=== PATIENT | male | born 1960 | race African-American/Black ===

== ENCOUNTER 2016-09-07 10:11 | Inpatient (IN) | payer OTHER ==
[2016-09-07 10:31] VITALS: BMI 31.5
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
[2016-09-07] MEDS ORDERED: MAGNESIUM CITRATE 300 ML BOTTLE PO PRN (11:29)
[2016-09-07] MEDS ORDERED: LOPERAMIDE HCL 2 MG CAPSULE PO PRN (11:29)
[2016-09-07] MEDS ORDERED: MAG HYDROX/AL HYDROX/SIMETH 30 ML UNIT-DOSE CUP PO PRN (11:29)
[2016-09-07] MEDS ORDERED: guaiFENesin/D-METHORPHAN HB 10 ML UNIT-DOSE CUPS PO PRN (11:29)
[2016-09-07] MEDS ORDERED: ACETAMINOPHEN 325 MG TABLET (FP) PO PRN (11:29)
[2016-09-07] MEDS ORDERED: chlordiazePOXIDE HCL 25 MG CAPSULE PO ONE (11:29)
[2016-09-07] MEDS ORDERED: MENTHOL/PHENOL 1 EACH UD MM PRN (11:29)
[2016-09-07] MEDS ORDERED: MAGNESIUM HYDROX 2400MG/30ML ORAL SUSPENSION 30 ML CUP PO PRN (11:29)
[2016-09-07] MEDS ORDERED: hydrOXYzine PAMOATE 50 MG CAPSULE (FP) PO PRN (11:29)
[2016-09-07] MEDS ORDERED: P-EPHED 60MG/TRIPROLIDI 2.5MG TABLET PO PRN (11:29)
[2016-09-07] MEDS: chlordiazePOXIDE HCL 25 MG CAPSULE PO PRN (15:10)
[2016-09-07] MEDS: NICOTINE 21 MG/24 HOURS TOPICAL PATCH TD SCH (15:13)
--- NOTE | 2016-09-07 16:06 | EKG ---
Test Reason : Blood Pressure : / mmHG Vent. Rate : 095 BPM Atrial Rate : 095 BPM P-R Int : 154 ms QRS Dur : 082 ms QT Int : 364 ms P-R-T Axes : 063 097 039 degrees QTc Int : 457 ms NORMAL SINUS RHYTHM RIGHTWARD AXIS BORDERLINE ECG NO PREVIOUS ECGS AVAILABLE Confirmed by ADELINA LEHMAN, KYUNG ([id number]) on 09/07/2016 4:05:28 PM Referred By: Confirmed By:KYUNG SAHU MD
[2016-09-07 17:53] LABS: URINE APPEARANCE CLEAR; URINE BILIRUBIN NEGATIVE (NEGATIVE); URINE BLOOD 1+ (NEGATIVE); URINE COLOR STRAW; URINE GLUCOSE (UA) NEGATIVE (NEGATIVE); URINE KETONE NEGATIVE (NEGATIVE); URINE LEUK ESTERASE NEGATIVE (NEGATIVE); URINE NITRITE NEGATIVE (NEGATIVE); URINE PROTEIN NEGATIVE (NEGATIVE); URINE UROBILINOGEN NEGATIVE E.U./dl (0.2-1.0)
[2016-09-07] MEDS: chlordiazePOXIDE HCL 25 MG CAPSULE PO SCH ×2 (18:39→22:46)
[2016-09-07 18:48] LABS: URINE RBC 1 /hpf (0-3); URINE WBC <1 /hpf (3-5)
[2016-09-07] MEDS: ATORVASTATIN CA 20 MG TABLET (FP) PO SCH (22:46)
[2016-09-07] MEDS: LISINOPRIL 10 MG TABLET (FP) PO SCH (22:46)
[2016-09-07] MEDS: THIAMINE HCL 100 MG TABLET (FP) PO SCH (22:46)
[2016-09-07] MEDS: VITAMINS A AND D TOPICAL OINTMENT 60 GM TUBE TP SCH (22:48)
[2016-09-07] MEDS: diphenhydrAMINE HCL 50 MG CAPSULE PO PRN (22:49)
[2016-09-08] MEDS: chlordiazePOXIDE HCL 25 MG CAPSULE PO SCH ×4 (06:06→22:02)
[2016-09-08 09:18] LABS: MCH 28.9 pg (25.7-33.7); MCHC 32.4 g/dl (32.0-35.9); MEAN PLT VOLUME 9.5 fl (7.5-11.1); PLATELET COUNT 175 K/MM3 (134-434); RDW 14.7 % (11.9-15.9); WHITE BLOOD COUNT 4.3 K/mm3 (4.0-10.0)
[2016-09-08 09:29] LABS: ALBUMIN 3.1 g/dl (3.4-5.0); ANION GAP 5 (8-16); CALCIUM 8.8 mg/dL (8.5-10.1); CO2 34 mmol/L (21-32); GLUCOSE,RANDOM 104 mg/dL (74-106); SGOT/AST 24 U/L (15-37); SGPT/ALT 30 U/L (12-78)
[2016-09-08 09:30] LABS: ALK PHOS 75 U/L (45-117); BILIRUBIN,TOTAL 0.4 mg/dL (0.2-1.0); CREATININE 0.9 mg/dL (0.7-1.3); TOT PROT 6.1 g/dl (6.4-8.2)
[2016-09-08] MEDS: VITAMINS A AND D TOPICAL OINTMENT 60 GM TUBE TP SCH ×2 (11:15→22:02)
[2016-09-08] MEDS: NICOTINE 21 MG/24 HOURS TOPICAL PATCH TD SCH (11:22)
[2016-09-08] MEDS: PRENATAL VITAMINS W/ FOLIC ACID TABLET (FP) PO SCH (11:22)
[2016-09-08] MEDS: ASPIRIN 81 MG CHEWABLE TABLETS PO SCH (11:24)
[2016-09-08] MEDS: LISINOPRIL 10 MG TABLET (FP) PO SCH ×2 (11:24→22:02)
[2016-09-08] MEDS: METOPROLOL TARTRATE 50 MG TABLET (FP) PO SCH (11:25)
[2016-09-08] MEDS ORDERED: POTASSIUM CHLORIDE TABS 20 MEQ TABLET.ER (FP) PO ONE (12:24)
--- NOTE | 2016-09-08 12:24 | PN ---
S CIWA - CIWA Score Nausea/Vomitin Muscle Tremors: 3 Anxiety: 3 Agitation: 3 Paroxysmal Sweats: 1-Minimal Palms Moist Orientation: 0-Oriented Tacttile Disturbances: 1-Very Mild Itch/Numbness Auditory Disturbances: 1-Very Mild Visual Disturbances: 1-Very Mild Sensitivity Headache: 2-Mild CIWA-Ar Total Score: 18 BHS Progress Note (SOAP) Subjective: ALERT,IRRITABLE,ANXIOUS,INTERRUPTED SLEEP,TREMOR Objective: 09/08/16 12:21 Vital Signs Temperature 96.6 F L 09/08/16 10:00 Pulse Rate 102 H 09/08/16 10:00 Respiratory Rate 18 09/08/16 10:00 Blood Pressure 119/75 09/08/16 10:00 O2 Sat by Pulse Oximetry (%) EKG NSR Laboratory Last Values WBC 4.3 K/mm3 (4.0-10.0) 09/08/16 07:20 RBC 4.90 M/mm3 (4.00-5.60) 09/08/16 07:20 Hgb 14.2 GM/dL (11.7-16.9) 09/08/16 07:20 Hct 43.6 % (35.4-49) 09/08/16 07:20 MCV 89.0 fl (80-96) 09/08/16 07:20 MCHC 32.4 g/dl (32.0-35.9) 09/08/16 07:20 RDW 14.7 % (11.9-15.9) 09/08/16 07:20 Plt Count 175 K/MM3 (134-434) D 09/08/16 07:20 MPV 9.5 fl (7.5-11.1) 09/08/16 07:20 Sodium 141 mmol/L (136-145) 09/08/16 07:20 Potassium 3.1 mmol/L (3.5-5.1) L 09/08/16 07:20 Chloride 102 mmol/L (98-107) 09/08/16 07:20 Carbon Dioxide 34 mmol/L (21-32) H 09/08/16 07:20 Anion Gap 5 (8-16) L 09/08/16 07:20 BUN 11 mg/dL (7-18) D 09/08/16 07:20 Creatinine 0.9 mg/dL (0.7-1.3) 09/08/16 07:20 Creat Clearance w eGFR > 60 (>60) 09/08/16 07:20 Random Glucose 104 mg/dL (74-106) D 09/08/16 07:20 Calcium 8.8 mg/dL (8.5-10.1) 09/08/16 07:20 Total Bilirubin 0.4 mg/dL (0.2-1.0) D 09/08/16 07:20 AST 24 U/L (15-37) 09/08/16 07:20 ALT 30 U/L (12-78) D 09/08/16 07:20 Alkaline Phosphatase 75 U/L (45-117) 09/08/16 07:20 Total Protein 6.1 g/dl (6.4-8.2) L 09/08/16 07:20 Albumin 3.1 g/dl (3.4-5.0) L 09/08/16 07:20 Urine Color Straw 09/07/16 14:00 Urine Appearance Clear 09/07/16 14:00 Urine pH 6.0 (5.0-8.0) 09/07/16 14:00 Ur Specific [place] 1.004 (1.001-1.035) 09/07/16 14:00 Urine Protein Negative (NEGATIVE) 09/07/16 14:00 Urine Glucose (UA) Negative (NEGATIVE) 09/07/16 14:00 Urine Ketones Negative (NEGATIVE) 09/07/16 14:00 Urine Blood 1+ (NEGATIVE) H 09/07/16 14:00 Urine Nitrite Negative (NEGATIVE) 09/07/16 14:00 Urine Bilirubin Negative (NEGATIVE) 09/07/16 14:00 Urine Urobilinogen Negative E.U./dl (0.2-1.0) 09/07/16 14:00 Ur Leukocyte Esterase Negative (NEGATIVE) 09/07/16 14:00 Urine RBC 1 /hpf (0-3) 09/07/16 14:00 Urine WBC <1 /hpf (3-5) 09/07/16 14:00 RPR Titer Nonreactive (NONREACTIVE) 09/08/16 07:20 Assessment: 09/08/16 12:22 WITHDRAWAL SYMPTOM Plan: CONTINUE DETOX,K 3.1 WILL GIVE K DUR 20 MEQ PO BID,REPEAT BMP
[2016-09-08] MEDS: THIAMINE HCL 100 MG TABLET (FP) PO SCH (22:01)
[2016-09-08] MEDS: POTASSIUM CHLORIDE TABS 20 MEQ TABLET.ER (FP) PO SCH (22:02)
[2016-09-08] MEDS: ATORVASTATIN CA 20 MG TABLET (FP) PO SCH (22:02)
[2016-09-08] MEDS: diphenhydrAMINE HCL 50 MG CAPSULE PO PRN (22:51)
[2016-09-09] MEDS: chlordiazePOXIDE HCL 25 MG CAPSULE PO SCH ×2 (05:40→11:11)
[2016-09-09] MEDS: chlordiazePOXIDE HCL 25 MG CAPSULE PO PRN (07:42)
[2016-09-09] MEDS ORDERED: diphenhydrAMINE HCL 25 MG CAPSULE (FP) PO ONE (09:44)
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
[2016-09-09] MEDS: PRENATAL VITAMINS W/ FOLIC ACID TABLET (FP) PO SCH (11:07)
[2016-09-09] MEDS: METOPROLOL TARTRATE 50 MG TABLET (FP) PO SCH (11:07)
[2016-09-09] MEDS: ASPIRIN 81 MG CHEWABLE TABLETS PO SCH (11:11)
[2016-09-09] MEDS: LISINOPRIL 10 MG TABLET (FP) PO SCH ×2 (11:11→23:00)
[2016-09-09] MEDS: VITAMINS A AND D TOPICAL OINTMENT 60 GM TUBE TP SCH ×2 (11:12→23:00)
[2016-09-09] MEDS: POTASSIUM CHLORIDE TABS 20 MEQ TABLET.ER (FP) PO SCH ×2 (11:12→22:59)
[2016-09-09] MEDS: NICOTINE 21 MG/24 HOURS TOPICAL PATCH TD SCH (11:12)
--- NOTE | 2016-09-09 12:24 | PN ---
S CIWA - CIWA Score Nausea/Vomitin Muscle Tremors: 3 Anxiety: 2 Agitation: 2 Paroxysmal Sweats: 1-Minimal Palms Moist Orientation: 0-Oriented Tacttile Disturbances: 1-Very Mild Itch/Numbness Auditory Disturbances: 1-Very Mild Visual Disturbances: 1-Very Mild Sensitivity Headache: 2-Mild CIWA-Ar Total Score: 16 BHS Progress Note (SOAP) Subjective: ALERT,IRRITABLE,ANXIOUS,INTERRUPTED SLEEP,TREMOR Objective: 09/09/16 12:23 Vital Signs Temperature 96.1 F L 09/09/16 09:57 Pulse Rate 90 09/09/16 09:57 Respiratory Rate 18 09/09/16 09:57 Blood Pressure 124/70 09/09/16 09:57 O2 Sat by Pulse Oximetry (%) Assessment: 09/09/16 12:23 WITHDRAWAL SYMPTOM Plan: CONTINUE DETOX
[2016-09-09] MEDS: ATORVASTATIN CA 20 MG TABLET (FP) PO SCH (22:59)
[2016-09-09] MEDS: traZODone HCL 100 MG TABLET (FP) PO SCH (22:59)
[2016-09-09] MEDS: THIAMINE HCL 100 MG TABLET (FP) PO SCH (23:00)
[2016-09-09] MEDS: chlordiazePOXIDE 5 MG CAPSULE PO SCH ×2 (23:00→23:01)
[2016-09-10] MEDS: chlordiazePOXIDE 5 MG CAPSULE PO SCH ×2 (05:34→10:37)
[2016-09-10] MEDS: POTASSIUM CHLORIDE TABS 20 MEQ TABLET.ER (FP) PO SCH ×2 (10:35→22:27)
[2016-09-10] MEDS: LISINOPRIL 10 MG TABLET (FP) PO SCH ×2 (10:36→22:27)
[2016-09-10] MEDS: ASPIRIN 81 MG CHEWABLE TABLETS PO SCH (10:36)
[2016-09-10] MEDS: NICOTINE 21 MG/24 HOURS TOPICAL PATCH TD SCH (10:36)
[2016-09-10] MEDS: METOPROLOL TARTRATE 50 MG TABLET (FP) PO SCH (10:36)
[2016-09-10] MEDS: PRENATAL VITAMINS W/ FOLIC ACID TABLET (FP) PO SCH (10:37)
[2016-09-10] MEDS: VITAMINS A AND D TOPICAL OINTMENT 60 GM TUBE TP SCH ×2 (10:37→23:40)
--- NOTE | 2016-09-10 11:38 | PN ---
BHS Progress Note (SOAP) Subjective: interrupted sleep, lbp Objective: 09/10/16 11:36 Vital Signs Temperature 97.9 F 09/10/16 10:12 Pulse Rate 98 H 09/10/16 10:12 Respiratory Rate 18 09/10/16 10:12 Blood Pressure 121/74 09/10/16 10:12 O2 Sat by Pulse Oximetry (%) Laboratory Tests 09/07/16 09/08/16 09/08/16 14:00 07:20 07:20 WBC 4.3 RBC 4.90 Hgb 14.2 Hct 43.6 MCV 89.0 MCHC 32.4 RDW 14.7 Plt Count 175 D MPV 9.5 Sodium 141 Potassium 3.1 L Chloride 102 Carbon Dioxide 34 H Anion Gap 5 L BUN 11 D Creatinine 0.9 Creat Clearance w eGFR > 60 Random Glucose 104 D Calcium 8.8 Total Bilirubin 0.4 D AST 24 ALT 30 D Alkaline Phosphatase 75 Total Protein 6.1 L Albumin 3.1 L Urine Color Straw Urine Appearance Clear Urine pH 6.0 Ur Specific [place] 1.004 Urine Protein Negative Urine Glucose (UA) Negative Urine Ketones Negative Urine Blood 1+ H Urine Nitrite Negative Urine Bilirubin Negative Urine Urobilinogen Negative Ur Leukocyte Esterase Negative Urine RBC 1 Urine WBC <1 RPR Titer 09/08/16 07:20 WBC RBC Hgb Hct MCV MCHC RDW Plt Count MPV Sodium Potassium Chloride Carbon Dioxide Anion Gap BUN Creatinine Creat Clearance w eGFR Random Glucose Calcium Total Bilirubin AST ALT Alkaline Phosphatase Total Protein Albumin Urine Color Urine Appearance Urine pH Ur Specific [place] Urine Protein Urine Glucose (UA) Urine Ketones Urine Blood Urine Nitrite Urine Bilirubin Urine Urobilinogen Ur Leukocyte Esterase Urine RBC Urine WBC RPR Titer Nonreactive pt aox3 in nad ambulating Assessment: 09/10/16 11:37 withdrawal sx's lbp Plan: cont. detox increase fluids motrin prn d/c in am
[2016-09-10] MEDS: chlordiazePOXIDE HCL 10 MG CAPSULE PO SCH ×2 (17:31→22:27)
[2016-09-10] MEDS: THIAMINE HCL 100 MG TABLET (FP) PO SCH (22:26)
[2016-09-10] MEDS: traZODone HCL 100 MG TABLET (FP) PO SCH (22:26)
[2016-09-10] MEDS: ATORVASTATIN CA 20 MG TABLET (FP) PO SCH (22:27)
[2016-09-11] MEDS: chlordiazePOXIDE HCL 10 MG CAPSULE PO SCH ×2 (05:29→12:31)
--- NOTE | 2016-09-11 08:33 | DS ---
[facility] Detox Discharge Summary Admission Date: 09/07/16 Discharge Date: 09/11/16 - History Present History: Alcohol Dependence - Physical Exam Results Vital Signs: Vital Signs Temperature 97.2 F L 09/11/16 06:27 Pulse Rate 84 09/11/16 06:27 Respiratory Rate 18 09/11/16 06:27 Blood Pressure 109/71 09/11/16 06:27 O2 Sat by Pulse Oximetry (%) - Treatment Hospital Course: Detox Protocol Followed, Detoxed Safely, Responded well, Discharged Condition Good, Rehab Referral Accepted - Medication Discharge Medications: Ambulatory Orders Pravastatin Sodium [Pravachol -] 80 mg PO HS #30 tablet 05/16/15 Aspirin [ASA -] 81 mg PO DAILY #30 tab.chew 08/01/15 Lisinopril [Prinivil] 10 mg PO BID 08/01/15 Metoprolol Tartrate [Lopressor -] 50 mg PO DAILY 10/01/15 Multivitamin with Minerals [Icaps Plus] 1 each PO DAILY 06/29/16 Trazodone HCl [Desyrel -] 100 mg PO HS 09/07/16 Trazodone HCl [Desyrel -] 100 mg PO HS #30 tablet 09/09/16 - Diagnosis (1) Alcohol dependence with uncomplicated withdrawal Current Visit: Yes Status: Chronic (2) Arthritis Current Visit: Yes Status: Chronic (3) CAD (coronary artery disease) Current Visit: Yes Status: Chronic Qualifiers: Coronary Disease-Associated Artery/Lesion type: unspecified vessel or lesion type [place] vs. transplanted heart: [place] heart Associated angina: angina presence unspecified Qualified Code(s): I25.10 - Atherosclerotic heart disease of [place] coronary artery without angina pectoris (4) Chronic low back pain Current Visit: Yes Status: Chronic Qualifiers: Back pain laterality: midline Sciatica presence: without sciatica Qualified Code(s): M54.5 - Low back pain; G89.29 - Other chronic pain (5) Cocaine dependence, uncomplicated Current Visit: Yes Status: Chronic (6) Hypercholesterolemia Current Visit: Yes Status: Chronic (7) Hypertension Current Visit: Yes Status: Chronic Qualifiers: Hypertension type: essential hypertension Qualified Code(s): I10 - Essential (primary) hypertension (8) Nicotine dependence Current Visit: Yes Status: Chronic Qualifiers: Nicotine product type: cigarettes Substance use status: uncomplicated Qualified Code(s): F17.210 - Nicotine dependence, cigarettes, uncomplicated (9) Obesity Current Visit: Yes Status: Chronic Qualifiers: Obesity type: due to excess calories Obesity severity: non-morbid Qualified Code(s): E66.09 - Other obesity due to excess calories (10) Alcohol-induced sleep disorder Current Visit: No Status: Acute (11) Drug-induced mood disorder Current Visit: No Status: Acute (12) Hypokalemia Current Visit: No Status: Acute (13) Substance-induced sleep disorder Current Visit: No Status: Acute (14) Depression Current Visit: No Status: Chronic (15) Insomnia Current Visit: No Status: Chronic Qualifiers: Insomnia type: unspecified Qualified Code(s): G47.00 - Insomnia, unspecified (16) Tooth ache Current Visit: No Status: Chronic - AMA Did Patient Leave Against Medical Advice: No
[2016-09-11 10:03] VITALS: BP 116/73; PULSE 93; TEMP 97.3
[2016-09-11] MEDS: METOPROLOL TARTRATE 50 MG TABLET (FP) PO SCH (12:25)
[2016-09-11] MEDS: LISINOPRIL 10 MG TABLET (FP) PO SCH (12:25)
[2016-09-11] MEDS: ASPIRIN 81 MG CHEWABLE TABLETS PO SCH (12:25)
[2016-09-11] MEDS: POTASSIUM CHLORIDE TABS 20 MEQ TABLET.ER (FP) PO SCH (12:25)
[2016-09-11] MEDS: NICOTINE 21 MG/24 HOURS TOPICAL PATCH TD SCH (12:26)
[2016-09-11] MEDS: PRENATAL VITAMINS W/ FOLIC ACID TABLET (FP) PO SCH (12:26)
[2016-09-11] MEDS: VITAMINS A AND D TOPICAL OINTMENT 60 GM TUBE TP SCH (12:31)
== END 2016-09-11 13:56 | disposition other institution (70) | DRG 897 ==
LOC: YASAS 10:11 → Y6N 13:33
PROVIDERS: ADMIT Internal Medicine; ATTEND Internal Medicine
PROC: HZ2ZZZZ Detoxification Services for Substance Abuse Treatment (ICD-10-PCS; principal; 2016-09-07)
DX: F10.230 Alcohol dependence with withdrawal, uncomplicated (principal); F19.282 Other psychoactive substance dependence with psychoactive substance-induced sleep disorder; F10.282 Alcohol dependence with alcohol-induced sleep disorder; F14.220 Cocaine dependence with intoxication, uncomplicated; F17.210 Nicotine dependence, cigarettes, uncomplicated; F19.24 Other psychoactive substance dependence with psychoactive substance-induced mood disorder; F32.9 Major depressive disorder, single episode, unspecified; I25.10 Atherosclerotic heart disease of native coronary artery without angina pectoris; I10 Essential (primary) hypertension; M12.9 Arthropathy, unspecified; M54.5 Low back pain; G89.29 Other chronic pain; E03.9 Hypothyroidism, unspecified; E78.00 Pure hypercholesterolemia, unspecified; E66.09 Other obesity due to excess calories; Z68.31 Body mass index [BMI] 31.0-31.9, adult; G47.00 Insomnia, unspecified; K08.89 Other specified disorders of teeth and supporting structures; Z95.5 Presence of coronary angioplasty implant and graft; Z59.0 Homelessness
CPT/HCPCS: 36415; 80053; 81003; 81015; 84132; 85027; 86593; 93005; 93010

== ENCOUNTER 2017-03-10 08:23 | Inpatient (IN) | payer OTHER ==
[2017-03-10 08:48] VITALS: BMI 29.5
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
[2017-03-10] MEDS ORDERED: IBUPROFEN 400 MG TABLET (FP) PO PRN (11:19)
[2017-03-10] MEDS ORDERED: MAGNESIUM HYDROX 2400MG/30ML ORAL SUSPENSION 30 ML CUP PO PRN (11:19)
[2017-03-10] MEDS ORDERED: hydrOXYzine PAMOATE 50 MG CAPSULE (FP) PO PRN (11:19)
[2017-03-10] MEDS ORDERED: chlordiazePOXIDE HCL 25 MG CAPSULE PO PRN (11:19)
[2017-03-10] MEDS ORDERED: MENTHOL/PHENOL 1 EACH UD MM PRN (11:19)
[2017-03-10] MEDS ORDERED: MAG HYDROX/AL HYDROX/SIMETH 30 ML UNIT-DOSE CUP PO PRN (11:19)
[2017-03-10] MEDS ORDERED: LOPERAMIDE HCL 2 MG CAPSULE PO PRN (11:19)
[2017-03-10] MEDS ORDERED: P-EPHED 60MG/TRIPROLIDI 2.5MG TABLET PO PRN (11:19)
[2017-03-10] MEDS ORDERED: MAGNESIUM CITRATE 300 ML BOTTLE PO PRN (11:19)
[2017-03-10] MEDS ORDERED: guaiFENesin/D-METHORPHAN HB 10 ML UNIT-DOSE CUPS PO PRN (11:19)
[2017-03-10] MEDS ORDERED: chlordiazePOXIDE HCL 25 MG CAPSULE PO ONE (12:09)
[2017-03-10] MEDS: METOPROLOL TARTRATE 50 MG TABLET (FP) PO SCH (13:43)
[2017-03-10 16:02] LABS: URINE APPEARANCE CLEAR; URINE BILIRUBIN NEGATIVE (NEGATIVE); URINE COLOR YELLOW; URINE GLUCOSE (UA) NEGATIVE (NEGATIVE); URINE KETONE TRACE (NEGATIVE); URINE LEUK ESTERASE NEGATIVE (NEGATIVE); URINE NITRITE NEGATIVE (NEGATIVE); URINE UROBILINOGEN 4.0 E.U/dl mg/dL (0.2-1.0)
[2017-03-10 16:04] LABS: URINE BLOOD 1+ (NEGATIVE); URINE PROTEIN 1+ (NEGATIVE)
[2017-03-10 16:29] LABS: URINE BACTERIA RARE /hpf (NONE SEEN); URINE MUCUS RARE; URINE RBC 13 /hpf (0-3); URINE WBC 2 /hpf (3-5)
--- NOTE | 2017-03-10 16:59 | EKG ---
Test Reason : Blood Pressure : / mmHG Vent. Rate : 097 BPM Atrial Rate : 097 BPM P-R Int : 160 ms QRS Dur : 076 ms QT Int : 378 ms P-R-T Axes : 062 084 049 degrees QTc Int : 480 ms NORMAL SINUS RHYTHM PROLONGED QT ABNORMAL ECG WHEN COMPARED WITH ECG OF 26-OCT-2016 15:55, PREMATURE ATRIAL COMPLEXES ARE NO LONGER PRESENT Confirmed by JESSICA EPSTEIN MD ([id number]) on 03/10/2017 4:59:30 PM Referred By: Confirmed By:JESSICA EPSTEIN MD
[2017-03-10] MEDS: chlordiazePOXIDE HCL 25 MG CAPSULE PO SCH ×2 (17:01→22:15)
[2017-03-10] MEDS: NICOTINE 21 MG/24 HOURS TOPICAL PATCH TD PRN (17:28)
[2017-03-10] MEDS: LISINOPRIL 10 MG TABLET (FP) PO SCH (22:14)
[2017-03-10] MEDS: ATORVASTATIN CA 20 MG TABLET (FP) PO SCH (22:14)
[2017-03-10] MEDS: THIAMINE HCL 100 MG TABLET (FP) PO SCH (22:14)
[2017-03-10] MEDS: diphenhydrAMINE HCL 50 MG CAPSULE PO PRN (22:15)
[2017-03-11] MEDS: chlordiazePOXIDE HCL 25 MG CAPSULE PO SCH ×4 (05:40→22:10)
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
[2017-03-11 09:57] LABS: HIV 1 & 2 AB NEGATIVE; HIV 1 AGp24 NEGATIVE
[2017-03-11] MEDS ORDERED: NICOTINE 21 MG/24 HOURS TOPICAL PATCH TD SCH (10:00)
[2017-03-11] MEDS: NICOTINE 21 MG/24 HOURS TOPICAL PATCH TD PRN (10:03)
[2017-03-11] MEDS: METOPROLOL TARTRATE 50 MG TABLET (FP) PO SCH (10:03)
[2017-03-11] MEDS: PRENATAL VITAMINS W/ FOLIC ACID TABLET (FP) PO SCH (10:03)
[2017-03-11] MEDS: LISINOPRIL 10 MG TABLET (FP) PO SCH ×2 (10:03→22:09)
[2017-03-11] MEDS: ASPIRIN 81 MG CHEWABLE TABLETS PO SCH (10:03)
[2017-03-11] MEDS: ACETAMINOPHEN 325 MG TABLET (FP) PO PRN ×2 (10:05→20:21)
[2017-03-11 10:08] LABS: MCH 28.8 pg (25.7-33.7); MCHC 32.7 g/dl (32.0-35.9); MEAN PLT VOLUME 10.1 fl (7.5-11.1); PLATELET COUNT 165 K/MM3 (134-434); RDW 14.1 % (11.9-15.9); WHITE BLOOD COUNT 6.4 K/mm3 (4.0-10.0)
[2017-03-11 10:18] LABS: ALBUMIN 3.6 g/dl (3.4-5.0); ANION GAP 8 (8-16); CALCIUM 9.1 mg/dL (8.5-10.1); CO2 30 mmol/L (21-32); GLUCOSE,RANDOM 121 mg/dL (74-106); SGOT/AST 30 U/L (15-37); SGPT/ALT 26 U/L (12-78)
[2017-03-11 10:20] LABS: ALK PHOS 95 U/L (45-117); BILIRUBIN,TOTAL 0.2 mg/dL (0.2-1.0); CREATININE 0.9 mg/dL (0.7-1.3)
--- NOTE | 2017-03-11 10:24 | PN ---
[facility] CIWA - CIWA Score Nausea/Vomitin-No Nausea/No Vomiting Muscle Tremors: 4-Moderate,w/Arms Extend Anxiety: 4-Mod. Anxious/Guarded Agitation: 4-Moderately Restless Paroxysmal Sweats: 1-Minimal Palms Moist Orientation: 0-Oriented Tacttile Disturbances: 3-Moderate Itch/Numb/Burn Auditory Disturbances: 0-None Visual Disturbances: 0-None Headache: 0-None Present CIWA-Ar Total Score: 16 BHS Progress Note (SOAP) Subjective: ANXIETY,SWEATS,BACK PAIN,FATIGUE. Objective: 03/11/17 10:19 Vital Signs Temperature 96.8 F L 03/11/17 09:48 Pulse Rate 92 H 03/11/17 09:48 Respiratory Rate 18 03/11/17 09:48 Blood Pressure 136/89 03/11/17 09:48 O2 Sat by Pulse Oximetry (%) Laboratory Last Values Urine Color Yellow 03/10/17 14:10 Urine Appearance Clear 03/10/17 14:10 Urine pH 6.0 (5.0-8.0) 03/10/17 14:10 Ur Specific [place] 1.020 (1.005-1.025) 03/10/17 14:10 Urine Protein 1+ (NEGATIVE) H 03/10/17 14:10 Urine Glucose (UA) Negative (NEGATIVE) 03/10/17 14:10 Urine Ketones Trace (NEGATIVE) H 03/10/17 14:10 Urine Blood 1+ (NEGATIVE) H 03/10/17 14:10 Urine Nitrite Negative (NEGATIVE) 03/10/17 14:10 Urine Bilirubin Negative (NEGATIVE) 03/10/17 14:10 Urine Urobilinogen 4.0 e.u/dl mg/dL (0.2-1.0) 03/10/17 14:10 Ur Leukocyte Esterase Negative (NEGATIVE) 03/10/17 14:10 Urine RBC 13 /hpf (0-3) 03/10/17 14:10 Urine WBC 2 /hpf (3-5) 03/10/17 14:10 Ur Epithelial Cells Rare /hpf (FEW) 03/10/17 14:10 Urine Bacteria Rare /hpf (NONE SEEN) 03/10/17 14:10 Urine Mucus Rare 03/10/17 14:10 HIV 1&2 Antibody Screen Negative 03/10/17 11:45 HIV P24 Antigen Negative 03/10/17 11:45 LABS NOTED Assessment: 03/11/17 10:20 WITHDRAWAL SX Plan: CONTINUE DETOX INCREASE PO FLUIDS MOTRIN DIRECTED PRN. FLEXERIL DIRECTED PRN.
[2017-03-11] MEDS: ATORVASTATIN CA 20 MG TABLET (FP) PO SCH (22:09)
[2017-03-11] MEDS: THIAMINE HCL 100 MG TABLET (FP) PO SCH (22:09)
[2017-03-11] MEDS: CYCLOBENZAPRINE HCL 10 MG TABLET (FP) PO PRN (22:10)
[2017-03-11] MEDS: diphenhydrAMINE HCL 50 MG CAPSULE PO PRN (22:11)
[2017-03-12] MEDS: chlordiazePOXIDE HCL 25 MG CAPSULE PO SCH ×2 (05:15→10:03)
--- NOTE | 2017-03-12 09:33 | PN ---
[facility] CIWA - CIWA Score Nausea/Vomitin-No Nausea/No Vomiting Muscle Tremors: 4-Moderate,w/Arms Extend Anxiety: 4-Mod. Anxious/Guarded Agitation: 4-Moderately Restless Paroxysmal Sweats: 1-Minimal Palms Moist Orientation: 0-Oriented Tacttile Disturbances: 3-Moderate Itch/Numb/Burn Auditory Disturbances: 0-None Visual Disturbances: 0-None Headache: 0-None Present CIWA-Ar Total Score: 16 S Progress Note (SOAP) Subjective: ANXIETY,SWEATS,BODYACHES,INTERMITTENT SLEEP. Objective: 03/12/17 09:32 Vital Signs Temperature 98.1 F 03/12/17 05:50 Pulse Rate 91 H 03/12/17 05:50 Respiratory Rate 18 03/12/17 05:50 Blood Pressure 144/93 03/12/17 05:50 O2 Sat by Pulse Oximetry (%) Laboratory Last Values WBC 6.4 K/mm3 (4.0-10.0) D 03/11/17 06:00 RBC 5.07 M/mm3 (4.00-5.60) 03/11/17 06:00 Hgb 14.6 GM/dL (11.7-16.9) 03/11/17 06:00 Hct 44.6 % (35.4-49) 03/11/17 06:00 MCV 88.0 fl (80-96) 03/11/17 06:00 MCH 28.8 pg (25.7-33.7) 03/11/17 06:00 MCHC 32.7 g/dl (32.0-35.9) 03/11/17 06:00 RDW 14.1 % (11.9-15.9) 03/11/17 06:00 Plt Count 165 K/MM3 (134-434) 03/11/17 06:00 MPV 10.1 fl (7.5-11.1) 03/11/17 06:00 Sodium 140 mmol/L (136-145) 03/11/17 06:00 Potassium 3.3 mmol/L (3.5-5.1) L 03/11/17 06:00 Chloride 102 mmol/L (98-107) 03/11/17 06:00 Carbon Dioxide 30 mmol/L (21-32) 03/11/17 06:00 Anion Gap 8 (8-16) 03/11/17 06:00 BUN 12 mg/dL (7-18) 03/11/17 06:00 Creatinine 0.9 mg/dL (0.7-1.3) D 03/11/17 06:00 Creat Clearance w eGFR > 60 (>60) 03/11/17 06:00 Random Glucose 121 mg/dL (74-106) H D 03/11/17 06:00 Calcium 9.1 mg/dL (8.5-10.1) 03/11/17 06:00 Total Bilirubin 0.2 mg/dL (0.2-1.0) D 03/11/17 06:00 AST 30 U/L (15-37) 03/11/17 06:00 ALT 26 U/L (12-78) 03/11/17 06:00 Alkaline Phosphatase 95 U/L (45-117) 03/11/17 06:00 Total Protein 7.0 g/dl (6.4-8.2) 03/11/17 06:00 Albumin 3.6 g/dl (3.4-5.0) 03/11/17 06:00 Urine Color Yellow 03/10/17 14:10 Urine Appearance Clear 03/10/17 14:10 Urine pH 6.0 (5.0-8.0) 03/10/17 14:10 Ur Specific [place] 1.020 (1.005-1.025) 03/10/17 14:10 Urine Protein 1+ (NEGATIVE) H 03/10/17 14:10 Urine Glucose (UA) Negative (NEGATIVE) 03/10/17 14:10 Urine Ketones Trace (NEGATIVE) H 03/10/17 14:10 Urine Blood 1+ (NEGATIVE) H 03/10/17 14:10 Urine Nitrite Negative (NEGATIVE) 03/10/17 14:10 Urine Bilirubin Negative (NEGATIVE) 03/10/17 14:10 Urine Urobilinogen 4.0 e.u/dl mg/dL (0.2-1.0) 03/10/17 14:10 Ur Leukocyte Esterase Negative (NEGATIVE) 03/10/17 14:10 Urine RBC 13 /hpf (0-3) 03/10/17 14:10 Urine WBC 2 /hpf (3-5) 03/10/17 14:10 Ur Epithelial Cells Rare /hpf (FEW) 03/10/17 14:10 Urine Bacteria Rare /hpf (NONE SEEN) 03/10/17 14:10 Urine Mucus Rare 03/10/17 14:10 RPR Titer Nonreactive (NONREACTIVE) 03/11/17 06:00 HIV 1&2 Antibody Screen Negative 03/10/17 11:45 HIV P24 Antigen Negative 03/10/17 11:45 Assessment: 03/12/17 09:33 WITHDRAWAL SX Plan: CONTINUE DETOX REPEAT UA INCREASE PO FLUIDS
[2017-03-12] MEDS: PRENATAL VITAMINS W/ FOLIC ACID TABLET (FP) PO SCH (10:03)
[2017-03-12] MEDS: ASPIRIN 81 MG CHEWABLE TABLETS PO SCH (10:03)
[2017-03-12] MEDS: NICOTINE 21 MG/24 HOURS TOPICAL PATCH TD PRN (10:03)
[2017-03-12] MEDS: METOPROLOL TARTRATE 50 MG TABLET (FP) PO SCH (10:03)
[2017-03-12] MEDS: LISINOPRIL 10 MG TABLET (FP) PO SCH ×2 (10:03→22:14)
[2017-03-12] MEDS: chlordiazePOXIDE 5 MG CAPSULE PO SCH ×2 (17:17→22:13)
[2017-03-12] MEDS: ATORVASTATIN CA 20 MG TABLET (FP) PO SCH (22:13)
[2017-03-12] MEDS: THIAMINE HCL 100 MG TABLET (FP) PO SCH (22:13)
[2017-03-12] MEDS: CYCLOBENZAPRINE HCL 10 MG TABLET (FP) PO PRN (22:14)
[2017-03-12] MEDS: diphenhydrAMINE HCL 50 MG CAPSULE PO PRN (22:15)
[2017-03-12 23:19] LABS: URINE APPEARANCE CLOUDY; URINE BILIRUBIN NEGATIVE (NEGATIVE); URINE BLOOD NEGATIVE (NEGATIVE); URINE COLOR YELLOW; URINE GLUCOSE (UA) NEGATIVE (NEGATIVE); URINE KETONE NEGATIVE (NEGATIVE); URINE LEUK ESTERASE NEGATIVE (NEGATIVE); URINE NITRITE NEGATIVE (NEGATIVE); URINE PROTEIN NEGATIVE (NEGATIVE); URINE UROBILINOGEN NEGATIVE mg/dL (0.2-1.0)
[2017-03-13] MEDS: chlordiazePOXIDE 5 MG CAPSULE PO SCH ×2 (05:55→10:10)
[2017-03-13] MEDS: PRENATAL VITAMINS W/ FOLIC ACID TABLET (FP) PO SCH (10:10)
[2017-03-13] MEDS: LISINOPRIL 10 MG TABLET (FP) PO SCH ×2 (10:10→22:14)
[2017-03-13] MEDS: METOPROLOL TARTRATE 50 MG TABLET (FP) PO SCH (10:11)
[2017-03-13] MEDS: ASPIRIN 81 MG CHEWABLE TABLETS PO SCH (10:11)
--- NOTE | 2017-03-13 10:44 | PN ---
BHS Progress Note (SOAP) Subjective: DECREASED ANXIETY,SWEATS. BACK PAIN BUT MOTRIN AND FLEXERIL WITH SOME EFFECT. Objective: 03/13/17 10:43 Vital Signs Temperature 98.0 F 03/13/17 09:47 Pulse Rate 95 H 03/13/17 09:47 Respiratory Rate 03/13/17 09:47 Blood Pressure 140/99 03/13/17 09:47 O2 Sat by Pulse Oximetry (%) Assessment: 03/13/17 10:44 WITHDRAWAL SX CHRONIC BACK ACHE Plan: CONTINUE DETOX
[2017-03-13] MEDS: chlordiazePOXIDE HCL 10 MG CAPSULE PO SCH ×2 (17:12→22:14)
[2017-03-13] MEDS: ACETAMINOPHEN 325 MG TABLET (FP) PO PRN (17:36)
[2017-03-13] MEDS: ATORVASTATIN CA 20 MG TABLET (FP) PO SCH (22:13)
[2017-03-13] MEDS: THIAMINE HCL 100 MG TABLET (FP) PO SCH (22:13)
[2017-03-13] MEDS: diphenhydrAMINE HCL 50 MG CAPSULE PO PRN (22:14)
[2017-03-13] MEDS: CYCLOBENZAPRINE HCL 10 MG TABLET (FP) PO PRN (22:16)
[2017-03-14] MEDS: chlordiazePOXIDE HCL 10 MG CAPSULE PO SCH (05:56)
[2017-03-14 06:57] VITALS: BP 129/93; PULSE 83; TEMP 96.8
--- NOTE | 2017-03-14 11:10 | DS ---
[facility] Detox Discharge Summary Admission Date: 03/10/17 Discharge Date: 03/14/17 - History Present History: Alcohol Dependence, Cocaine Dependence Additional Comments: DETOX COMPLETED. ALERT O X 3. NAD. PT REMINDED TO FOLLOW UP WITH HIS PMD, DR MCDANIEL ON [address], [place] FOR MEDICAL MANAGEMENT OF COMORBID CONDITIONS. Pertinent Past History: HTN CAD HYPERCHOLESTEROLEMIA HX INTRAVASCULAR STENT PLACEMENT OBESITY - Physical Exam Results Vital Signs: Vital Signs Temperature 96.8 F L 03/14/17 06:41 Pulse Rate 83 03/14/17 06:41 Respiratory Rate 18 03/14/17 06:41 Blood Pressure 129/93 03/14/17 06:41 O2 Sat by Pulse Oximetry (%) Pertinent Admission Physical Exam Findings: WITHDRAWAL SX - Treatment Hospital Course: Detox Protocol Followed, Detoxed Safely, Responded well, Discharged Condition Good, Rehab Referral Accepted Patient has Accepted a Rehab Referral to: [facility]/ [facility] - Medication Discharge Medications: Ambulatory Orders Multivitamin with Minerals [Icaps Plus] 1 each PO DAILY #30 tablet 09/24/16 Trazodone HCl [Desyrel -] 150 mg PO HS 10/26/16 Aspirin [ASA -] 81 mg PO DAILY #30 tab.chew 03/14/17 Atorvastatin Ca [Lipitor] 20 mg PO HS #30 tablet 03/14/17 Lisinopril [Prinivil] 10 mg PO BID #60 tablet 03/14/17 Metoprolol Tartrate [Lopressor -] 50 mg PO DAILY #30 tablet 03/14/17 - Diagnosis (1) Alcohol dependence with uncomplicated withdrawal Status: Acute (2) Cocaine dependence, uncomplicated Status: Acute (3) Nicotine dependence Status: Acute Qualifiers: Nicotine product type: cigarettes Substance use status: in withdrawal Qualified Code(s): F17.213 - Nicotine dependence, cigarettes, with withdrawal (4) CAD (coronary artery disease) Status: Chronic Qualifiers: Coronary Disease-Associated Artery/Lesion type: unspecified vessel or lesion type [place] vs. transplanted heart: [place] heart Associated angina: without angina Qualified Code(s): I25.10 - Atherosclerotic heart disease of [place] coronary artery without angina pectoris (5) Chronic low back pain Status: Chronic Qualifiers: Back pain laterality: midline Sciatica presence: without sciatica Qualified Code(s): M54.5 - Low back pain; G89.29 - Other chronic pain (6) History of intravascular stent placement Status: Chronic (7) Hypercholesterolemia Status: Chronic (8) Hypertension Status: Chronic Qualifiers: Hypertension type: essential hypertension Qualified Code(s): I10 - Essential (primary) hypertension (9) Obesity Status: Chronic Qualifiers: Obesity type: due to excess calories - AMA Did Patient Leave Against Medical Advice: No
== END 2017-03-14 09:12 | disposition home or self-care (01) | DRG 897 ==
LOC: YASAS 08:23 → Y3N 12:06 → Y6N 12:47 → Y3N 12:50
PROVIDERS: ADMIT Internal Medicine Addiction Medicine; ATTEND Internal Medicine Addiction Medicine
PROC: HZ2ZZZZ Detoxification Services for Substance Abuse Treatment (ICD-10-PCS; principal; 2017-03-14)
DX: F10.230 Alcohol dependence with withdrawal, uncomplicated (principal); F17.213 Nicotine dependence, cigarettes, with withdrawal; F32.9 Major depressive disorder, single episode, unspecified; I25.10 Atherosclerotic heart disease of native coronary artery without angina pectoris; I10 Essential (primary) hypertension; Z95.5 Presence of coronary angioplasty implant and graft; E78.00 Pure hypercholesterolemia, unspecified; M54.5 Low back pain; G89.29 Other chronic pain; E66.09 Other obesity due to excess calories; Z68.29 Body mass index [BMI] 29.0-29.9, adult; Z59.0 Homelessness
CPT/HCPCS: 36415; 80053; 81003; 81015; 85027; 86593; 87389; 93005; 93010

== ENCOUNTER 2017-05-16 08:54 | Inpatient (IN) | payer OTHER ==
[2017-05-16 10:01] VITALS: BMI 29.4
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
[2017-05-16] MEDS ORDERED: hydrOXYzine PAMOATE 50 MG CAPSULE (FP) PO PRN (14:13)
[2017-05-16] MEDS ORDERED: MAGNESIUM HYDROX 2400MG/30ML ORAL SUSPENSION 30 ML CUP PO PRN (14:13)
[2017-05-16] MEDS ORDERED: guaiFENesin/D-METHORPHAN HB 10 ML UNIT-DOSE CUPS PO PRN (14:13)
[2017-05-16] MEDS ORDERED: LOPERAMIDE HCL 2 MG CAPSULE PO PRN (14:13)
[2017-05-16] MEDS ORDERED: IBUPROFEN 400 MG TABLET (FP) PO PRN (14:13)
[2017-05-16] MEDS ORDERED: MAG HYDROX/AL HYDROX/SIMETH 30 ML UNIT-DOSE CUP PO PRN (14:13)
[2017-05-16] MEDS ORDERED: chlordiazePOXIDE HCL 25 MG CAPSULE PO PRN (14:13)
[2017-05-16] MEDS ORDERED: MENTHOL/PHENOL 1 EACH UD MM PRN (14:13)
[2017-05-16] MEDS ORDERED: P-EPHED 60MG/TRIPROLIDI 2.5MG TABLET PO PRN (14:13)
[2017-05-16] MEDS ORDERED: MAGNESIUM CITRATE 300 ML BOTTLE PO PRN (14:13)
[2017-05-16] MEDS ORDERED: ACETAMINOPHEN 325 MG TABLET (FP) PO PRN (14:13)
[2017-05-16] MEDS ORDERED: chlordiazePOXIDE HCL 25 MG CAPSULE PO ONE (14:51)
[2017-05-16] MEDS: NICOTINE 21 MG/24 HOURS TOPICAL PATCH TD SCH (15:26)
[2017-05-16] MEDS: chlordiazePOXIDE HCL 25 MG CAPSULE PO SCH ×2 (17:20→22:50)
[2017-05-16 21:55] LABS: PH,URINE 5.5 (5.0-8.0); URINE APPEARANCE CLEAR; URINE BILIRUBIN NEGATIVE (NEGATIVE); URINE BLOOD 1+ (NEGATIVE); URINE COLOR LT. YELLOW; URINE GLUCOSE (UA) NEGATIVE (NEGATIVE); URINE KETONE TRACE (NEGATIVE); URINE LEUK ESTERASE NEGATIVE (NEGATIVE); URINE NITRITE NEGATIVE (NEGATIVE); URINE UROBILINOGEN 0.2 mg/dL (0.2-1.0)
[2017-05-16 22:00] LABS: URINE PROTEIN 1+ (NEGATIVE)
[2017-05-16 22:15] LABS: URINE MUCUS FEW; URINE RBC 2 /hpf (0-3); URINE WBC 1 /hpf (3-5)
[2017-05-16] MEDS: THIAMINE HCL 100 MG TABLET (FP) PO SCH (22:50)
[2017-05-16] MEDS: ATORVASTATIN CA 20 MG TABLET (FP) PO SCH (22:50)
[2017-05-16] MEDS: LISINOPRIL 10 MG TABLET (FP) PO SCH (22:51)
[2017-05-16] MEDS: diphenhydrAMINE HCL 50 MG CAPSULE PO PRN (22:51)
[2017-05-17] MEDS: chlordiazePOXIDE HCL 25 MG CAPSULE PO SCH ×4 (05:42→22:25)
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
--- NOTE | 2017-05-17 09:50 | EKG ---
Test Reason : Blood Pressure : / mmHG Vent. Rate : 095 BPM Atrial Rate : 095 BPM P-R Int : 156 ms QRS Dur : 096 ms QT Int : 364 ms P-R-T Axes : 059 083 046 degrees QTc Int : 457 ms NORMAL SINUS RHYTHM NORMAL ECG WHEN COMPARED WITH ECG OF 10-MAR-2017 12:05, NO SIGNIFICANT CHANGE WAS FOUND Confirmed by MD MUKESH, JAVI ([id number]) on 05/17/2017 9:50:15 AM Referred By: Kristofer Martin Confirmed By:JAVI MAYOGRA MD
[2017-05-17] MEDS: LISINOPRIL 10 MG TABLET (FP) PO SCH ×2 (10:32→22:25)
[2017-05-17] MEDS: ASPIRIN 81 MG CHEWABLE TABLETS PO SCH (10:32)
[2017-05-17] MEDS: PRENATAL VITAMINS W/ FOLIC ACID TABLET (FP) PO SCH (10:32)
[2017-05-17] MEDS: NICOTINE 21 MG/24 HOURS TOPICAL PATCH TD SCH (10:33)
[2017-05-17] MEDS: METOPROLOL TARTRATE 50 MG TABLET (FP) PO SCH (10:33)
[2017-05-17 10:34] LABS: MCH 28.6 pg (25.7-33.7); MCHC 32.4 g/dl (32.0-35.9); MEAN CELL VOLUME 88.2 fl (80-96); MEAN PLT VOLUME 9.9 fl (7.5-11.1); PLATELET COUNT 192 K/MM3 (134-434); RDW 14.9 % (11.9-15.9); WHITE BLOOD COUNT 7.6 K/mm3 (4.0-10.0)
[2017-05-17 11:33] LABS: ALBUMIN 4.4 g/dl (3.4-5.0); ALK PHOS 85 U/L (45-117); ANION GAP 11 (8-16); BILIRUBIN,TOTAL 0.6 mg/dL (0.2-1.0); CALCIUM 9.1 mg/dL (8.5-10.1); CO2 23 mmol/L (21-32); GLUCOSE,RANDOM 103 mg/dL (74-106); SGOT/AST 47 U/L (15-37); SGPT/ALT 31 U/L (12-78); TOT PROT 7.8 g/dl (6.4-8.2)
--- NOTE | 2017-05-17 17:07 | PN ---
[facility] CIWA - CIWA Score Nausea/Vomitin-No Nausea/No Vomiting Muscle Tremors: 4-Moderate,w/Arms Extend Anxiety: 2 Agitation: 2 Paroxysmal Sweats: No Perspiration Orientation: 0-Oriented Tacttile Disturbances: 3-Moderate Itch/Numb/Burn Auditory Disturbances: 2-Mild Harshness/Frighten Visual Disturbances: 3-Moderate Sensitivity Headache: 0-None Present CIWA-Ar Total Score: 16 S Progress Note (SOAP) Subjective: Tremors, Constipation, Anxious, Body Aches, Interrupted sleep. Objective: PT. A & O X 3, OBSERVED AMBULATING ON UNIT. NO ACUTE DISTRESS. PT. DENIES CHEST PAIN. 05/17/17 17:05 Vital Signs Temperature 96.8 F L 05/17/17 15:30 Pulse Rate 87 05/17/17 15:30 Respiratory Rate 18 05/17/17 15:30 Blood Pressure 124/70 05/17/17 15:30 O2 Sat by Pulse Oximetry (%) Laboratory Tests 05/16/17 05/17/17 05/17/17 21:46 06:00 06:00 WBC 7.6 RBC 4.92 Hgb 14.0 Hct 43.3 MCV 88.2 MCH 28.6 MCHC 32.4 RDW 14.9 Plt Count 192 MPV 9.9 Sodium 142 Potassium 3.8 Chloride 108 H Carbon Dioxide 23 D Anion Gap 11 BUN 15 D Creatinine 1.0 Creat Clearance w eGFR > 60 Random Glucose 103 Calcium 9.1 Total Bilirubin 0.6 D AST 47 H D ALT 31 Alkaline Phosphatase 85 Total Protein 7.8 Albumin 4.4 D Urine Color Lt. yellow Urine Appearance Clear Urine pH 5.5 D Ur Specific [place] >= 1.030 H Urine Protein 1+ H Urine Glucose (UA) Negative Urine Ketones Trace H Urine Blood 1+ H Urine Nitrite Negative Urine Bilirubin Negative Urine Urobilinogen 0.2 Urine RBC 2 Urine WBC 1 Urine Mucus Few RPR Titer 05/17/17 06:00 WBC RBC Hgb Hct MCV MCH MCHC RDW Plt Count MPV Sodium Potassium Chloride Carbon Dioxide Anion Gap BUN Creatinine Creat Clearance w eGFR Random Glucose Calcium Total Bilirubin AST ALT Alkaline Phosphatase Total Protein Albumin Urine Color Urine Appearance Urine pH Ur Specific [place] Urine Protein Urine Glucose (UA) Urine Ketones Urine Blood Urine Nitrite Urine Bilirubin Urine Urobilinogen Urine RBC Urine WBC Urine Mucus RPR Titer Nonreactive LABS NOTED. Assessment: 05/17/17 17:05 WITHDRAWAL SYMPTOMS. Plan: CONTINUE DETOX. PRN IMMODIUM FOR CONSTIPATION. INCREASE DAILY PO FLUID INTAKE.
[2017-05-17] MEDS: traZODone HCL 100 MG TABLET (FP) PO SCH (22:24)
[2017-05-17] MEDS: THIAMINE HCL 100 MG TABLET (FP) PO SCH (22:24)
[2017-05-17] MEDS: ATORVASTATIN CA 20 MG TABLET (FP) PO SCH (22:25)
[2017-05-18] MEDS: chlordiazePOXIDE HCL 25 MG CAPSULE PO SCH ×2 (06:40→10:27)
[2017-05-18] MEDS: METOPROLOL TARTRATE 50 MG TABLET (FP) PO SCH (10:26)
[2017-05-18] MEDS: NICOTINE 21 MG/24 HOURS TOPICAL PATCH TD SCH (10:26)
[2017-05-18] MEDS: PRENATAL VITAMINS W/ FOLIC ACID TABLET (FP) PO SCH (10:26)
[2017-05-18] MEDS: LISINOPRIL 10 MG TABLET (FP) PO SCH ×2 (10:26→22:14)
[2017-05-18] MEDS: ASPIRIN 81 MG CHEWABLE TABLETS PO SCH (10:26)
--- NOTE | 2017-05-18 16:42 | PN ---
[facility] CIWA - CIWA Score Nausea/Vomitin Muscle Tremors: 3 Anxiety: 2 Agitation: 2 Paroxysmal Sweats: 3 Orientation: 0-Oriented Tacttile Disturbances: 1-Very Mild Itch/Numbness Auditory Disturbances: 0-None Visual Disturbances: 0-None Headache: 1-Very Mild CIWA-Ar Total Score: 14 [facility] Progress Note (SOAP) Subjective: Sweating, nausea, interrupted sleep, feels weak Objective: 05/18/17 16:41 Last Vital Signs Temp Pulse Resp BP Pulse Ox 97.5 F L 96 H 16 132/80 05/18/17 14:11 05/18/17 14:11 05/18/17 14:11 05/18/17 14:11 Laboratory Tests 05/16/17 05/17/17 05/17/17 21:46 06:00 06:00 WBC 7.6 RBC 4.92 Hgb 14.0 Hct 43.3 MCV 88.2 MCH 28.6 MCHC 32.4 RDW 14.9 Plt Count 192 MPV 9.9 Sodium 142 Potassium 3.8 Chloride 108 H Carbon Dioxide 23 D Anion Gap 11 BUN 15 D Creatinine 1.0 Creat Clearance w eGFR > 60 Random Glucose 103 Calcium 9.1 Total Bilirubin 0.6 D AST 47 H D ALT 31 Alkaline Phosphatase 85 Total Protein 7.8 Albumin 4.4 D Urine Color Lt. yellow Urine Appearance Clear Urine pH 5.5 D Ur Specific [place] >= 1.030 H Urine Protein 1+ H Urine Glucose (UA) Negative Urine Ketones Trace H Urine Blood 1+ H Urine Nitrite Negative Urine Bilirubin Negative Urine Urobilinogen 0.2 Urine RBC 2 Urine WBC 1 Urine Mucus Few RPR Titer 05/17/17 06:00 WBC RBC Hgb Hct MCV MCH MCHC RDW Plt Count MPV Sodium Potassium Chloride Carbon Dioxide Anion Gap BUN Creatinine Creat Clearance w eGFR Random Glucose Calcium Total Bilirubin AST ALT Alkaline Phosphatase Total Protein Albumin Urine Color Urine Appearance Urine pH Ur Specific [place] Urine Protein Urine Glucose (UA) Urine Ketones Urine Blood Urine Nitrite Urine Bilirubin Urine Urobilinogen Urine RBC Urine WBC Urine Mucus RPR Titer Nonreactive Labs noted: UA abnormal Assessment: 05/18/17 16:41 Withdrawal symptoms Noted with abnormal UA Plan: Continue detox Abnormal UA: encouraged to drink lots of water, water pitcher ordered, repeat UA
[2017-05-18] MEDS: chlordiazePOXIDE 5 MG CAPSULE PO SCH ×2 (17:47→22:15)
[2017-05-18] MEDS: THIAMINE HCL 100 MG TABLET (FP) PO SCH (22:14)
[2017-05-18] MEDS: traZODone HCL 100 MG TABLET (FP) PO SCH (22:15)
[2017-05-18] MEDS: ATORVASTATIN CA 20 MG TABLET (FP) PO SCH (22:15)
[2017-05-19] MEDS: chlordiazePOXIDE 5 MG CAPSULE PO SCH ×2 (05:15→10:48)
[2017-05-19] MEDS ORDERED: COLLOIDAL OATMEAL 1 BAR EACH TP PRN (09:40)
--- NOTE | 2017-05-19 09:52 | PN ---
S Progress Note (SOAP) Subjective: nausea, sweats, interrupted sleep, anxiety, tremors, dry skin on hands and face , nasal congestion from cold Objective: 05/19/17 09:41 Vital Signs - 8 hr 05/19/17 05/19/17 05/19/17 03:28 06:24 09:18 Temperature 97.2 F L 96.2 F L Pulse Rate 84 90 Respiratory 18 18 20 Rate Blood Pressure 119/68 134/91 Laboratory Tests 05/16/17 05/17/17 05/17/17 21:46 06:00 06:00 WBC 7.6 RBC 4.92 Hgb 14.0 Hct 43.3 MCV 88.2 MCH 28.6 MCHC 32.4 RDW 14.9 Plt Count 192 MPV 9.9 Sodium 142 Potassium 3.8 Chloride 108 H Carbon Dioxide 23 D Anion Gap 11 BUN 15 D Creatinine 1.0 Creat Clearance w eGFR > 60 Random Glucose 103 Calcium 9.1 Total Bilirubin 0.6 D AST 47 H D ALT 31 Alkaline Phosphatase 85 Total Protein 7.8 Albumin 4.4 D Urine Color Lt. yellow Urine Appearance Clear Urine pH 5.5 D Ur Specific [place] >= 1.030 H Urine Protein 1+ H Urine Glucose (UA) Negative Urine Ketones Trace H Urine Blood 1+ H Urine Nitrite Negative Urine Bilirubin Negative Urine Urobilinogen 0.2 Urine RBC 2 Urine WBC 1 Urine Mucus Few RPR Titer 05/17/17 06:00 WBC RBC Hgb Hct MCV MCH MCHC RDW Plt Count MPV Sodium Potassium Chloride Carbon Dioxide Anion Gap BUN Creatinine Creat Clearance w eGFR Random Glucose Calcium Total Bilirubin AST ALT Alkaline Phosphatase Total Protein Albumin Urine Color Urine Appearance Urine pH Ur Specific [place] Urine Protein Urine Glucose (UA) Urine Ketones Urine Blood Urine Nitrite Urine Bilirubin Urine Urobilinogen Urine RBC Urine WBC Urine Mucus RPR Titer Nonreactive Assessment: 05/19/17 09:42 withdrawal sx, dry skin, nasal congestion notedd Plan: cont detox, lachydrin, aveeno soap, decongestant recmmedn , fluids, encourage ambulation
[2017-05-19] MEDS: ASPIRIN 81 MG CHEWABLE TABLETS PO SCH (10:48)
[2017-05-19] MEDS: PRENATAL VITAMINS W/ FOLIC ACID TABLET (FP) PO SCH (10:48)
[2017-05-19] MEDS: METOPROLOL TARTRATE 50 MG TABLET (FP) PO SCH (10:48)
[2017-05-19] MEDS: NICOTINE 21 MG/24 HOURS TOPICAL PATCH TD SCH (10:49)
[2017-05-19] MEDS: LISINOPRIL 10 MG TABLET (FP) PO SCH ×2 (11:08→22:26)
[2017-05-19] MEDS: AMMONIUM LACTATE 12% LOTION 225 GM BOTTLE TP PRN (11:09)
[2017-05-19 16:26] LABS: URINE APPEARANCE SLCLOUDY; URINE BILIRUBIN NEGATIVE (NEGATIVE); URINE BLOOD NEGATIVE (NEGATIVE); URINE COLOR YELLOW; URINE GLUCOSE (UA) NEGATIVE (NEGATIVE); URINE KETONE NEGATIVE (NEGATIVE); URINE LEUK ESTERASE NEGATIVE (NEGATIVE); URINE NITRITE NEGATIVE (NEGATIVE); URINE PROTEIN NEGATIVE (NEGATIVE); URINE UROBILINOGEN NEGATIVE mg/dL (0.2-1.0)
[2017-05-19] MEDS: chlordiazePOXIDE HCL 10 MG CAPSULE PO SCH ×2 (16:53→22:26)
[2017-05-19] MEDS: ATORVASTATIN CA 20 MG TABLET (FP) PO SCH (22:26)
[2017-05-19] MEDS: traZODone HCL 100 MG TABLET (FP) PO SCH (22:26)
[2017-05-19] MEDS: THIAMINE HCL 100 MG TABLET (FP) PO SCH (22:26)
[2017-05-20] MEDS: chlordiazePOXIDE HCL 10 MG CAPSULE PO SCH ×2 (05:49→10:23)
[2017-05-20] MEDS: LISINOPRIL 10 MG TABLET (FP) PO SCH ×2 (10:22→22:29)
[2017-05-20] MEDS: NICOTINE 21 MG/24 HOURS TOPICAL PATCH TD SCH (10:22)
[2017-05-20] MEDS: ASPIRIN 81 MG CHEWABLE TABLETS PO SCH (10:22)
[2017-05-20] MEDS: PRENATAL VITAMINS W/ FOLIC ACID TABLET (FP) PO SCH (10:22)
[2017-05-20] MEDS: METOPROLOL TARTRATE 50 MG TABLET (FP) PO SCH (10:22)
--- NOTE | 2017-05-20 15:54 | DS ---
[facility] Detox Discharge Summary Admission Date: 05/16/17 Discharge Date: 05/20/17 - History Present History: Alcohol Dependence, Cocaine Dependence Pertinent Past History: CAD HTN Hyperlipidemia - Physical Exam Results Vital Signs: Vital Signs Temperature 97.1 F L 05/20/17 09:28 Pulse Rate 85 05/20/17 09:28 Respiratory Rate 18 05/20/17 09:28 Blood Pressure 133/87 05/20/17 09:28 O2 Sat by Pulse Oximetry (%) Pertinent Admission Physical Exam Findings: Withdrawal sx. Laboratory Tests 05/16/17 05/17/17 05/17/17 21:46 06:00 06:00 WBC 7.6 RBC 4.92 Hgb 14.0 Hct 43.3 MCV 88.2 MCH 28.6 MCHC 32.4 RDW 14.9 Plt Count 192 MPV 9.9 Sodium 142 Potassium 3.8 Chloride 108 H Carbon Dioxide 23 D Anion Gap 11 BUN 15 D Creatinine 1.0 Creat Clearance w eGFR > 60 Random Glucose 103 Calcium 9.1 Total Bilirubin 0.6 D AST 47 H D ALT 31 Alkaline Phosphatase 85 Total Protein 7.8 Albumin 4.4 D Urine Color Lt. yellow Urine Appearance Clear Urine pH 5.5 D Ur Specific [place] >= 1.030 H Urine Protein 1+ H Urine Glucose (UA) Negative Urine Ketones Trace H Urine Blood 1+ H Urine Nitrite Negative Urine Bilirubin Negative Urine Urobilinogen 0.2 Urine RBC 2 Urine WBC 1 Urine Mucus Few RPR Titer 05/17/17 05/19/17 06:00 13:00 WBC RBC Hgb Hct MCV MCH MCHC RDW Plt Count MPV Sodium Potassium Chloride Carbon Dioxide Anion Gap BUN Creatinine Creat Clearance w eGFR Random Glucose Calcium Total Bilirubin AST ALT Alkaline Phosphatase Total Protein Albumin Urine Color Yellow Urine Appearance Slcloudy Urine pH 7.0 D Ur Specific [place] 1.020 Urine Protein Negative Urine Glucose (UA) Negative Urine Ketones Negative Urine Blood Negative Urine Nitrite Negative Urine Bilirubin Negative Urine Urobilinogen Negative Urine RBC Urine WBC Urine Mucus RPR Titer Nonreactive labs noted - Treatment Hospital Course: Detox Protocol Followed, Detoxed Safely, Responded well, Discharged Condition Good, Rehab Referral Accepted Patient has Accepted a Rehab Referral to: [facility] - Medication Discharge Medications: Ambulatory Orders Multivitamin with Minerals [Icaps Plus] 1 each PO DAILY #30 tablet 01/31/17 Trazodone HCl [Desyrel -] 150 mg PO HS 10/26/16 Aspirin [ASA -] 81 mg PO DAILY #30 tab.chew 03/14/17 Atorvastatin Ca [Lipitor] 20 mg PO HS #30 tablet 03/14/17 Lisinopril [Prinivil] 10 mg PO BID #60 tablet 03/14/17 Metoprolol Tartrate [Lopressor -] 50 mg PO DAILY #30 tablet 03/14/17 Trazodone HCl [Desyrel -] 150 mg PO HS #30 tablet 05/17/17 - Diagnosis (1) S/P angioplasty with stent Current Visit: Yes Status: Acute (2) Substance-induced sleep disorder Current Visit: Yes Status: Acute (3) Alcohol dependence with uncomplicated withdrawal Current Visit: Yes Status: Acute (4) Cocaine dependence, uncomplicated Current Visit: Yes Status: Acute (5) Nicotine dependence Current Visit: Yes Status: Acute Qualifiers: Nicotine product type: cigarettes Substance use status: in withdrawal Qualified Code(s): F17.213 - Nicotine dependence, cigarettes, with withdrawal (6) CAD (coronary artery disease) Current Visit: No Status: Chronic Qualifiers: Coronary Disease-Associated Artery/Lesion type: unspecified vessel or lesion type [place] vs. transplanted heart: [place] heart Associated angina: without angina Qualified Code(s): I25.10 - Atherosclerotic heart disease of [place] coronary artery without angina pectoris (7) Hypercholesterolemia Current Visit: Yes Status: Chronic (8) Hypertension Current Visit: Yes Status: Chronic Qualifiers: Hypertension type: essential hypertension Qualified Code(s): I10 - Essential (primary) hypertension - AMA Did Patient Leave Against Medical Advice: No
[2017-05-20] MEDS ORDERED: traZODone HCL 50 MG TABLET (FP) PO SCH (20:29)
[2017-05-20] MEDS: THIAMINE HCL 100 MG TABLET (FP) PO SCH (22:28)
[2017-05-20] MEDS: ATORVASTATIN CA 20 MG TABLET (FP) PO SCH (22:29)
[2017-05-20] MEDS: diphenhydrAMINE HCL 50 MG CAPSULE PO PRN (22:30)
[2017-05-21] MEDS: NICOTINE 21 MG/24 HOURS TOPICAL PATCH TD SCH (10:30)
[2017-05-21] MEDS: PRENATAL VITAMINS W/ FOLIC ACID TABLET (FP) PO SCH (10:31)
[2017-05-21] MEDS: ASPIRIN 81 MG CHEWABLE TABLETS PO SCH (10:31)
[2017-05-21] MEDS: LISINOPRIL 10 MG TABLET (FP) PO SCH (10:31)
[2017-05-21] MEDS: METOPROLOL TARTRATE 50 MG TABLET (FP) PO SCH (10:31)
[2017-05-21] MEDS: AMMONIUM LACTATE 12% LOTION 225 GM BOTTLE TP PRN (10:32)
[2017-05-21 13:46] VITALS: BP 121/81; PULSE 81; TEMP 97.9
--- NOTE | 2017-05-22 12:22 | PN ---
S Progress Note Note: Pt. waited until late afternoon into the evening on 05/20/17 for prior authorization for rehab,none was given. Pt. will go to [facility]
== END 2017-05-21 15:55 | disposition home or self-care (01) | DRG 897 ==
LOC: YASAS 08:54 → Y3N 14:08
PROVIDERS: ADMIT Internal Medicine; ATTEND Internal Medicine
PROC: HZ2ZZZZ Detoxification Services for Substance Abuse Treatment (ICD-10-PCS; principal; 2017-05-16)
DX: F10.230 Alcohol dependence with withdrawal, uncomplicated (principal); F14.20 Cocaine dependence, uncomplicated; F19.282 Other psychoactive substance dependence with psychoactive substance-induced sleep disorder; F17.213 Nicotine dependence, cigarettes, with withdrawal; F32.9 Major depressive disorder, single episode, unspecified; I10 Essential (primary) hypertension; I25.10 Atherosclerotic heart disease of native coronary artery without angina pectoris; E78.5 Hyperlipidemia, unspecified; L98.8 Other specified disorders of the skin and subcutaneous tissue; R09.81 Nasal congestion; R82.90 Unspecified abnormal findings in urine; M54.5 Low back pain; G89.29 Other chronic pain; E66.9 Obesity, unspecified; Z68.29 Body mass index [BMI] 29.0-29.9, adult; Z95.5 Presence of coronary angioplasty implant and graft; Z59.0 Homelessness
CPT/HCPCS: 36415; 80053; 81003; 81015; 85027; 86593; 93005; 93010

== ENCOUNTER 2017-10-26 08:58 | Inpatient (IN) | payer OTHER ==
[2017-10-26 09:35] VITALS: BMI 30.1
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
[2017-10-26] MEDS ORDERED: LOPERAMIDE HCL 2 MG CAPSULE PO PRN (09:48)
[2017-10-26] MEDS ORDERED: MAG HYDROX/AL HYDROX/SIMETH 30 ML UNIT-DOSE CUP PO PRN (09:48)
[2017-10-26] MEDS ORDERED: IBUPROFEN 400 MG TABLET (FP) PO PRN (09:48)
[2017-10-26] MEDS ORDERED: guaiFENesin/D-METHORPHAN HB 10 ML UNIT-DOSE CUPS PO PRN (09:48)
[2017-10-26] MEDS ORDERED: chlordiazePOXIDE HCL 25 MG CAPSULE PO PRN (09:48)
[2017-10-26] MEDS ORDERED: P-EPHED 60MG/TRIPROLIDI 2.5MG TABLET PO PRN (09:48)
[2017-10-26] MEDS ORDERED: ACETAMINOPHEN 325 MG TABLET (FP) PO PRN (09:48)
[2017-10-26] MEDS ORDERED: MAGNESIUM HYDROX 2400MG/30ML ORAL SUSPENSION 30 ML CUP PO PRN (09:48)
[2017-10-26] MEDS ORDERED: MAGNESIUM CITRATE 300 ML BOTTLE PO PRN (09:48)
[2017-10-26] MEDS ORDERED: MENTHOL/PHENOL 1 EACH UD MM PRN (09:48)
[2017-10-26] MEDS ORDERED: hydrOXYzine PAMOATE 50 MG CAPSULE (FP) PO PRN (09:48)
[2017-10-26] MEDS ORDERED: chlordiazePOXIDE HCL 25 MG CAPSULE PO ONE (11:00)
[2017-10-26] MEDS: LISINOPRIL 10 MG TABLET (FP) PO SCH ×2 (12:44→22:07)
[2017-10-26] MEDS: BACITRACIN 0.9 GM PACKET TP SCH ×2 (12:44→22:07)
[2017-10-26] MEDS: PRENATAL VITAMINS W/ FOLIC ACID TABLET (FP) PO SCH (12:44)
[2017-10-26] MEDS: METOPROLOL TARTRATE 50 MG TABLET (FP) PO SCH (12:44)
[2017-10-26] MEDS: NICOTINE 21 MG/24 HOURS TOPICAL PATCH TD SCH (12:44)
[2017-10-26] MEDS: ASPIRIN 81 MG CHEWABLE TABLETS PO SCH (12:44)
[2017-10-26 15:17] LABS: URINE APPEARANCE CLEAR; URINE BILIRUBIN NEGATIVE (NEGATIVE); URINE BLOOD 1+ (NEGATIVE); URINE COLOR YELLOW; URINE GLUCOSE (UA) NEGATIVE (NEGATIVE); URINE KETONE 1+ (NEGATIVE); URINE LEUK ESTERASE NEGATIVE (NEGATIVE); URINE NITRITE NEGATIVE (NEGATIVE); URINE UROBILINOGEN 4.0 E.U/dl mg/dL (0.2-1.0)
[2017-10-26 15:20] LABS: URINE PROTEIN 1+ (NEGATIVE)
[2017-10-26 15:27] LABS: URINE HYALINE CAST 1 /lpf; URINE MUCUS MANY
[2017-10-26] MEDS: chlordiazePOXIDE HCL 25 MG CAPSULE PO SCH ×2 (18:40→22:07)
[2017-10-26] MEDS: THIAMINE HCL 100 MG TABLET (FP) PO SCH (22:07)
[2017-10-26] MEDS: ATORVASTATIN CA 20 MG TABLET (FP) PO SCH (22:07)
[2017-10-27] MEDS: chlordiazePOXIDE HCL 25 MG CAPSULE PO SCH ×4 (05:52→22:01)
[2017-10-27] MEDS: PRENATAL VITAMINS W/ FOLIC ACID TABLET (FP) PO SCH (10:09)
[2017-10-27] MEDS: BACITRACIN 0.9 GM PACKET TP SCH ×2 (10:09→21:59)
[2017-10-27] MEDS: ASPIRIN 81 MG CHEWABLE TABLETS PO SCH (10:09)
[2017-10-27] MEDS: METOPROLOL TARTRATE 50 MG TABLET (FP) PO SCH (10:10)
[2017-10-27] MEDS: NICOTINE 21 MG/24 HOURS TOPICAL PATCH TD SCH (10:10)
[2017-10-27] MEDS: LISINOPRIL 10 MG TABLET (FP) PO SCH ×2 (10:11→21:59)
[2017-10-27 10:12] LABS: HEMATOCRIT 40.2 % (35.4-49); HEMOGLOBIN 13.1 GM/dL (11.7-16.9); MCH 28.8 pg (25.7-33.7); MCHC 32.6 g/dl (32.0-35.9); MEAN CELL VOLUME 88.4 fl (80-96); MEAN PLT VOLUME 9.2 fl (7.5-11.1); PLATELET COUNT 165 K/MM3 (134-434); RBC 4.54 M/mm3 (4.00-5.60); RDW 14.3 % (11.9-15.9); WHITE BLOOD COUNT 4.1 K/mm3 (4.0-10.0)
[2017-10-27 10:25] LABS: ALBUMIN 3.2 g/dl (3.4-5.0); ANION GAP 7 (8-16); BILIRUBIN,TOTAL 0.7 mg/dL (0.2-1.0); BLOOD UREA NITROGEN 12 mg/dL (7-18); CALCIUM 8.1 mg/dL (8.5-10.1); CHLORIDE 103 mmol/L (98-107); CO2 30 mmol/L (21-32); CREATININE 0.9 mg/dL (0.7-1.3); GLUCOSE,RANDOM 108 mg/dL (74-106); SGOT/AST 17 U/L (15-37); SGPT/ALT 17 U/L (12-78); SODIUM 140 mmol/L (136-145)
[2017-10-27 10:26] LABS: ALK PHOS 90 U/L (45-117)
--- NOTE | 2017-10-27 10:51 | EKG ---
Test Reason : Blood Pressure : / mmHG Vent. Rate : 092 BPM Atrial Rate : 092 BPM P-R Int : 156 ms QRS Dur : 080 ms QT Int : 400 ms P-R-T Axes : 069 088 065 degrees QTc Int : 494 ms NORMAL SINUS RHYTHM LIKELY NORMAL ECG WHEN COMPARED WITH ECG OF 16-MAY-2017 15:31, NO SIGNIFICANT CHANGE WAS FOUND Confirmed by JESSICA EPSTEIN MD ([id number]) on 10/27/2017 10:50:44 AM Referred By: Reid Renner Confirmed By:JESSICA EPSTEIN MD
--- NOTE | 2017-10-27 11:55 | PN ---
[facility] CIWA - CIWA Score Nausea/Vomitin-No Nausea/No Vomiting Muscle Tremors: 4-Moderate,w/Arms Extend Anxiety: 4-Mod. Anxious/Guarded Agitation: 4-Moderately Restless Paroxysmal Sweats: 1-Minimal Palms Moist Orientation: 0-Oriented Tacttile Disturbances: 3-Moderate Itch/Numb/Burn Auditory Disturbances: 0-None Visual Disturbances: 0-None Headache: 0-None Present CIWA-Ar Total Score: 16 S Progress Note (SOAP) Subjective: ANXIETY,IRITABILITY,SWEATS,INTERMITTENT SLEEP. TAKES TRAZODONE FOR SLEEP. REQUESTING F/U FOR INSOMNIA WORK UP. Objective: 10/27/17 11:53 Vital Signs Temperature 96.7 F L 10/27/17 09:48 Pulse Rate 91 H 10/27/17 09:48 Respiratory Rate 18 10/27/17 09:48 Blood Pressure 106/72 10/27/17 09:48 O2 Sat by Pulse Oximetry (%) Laboratory Last Values WBC 4.1 K/mm3 (4.0-10.0) D 10/27/17 07:00 RBC 4.54 M/mm3 (4.00-5.60) 10/27/17 07:00 Hgb 13.1 GM/dL (11.7-16.9) 10/27/17 07:00 Hct 40.2 % (35.4-49) 10/27/17 07:00 MCV 88.4 fl (80-96) 10/27/17 07:00 MCH 28.8 pg (25.7-33.7) 10/27/17 07:00 MCHC 32.6 g/dl (32.0-35.9) 10/27/17 07:00 RDW 14.3 % (11.9-15.9) 10/27/17 07:00 Plt Count 165 K/MM3 (134-434) 10/27/17 07:00 MPV 9.2 fl (7.5-11.1) 10/27/17 07:00 Sodium 140 mmol/L (136-145) 10/27/17 07:00 Potassium 3.0 mmol/L (3.5-5.1) L D 10/27/17 07:00 Chloride 103 mmol/L (98-107) 10/27/17 07:00 Carbon Dioxide 30 mmol/L (21-32) D 10/27/17 07:00 Anion Gap 7 (8-16) L 10/27/17 07:00 BUN 12 mg/dL (7-18) 10/27/17 07:00 Creatinine 0.9 mg/dL (0.7-1.3) 10/27/17 07:00 Creat Clearance w eGFR > 60 (>60) 10/27/17 07:00 Random Glucose 108 mg/dL (74-106) H 10/27/17 07:00 Calcium 8.1 mg/dL (8.5-10.1) L 10/27/17 07:00 Total Bilirubin 0.7 mg/dL (0.2-1.0) 10/27/17 07:00 AST 17 U/L (15-37) D 10/27/17 07:00 ALT 17 U/L (12-78) D 10/27/17 07:00 Alkaline Phosphatase 90 U/L (45-117) 10/27/17 07:00 Total Protein 6.0 g/dl (6.4-8.2) L D 10/27/17 07:00 Albumin 3.2 g/dl (3.4-5.0) L D 10/27/17 07:00 Urine Color Yellow 10/26/17 15:01 Urine Appearance Clear 10/26/17 15:01 Urine pH 6.0 (5.0-8.0) 10/26/17 15:01 Ur Specific [place] 1.019 (1.001-1.035) 10/26/17 15:01 Urine Protein 1+ (NEGATIVE) H 10/26/17 15:01 Urine Glucose (UA) Negative (NEGATIVE) 10/26/17 15:01 Urine Ketones 1+ (NEGATIVE) H 10/26/17 15:01 Urine Blood 1+ (NEGATIVE) H 10/26/17 15:01 Urine Nitrite Negative (NEGATIVE) 10/26/17 15:01 Urine Bilirubin Negative (NEGATIVE) 10/26/17 15:01 Urine Urobilinogen 4.0 e.u/dl mg/dL (0.2-1.0) 10/26/17 15:01 Ur Leukocyte Esterase Negative (NEGATIVE) 10/26/17 15:01 Urine WBC (Auto) <1 /hpf (3-5) 10/26/17 15:01 Urine RBC (Auto) 10 /hpf (0-3) 10/26/17 15:01 Hyaline Casts 1 /lpf 10/26/17 15:01 Urine Mucus Many 10/26/17 15:01 RPR Titer Nonreactive (NONREACTIVE) 10/27/17 07:00 K+ = 3.0 Assessment: 10/27/17 11:53 WITHDRAWAL SX HYPOKALEMIA Plan: CONTINUE DETOX KCL LIQ 20 MEQ PO BID, FIRST DOSE NOW
[2017-10-27] MEDS ORDERED: POTASSIUM CHLORIDE ORAL LIQUID 20 MEQ/15 ML PO ONE (12:45)
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
[2017-10-27] MEDS: THIAMINE HCL 100 MG TABLET (FP) PO SCH (21:59)
[2017-10-27] MEDS: traZODone HCL 100 MG TABLET (FP) PO SCH (21:59)
[2017-10-27] MEDS: ATORVASTATIN CA 20 MG TABLET (FP) PO SCH (21:59)
[2017-10-27] MEDS: POTASSIUM CHLORIDE ORAL LIQUID 20 MEQ/15 ML PO SCH (21:59)
[2017-10-28] MEDS: chlordiazePOXIDE HCL 25 MG CAPSULE PO SCH ×2 (05:12→10:29)
[2017-10-28] MEDS: ASPIRIN 81 MG CHEWABLE TABLETS PO SCH (10:27)
[2017-10-28] MEDS: POTASSIUM CHLORIDE ORAL LIQUID 20 MEQ/15 ML PO SCH ×2 (10:27→22:39)
[2017-10-28] MEDS: BACITRACIN 0.9 GM PACKET TP SCH ×2 (10:27→22:41)
[2017-10-28] MEDS: METOPROLOL TARTRATE 50 MG TABLET (FP) PO SCH (10:28)
[2017-10-28] MEDS: PRENATAL VITAMINS W/ FOLIC ACID TABLET (FP) PO SCH (10:30)
[2017-10-28] MEDS: NICOTINE 21 MG/24 HOURS TOPICAL PATCH TD SCH (10:30)
[2017-10-28] MEDS: LISINOPRIL 10 MG TABLET (FP) PO SCH ×2 (10:31→22:38)
--- NOTE | 2017-10-28 12:45 | PN ---
[facility] CIWA - CIWA Score Nausea/Vomitin-No Nausea/No Vomiting Muscle Tremors: 3 Anxiety: 4-Mod. Anxious/Guarded Agitation: 4-Moderately Restless Paroxysmal Sweats: 1-Minimal Palms Moist Orientation: 0-Oriented Tacttile Disturbances: 3-Moderate Itch/Numb/Burn Auditory Disturbances: 0-None Visual Disturbances: 0-None Headache: 0-None Present CIWA-Ar Total Score: 15 S Progress Note (SOAP) Subjective: ANXIETY,SWEATS,TREMORS,FATIGUE. Objective: 10/28/17 12:44 Vital Signs Temperature 96 F L 10/28/17 09:17 Pulse Rate 84 10/28/17 09:17 Respiratory Rate 20 10/28/17 09:17 Blood Pressure 99/65 10/28/17 09:17 O2 Sat by Pulse Oximetry (%) Laboratory Last Values WBC 4.1 K/mm3 (4.0-10.0) D 10/27/17 07:00 RBC 4.54 M/mm3 (4.00-5.60) 10/27/17 07:00 Hgb 13.1 GM/dL (11.7-16.9) 10/27/17 07:00 Hct 40.2 % (35.4-49) 10/27/17 07:00 MCV 88.4 fl (80-96) 10/27/17 07:00 MCH 28.8 pg (25.7-33.7) 10/27/17 07:00 MCHC 32.6 g/dl (32.0-35.9) 10/27/17 07:00 RDW 14.3 % (11.9-15.9) 10/27/17 07:00 Plt Count 165 K/MM3 (134-434) 10/27/17 07:00 MPV 9.2 fl (7.5-11.1) 10/27/17 07:00 Sodium 140 mmol/L (136-145) 10/27/17 07:00 Potassium 3.0 mmol/L (3.5-5.1) L D 10/27/17 07:00 Chloride 103 mmol/L (98-107) 10/27/17 07:00 Carbon Dioxide 30 mmol/L (21-32) D 10/27/17 07:00 Anion Gap 7 (8-16) L 10/27/17 07:00 BUN 12 mg/dL (7-18) 10/27/17 07:00 Creatinine 0.9 mg/dL (0.7-1.3) 10/27/17 07:00 Creat Clearance w eGFR > 60 (>60) 10/27/17 07:00 Random Glucose 108 mg/dL (74-106) H 10/27/17 07:00 Calcium 8.1 mg/dL (8.5-10.1) L 10/27/17 07:00 Total Bilirubin 0.7 mg/dL (0.2-1.0) 10/27/17 07:00 AST 17 U/L (15-37) D 10/27/17 07:00 ALT 17 U/L (12-78) D 10/27/17 07:00 Alkaline Phosphatase 90 U/L (45-117) 10/27/17 07:00 Total Protein 6.0 g/dl (6.4-8.2) L D 10/27/17 07:00 Albumin 3.2 g/dl (3.4-5.0) L D 10/27/17 07:00 Urine Color Yellow 10/26/17 15:01 Urine Appearance Clear 10/26/17 15:01 Urine pH 6.0 (5.0-8.0) 10/26/17 15:01 Ur Specific [place] 1.019 (1.001-1.035) 10/26/17 15:01 Urine Protein 1+ (NEGATIVE) H 10/26/17 15:01 Urine Glucose (UA) Negative (NEGATIVE) 10/26/17 15:01 Urine Ketones 1+ (NEGATIVE) H 10/26/17 15:01 Urine Blood 1+ (NEGATIVE) H 10/26/17 15:01 Urine Nitrite Negative (NEGATIVE) 10/26/17 15:01 Urine Bilirubin Negative (NEGATIVE) 10/26/17 15:01 Urine Urobilinogen 4.0 e.u/dl mg/dL (0.2-1.0) 10/26/17 15:01 Ur Leukocyte Esterase Negative (NEGATIVE) 10/26/17 15:01 Urine WBC (Auto) <1 /hpf (3-5) 10/26/17 15:01 Urine RBC (Auto) 10 /hpf (0-3) 10/26/17 15:01 Hyaline Casts 1 /lpf 10/26/17 15:01 Urine Mucus Many 10/26/17 15:01 RPR Titer Nonreactive (NONREACTIVE) 10/27/17 07:00 Assessment: 10/28/17 12:44 WITHDRAWAL SX Plan: CONTINUE DETOX
[2017-10-28] MEDS: chlordiazePOXIDE 5 MG CAPSULE PO SCH ×2 (17:28→22:38)
[2017-10-28] MEDS: ATORVASTATIN CA 20 MG TABLET (FP) PO SCH (22:39)
[2017-10-28] MEDS: traZODone HCL 100 MG TABLET (FP) PO SCH (22:39)
[2017-10-28] MEDS: THIAMINE HCL 100 MG TABLET (FP) PO SCH (22:39)
[2017-10-29] MEDS: chlordiazePOXIDE 5 MG CAPSULE PO SCH ×2 (05:23→10:30)
[2017-10-29] MEDS: ASPIRIN 81 MG CHEWABLE TABLETS PO SCH (10:29)
[2017-10-29] MEDS: PRENATAL VITAMINS W/ FOLIC ACID TABLET (FP) PO SCH (10:29)
[2017-10-29] MEDS: BACITRACIN 0.9 GM PACKET TP SCH ×2 (10:29→22:25)
[2017-10-29] MEDS: LISINOPRIL 10 MG TABLET (FP) PO SCH ×2 (10:30→22:25)
[2017-10-29] MEDS: METOPROLOL TARTRATE 50 MG TABLET (FP) PO SCH (10:30)
[2017-10-29] MEDS: POTASSIUM CHLORIDE ORAL LIQUID 20 MEQ/15 ML PO SCH ×2 (10:30→22:25)
[2017-10-29] MEDS: NICOTINE 21 MG/24 HOURS TOPICAL PATCH TD SCH (10:30)
--- NOTE | 2017-10-29 12:54 | PN ---
[facility] Progress Note (SOAP) Subjective: SLIGHT ANXIETY,SWEATS/CHILLS,FATIGUE. Objective: 10/29/17 12:54 Vital Signs Temperature 97 F L 10/29/17 09:05 Pulse Rate 18 L 10/29/17 09:05 Respiratory Rate 80 H 10/29/17 09:05 Blood Pressure 128/84 10/29/17 09:05 O2 Sat by Pulse Oximetry (%) Laboratory Last Values WBC 4.1 K/mm3 (4.0-10.0) D 10/27/17 07:00 RBC 4.54 M/mm3 (4.00-5.60) 10/27/17 07:00 Hgb 13.1 GM/dL (11.7-16.9) 10/27/17 07:00 Hct 40.2 % (35.4-49) 10/27/17 07:00 MCV 88.4 fl (80-96) 10/27/17 07:00 MCH 28.8 pg (25.7-33.7) 10/27/17 07:00 MCHC 32.6 g/dl (32.0-35.9) 10/27/17 07:00 RDW 14.3 % (11.9-15.9) 10/27/17 07:00 Plt Count 165 K/MM3 (134-434) 10/27/17 07:00 MPV 9.2 fl (7.5-11.1) 10/27/17 07:00 Sodium 140 mmol/L (136-145) 10/27/17 07:00 Potassium 3.8 mmol/L (3.5-5.1) D 10/29/17 06:00 Chloride 103 mmol/L (98-107) 10/27/17 07:00 Carbon Dioxide 30 mmol/L (21-32) D 10/27/17 07:00 Anion Gap 7 (8-16) L 10/27/17 07:00 BUN 12 mg/dL (7-18) 10/27/17 07:00 Creatinine 0.9 mg/dL (0.7-1.3) 10/27/17 07:00 Creat Clearance w eGFR > 60 (>60) 10/27/17 07:00 Random Glucose 108 mg/dL (74-106) H 10/27/17 07:00 Calcium 8.1 mg/dL (8.5-10.1) L 10/27/17 07:00 Total Bilirubin 0.7 mg/dL (0.2-1.0) 10/27/17 07:00 AST 17 U/L (15-37) D 10/27/17 07:00 ALT 17 U/L (12-78) D 10/27/17 07:00 Alkaline Phosphatase 90 U/L (45-117) 10/27/17 07:00 Total Protein 6.0 g/dl (6.4-8.2) L D 10/27/17 07:00 Albumin 3.2 g/dl (3.4-5.0) L D 10/27/17 07:00 Urine Color Yellow 10/26/17 15:01 Urine Appearance Clear 10/26/17 15:01 Urine pH 6.0 (5.0-8.0) 10/26/17 15:01 Ur Specific [place] 1.019 (1.001-1.035) 10/26/17 15:01 Urine Protein 1+ (NEGATIVE) H 10/26/17 15:01 Urine Glucose (UA) Negative (NEGATIVE) 10/26/17 15:01 Urine Ketones 1+ (NEGATIVE) H 10/26/17 15:01 Urine Blood 1+ (NEGATIVE) H 10/26/17 15:01 Urine Nitrite Negative (NEGATIVE) 10/26/17 15:01 Urine Bilirubin Negative (NEGATIVE) 10/26/17 15:01 Urine Urobilinogen 4.0 e.u/dl mg/dL (0.2-1.0) 10/26/17 15:01 Ur Leukocyte Esterase Negative (NEGATIVE) 10/26/17 15:01 Urine WBC (Auto) <1 /hpf (3-5) 10/26/17 15:01 Urine RBC (Auto) 10 /hpf (0-3) 10/26/17 15:01 Hyaline Casts 1 /lpf 10/26/17 15:01 Urine Mucus Many 10/26/17 15:01 RPR Titer Nonreactive (NONREACTIVE) 10/27/17 07:00 Assessment: 10/29/17 12:54 WITHDRAWAL SX Plan: CONTINUE DETOX
[2017-10-29] MEDS: chlordiazePOXIDE HCL 10 MG CAPSULE PO SCH ×2 (18:24→22:25)
[2017-10-29] MEDS: traZODone HCL 100 MG TABLET (FP) PO SCH (22:25)
[2017-10-29] MEDS: THIAMINE HCL 100 MG TABLET (FP) PO SCH (22:25)
[2017-10-29] MEDS: ATORVASTATIN CA 20 MG TABLET (FP) PO SCH (22:25)
[2017-10-30] MEDS: chlordiazePOXIDE HCL 10 MG CAPSULE PO SCH ×2 (05:18→10:06)
[2017-10-30 09:30] VITALS: BP 129/80; PULSE 93; TEMP 98.4
[2017-10-30] MEDS: ASPIRIN 81 MG CHEWABLE TABLETS PO SCH (10:05)
[2017-10-30] MEDS: BACITRACIN 0.9 GM PACKET TP SCH (10:05)
[2017-10-30] MEDS: PRENATAL VITAMINS W/ FOLIC ACID TABLET (FP) PO SCH (10:05)
[2017-10-30] MEDS: NICOTINE 21 MG/24 HOURS TOPICAL PATCH TD SCH (10:05)
[2017-10-30] MEDS: POTASSIUM CHLORIDE ORAL LIQUID 20 MEQ/15 ML PO SCH (10:05)
[2017-10-30] MEDS: METOPROLOL TARTRATE 50 MG TABLET (FP) PO SCH (10:05)
[2017-10-30] MEDS: LISINOPRIL 10 MG TABLET (FP) PO SCH (10:05)
--- NOTE | 2017-10-30 12:44 | PN ---
[facility] Progress Note (SOAP) Subjective: PT COMPLETED DETOX TODAY. ALERT O X 3. NAD. Objective: 10/30/17 12:43 Vital Signs Temperature 98.4 F 10/30/17 09:29 Pulse Rate 93 H 10/30/17 09:29 Respiratory Rate 20 10/30/17 09:29 Blood Pressure 129/80 10/30/17 09:29 O2 Sat by Pulse Oximetry (%) Assessment: 10/30/17 12:44 NAD Plan: D/C PT TODAY.
--- NOTE | 2017-10-30 12:49 | DS ---
[facility] Detox Discharge Summary Admission Date: 10/26/17 Discharge Date: 10/30/17 - History Present History: Alcohol Dependence, Cocaine Dependence Additional Comments: DETOX COMPLETED. ALERT O X 3. NAD. PT INSTRUCTED TO FOLLOW UP WITH HIS PCP FOR MEDICAL MANAGEMENT OF HIS COMORBID CONDITIONS. RX SENT TO [facility] FOR ONE MONTH SUPPLY TILL PT GETS BACK TO HIS PMD. Pertinent Past History: SEE DX BELOW - Physical Exam Results Vital Signs: Vital Signs Temperature 98.4 F 10/30/17 09:29 Pulse Rate 93 H 10/30/17 09:29 Respiratory Rate 20 10/30/17 09:29 Blood Pressure 129/80 10/30/17 09:29 O2 Sat by Pulse Oximetry (%) Pertinent Admission Physical Exam Findings: WITHDRAWAL SX Laboratory Last Values WBC 4.1 K/mm3 (4.0-10.0) D 10/27/17 07:00 RBC 4.54 M/mm3 (4.00-5.60) 10/27/17 07:00 Hgb 13.1 GM/dL (11.7-16.9) 10/27/17 07:00 Hct 40.2 % (35.4-49) 10/27/17 07:00 MCV 88.4 fl (80-96) 10/27/17 07:00 MCH 28.8 pg (25.7-33.7) 10/27/17 07:00 MCHC 32.6 g/dl (32.0-35.9) 10/27/17 07:00 RDW 14.3 % (11.9-15.9) 10/27/17 07:00 Plt Count 165 K/MM3 (134-434) 10/27/17 07:00 MPV 9.2 fl (7.5-11.1) 10/27/17 07:00 Sodium 140 mmol/L (136-145) 10/27/17 07:00 Potassium 3.8 mmol/L (3.5-5.1) D 10/29/17 06:00 Chloride 103 mmol/L (98-107) 10/27/17 07:00 Carbon Dioxide 30 mmol/L (21-32) D 10/27/17 07:00 Anion Gap 7 (8-16) L 10/27/17 07:00 BUN 12 mg/dL (7-18) 10/27/17 07:00 Creatinine 0.9 mg/dL (0.7-1.3) 10/27/17 07:00 Creat Clearance w eGFR > 60 (>60) 10/27/17 07:00 Random Glucose 108 mg/dL (74-106) H 10/27/17 07:00 Calcium 8.1 mg/dL (8.5-10.1) L 10/27/17 07:00 Total Bilirubin 0.7 mg/dL (0.2-1.0) 10/27/17 07:00 AST 17 U/L (15-37) D 10/27/17 07:00 ALT 17 U/L (12-78) D 10/27/17 07:00 Alkaline Phosphatase 90 U/L (45-117) 10/27/17 07:00 Total Protein 6.0 g/dl (6.4-8.2) L D 10/27/17 07:00 Albumin 3.2 g/dl (3.4-5.0) L D 10/27/17 07:00 Urine Color Yellow 10/26/17 15:01 Urine Appearance Clear 10/26/17 15:01 Urine pH 6.0 (5.0-8.0) 10/26/17 15:01 Ur Specific [place] 1.019 (1.001-1.035) 10/26/17 15:01 Urine Protein 1+ (NEGATIVE) H 10/26/17 15:01 Urine Glucose (UA) Negative (NEGATIVE) 10/26/17 15:01 Urine Ketones 1+ (NEGATIVE) H 10/26/17 15:01 Urine Blood 1+ (NEGATIVE) H 10/26/17 15:01 Urine Nitrite Negative (NEGATIVE) 10/26/17 15:01 Urine Bilirubin Negative (NEGATIVE) 10/26/17 15:01 Urine Urobilinogen 4.0 e.u/dl mg/dL (0.2-1.0) 10/26/17 15:01 Ur Leukocyte Esterase Negative (NEGATIVE) 10/26/17 15:01 Urine WBC (Auto) <1 /hpf (3-5) 10/26/17 15:01 Urine RBC (Auto) 10 /hpf (0-3) 10/26/17 15:01 Hyaline Casts 1 /lpf 10/26/17 15:01 Urine Mucus Many 10/26/17 15:01 RPR Titer Nonreactive (NONREACTIVE) 10/27/17 07:00 - Treatment Hospital Course: Detox Protocol Followed, Detoxed Safely, Responded well, Discharged Condition Good, Rehab Referral Accepted Patient has Accepted a Rehab Referral to: [facility] - Medication Discharge Medications: Ambulatory Orders traZODone HCL [Desyrel -] 100 mg PO HS 10/26/16 Aspirin [ASA -] 81 mg PO DAILY #30 tab.chew 05/21/17 Trazodone HCl 100 mg PO HS #30 tablet 10/28/17 Atorvastatin Ca [Lipitor] 20 mg PO HS #30 tablet 10/30/17 Lisinopril [Prinivil] 10 mg PO BID #60 tablet 10/30/17 Metoprolol Tartrate [Lopressor -] 50 mg PO DAILY #30 tablet 10/30/17 - Diagnosis (1) Alcohol dependence with uncomplicated withdrawal Current Visit: Yes Status: Acute (2) Cocaine dependence, uncomplicated Current Visit: Yes Status: Acute (3) Nicotine dependence Current Visit: Yes Status: Acute Qualifiers: Nicotine product type: cigarettes Substance use status: in withdrawal Qualified Code(s): F17.213 - Nicotine dependence, cigarettes, with withdrawal (4) S/P angioplasty with stent Current Visit: Yes Status: Chronic (5) CAD (coronary artery disease) Current Visit: Yes Status: Chronic Qualifiers: Coronary Disease-Associated Artery/Lesion type: unspecified vessel or lesion type [place] vs. transplanted heart: [place] heart Associated angina: without angina Qualified Code(s): I25.10 - Atherosclerotic heart disease of [place] coronary artery without angina pectoris (6) Chronic low back pain Current Visit: Yes Status: Chronic Qualifiers: Back pain laterality: midline Sciatica presence: without sciatica Qualified Code(s): M54.5 - Low back pain; G89.29 - Other chronic pain; G89.29 - Other chronic pain (7) History of intravascular stent placement Current Visit: Yes Status: Chronic (8) Hypercholesterolemia Current Visit: Yes Status: Chronic (9) Hypertension Current Visit: Yes Status: Chronic Qualifiers: Hypertension type: essential hypertension Qualified Code(s): I10 - Essential (primary) hypertension (10) Insomnia Current Visit: Yes Status: Acute Qualifiers: Insomnia type: unspecified Qualified Code(s): G47.00 - Insomnia, unspecified (11) Obesity Current Visit: Yes Status: Chronic Qualifiers: Obesity type: due to excess calories - AMA Did Patient Leave Against Medical Advice: No
== END 2017-10-30 10:36 | disposition home or self-care (01) | DRG 774 ==
LOC: YASAS 08:58 → Y3N 11:43
PROVIDERS: ADMIT Internal Medicine; ATTEND Internal Medicine
PROC: HZ2ZZZZ Detoxification Services for Substance Abuse Treatment (ICD-10-PCS; principal; 2017-10-26)
DX: F10.230 Alcohol dependence with withdrawal, uncomplicated (principal); F14.20 Cocaine dependence, uncomplicated; F17.213 Nicotine dependence, cigarettes, with withdrawal; E87.6 Hypokalemia; E78.00 Pure hypercholesterolemia, unspecified; I10 Essential (primary) hypertension; I25.10 Atherosclerotic heart disease of native coronary artery without angina pectoris; G47.00 Insomnia, unspecified; M54.5 Low back pain; G89.29 Other chronic pain; E66.09 Other obesity due to excess calories; Z68.30 Body mass index [BMI] 30.0-30.9, adult; Z95.828 Presence of other vascular implants and grafts; Z95.5 Presence of coronary angioplasty implant and graft; Z91.14 Patient's other noncompliance with medication regimen; Z59.0 Homelessness
CPT/HCPCS: 36415; 80053; 81003; 81015; 84132; 85027; 86593; 93005; 93010

== ENCOUNTER 2018-06-15 11:24 | Inpatient (IN) | payer OTHER ==
[2018-06-15 13:47] VITALS: BMI 28.7
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
[2018-06-15] MEDS ORDERED: NICOTINE POLACRILEX 2 MG GUM BC PRN (19:29)
[2018-06-15] MEDS ORDERED: P-EPHED 60MG/TRIPROLIDI 2.5MG TABLET PO PRN (19:29)
[2018-06-15] MEDS ORDERED: MENTHOL/PHENOL 1 EACH UD MM PRN (19:29)
[2018-06-15] MEDS ORDERED: ACETAMINOPHEN 325 MG TABLET (FP) PO PRN (19:29)
[2018-06-15] MEDS ORDERED: LOPERAMIDE HCL 2 MG CAPSULE PO PRN (19:29)
[2018-06-15] MEDS ORDERED: MAG HYDROX/AL HYDROX/SIMETH 30 ML UNIT-DOSE CUP PO PRN (19:29)
[2018-06-15] MEDS ORDERED: IBUPROFEN 400 MG TABLET (FP) PO PRN (19:29)
[2018-06-15] MEDS ORDERED: MAGNESIUM CITRATE 300 ML BOTTLE PO PRN (19:29)
[2018-06-15] MEDS ORDERED: MAGNESIUM HYDROX 2400MG/30ML ORAL SUSPENSION 30 ML CUP PO PRN (19:29)
[2018-06-15] MEDS ORDERED: guaiFENesin/D-METHORPHAN HB 10 ML UNIT-DOSE CUPS PO PRN (19:29)
[2018-06-15] MEDS ORDERED: hydrOXYzine PAMOATE 50 MG CAPSULE (FP) PO PRN (19:29)
[2018-06-15] MEDS ORDERED: COLLOIDAL OATMEAL 1 BAR EACH TP PRN (19:36)
--- NOTE | 2018-06-15 20:51 | PN ---
S Progress Note Note: Psychiatric nurse practitioner note: Call received by RN requesting patient's evening medications. Chart reviewed. Will order Mirtazapine 15mg qhs.
[2018-06-15] MEDS ORDERED: TUBERCULIN PPD 5 TU/0.1ML VIAL ID ONE (20:53)
[2018-06-15] MEDS: ATORVASTATIN CA 10 MG TABLET (FP) PO SCH (21:14)
[2018-06-15] MEDS: MIRTAZAPINE 15 MG TABLET (FP) PO SCH (21:14)
[2018-06-15] MEDS: THIAMINE HCL 100 MG TABLET (FP) PO SCH (21:14)
[2018-06-15] MEDS ORDERED: PATIENT'S OWN MEDICATION (NON-FORMULARY) (Pravastatin Sodium 40 MG) PO SCH (22:00)
[2018-06-15 23:50] LABS: URINE APPEARANCE SLCLOUDY; URINE BILIRUBIN NEGATIVE (<2.0 mg/dL); URINE COLOR AMBER; URINE GLUCOSE (UA) NEGATIVE (NEGATIVE); URINE KETONE NEGATIVE (NEGATIVE); URINE LEUK ESTERASE NEGATIVE (NEGATIVE); URINE NITRITE NEGATIVE (NEGATIVE); URINE PROTEIN NEGATIVE (NEGATIVE); URINE UROBILINOGEN NEGATIVE mg/dL (0.2-1.0)
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
[2018-06-16] MEDS: LISINOPRIL 5 MG TABLET (FP) PO SCH (09:32)
[2018-06-16] MEDS: ASPIRIN 81 MG CHEWABLE TABLETS PO SCH (09:32)
[2018-06-16] MEDS: PRENATAL VITAMINS W/ FOLIC ACID TABLET (FP) PO SCH (09:32)
[2018-06-16] MEDS ORDERED: NICOTINE 14 MG/24 HOURS TOPICAL PATCH TD SCH (10:00)
[2018-06-16] MEDS: FOLIC ACID 1 MG TABLET (FP) PO SCH (10:40)
[2018-06-16] MEDS: ERGOCALCIFEROL (VITAMIN D2) 50,000 UNIT CAPSULE (FP) PO SCH (10:40)
--- NOTE | 2018-06-16 12:58 | EKG ---
Test Reason : Blood Pressure : / mmHG Vent. Rate : 069 BPM Atrial Rate : 069 BPM P-R Int : 174 ms QRS Dur : 082 ms QT Int : 406 ms P-R-T Axes : 065 060 015 degrees QTc Int : 435 ms NORMAL SINUS RHYTHM NONSPECIFIC T WAVE ABNORMALITY ABNORMAL ECG Confirmed by MD MUKESH, JAVI ([id number]) on 06/16/2018 12:58:34 PM Referred By: Confirmed By:JAVI MAYORGA MD
[2018-06-16] MEDS: THIAMINE HCL 100 MG TABLET (FP) PO SCH (21:14)
[2018-06-16] MEDS: ATORVASTATIN CA 10 MG TABLET (FP) PO SCH (21:14)
[2018-06-16] MEDS: MELATONIN 5 MG TABLETS PO PRN (21:14)
[2018-06-16] MEDS: MIRTAZAPINE 15 MG TABLET (FP) PO SCH (21:14)
[2018-06-17] MEDS: FOLIC ACID 1 MG TABLET (FP) PO SCH (10:10)
[2018-06-17] MEDS: LISINOPRIL 5 MG TABLET (FP) PO SCH (10:10)
[2018-06-17] MEDS: ASPIRIN 81 MG CHEWABLE TABLETS PO SCH (10:10)
[2018-06-17] MEDS: NICOTINE 21 MG/24 HOURS TOPICAL PATCH TD SCH (10:10)
[2018-06-17] MEDS: PRENATAL VITAMINS W/ FOLIC ACID TABLET (FP) PO SCH (10:10)
[2018-06-17 14:18] LABS: HEMATOCRIT 42.2 % (35.4-49); HEMOGLOBIN 13.3 GM/dL (11.7-16.9); MCH 27.8 pg (25.7-33.7); MCHC 31.5 g/dl (32.0-35.9); MEAN CELL VOLUME 88.2 fl (80-96); PLATELET COUNT 198 K/MM3 (134-434); RBC 4.78 M/mm3 (4.00-5.60); RDW 14.1 % (11.9-15.9); WHITE BLOOD COUNT 4.7 K/mm3 (4.0-10.0)
[2018-06-17 14:40] LABS: ALBUMIN 3.1 g/dl (3.4-5.0); ALK PHOS 78 U/L (45-117); ANION GAP 7 MMOL/L (8-16); BILIRUBIN,TOTAL 0.2 mg/dL (0.2-1); BLOOD UREA NITROGEN 13 mg/dL (7-18); CALCIUM 8.6 mg/dL (8.5-10.1); CHLORIDE 108 mmol/L (98-107); CO2 28 mmol/L (21-32); CREATININE 0.8 mg/dL (0.55-1.3); GLUCOSE,RANDOM 84 mg/dL (74-106); POTASSIUM 4.1 mmol/L (3.5-5.1); SGOT/AST 25 U/L (15-37); SGPT/ALT 33 U/L (13-61); SODIUM 143 mmol/L (136-145); TOT PROT 6.5 g/dl (6.4-8.2)
[2018-06-17] MEDS: ATORVASTATIN CA 10 MG TABLET (FP) PO SCH (21:26)
[2018-06-17] MEDS: THIAMINE HCL 100 MG TABLET (FP) PO SCH (21:26)
[2018-06-17] MEDS: MIRTAZAPINE 15 MG TABLET (FP) PO SCH (21:26)
[2018-06-18] MEDS: FOLIC ACID 1 MG TABLET (FP) PO SCH (09:59)
[2018-06-18] MEDS: NICOTINE 21 MG/24 HOURS TOPICAL PATCH TD SCH (09:59)
[2018-06-18] MEDS: ASPIRIN 81 MG CHEWABLE TABLETS PO SCH (09:59)
[2018-06-18] MEDS: PRENATAL VITAMINS W/ FOLIC ACID TABLET (FP) PO SCH (09:59)
[2018-06-18] MEDS: LISINOPRIL 5 MG TABLET (FP) PO SCH (09:59)
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
[2018-06-18] MEDS: AMMONIUM LACTATE 12% LOTION 225 GM BOTTLE TP PRN (11:54)
[2018-06-18] MEDS: ATORVASTATIN CA 10 MG TABLET (FP) PO SCH (21:20)
[2018-06-18] MEDS: THIAMINE HCL 100 MG TABLET (FP) PO SCH (21:20)
[2018-06-18] MEDS: traZODone HCL 100 MG TABLET (FP) PO SCH (21:21)
[2018-06-19] MEDS: LISINOPRIL 5 MG TABLET (FP) PO SCH (10:00)
[2018-06-19] MEDS: FOLIC ACID 1 MG TABLET (FP) PO SCH (10:00)
[2018-06-19] MEDS: PRENATAL VITAMINS W/ FOLIC ACID TABLET (FP) PO SCH (10:00)
[2018-06-19] MEDS: ASPIRIN 81 MG CHEWABLE TABLETS PO SCH (10:00)
[2018-06-19] MEDS: NICOTINE 21 MG/24 HOURS TOPICAL PATCH TD SCH (10:01)
[2018-06-19] MEDS: traZODone HCL 100 MG TABLET (FP) PO SCH (21:22)
[2018-06-19] MEDS: ATORVASTATIN CA 10 MG TABLET (FP) PO SCH (21:22)
[2018-06-19] MEDS: THIAMINE HCL 100 MG TABLET (FP) PO SCH (21:22)
[2018-06-20] MEDS: ASPIRIN 81 MG CHEWABLE TABLETS PO SCH (10:00)
[2018-06-20] MEDS: LISINOPRIL 5 MG TABLET (FP) PO SCH (10:00)
[2018-06-20] MEDS: PRENATAL VITAMINS W/ FOLIC ACID TABLET (FP) PO SCH (10:00)
[2018-06-20] MEDS: NICOTINE 21 MG/24 HOURS TOPICAL PATCH TD SCH (10:00)
[2018-06-20] MEDS: FOLIC ACID 1 MG TABLET (FP) PO SCH (10:00)
[2018-06-20] MEDS: MELATONIN 5 MG TABLETS PO PRN (21:18)
[2018-06-20] MEDS: ATORVASTATIN CA 10 MG TABLET (FP) PO SCH (21:18)
[2018-06-20] MEDS: THIAMINE HCL 100 MG TABLET (FP) PO SCH (21:18)
[2018-06-20] MEDS: traZODone HCL 100 MG TABLET (FP) PO SCH (21:18)
[2018-06-21] MEDS: LISINOPRIL 5 MG TABLET (FP) PO SCH (09:35)
[2018-06-21] MEDS: PRENATAL VITAMINS W/ FOLIC ACID TABLET (FP) PO SCH (09:35)
[2018-06-21] MEDS: ASPIRIN 81 MG CHEWABLE TABLETS PO SCH (09:35)
[2018-06-21] MEDS: FOLIC ACID 1 MG TABLET (FP) PO SCH (09:36)
[2018-06-21] MEDS: NICOTINE 21 MG/24 HOURS TOPICAL PATCH TD SCH (09:36)
[2018-06-21] MEDS: ATORVASTATIN CA 10 MG TABLET (FP) PO SCH (21:35)
[2018-06-21] MEDS: THIAMINE HCL 100 MG TABLET (FP) PO SCH (21:35)
[2018-06-21] MEDS: traZODone HCL 100 MG TABLET (FP) PO SCH (21:35)
[2018-06-22] MEDS: PRENATAL VITAMINS W/ FOLIC ACID TABLET (FP) PO SCH (10:20)
[2018-06-22] MEDS: LISINOPRIL 5 MG TABLET (FP) PO SCH (10:20)
[2018-06-22] MEDS: FOLIC ACID 1 MG TABLET (FP) PO SCH (10:20)
[2018-06-22] MEDS: NICOTINE 21 MG/24 HOURS TOPICAL PATCH TD SCH (10:20)
[2018-06-22] MEDS: ASPIRIN 81 MG CHEWABLE TABLETS PO SCH (10:20)
[2018-06-22] MEDS: AMMONIUM LACTATE 12% LOTION 225 GM BOTTLE TP PRN (11:00)
[2018-06-22] MEDS: THIAMINE HCL 100 MG TABLET (FP) PO SCH (21:28)
[2018-06-22] MEDS: ATORVASTATIN CA 10 MG TABLET (FP) PO SCH (21:28)
[2018-06-22] MEDS: traZODone HCL 100 MG TABLET (FP) PO SCH (21:28)
[2018-06-23] MEDS: FOLIC ACID 1 MG TABLET (FP) PO SCH (10:17)
[2018-06-23] MEDS: LISINOPRIL 5 MG TABLET (FP) PO SCH (10:17)
[2018-06-23] MEDS: ASPIRIN 81 MG CHEWABLE TABLETS PO SCH (10:17)
[2018-06-23] MEDS: PRENATAL VITAMINS W/ FOLIC ACID TABLET (FP) PO SCH (10:17)
[2018-06-23] MEDS: NICOTINE 21 MG/24 HOURS TOPICAL PATCH TD SCH (10:18)
[2018-06-23] MEDS: ERGOCALCIFEROL (VITAMIN D2) 50,000 UNIT CAPSULE (FP) PO SCH (11:00)
--- NOTE | 2018-06-23 13:32 | PN ---
Psychiatric Progress Note Vital Signs: Vital Signs Period Temp Pulse Resp BP Sys/Nicole Pulse Ox Last 24 Hr 98.4 F 70 18-20 105/68 Date of Session: 06/23/18 Chief Complaint:: Discharge Note HPI: Patient addressing Alcohol and Cocaine Dependence comorbid with Nicotine Dependence and Substance-Induced Sleep Disorder ROS: Chronic LBP, HTN, HLD, CAD with angioplasty/stent were medically managed Current Medications: Active Medications Generic Name Dose Route Start Last Admin Trade Name Freq PRN Reason Stop Dose Admin Acetaminophen 650 mg 06/15/18 19:29 Tylenol - PO Q4H PRN FEVER Al Hydroxide/Mg Hydroxide 30 ml 06/15/18 19:29 Mylanta Oral Suspension - PO Q6H PRN DYSPEPSIA Aspirin 81 mg 06/16/18 10:00 06/23/18 10:17 Asa - PO 81 mg DAILY CHADD Administration Atorvastatin Calcium 10 mg 06/15/18 22:00 06/22/18 21:28 Lipitor - PO 10 mg HS CHADD Administration Colloidal Oatmeal 1 applic 06/15/18 19:36 Aveeno Soap - TP DAILY PRN HYGEINE Ergocalciferol 50,000 unit 06/16/18 10:00 06/23/18 11:00 Drisdol - PO 50,000 unit Tu@1000 CHADD Administration Eucalyptus/Menthol/Phenol/Sorbitol 1 each 06/15/18 19:29 Cepastat Lozenge - MM Q4H PRN SORE THROAT Folic Acid 1 mg 06/16/18 10:00 06/23/18 10:17 Folic Acid - PO 1 mg DAILY CHADD Administration Guaifenesin 10 ml 06/15/18 19:29 Robitussin Dm - PO Q6H PRN COUGH Hydroxyzine Pamoate 50 mg 06/15/18 19:29 Vistaril - PO Q4H PRN AGITATION Ibuprofen 400 mg 06/15/18 19:29 Motrin - PO Q6H PRN Pain level 4-6 Lactic Acid 1 applic 06/15/18 19:38 06/22/18 11:00 Lac-Hydrin 12 TP 1 applic DAILY PRN Administration DRY SKIN Lisinopril 5 mg 06/16/18 10:00 06/23/18 10:17 Prinivil PO 5 mg DAILY CHADD Administration Loperamide HCl 4 mg 10/22/18 19:29 Imodium - PO Q6H PRN DIARRHEA Magnesium Citrate 300 ml 06/15/18 19:29 Citroma - PO Q48H PRN CONSTIPATION Magnesium Hydroxide 30 ml 06/15/18 19:29 Milk Of Magnesia - PO DAILY PRN CONSTIPATION Melatonin 5 mg 06/15/18 22:00 06/20/18 21:18 Melatonin PO 5 mg HS PRN Administration INSOMNIA Metoprolol Succinate 50 mg 06/16/18 10:00 06/23/18 10:17 Toprol Xl - PO 50 mg DAILY CHADD Administration Nicotine 21 mg 06/17/18 10:00 06/23/18 10:18 Nicoderm Patch - TD 21 mg DAILY CHDAD Administration Nicotine Polacrilex 2 mg 06/15/18 19:29 Nicorette Gum - BC Q2H PRN NICOTINE REPLACEMENT RX Multivit/Folic Acid/Iron 1 tab 06/16/18 10:00 06/23/18 10:17 Vitamins (Sjr) - PO 1 tab DAILY CHADD Administration Pseudoephedrine/Triprolidine 1 combo 06/15/18 19:29 Actifed - PO TID PRN NASAL CONGESTION Thiamine HCl 100 mg 06/15/18 22:00 06/22/18 21:28 Vitamin B1 - PO 100 mg HS CHADD Administration Trazodone HCl 100 mg 06/18/18 22:00 06/22/18 21:28 Desyrel - PO 100 mg HS CHADD Administration Current Side Effect: No Lab tests ordered: Yes Lab tests reviewed: Yes Provider note:: Patient will complete this program on 06/24/18. He has met his treatment goals and will continue to address his issues in outpatient treatment at [facility]. Told rewriter that from his participation in this program, he has learned that he cannot do it alone and that he needs to surround himself with sober support network. He responded well to Trazadone 100 mg po HS. Script for 30 days supply of that medication will be electronically transmitted to [facility] at [address] [place] [id number]. He is stable for discharge on 06/24/18 Total face to face time:: 35 Mental Status Exam - Mental Status Exam Alert and Oriented to: Time, Place, Person Cognitive Function: Fair Patient Appearance: Well Groomed Mood: Hopeful, Euthymic Affect: Appropriate Patient Behavior: Cooperative Speech Pattern: Clear Voice Loudness: Normal Thought Process: Intact, Goal Oriented Thought Disorder: Not Present Hallucinations: Denies Suicidal Ideation: Denies Homicidal Ideation: Denies Insight/Judgement: Fair Sleep: Fair Appetite: Good Muscle strength/Tone: Normal Gait/Station: Normal Psychiatric Treatment Plan - Problem List (1) Alcohol dependence Current Visit: Yes (2) Cocaine dependence Current Visit: Yes (3) Nicotine dependence Current Visit: Yes Qualifiers: Nicotine product type: cigarettes Substance use status: in withdrawal Qualified Code(s): F17.213 - Nicotine dependence, cigarettes, with withdrawal Comment: . (4) Substance-induced sleep disorder Current Visit: Yes (5) Chronic low back pain Current Visit: Yes Qualifiers: Back pain laterality: midline Sciatica presence: without sciatica Qualified Code(s): M54.5 - Low back pain; G89.29 - Other chronic pain (6) Hypercholesterolemia Current Visit: Yes Comment: . (7) Hypertension Current Visit: Yes Qualifiers: Hypertension type: essential hypertension Qualified Code(s): I10 - Essential (primary) hypertension Comment: . (8) CAD (coronary artery disease) Current Visit: No Qualifiers: Coronary Disease-Associated Artery/Lesion type: unspecified vessel or lesion type [place] vs. transplanted heart: [place] heart Associated angina: without angina Qualified Code(s): I25.10 - Atherosclerotic heart disease of [place] coronary artery without angina pectoris (9) S/P angioplasty with stent Current Visit: No (10) History of intravascular stent placement Current Visit: Yes (11) Obesity Current Visit: Yes Qualifiers: Obesity type: due to excess calories (12) Vitamin D deficiency Current Visit: Yes Initial treatment plan: Patient will be discharged tomorrow and referred to [facility] for outpatient treatment
[2018-06-23] MEDS: traZODone HCL 100 MG TABLET (FP) PO SCH (21:26)
[2018-06-23] MEDS: THIAMINE HCL 100 MG TABLET (FP) PO SCH (21:26)
[2018-06-23] MEDS: ATORVASTATIN CA 10 MG TABLET (FP) PO SCH (21:26)
[2018-06-24 06:57] VITALS: TEMP 98
[2018-06-24] MEDS: ASPIRIN 81 MG CHEWABLE TABLETS PO SCH (09:29)
[2018-06-24] MEDS: NICOTINE 21 MG/24 HOURS TOPICAL PATCH TD SCH (09:29)
[2018-06-24] MEDS: FOLIC ACID 1 MG TABLET (FP) PO SCH (09:29)
[2018-06-24] MEDS: PRENATAL VITAMINS W/ FOLIC ACID TABLET (FP) PO SCH (09:29)
[2018-06-24] MEDS: LISINOPRIL 5 MG TABLET (FP) PO SCH (09:29)
[2018-06-24 10:54] VITALS: BP 124/74; PULSE 83
== END 2018-06-24 09:55 | disposition home or self-care (01) | DRG 895 ==
LOC: YASAS 11:24 → Y5N 16:57
PROVIDERS: ADMIT Psychiatry & Neurology Psychiatry; ATTEND Psychiatry & Neurology Psychiatry
PROC: HZ42ZZZ Group Counseling for Substance Abuse Treatment, Cognitive-Behavioral (ICD-10-PCS; principal; 2018-06-15)
DX: F10.20 Alcohol dependence, uncomplicated (principal); F14.20 Cocaine dependence, uncomplicated; F19.282 Other psychoactive substance dependence with psychoactive substance-induced sleep disorder; F17.213 Nicotine dependence, cigarettes, with withdrawal; I25.10 Atherosclerotic heart disease of native coronary artery without angina pectoris; I10 Essential (primary) hypertension; Z95.5 Presence of coronary angioplasty implant and graft; E78.00 Pure hypercholesterolemia, unspecified; E55.9 Vitamin D deficiency, unspecified; M54.5 Low back pain; G89.29 Other chronic pain; E66.9 Obesity, unspecified; Z68.28 Body mass index [BMI] 28.0-28.9, adult; Z95.828 Presence of other vascular implants and grafts
CPT/HCPCS: 36415; 80053; 81003; 85027; 86593; 93005; 93010

== ENCOUNTER 2018-07-29 02:30 | Emergency (ER) | payer OTHER ==
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
[2018-07-29 03:00] VITALS: BP 128/86; PULSE 102; TEMP 97.5; BMI 30.4
[2018-07-29] MEDS ORDERED: chlordiazePOXIDE HCL 25 MG CAPSULE PO ONE (03:31)
[2018-07-29] MEDS ORDERED: chlordiazePOXIDE HCL 25 MG CAPSULE ONE (03:43)
== END 2018-07-29 03:55 | disposition home or self-care (01) ==
LOC: JER 02:30
DX: F10.20 Alcohol dependence, uncomplicated (principal); F14.20 Cocaine dependence, uncomplicated; I25.10 Atherosclerotic heart disease of native coronary artery without angina pectoris; I10 Essential (primary) hypertension; Z95.5 Presence of coronary angioplasty implant and graft; E78.5 Hyperlipidemia, unspecified; E78.00 Pure hypercholesterolemia, unspecified
CPT/HCPCS: 99283-25

== ENCOUNTER 2018-07-29 04:40 | Inpatient (IN) | payer OTHER ==
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
[2018-07-29] MEDS ORDERED: chlordiazePOXIDE HCL 25 MG CAPSULE PO PRN (05:29)
[2018-07-29] MEDS ORDERED: MAGNESIUM HYDROX 2400MG/30ML ORAL SUSPENSION 30 ML CUP PO PRN (05:29)
[2018-07-29] MEDS ORDERED: IBUPROFEN 400 MG TABLET (FP) PO PRN (05:29)
[2018-07-29] MEDS ORDERED: LOPERAMIDE HCL 2 MG CAPSULE PO PRN (05:29)
[2018-07-29] MEDS ORDERED: MENTHOL/PHENOL 1 EACH UD MM PRN (05:29)
[2018-07-29] MEDS ORDERED: MAGNESIUM CITRATE 300 ML BOTTLE PO PRN (05:29)
[2018-07-29] MEDS ORDERED: MAG HYDROX/AL HYDROX/SIMETH 30 ML UNIT-DOSE CUP PO PRN (05:29)
[2018-07-29] MEDS ORDERED: chlordiazePOXIDE HCL 25 MG CAPSULE PO ONE (05:29)
[2018-07-29 05:48] VITALS: BMI 31.6
[2018-07-29] MEDS ORDERED: VITAMINS A AND D TOPICAL OINTMENT 60 GM TUBE TP PRN (05:49)
[2018-07-29] MEDS: FOLIC ACID 1 MG TABLET (FP) PO SCH (10:24)
[2018-07-29] MEDS: NICOTINE 21 MG/24 HOURS TOPICAL PATCH TD SCH (10:24)
[2018-07-29] MEDS: ASPIRIN 81 MG CHEWABLE TABLETS PO SCH (10:24)
[2018-07-29] MEDS: PRENATAL VITAMINS W/ FOLIC ACID TABLET (FP) PO SCH (10:24)
[2018-07-29] MEDS: amLODIPine BESYLATE 10 MG TABLET (FP) PO SCH (10:25)
[2018-07-29] MEDS: chlordiazePOXIDE HCL 25 MG CAPSULE PO SCH ×3 (10:26→22:53)
[2018-07-29] MEDS: TOLNAFTATE 1% CREAM 15 GM TUBE TP SCH ×2 (10:28→22:55)
--- NOTE | 2018-07-29 11:11 | PN ---
S CIWA - CIWA Score Nausea/Vomitin-Mild Nausea/No Vomiting Muscle Tremors: 3 Anxiety: 1-Mildly Anxious Agitation: 2 Paroxysmal Sweats: 1-Minimal Palms Moist Orientation: 1-Uncertain about Date Tacttile Disturbances: 1-Very Mild Itch/Numbness Auditory Disturbances: 0-None Visual Disturbances: 0-None Headache: 1-Very Mild CIWA-Ar Total Score: 11 [facility] Progress Note (SOAP) Subjective: tremor sweat anxiety restlessness low energy trouble sleep at night Objective: 07/29/18 11:10 Vital Signs Temperature 97.7 F 07/29/18 09:29 Pulse Rate 97 H 07/29/18 09:29 Respiratory Rate 18 07/29/18 09:29 Blood Pressure 146/82 07/29/18 09:29 O2 Sat by Pulse Oximetry (%) lab pending Assessment: 07/29/18 11:11 withdrawal sx Plan: continue detox
[2018-07-29] MEDS: LISINOPRIL 10 MG TABLET (FP) PO SCH (11:29)
[2018-07-29] MEDS: THIAMINE HCL 100 MG TABLET (FP) PO SCH (22:53)
[2018-07-30] MEDS: chlordiazePOXIDE HCL 25 MG CAPSULE PO SCH ×4 (05:16→22:18)
[2018-07-30 10:07] LABS: HEMATOCRIT 42.3 % (35.4-49); HEMOGLOBIN 13.3 GM/dL (11.7-16.9); MCH 27.6 pg (25.7-33.7); MCHC 31.4 g/dl (32.0-35.9); MEAN CELL VOLUME 87.7 fl (80-96); MEAN PLT VOLUME 9.1 fl (7.5-11.1); PLATELET COUNT 154 K/MM3 (134-434); RBC 4.83 M/mm3 (4.00-5.60); RDW 14.3 % (11.9-15.9); WHITE BLOOD COUNT 3.4 K/mm3 (4.0-10.0)
[2018-07-30] MEDS: amLODIPine BESYLATE 10 MG TABLET (FP) PO SCH (10:21)
[2018-07-30] MEDS: PRENATAL VITAMINS W/ FOLIC ACID TABLET (FP) PO SCH (10:21)
[2018-07-30] MEDS: LISINOPRIL 10 MG TABLET (FP) PO SCH (10:21)
[2018-07-30] MEDS: TOLNAFTATE 1% CREAM 15 GM TUBE TP SCH ×2 (10:21→22:18)
[2018-07-30] MEDS: ASPIRIN 81 MG CHEWABLE TABLETS PO SCH (10:21)
[2018-07-30] MEDS: FOLIC ACID 1 MG TABLET (FP) PO SCH (10:23)
[2018-07-30] MEDS: NICOTINE 21 MG/24 HOURS TOPICAL PATCH TD SCH (10:24)
[2018-07-30 11:24] LABS: ALBUMIN 3.3 g/dl (3.4-5.0); ALK PHOS 72 U/L (45-117); ANION GAP 8 MMOL/L (8-16); BILIRUBIN,TOTAL 0.4 mg/dL (0.2-1); BLOOD UREA NITROGEN 15 mg/dL (7-18); CALCIUM 8.2 mg/dL (8.5-10.1); CHLORIDE 106 mmol/L (98-107); CO2 29 mmol/L (21-32); CREATININE 0.8 mg/dL (0.55-1.3); GLUCOSE,RANDOM 86 mg/dL (74-106); POTASSIUM 3.5 mmol/L (3.5-5.1); SGOT/AST 27 U/L (15-37); SGPT/ALT 24 U/L (13-61); SODIUM 143 mmol/L (136-145); TOT PROT 6.2 g/dl (6.4-8.2)
--- NOTE | 2018-07-30 13:52 | PN ---
S CIWA - CIWA Score Nausea/Vomitin-Mild Nausea/No Vomiting Muscle Tremors: 2 Anxiety: 2 Agitation: 2 Paroxysmal Sweats: 1-Minimal Palms Moist Orientation: 0-Oriented Tacttile Disturbances: 0-None Auditory Disturbances: 0-None Visual Disturbances: 0-None Headache: 1-Very Mild CIWA-Ar Total Score: 9 S Progress Note (SOAP) Subjective: tremor sweat restlessness anxiety trouble sleep at night Objective: 07/30/18 13:51 Vital Signs Temperature 97.9 F 07/30/18 13:48 Pulse Rate 72 07/30/18 13:48 Respiratory Rate 18 07/30/18 13:48 Blood Pressure 123/69 07/30/18 13:48 O2 Sat by Pulse Oximetry (%) Laboratory Last Values WBC 3.4 K/mm3 (4.0-10.0) L 07/30/18 07:00 RBC 4.83 M/mm3 (4.00-5.60) 07/30/18 07:00 Hgb 13.3 GM/dL (11.7-16.9) 07/30/18 07:00 Hct 42.3 % (35.4-49) 07/30/18 07:00 MCV 87.7 fl (80-96) 07/30/18 07:00 MCH 27.6 pg (25.7-33.7) 07/30/18 07:00 MCHC 31.4 g/dl (32.0-35.9) L 07/30/18 07:00 RDW 14.3 % (11.9-15.9) 07/30/18 07:00 Plt Count 154 K/MM3 (134-434) D 07/30/18 07:00 MPV 9.1 fl (7.5-11.1) 07/30/18 07:00 Sodium 143 mmol/L (136-145) 07/30/18 07:00 Potassium 3.5 mmol/L (3.5-5.1) 07/30/18 07:00 Chloride 106 mmol/L (98-107) 07/30/18 07:00 Carbon Dioxide 29 mmol/L (21-32) 07/30/18 07:00 Anion Gap 8 MMOL/L (8-16) 07/30/18 07:00 BUN 15 mg/dL (7-18) 07/30/18 07:00 Creatinine 0.8 mg/dL (0.55-1.3) 07/30/18 07:00 Creat Clearance w eGFR > 60 (>60) 07/30/18 07:00 Random Glucose 86 mg/dL (74-106) 07/30/18 07:00 Calcium 8.2 mg/dL (8.5-10.1) L 07/30/18 07:00 Total Bilirubin 0.4 mg/dL (0.2-1) 07/30/18 07:00 AST 27 U/L (15-37) 07/30/18 07:00 ALT 24 U/L (13-61) 07/30/18 07:00 Alkaline Phosphatase 72 U/L (45-117) 07/30/18 07:00 Total Protein 6.2 g/dl (6.4-8.2) L 07/30/18 07:00 Albumin 3.3 g/dl (3.4-5.0) L 07/30/18 07:00 lab noted Assessment: 07/30/18 13:52 withdrawal sx Plan: continue detox
[2018-07-30] MEDS: THIAMINE HCL 100 MG TABLET (FP) PO SCH (22:18)
[2018-07-30] MEDS: MELATONIN 5 MG TABLETS PO PRN (22:18)
[2018-07-31] MEDS: chlordiazePOXIDE HCL 25 MG CAPSULE PO SCH (05:39)
[2018-07-31] MEDS: LISINOPRIL 10 MG TABLET (FP) PO SCH (10:52)
[2018-07-31] MEDS: ASPIRIN 81 MG CHEWABLE TABLETS PO SCH (10:52)
[2018-07-31] MEDS: PRENATAL VITAMINS W/ FOLIC ACID TABLET (FP) PO SCH (10:52)
[2018-07-31] MEDS: amLODIPine BESYLATE 10 MG TABLET (FP) PO SCH (10:52)
[2018-07-31] MEDS: FOLIC ACID 1 MG TABLET (FP) PO SCH (10:52)
[2018-07-31] MEDS: chlordiazePOXIDE 5 MG CAPSULE PO SCH ×3 (10:52→22:17)
[2018-07-31] MEDS: NICOTINE 21 MG/24 HOURS TOPICAL PATCH TD SCH (10:54)
[2018-07-31] MEDS: TOLNAFTATE 1% CREAM 15 GM TUBE TP SCH ×2 (10:59→22:18)
--- NOTE | 2018-07-31 10:59 | PN ---
[facility] Progress Note (SOAP) Subjective: Better. Objective: 07/31/18 10:58 Vital Signs Temperature 99.1 F 07/31/18 06:00 Pulse Rate 69 07/31/18 06:00 Respiratory Rate 18 07/31/18 06:00 Blood Pressure 110/67 07/31/18 06:00 O2 Sat by Pulse Oximetry (%) Laboratory Tests 07/30/18 07/30/18 07:00 07:00 WBC 3.4 L RBC 4.83 Hgb 13.3 Hct 42.3 MCV 87.7 MCH 27.6 MCHC 31.4 L RDW 14.3 Plt Count 154 D MPV 9.1 Sodium 143 Potassium 3.5 Chloride 106 Carbon Dioxide 29 Anion Gap 8 BUN 15 Creatinine 0.8 Creat Clearance w eGFR > 60 Random Glucose 86 Calcium 8.2 L Total Bilirubin 0.4 AST 27 ALT 24 Alkaline Phosphatase 72 Total Protein 6.2 L Albumin 3.3 L pt aox3 in nad ambulating well Assessment: 07/31/18 10:58 withdrawal sx's Plan: cont. detox increase fluids d/c in am
[2018-07-31] MEDS: ACETAMINOPHEN 325 MG TABLET (FP) PO PRN (16:21)
[2018-07-31] MEDS: MELATONIN 5 MG TABLETS PO PRN (22:17)
[2018-07-31] MEDS: THIAMINE HCL 100 MG TABLET (FP) PO SCH (22:17)
[2018-08-01] MEDS: chlordiazePOXIDE 5 MG CAPSULE PO SCH (06:03)
[2018-08-01] MEDS: ACETAMINOPHEN 325 MG TABLET (FP) PO PRN (08:55)
--- NOTE | 2018-08-01 10:13 | PN ---
[facility] Progress Note (SOAP) Subjective: Interrupted sleep Objective: 08/01/18 10:11 Vital Signs - 8 hr 08/01/18 08/01/18 08/01/18 03:30 06:32 09:03 Temperature 98.1 F 98.8 F Pulse Rate 75 84 Respiratory 18 18 18 Rate Blood Pressure 117/74 119/81 Laboratory Last Values WBC 3.4 K/mm3 (4.0-10.0) L 07/30/18 07:00 RBC 4.83 M/mm3 (4.00-5.60) 07/30/18 07:00 Hgb 13.3 GM/dL (11.7-16.9) 07/30/18 07:00 Hct 42.3 % (35.4-49) 07/30/18 07:00 MCV 87.7 fl (80-96) 07/30/18 07:00 MCH 27.6 pg (25.7-33.7) 07/30/18 07:00 MCHC 31.4 g/dl (32.0-35.9) L 07/30/18 07:00 RDW 14.3 % (11.9-15.9) 07/30/18 07:00 Plt Count 154 K/MM3 (134-434) D 07/30/18 07:00 MPV 9.1 fl (7.5-11.1) 07/30/18 07:00 Sodium 143 mmol/L (136-145) 07/30/18 07:00 Potassium 3.5 mmol/L (3.5-5.1) 07/30/18 07:00 Chloride 106 mmol/L (98-107) 07/30/18 07:00 Carbon Dioxide 29 mmol/L (21-32) 07/30/18 07:00 Anion Gap 8 MMOL/L (8-16) 07/30/18 07:00 BUN 15 mg/dL (7-18) 07/30/18 07:00 Creatinine 0.8 mg/dL (0.55-1.3) 07/30/18 07:00 Creat Clearance w eGFR > 60 (>60) 07/30/18 07:00 Random Glucose 86 mg/dL (74-106) 07/30/18 07:00 Calcium 8.2 mg/dL (8.5-10.1) L 07/30/18 07:00 Total Bilirubin 0.4 mg/dL (0.2-1) 07/30/18 07:00 AST 27 U/L (15-37) 07/30/18 07:00 ALT 24 U/L (13-61) 07/30/18 07:00 Alkaline Phosphatase 72 U/L (45-117) 07/30/18 07:00 Total Protein 6.2 g/dl (6.4-8.2) L 07/30/18 07:00 Albumin 3.3 g/dl (3.4-5.0) L 07/30/18 07:00 RPR Titer Nonreactive (NONREACTIVE) 07/30/18 07:00 Labs noted Improvement in withdrawal sx Assessment: 08/01/18 10:12 Withdrawal sx Plan: Continue detox Discharge on 08/02 for completion of detox
[2018-08-01] MEDS: LISINOPRIL 10 MG TABLET (FP) PO SCH (10:19)
[2018-08-01] MEDS: PRENATAL VITAMINS W/ FOLIC ACID TABLET (FP) PO SCH (10:19)
[2018-08-01] MEDS: TOLNAFTATE 1% CREAM 15 GM TUBE TP SCH ×2 (10:19→22:54)
[2018-08-01] MEDS: ASPIRIN 81 MG CHEWABLE TABLETS PO SCH (10:19)
[2018-08-01] MEDS: FOLIC ACID 1 MG TABLET (FP) PO SCH (10:19)
[2018-08-01] MEDS: amLODIPine BESYLATE 10 MG TABLET (FP) PO SCH (10:19)
[2018-08-01] MEDS: chlordiazePOXIDE HCL 10 MG CAPSULE PO SCH ×3 (10:19→22:53)
[2018-08-01] MEDS: NICOTINE 21 MG/24 HOURS TOPICAL PATCH TD SCH (10:21)
[2018-08-01] MEDS: THIAMINE HCL 100 MG TABLET (FP) PO SCH (22:53)
[2018-08-01] MEDS: MELATONIN 5 MG TABLETS PO PRN (22:55)
[2018-08-02] MEDS: chlordiazePOXIDE HCL 10 MG CAPSULE PO SCH (05:43)
[2018-08-02 06:38] VITALS: BP 129/84; PULSE 73; TEMP 97.9
--- NOTE | 2018-08-02 09:49 | DS ---
[facility] Detox Discharge Summary Admission Date: 07/29/18 Discharge Date: 08/02/18 - History Present History: Alcohol Dependence Additional Comments: 58 years old male admitted on 07/29/18 for alcohol withdrawal sx alert oriented x 3 no acute distress aftercare revelation - Physical Exam Results Vital Signs: Vital Signs Temperature 97.9 F 08/02/18 06:38 Pulse Rate 73 08/02/18 06:38 Respiratory Rate 18 08/02/18 06:38 Blood Pressure 129/84 08/02/18 06:38 O2 Sat by Pulse Oximetry (%) Pertinent Admission Physical Exam Findings: alcohol withdrawal sx Vital Signs Temperature 97.9 F 08/02/18 06:38 Pulse Rate 73 08/02/18 06:38 Respiratory Rate 18 08/02/18 06:38 Blood Pressure 129/84 08/02/18 06:38 O2 Sat by Pulse Oximetry (%) Laboratory Last Values WBC 3.4 K/mm3 (4.0-10.0) L 07/30/18 07:00 RBC 4.83 M/mm3 (4.00-5.60) 07/30/18 07:00 Hgb 13.3 GM/dL (11.7-16.9) 07/30/18 07:00 Hct 42.3 % (35.4-49) 07/30/18 07:00 MCV 87.7 fl (80-96) 07/30/18 07:00 MCH 27.6 pg (25.7-33.7) 07/30/18 07:00 MCHC 31.4 g/dl (32.0-35.9) L 07/30/18 07:00 RDW 14.3 % (11.9-15.9) 07/30/18 07:00 Plt Count 154 K/MM3 (134-434) D 07/30/18 07:00 MPV 9.1 fl (7.5-11.1) 07/30/18 07:00 Sodium 143 mmol/L (136-145) 07/30/18 07:00 Potassium 3.5 mmol/L (3.5-5.1) 07/30/18 07:00 Chloride 106 mmol/L (98-107) 07/30/18 07:00 Carbon Dioxide 29 mmol/L (21-32) 07/30/18 07:00 Anion Gap 8 MMOL/L (8-16) 07/30/18 07:00 BUN 15 mg/dL (7-18) 07/30/18 07:00 Creatinine 0.8 mg/dL (0.55-1.3) 07/30/18 07:00 Creat Clearance w eGFR > 60 (>60) 07/30/18 07:00 Random Glucose 86 mg/dL (74-106) 07/30/18 07:00 Calcium 8.2 mg/dL (8.5-10.1) L 07/30/18 07:00 Total Bilirubin 0.4 mg/dL (0.2-1) 07/30/18 07:00 AST 27 U/L (15-37) 07/30/18 07:00 ALT 24 U/L (13-61) 07/30/18 07:00 Alkaline Phosphatase 72 U/L (45-117) 07/30/18 07:00 Total Protein 6.2 g/dl (6.4-8.2) L 07/30/18 07:00 Albumin 3.3 g/dl (3.4-5.0) L 07/30/18 07:00 RPR Titer Nonreactive (NONREACTIVE) 07/30/18 07:00 lab noted - Treatment Hospital Course: Detox Protocol Followed, Detoxed Safely, Responded well, Discharged Condition Good, Rehab Referral Accepted Patient has Accepted a Rehab Referral to: [facility] - Medication Discharge Medications: Ambulatory Orders Amlodipine Besylate/Benazepril [Lotrel 10-20 mg Capsule] 10 - 40 mg PO DAILY Folic Acid - 1 mg PO DAILY 06/15/18 Ibuprofen [Ibu] 800 mg PO BID PRN 06/15/18 Lisinopril [Prinivil] 5 mg PO DAILY 06/15/18 Mirtazapine [Remeron -] 15 mg PO HS 06/15/18 Multivitamins [Multivit ([facility] Formulary)] 1 tab PO DAILY 06/15/18 Pravastatin Sodium [Pravachol -] 40 mg PO HS 06/15/18 Thiamine HCl [Vitamin B-1] 100 mg PO DAILY 06/15/18 traZODone HCL [Desyrel -] 100 mg PO HS #30 tablet 06/19/18 Amlodipine Besylate [Norvasc -] 10 mg PO DAILY #30 tablet 07/31/18 Aspirin [ASA -] 81 mg PO DAILY #30 tab.chew 07/31/18 Atorvastatin Ca [Lipitor] 20 mg PO HS #30 tablet 07/31/18 Ergocalciferol (Vitamin D2) [Drisdol] 50,000 unit PO WEEKLY #4 capsule 07/31/18 Lisinopril [Prinivil] 10 mg PO DAILY #30 tablet 07/31/18 Metoprolol Succinate [Toprol Xl] 50 mg PO DAILY #30 tab.er.24h 07/31/18 - Diagnosis (1) Alcohol dependence with uncomplicated withdrawal Status: Acute (2) Hypercholesterolemia Status: Chronic (3) Hypertension Status: Chronic Qualifiers: Hypertension type: essential hypertension Qualified Code(s): I10 - Essential (primary) hypertension (4) Nicotine dependence Status: Acute Qualifiers: Nicotine product type: cigarettes Substance use status: in withdrawal Qualified Code(s): F17.213 - Nicotine dependence, cigarettes, with withdrawal (5) Obesity (BMI 30.0-34.9) Status: Chronic - AMA Did Patient Leave Against Medical Advice: No
== END 2018-08-02 09:10 | disposition home or self-care (01) | DRG 897 ==
LOC: YASAS 04:40 → Y6N 04:46
PROC: HZ2ZZZZ Detoxification Services for Substance Abuse Treatment (ICD-10-PCS; principal; 2018-07-29)
DX: F10.230 Alcohol dependence with withdrawal, uncomplicated (principal); F14.20 Cocaine dependence, uncomplicated; F17.213 Nicotine dependence, cigarettes, with withdrawal; I25.10 Atherosclerotic heart disease of native coronary artery without angina pectoris; I10 Essential (primary) hypertension; Z95.5 Presence of coronary angioplasty implant and graft; E78.00 Pure hypercholesterolemia, unspecified; G47.00 Insomnia, unspecified; R01.1 Cardiac murmur, unspecified; B35.3 Tinea pedis; E66.9 Obesity, unspecified; Z68.31 Body mass index [BMI] 31.0-31.9, adult
CPT/HCPCS: 36415; 80053; 85027; 86593

== ENCOUNTER 2018-10-29 11:58 | Inpatient (IN) | payer OTHER ==
[2018-10-29 12:14] VITALS: BMI 29.2
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
[2018-10-29] MEDS ORDERED: COLLOIDAL OATMEAL 1 BAR EACH TP PRN (13:18)
[2018-10-29] MEDS ORDERED: BISMUTH SUBSALICYLATE 262 MG/15 ML BTL PO PRN (13:27)
[2018-10-29] MEDS ORDERED: MAG HYDROX/AL HYDROX/SIMETH 30 ML UNIT-DOSE CUP PO PRN (13:27)
[2018-10-29] MEDS ORDERED: chlordiazePOXIDE HCL 25 MG CAPSULE PO PRN (13:27)
[2018-10-29] MEDS ORDERED: ACETAMINOPHEN 325 MG TABLET (FP) PO PRN ×2 (13:27)
[2018-10-29] MEDS ORDERED: IBUPROFEN 400 MG TABLET (FP) PO PRN (13:27)
[2018-10-29] MEDS ORDERED: MENTHOL/PHENOL 1 EACH UD MM PRN (13:27)
[2018-10-29] MEDS ORDERED: guaiFENesin 200 MG/10 ML 10 ML UNIT-DOSE CUPS PO PRN (13:27)
[2018-10-29] MEDS ORDERED: MAGNESIUM HYDROX 2400MG/30ML ORAL SUSPENSION 30 ML CUP PO PRN (13:27)
[2018-10-29] MEDS ORDERED: MAGNESIUM CITRATE 300 ML BOTTLE PO PRN (13:27)
[2018-10-29] MEDS ORDERED: ERGOCALCIFEROL (VITAMIN D2) 50,000 UNIT CAPSULE (FP) PO SCH (13:30)
[2018-10-29] MEDS ORDERED: NICOTINE POLACRILEX 2 MG GUM BUC PRN (13:54)
[2018-10-29] MEDS: LISINOPRIL 10 MG TABLET (FP) PO SCH (15:00)
[2018-10-29] MEDS: BACLOFEN 10 MG TABLET (FP) PO PRN ×2 (15:01→22:25)
--- NOTE | 2018-10-29 16:26 | CONSULT ---
[facility] Psychiatric Consult - Data Date of interview: 10/29/18 Admission source: [facility] Identifying data: Patient is a 58 year old male, father of four, unemployed, homeless, and is supported by food stamps. This is one of multiple admissions for patient. Patient admitted to for alcohol and cocaine dependence. Substance Abuse History: Smoking Cessation. Smoking history: Current every day smoker. Have you smoked in the past 12 months: Yes. Aproximately how many cigarettes per day: 15. Cigars Per Day: 0. Hx Chewing Tobacco Use: No. Initiated information on smoking cessation: Yes. 'Breaking Loose' booklet given : 10/29/18. - Substance & Tx. History. Hx Alcohol Use: Yes. Hx Substance Use : Yes. Substance Use Type: Alcohol, Cocaine. Hx Substance Use Treatment: Yes ( [facility] detox 07/29/18 -08/02/18). - Substances Abused. Alcohol. Route: Oral. Frequency: Daily. Amount used: 3 pts. Vodka. 4 quarts beer. Age of first use: 18. Date of Last Use: 10/29/18. Cocaine. Route: Smoking. Frequency: Daily. Amount used: $1900. weekly $300. - $400 daily. Age of first use: 18. Date of Last Use: 10/29/18 Medical History: hypercholesterolemia, stent in 2013 s/p angioplasty) Psychiatric History: Patient denies h/o psychiatric hospitalization, outpatient care and suicide attempt. Mr Estrada reports h/o receiving trazodone 100mg from his PCP but is now prescribed mirtazapine 15mg for insomnia. Physical/Sexual Abuse/Trauma History: denies. Mental Status Exam - Mental Status Exam Alert and Oriented to: Time, Place, Person Cognitive Function: Good Patient Appearance: Unkempt Mood: Withdrawn Affect: Mood Congruent Patient Behavior: Cooperative Speech Pattern: Appropriate Voice Loudness: Moderately Soft/Quiet Thought Process: Intact, Goal Oriented Thought Disorder: Not Present Hallucinations: Denies Suicidal Ideation: Denies Homicidal Ideation: Denies Insight/Judgement: Poor Sleep: Poorly Appetite: Fair Muscle strength/Tone: Normal Gait/Station: Normal Psychiatric Findings - Problem List ([place] 1, 2,3) (1) Alcohol dependence with uncomplicated withdrawal Current Visit: Yes Status: Acute (2) Nicotine dependence Current Visit: Yes Status: Acute Qualifiers: Nicotine product type: cigarettes Substance use status: in withdrawal Qualified Code(s): F17.213 - Nicotine dependence, cigarettes, with withdrawal Comment: . (3) Cocaine dependence, uncomplicated Current Visit: Yes Status: Chronic (4) Substance-induced sleep disorder Current Visit: Yes Status: Acute - Initial Treatment Plan Initial Treatment Plan: Psychoeducation provided. Detoxification in progress. Will order Mirtzapine 15mg qhs. Benefits and side effects discussed. Verbal consent given.
[2018-10-29] MEDS: chlordiazePOXIDE HCL 25 MG CAPSULE PO SCH ×2 (18:04→22:24)
[2018-10-29] MEDS: MIRTAZAPINE 15 MG TABLET (FP) PO SCH (22:25)
[2018-10-29] MEDS: THIAMINE HCL 100 MG TABLET (FP) PO SCH (22:25)
[2018-10-29] MEDS: ATORVASTATIN CA 20 MG TABLET (FP) PO SCH (22:25)
[2018-10-29] MEDS: MINERAL OIL/PETROLAT/WATER TOPICAL CREAM 113 GM JAR TP SCH (22:26)
[2018-10-29] MEDS: MELATONIN 5 MG TABLETS PO PRN (22:29)
[2018-10-30] MEDS: chlordiazePOXIDE HCL 25 MG CAPSULE PO SCH ×4 (06:56→22:57)
[2018-10-30] MEDS ORDERED: LISINOPRIL 10 MG TABLET (FP) PO SCH (10:00)
[2018-10-30] MEDS: amLODIPine BESYLATE 10 MG TABLET (FP) PO SCH (10:11)
[2018-10-30] MEDS: PRENATAL VITAMINS W/ FOLIC ACID TABLET (FP) PO SCH (10:11)
[2018-10-30] MEDS: ASPIRIN 81 MG CHEWABLE TABLETS PO SCH (10:11)
[2018-10-30] MEDS: NICOTINE 14 MG/24 HOURS TOPICAL PATCH TD SCH (10:12)
[2018-10-30] MEDS: MINERAL OIL/PETROLAT/WATER TOPICAL CREAM 113 GM JAR TP SCH ×2 (10:12→22:57)
[2018-10-30] MEDS: LISINOPRIL 10 MG TABLET (FP) PO SCH (10:12)
[2018-10-30 10:43] LABS: HEMATOCRIT 43.1 % (35.4-49); HEMOGLOBIN 14.4 GM/dL (11.7-16.9); MCH 29.5 pg (25.7-33.7); MCHC 33.5 g/dl (32.0-35.9); MEAN PLT VOLUME 10.4 fl (7.5-11.1); PLATELET COUNT 160 K/MM3 (134-434); RBC 4.89 M/mm3 (4.00-5.60); RDW 14.1 % (11.9-15.9); WHITE BLOOD COUNT 9.1 K/mm3 (4.0-10.0)
[2018-10-30 11:08] LABS: ALBUMIN 4.1 g/dl (3.4-5.0); ALK PHOS 97 U/L (45-117); ANION GAP 5 MMOL/L (8-16); BILIRUBIN,TOTAL 0.6 mg/dL (0.2-1); BLOOD UREA NITROGEN 22 mg/dL (7-18); CALCIUM 8.7 mg/dL (8.5-10.1); CHLORIDE 104 mmol/L (98-107); CO2 29 mmol/L (21-32); CREATININE 1.3 mg/dL (0.55-1.3); GLUCOSE,RANDOM 112 mg/dL (74-106); POTASSIUM 3.4 mmol/L (3.5-5.1); SGOT/AST 92 U/L (15-37); SGPT/ALT 53 U/L (13-61); SODIUM 138 mmol/L (136-145); TOT PROT 8.6 g/dl (6.4-8.2)
--- NOTE | 2018-10-30 17:23 | PN ---
[facility] CIWA - CIWA Score Nausea/Vomitin-No Nausea/No Vomiting Muscle Tremors: 3 Anxiety: 3 Agitation: 1-Slight > Activity Paroxysmal Sweats: 2 Orientation: 0-Oriented Tacttile Disturbances: 2-Mild Itch/Numbness/Burn Auditory Disturbances: 2-Mild Harshness/Frighten Visual Disturbances: 0-None Headache: 0-None Present CIWA-Ar Total Score: 13 S Progress Note (SOAP) Subjective: Tremors, Sweating, Interrupted Sleep. Objective: PATIENT A & O X 3, OBSERVED AMBULATING ON UNIT. IN NO ACUTE DISTRESS. 10/30/18 17:19 Vital Signs Temperature 96.8 F L 10/30/18 13:17 Pulse Rate 84 10/30/18 13:17 Respiratory Rate 18 10/30/18 13:17 Blood Pressure 112/70 10/30/18 13:17 O2 Sat by Pulse Oximetry (%) Laboratory Tests 10/30/18 10/30/18 06:00 06:00 WBC 9.1 RBC 4.89 Hgb 14.4 Hct 43.1 MCV 88.0 MCH 29.5 MCHC 33.5 RDW 14.1 Plt Count 160 MPV 10.4 D Sodium 138 Potassium 3.4 L Chloride 104 Carbon Dioxide 29 Anion Gap 5 L BUN 22 H Creatinine 1.3 Creat Clearance w eGFR 56.90 Random Glucose 112 H Calcium 8.7 Total Bilirubin 0.6 AST 92 H ALT 53 Alkaline Phosphatase 97 Total Protein 8.6 H Albumin 4.1 LABS NOTED. RPR RESULT PENDING. 10/30/18 17:21 Assessment: 10/30/18 17:21 WITHDRAWAL SYMPTOMS. HYPOKALEMIA. Plan: CONTINUE DETOX. INCREASE DAILY PO FLUID INTAKE. K-DUR, 20 MEQ PO DAILY. D/C IBUPROFEN AND MAGNESIUM-CONTAINING MEDS. FOR ABNORMAL ADMISSION RENAL LAB VALUES.
[2018-10-30] MEDS ORDERED: POTASSIUM CHLORIDE TABS 20 MEQ TABLET.ER (FP) PO ONE (17:45)
[2018-10-30] MEDS: THIAMINE HCL 100 MG TABLET (FP) PO SCH (22:57)
[2018-10-30] MEDS: ATORVASTATIN CA 20 MG TABLET (FP) PO SCH (22:57)
[2018-10-30] MEDS: MIRTAZAPINE 15 MG TABLET (FP) PO SCH (22:57)
[2018-10-31] MEDS: chlordiazePOXIDE HCL 25 MG CAPSULE PO SCH ×2 (05:31→10:14)
[2018-10-31] MEDS: NICOTINE 14 MG/24 HOURS TOPICAL PATCH TD SCH (10:13)
[2018-10-31] MEDS: LISINOPRIL 10 MG TABLET (FP) PO SCH (10:14)
[2018-10-31] MEDS: PRENATAL VITAMINS W/ FOLIC ACID TABLET (FP) PO SCH (10:14)
[2018-10-31] MEDS: amLODIPine BESYLATE 10 MG TABLET (FP) PO SCH (10:14)
[2018-10-31] MEDS: MINERAL OIL/PETROLAT/WATER TOPICAL CREAM 113 GM JAR TP SCH ×2 (10:15→22:24)
[2018-10-31] MEDS: POTASSIUM CHLORIDE TABS 20 MEQ TABLET.ER (FP) PO SCH (10:15)
[2018-10-31] MEDS: ASPIRIN 81 MG CHEWABLE TABLETS PO SCH (10:15)
--- NOTE | 2018-10-31 16:14 | PN ---
S CIWA - CIWA Score Nausea/Vomitin-No Nausea/No Vomiting Muscle Tremors: 2 Anxiety: 3 Agitation: 0-Normal Activity Paroxysmal Sweats: 3 Orientation: 0-Oriented Tacttile Disturbances: 1-Very Mild Itch/Numbness Auditory Disturbances: 0-None Visual Disturbances: 2-Mild Sensitivity Headache: 0-None Present CIWA-Ar Total Score: 11 [facility] Progress Note (SOAP) Subjective: Tremors, Sweating, Interrupted Sleep. Patient reports that withdrawal symptoms in general are subsiding in severity. Objective: PATIENT A & O X 3. IN NO ACUTE DISTRESS. 10/31/18 16:13 Vital Signs Temperature 97.1 F L 10/31/18 15:55 Pulse Rate 84 10/31/18 15:55 Respiratory Rate 18 10/31/18 15:55 Blood Pressure 132/78 10/31/18 15:55 O2 Sat by Pulse Oximetry (%) Laboratory Tests 10/30/18 10/30/18 10/30/18 06:00 06:00 06:00 WBC 9.1 RBC 4.89 Hgb 14.4 Hct 43.1 MCV 88.0 MCH 29.5 MCHC 33.5 RDW 14.1 Plt Count 160 MPV 10.4 D Sodium 138 Potassium 3.4 L Chloride 104 Carbon Dioxide 29 Anion Gap 5 L BUN 22 H Creatinine 1.3 Creat Clearance w eGFR 56.90 Random Glucose 112 H Calcium 8.7 Total Bilirubin 0.6 AST 92 H ALT 53 Alkaline Phosphatase 97 Total Protein 8.6 H Albumin 4.1 RPR Titer Nonreactive LABS NOTED. Assessment: 10/31/18 16:13 WITHDRAWAL SYMPTOMS. HYPOKALEMIA. Plan: CONTINUE DETOX. INCREASE DAILY PO FLUID INTAKE. CONTINUE K-DUR.
[2018-10-31] MEDS ORDERED: chlordiazePOXIDE HCL 10 MG CAPSULE PO PRN (17:00)
[2018-10-31] MEDS: chlordiazePOXIDE HCL 10 MG CAPSULE PO SCH ×2 (17:38→22:24)
[2018-10-31] MEDS: MIRTAZAPINE 15 MG TABLET (FP) PO SCH (22:24)
[2018-10-31] MEDS: ATORVASTATIN CA 20 MG TABLET (FP) PO SCH (22:24)
[2018-10-31] MEDS: THIAMINE HCL 100 MG TABLET (FP) PO SCH (22:24)
[2018-10-31] MEDS: MELATONIN 5 MG TABLETS PO PRN (22:25)
[2018-11-01] MEDS: chlordiazePOXIDE HCL 10 MG CAPSULE PO SCH ×3 (05:18→17:38)
[2018-11-01] MEDS: PRENATAL VITAMINS W/ FOLIC ACID TABLET (FP) PO SCH (10:11)
[2018-11-01] MEDS: POTASSIUM CHLORIDE TABS 20 MEQ TABLET.ER (FP) PO SCH (10:11)
[2018-11-01] MEDS: amLODIPine BESYLATE 10 MG TABLET (FP) PO SCH (10:11)
[2018-11-01] MEDS: ASPIRIN 81 MG CHEWABLE TABLETS PO SCH (10:11)
[2018-11-01] MEDS: LISINOPRIL 10 MG TABLET (FP) PO SCH (10:11)
[2018-11-01] MEDS: NICOTINE 14 MG/24 HOURS TOPICAL PATCH TD SCH (10:13)
[2018-11-01] MEDS: MINERAL OIL/PETROLAT/WATER TOPICAL CREAM 113 GM JAR TP SCH ×2 (10:13→22:13)
[2018-11-01 10:48] LABS: URINE APPEARANCE SLCLOUDY; URINE BILIRUBIN NEGATIVE (<2.0 mg/dL); URINE COLOR YELLOW; URINE GLUCOSE (UA) NEGATIVE (NEGATIVE); URINE KETONE NEGATIVE (NEGATIVE); URINE LEUK ESTERASE NEGATIVE (NEGATIVE); URINE NITRITE NEGATIVE (NEGATIVE); URINE PROTEIN NEGATIVE (NEGATIVE); URINE UROBILINOGEN 4.0 E.U/dl mg/dL (0.2-1.0)
[2018-11-01 11:41] LABS: CALCIUM OXALATE CRYSTALS MODERATE /hpf (NONE SEEN); URINE MUCUS RARE
--- NOTE | 2018-11-01 15:10 | PN ---
[facility] CIWA - CIWA Score Nausea/Vomitin-No Nausea/No Vomiting Muscle Tremors: 1-None Visible, but [place] Anxiety: 1-Mildly Anxious Agitation: 1-Slight > Activity Paroxysmal Sweats: 1-Minimal Palms Moist Orientation: 1-Uncertain about Date Tacttile Disturbances: 0-None Auditory Disturbances: 0-None Visual Disturbances: 0-None Headache: 1-Very Mild CIWA-Ar Total Score: 6 BHS Progress Note (SOAP) Subjective: feeling better less tremor mild sweating discuss aftercare with staff Objective: 11/01/18 15:11 Vital Signs Temperature 97 F L 11/01/18 13:16 Pulse Rate 82 11/01/18 13:16 Respiratory Rate 18 11/01/18 13:16 Blood Pressure 134/77 11/01/18 13:16 O2 Sat by Pulse Oximetry (%) Laboratory Last Values WBC 9.1 K/mm3 (4.0-10.0) 10/30/18 06:00 RBC 4.89 M/mm3 (4.00-5.60) 10/30/18 06:00 Hgb 14.4 GM/dL (11.7-16.9) 10/30/18 06:00 Hct 43.1 % (35.4-49) 10/30/18 06:00 MCV 88.0 fl (80-96) 10/30/18 06:00 MCH 29.5 pg (25.7-33.7) 10/30/18 06:00 MCHC 33.5 g/dl (32.0-35.9) 10/30/18 06:00 RDW 14.1 % (11.9-15.9) 10/30/18 06:00 Plt Count 160 K/MM3 (134-434) 10/30/18 06:00 MPV 10.4 fl (7.5-11.1) D 10/30/18 06:00 Sodium 138 mmol/L (136-145) 10/30/18 06:00 Potassium 3.4 mmol/L (3.5-5.1) L 10/30/18 06:00 Chloride 104 mmol/L (98-107) 10/30/18 06:00 Carbon Dioxide 29 mmol/L (21-32) 10/30/18 06:00 Anion Gap 5 MMOL/L (8-16) L 10/30/18 06:00 BUN 22 mg/dL (7-18) H 10/30/18 06:00 Creatinine 1.3 mg/dL (0.55-1.3) 10/30/18 06:00 Creat Clearance w eGFR 56.90 (>60) 10/30/18 06:00 Random Glucose 112 mg/dL (74-106) H 10/30/18 06:00 Calcium 8.7 mg/dL (8.5-10.1) 10/30/18 06:00 Total Bilirubin 0.6 mg/dL (0.2-1) 10/30/18 06:00 AST 92 U/L (15-37) H 10/30/18 06:00 ALT 53 U/L (13-61) 10/30/18 06:00 Alkaline Phosphatase 97 U/L (45-117) 10/30/18 06:00 Total Protein 8.6 g/dl (6.4-8.2) H 10/30/18 06:00 Albumin 4.1 g/dl (3.4-5.0) 10/30/18 06:00 Urine Color Yellow 10/31/18 10:30 Urine Appearance Slcloudy 10/31/18 10:30 Urine pH 6.0 (5.0-8.0) 10/31/18 10:30 Ur Specific [place] 1.028 (1.010-1.035) 10/31/18 10:30 Urine Protein Negative (NEGATIVE) 10/31/18 10:30 Urine Glucose (UA) Negative (NEGATIVE) 10/31/18 10:30 Urine Ketones Negative (NEGATIVE) 10/31/18 10:30 Urine Blood 1+ (NEGATIVE) H 10/31/18 10:30 Urine Nitrite Negative (NEGATIVE) 10/31/18 10:30 Urine Bilirubin Negative (<2.0 mg/dL) 10/31/18 10:30 Urine Urobilinogen 4.0 e.u/dl mg/dL (0.2-1.0) 10/31/18 10:30 Ur Leukocyte Esterase Negative (NEGATIVE) 10/31/18 10:30 Urine WBC (Auto) None /hpf (3-5) 10/31/18 10:30 Urine RBC (Auto) 7 /hpf (0-3) 10/31/18 10:30 Calcium Oxalate Crystal Moderate /hpf (NONE SEEN) 10/31/18 10:30 Urine Mucus Rare 10/31/18 10:30 RPR Titer Nonreactive (NONREACTIVE) 10/30/18 06:00 lab noted Assessment: 11/01/18 15:13 withdrawal sx Plan: continue detox
[2018-11-01] MEDS: MIRTAZAPINE 15 MG TABLET (FP) PO SCH (22:13)
[2018-11-01] MEDS: THIAMINE HCL 100 MG TABLET (FP) PO SCH (22:13)
[2018-11-01] MEDS: ATORVASTATIN CA 20 MG TABLET (FP) PO SCH (22:13)
[2018-11-01] MEDS: MELATONIN 5 MG TABLETS PO PRN (22:14)
[2018-11-02] MEDS: chlordiazePOXIDE HCL 10 MG CAPSULE PO SCH (05:30)
[2018-11-02 06:22] VITALS: BP 104/58; PULSE 66; TEMP 96.9
--- NOTE | 2018-11-02 10:52 | DS ---
[facility] Detox Discharge Summary Admission Date: 10/29/18 Discharge Date: 11/02/18 - History Present History: Alcohol Dependence Additional Comments: 58 years old male admitted on 10/29/18 for alcohol withdrawal stabilization completed alcohol detox regimen [facility] Pertinent Past History: keep medication list in wallet bring-in medication list and bottles of medication to aftercare appointment update medication list when change of medication important of medication adherence - Physical Exam Results Vital Signs: Vital Signs Temperature 96.9 F L 11/02/18 06:21 Pulse Rate 66 11/02/18 06:21 Respiratory Rate 18 11/02/18 06:30 Blood Pressure 104/58 L 11/02/18 06:21 O2 Sat by Pulse Oximetry (%) Pertinent Admission Physical Exam Findings: alcohol withdrawal sx Laboratory Last Values WBC 9.1 K/mm3 (4.0-10.0) 10/30/18 06:00 RBC 4.89 M/mm3 (4.00-5.60) 10/30/18 06:00 Hgb 14.4 GM/dL (11.7-16.9) 10/30/18 06:00 Hct 43.1 % (35.4-49) 10/30/18 06:00 MCV 88.0 fl (80-96) 10/30/18 06:00 MCH 29.5 pg (25.7-33.7) 10/30/18 06:00 MCHC 33.5 g/dl (32.0-35.9) 10/30/18 06:00 RDW 14.1 % (11.9-15.9) 10/30/18 06:00 Plt Count 160 K/MM3 (134-434) 10/30/18 06:00 MPV 10.4 fl (7.5-11.1) D 10/30/18 06:00 Sodium 138 mmol/L (136-145) 10/30/18 06:00 Potassium 3.4 mmol/L (3.5-5.1) L 10/30/18 06:00 Chloride 104 mmol/L (98-107) 10/30/18 06:00 Carbon Dioxide 29 mmol/L (21-32) 10/30/18 06:00 Anion Gap 5 MMOL/L (8-16) L 10/30/18 06:00 BUN 22 mg/dL (7-18) H 03/08/19 06:00 Creatinine 1.3 mg/dL (0.55-1.3) 10/30/18 06:00 Creat Clearance w eGFR 56.90 (>60) 10/30/18 06:00 Random Glucose 112 mg/dL (74-106) H 10/30/18 06:00 Calcium 8.7 mg/dL (8.5-10.1) 10/30/18 06:00 Total Bilirubin 0.6 mg/dL (0.2-1) 10/30/18 06:00 AST 92 U/L (15-37) H 10/30/18 06:00 ALT 53 U/L (13-61) 10/30/18 06:00 Alkaline Phosphatase 97 U/L (45-117) 10/30/18 06:00 Total Protein 8.6 g/dl (6.4-8.2) H 10/30/18 06:00 Albumin 4.1 g/dl (3.4-5.0) 10/30/18 06:00 Urine Color Yellow 10/31/18 10:30 Urine Appearance Slcloudy 10/31/18 10:30 Urine pH 6.0 (5.0-8.0) 10/31/18 10:30 Ur Specific [place] 1.028 (1.010-1.035) 10/31/18 10:30 Urine Protein Negative (NEGATIVE) 10/31/18 10:30 Urine Glucose (UA) Negative (NEGATIVE) 10/31/18 10:30 Urine Ketones Negative (NEGATIVE) 10/31/18 10:30 Urine Blood 1+ (NEGATIVE) H 10/31/18 10:30 Urine Nitrite Negative (NEGATIVE) 10/31/18 10:30 Urine Bilirubin Negative (<2.0 mg/dL) 10/31/18 10:30 Urine Urobilinogen 4.0 e.u/dl mg/dL (0.2-1.0) 10/31/18 10:30 Ur Leukocyte Esterase Negative (NEGATIVE) 10/31/18 10:30 Urine WBC (Auto) None /hpf (3-5) 10/31/18 10:30 Urine RBC (Auto) 7 /hpf (0-3) 10/31/18 10:30 Calcium Oxalate Crystal Moderate /hpf (NONE SEEN) 10/31/18 10:30 Urine Mucus Rare 10/31/18 10:30 RPR Titer Nonreactive (NONREACTIVE) 10/30/18 06:00 lab noted - Treatment Hospital Course: Detox Protocol Followed, Detoxed Safely, Responded well, Discharged Condition Good, Rehab Referral Accepted Patient has Accepted a Rehab Referral to: [facility] - Medication Discharge Medications: Ambulatory Orders Amlodipine Besylate/Benazepril [Lotrel 10-20 mg Capsule] 10 - 40 mg PO DAILY Folic Acid - 1 mg PO DAILY 06/15/18 Ibuprofen [Ibu] 800 mg PO BID PRN 06/15/18 Mirtazapine [Remeron -] 15 mg PO HS 06/15/18 Multivitamins [Multivit ([facility] Formulary)] 1 tab PO DAILY 06/15/18 Pravastatin Sodium [Pravachol -] 40 mg PO HS 06/15/18 Thiamine HCl [Vitamin B-1] 100 mg PO DAILY 06/15/18 traZODone HCL [Desyrel -] 100 mg PO HS #30 tablet 06/19/18 Aspirin [ASA -] 81 mg PO DAILY #30 tab.chew 07/31/18 Ergocalciferol (Vitamin D2) [Drisdol] 50,000 unit PO WEEKLY #4 capsule 07/31/18 Amlodipine Besylate [Norvasc -] 10 mg PO DAILY #14 tablet 11/02/18 Atorvastatin Ca [Lipitor] 20 mg PO HS #14 tablet 11/02/18 Lisinopril [Prinivil] 10 mg PO DAILY #14 tablet 11/02/18 Metoprolol Succinate [Toprol Xl] 50 mg PO DAILY #14 tab.er.24h 11/02/18 - Diagnosis (1) Alcohol dependence with uncomplicated withdrawal Status: Acute (2) Nicotine dependence Status: Acute Qualifiers: Nicotine product type: cigarettes Substance use status: in withdrawal Qualified Code(s): F17.213 - Nicotine dependence, cigarettes, with withdrawal (3) Hypertension Status: Chronic Qualifiers: Hypertension type: essential hypertension Qualified Code(s): I10 - Essential (primary) hypertension - AMA Did Patient Leave Against Medical Advice: No
== END 2018-11-02 09:00 | disposition home or self-care (01) | DRG 897 ==
LOC: YASAS 11:58 → Y3N 13:29
PROVIDERS: ADMIT Surgery; ATTEND Surgery
PROC: HZ2ZZZZ Detoxification Services for Substance Abuse Treatment (ICD-10-PCS; principal; 2018-10-29)
DX: F10.230 Alcohol dependence with withdrawal, uncomplicated (principal); F14.20 Cocaine dependence, uncomplicated; F19.282 Other psychoactive substance dependence with psychoactive substance-induced sleep disorder; I25.10 Atherosclerotic heart disease of native coronary artery without angina pectoris; I10 Essential (primary) hypertension; Z95.5 Presence of coronary angioplasty implant and graft; E78.00 Pure hypercholesterolemia, unspecified; E87.6 Hypokalemia; E55.9 Vitamin D deficiency, unspecified; L85.3 Xerosis cutis; R00.2 Palpitations; M54.5 Low back pain; G89.29 Other chronic pain; G47.00 Insomnia, unspecified; Z59.0 Homelessness
CPT/HCPCS: 36415; 80053; 81003; 81015; 85027; 86593; J0475

== ENCOUNTER 2018-12-26 09:12 | Inpatient (IN) | payer OTHER ==
[2018-12-26 09:40] VITALS: BMI 31.4
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
[2018-12-26] MEDS ORDERED: IBUPROFEN 400 MG TABLET (FP) PO PRN ×2 (10:43→11:04)
[2018-12-26] MEDS ORDERED: traZODone HCL 50 MG TABLET (FP) PO PRN (10:43)
[2018-12-26] MEDS ORDERED: ACETAMINOPHEN 325 MG TABLET (FP) PO PRN ×2 (10:43)
[2018-12-26] MEDS ORDERED: METHOCARBAMOL 500 MG TABLET PO PRN (10:43)
[2018-12-26] MEDS ORDERED: BISMUTH SUBSALICYLATE 524 MG/30 ML UD PO PRN (10:43)
[2018-12-26] MEDS ORDERED: MAGNESIUM CITRATE 300 ML BOTTLE PO PRN (10:43)
[2018-12-26] MEDS ORDERED: MAGNESIUM HYDROX 2400MG/30ML ORAL SUSPENSION 30 ML CUP PO PRN (10:43)
[2018-12-26] MEDS ORDERED: MENTHOL/PHENOL 1 EACH UD MM PRN (10:43)
[2018-12-26] MEDS ORDERED: MAG HYDROX/AL HYDROX/SIMETH 30 ML UNIT-DOSE CUP PO PRN (10:43)
[2018-12-26] MEDS ORDERED: ONDANSETRON *ODT* 4 MG TABLET SL PRN (10:43)
[2018-12-26] MEDS: ASPIRIN 81 MG CHEWABLE TABLETS PO SCH (12:01)
[2018-12-26] MEDS: chlordiazePOXIDE HCL 25 MG CAPSULE PO SCH ×2 (12:01→22:23)
[2018-12-26] MEDS: NICOTINE 21 MG/24 HOURS TOPICAL PATCH TD SCH (12:02)
[2018-12-26] MEDS: chlordiazePOXIDE HCL 10 MG CAPSULE PO PRN (17:27)
[2018-12-26] MEDS: THIAMINE HCL 100 MG TABLET (FP) PO SCH (22:23)
[2018-12-26] MEDS: traZODone HCL 50 MG TABLET (FP) PO SCH (22:23)
[2018-12-26] MEDS: ATORVASTATIN CA 20 MG TABLET (FP) PO SCH (22:23)
[2018-12-26] MEDS: hydrOXYzine PAMOATE 25 MG CAPSULE (FP) PO PRN (22:24)
[2018-12-27] MEDS: chlordiazePOXIDE HCL 25 MG CAPSULE PO SCH (05:41)
[2018-12-27] MEDS ORDERED: ERGOCALCIFEROL (VITAMIN D2) 50,000 UNIT CAPSULE (FP) PO SCH (10:00)
[2018-12-27] MEDS: NICOTINE 21 MG/24 HOURS TOPICAL PATCH TD SCH (10:02)
[2018-12-27] MEDS: ASPIRIN 81 MG CHEWABLE TABLETS PO SCH (10:03)
[2018-12-27] MEDS: PRENATAL VITAMINS W/ FOLIC ACID TABLET (FP) PO SCH (10:03)
[2018-12-27 10:57] LABS: HEMATOCRIT 40.6 % (35.4-49); HEMOGLOBIN 13.1 GM/dL (11.7-16.9); MCH 28.5 pg (25.7-33.7); MCHC 32.2 g/dl (32.0-35.9); MEAN CELL VOLUME 88.6 fl (80-96); PLATELET COUNT 168 K/MM3 (134-434); RBC 4.58 M/mm3 (4.00-5.60); RDW 14.6 % (11.9-15.9); WHITE BLOOD COUNT 3.8 K/mm3 (4.0-10.0)
--- NOTE | 2018-12-27 11:09 | PN ---
S CIWA - CIWA Score Nausea/Vomitin-Mild Nausea/No Vomiting Muscle Tremors: 3 Anxiety: 1-Mildly Anxious Agitation: 2 Paroxysmal Sweats: 1-Minimal Palms Moist Orientation: 1-Uncertain about Date Tacttile Disturbances: 0-None Auditory Disturbances: 0-None Visual Disturbances: 0-None Headache: 1-Very Mild CIWA-Ar Total Score: 10 BHS Progress Note (SOAP) Subjective: feeling ok today tolerate food and fluid well ambulating on hallway social with peers Objective: 12/27/18 11:08 Vital Signs Temperature 97.1 F L 12/27/18 09:12 Pulse Rate 98 H 12/27/18 09:12 Respiratory Rate 20 12/27/18 09:12 Blood Pressure 113/74 12/27/18 09:12 O2 Sat by Pulse Oximetry (%) 12/27/18 11:08 lab pending Assessment: 12/27/18 11:08 alcohol withdrawal sx Plan: continue detox
[2018-12-27 11:42] LABS: ALBUMIN 3.3 g/dl (3.4-5.0); ALK PHOS 70 U/L (45-117); ANION GAP 6 MMOL/L (8-16); BILIRUBIN,TOTAL 0.4 mg/dL (0.2-1); BLOOD UREA NITROGEN 14 mg/dL (7-18); CALCIUM 8.6 mg/dL (8.5-10.1); CHLORIDE 106 mmol/L (98-107); CO2 29 mmol/L (21-32); CREATININE 0.8 mg/dL (0.55-1.3); GLUCOSE,RANDOM 99 mg/dL (74-106); POTASSIUM 3.4 mmol/L (3.5-5.1); SGOT/AST 33 U/L (15-37); SGPT/ALT 29 U/L (13-61); SODIUM 141 mmol/L (136-145); TOT PROT 6.2 g/dl (6.4-8.2)
[2018-12-27] MEDS: chlordiazePOXIDE 5 MG CAPSULE PO SCH ×2 (12:06→22:11)
[2018-12-27] MEDS: chlordiazePOXIDE HCL 10 MG CAPSULE PO PRN (17:57)
[2018-12-27] MEDS: traZODone HCL 50 MG TABLET (FP) PO SCH (22:11)
[2018-12-27] MEDS: THIAMINE HCL 100 MG TABLET (FP) PO SCH (22:12)
[2018-12-27] MEDS: ATORVASTATIN CA 20 MG TABLET (FP) PO SCH (22:12)
[2018-12-27] MEDS: hydrOXYzine PAMOATE 25 MG CAPSULE (FP) PO PRN (22:12)
--- NOTE | 2018-12-27 23:52 | PN ---
[facility] Progress Note Note: KDUR 40 MEQ PO Q ONCE FOR K+3.4
[2018-12-28] MEDS: chlordiazePOXIDE 5 MG CAPSULE PO SCH (05:10)
[2018-12-28] MEDS ORDERED: POTASSIUM CHLORIDE TABS 20 MEQ TABLET.ER (FP) PO ONE (07:00)
[2018-12-28] MEDS: PRENATAL VITAMINS W/ FOLIC ACID TABLET (FP) PO SCH (10:10)
[2018-12-28] MEDS: ASPIRIN 81 MG CHEWABLE TABLETS PO SCH (10:10)
[2018-12-28] MEDS: NICOTINE 21 MG/24 HOURS TOPICAL PATCH TD SCH (10:11)
--- NOTE | 2018-12-28 10:37 | DS ---
[facility] Detox Discharge Summary Admission Date: 12/26/18 Discharge Date: 12/28/18 - History Present History: Alcohol Dependence Additional Comments: 58 years old male admitted on 12/26/18 for alcohol withdrawal stabilization feeling better today preferring to go to rehab today aftercare [facility] - Physical Exam Results Vital Signs: Vital Signs Temperature 97.4 F L 12/28/18 09:10 Pulse Rate 76 12/28/18 09:10 Respiratory Rate 20 12/28/18 09:10 Blood Pressure 113/72 12/28/18 09:10 O2 Sat by Pulse Oximetry (%) Pertinent Admission Physical Exam Findings: alcohol withdrawal sx Laboratory Last Values WBC 3.8 K/mm3 (4.0-10.0) L 12/27/18 07:50 RBC 4.58 M/mm3 (4.00-5.60) 12/27/18 07:50 Hgb 13.1 GM/dL (11.7-16.9) 12/27/18 07:50 Hct 40.6 % (35.4-49) 12/27/18 07:50 MCV 88.6 fl (80-96) 12/27/18 07:50 MCH 28.5 pg (25.7-33.7) 12/27/18 07:50 MCHC 32.2 g/dl (32.0-35.9) 12/27/18 07:50 RDW 14.6 % (11.9-15.9) 12/27/18 07:50 Plt Count 168 K/MM3 (134-434) 12/27/18 07:50 MPV 9.0 fl (7.5-11.1) D 12/27/18 07:50 Sodium 141 mmol/L (136-145) 12/27/18 07:50 Potassium 3.4 mmol/L (3.5-5.1) L 12/27/18 07:50 Chloride 106 mmol/L (98-107) 12/27/18 07:50 Carbon Dioxide 29 mmol/L (21-32) 12/27/18 07:50 Anion Gap 6 MMOL/L (8-16) L 12/27/18 07:50 BUN 14 mg/dL (7-18) 12/27/18 07:50 Creatinine 0.8 mg/dL (0.55-1.3) 12/27/18 07:50 Creat Clearance w eGFR 99.64 (>60) 12/27/18 07:50 Random Glucose 99 mg/dL (74-106) 12/27/18 07:50 Calcium 8.6 mg/dL (8.5-10.1) 12/27/18 07:50 Total Bilirubin 0.4 mg/dL (0.2-1) 12/27/18 07:50 AST 33 U/L (15-37) 12/27/18 07:50 ALT 29 U/L (13-61) 12/27/18 07:50 Alkaline Phosphatase 70 U/L (45-117) 12/27/18 07:50 Total Protein 6.2 g/dl (6.4-8.2) L 12/27/18 07:50 Albumin 3.3 g/dl (3.4-5.0) L 12/27/18 07:50 RPR Titer Nonreactive (NONREACTIVE) 12/27/18 07:50 lab noted low K+ received K+ supplement repeat K+ - Treatment Hospital Course: Detox Protocol Followed, Detoxed Safely, Responded well, Discharged Condition Good, Rehab Referral Accepted Patient has Accepted a Rehab Referral to: [facility] - Medication Discharge Medications: Ambulatory Orders Amlodipine Besylate/Benazepril [Lotrel 10-20 mg Capsule] 10 - 40 mg PO DAILY Folic Acid - 1 mg PO DAILY 06/15/18 Ibuprofen [Ibu] 800 mg PO BID PRN 06/15/18 Mirtazapine [Remeron -] 15 mg PO HS 06/15/18 Multivitamins [Multivit ([facility] Formulary)] 1 tab PO DAILY 06/15/18 Pravastatin Sodium [Pravachol -] 40 mg PO HS 06/15/18 Thiamine HCl [Vitamin B-1] 100 mg PO DAILY 06/15/18 Aspirin [ASA -] 81 mg PO DAILY #30 tab.chew 07/31/18 Ergocalciferol (Vitamin D2) [Drisdol] 50,000 unit PO WEEKLY #4 capsule 07/31/18 Amlodipine Besylate [Norvasc -] 10 mg PO DAILY #14 tablet 11/02/18 Atorvastatin Ca [Lipitor] 20 mg PO HS #14 tablet 11/02/18 Lisinopril [Prinivil] 10 mg PO DAILY #14 tablet 11/02/18 Metoprolol Succinate [Toprol Xl] 50 mg PO DAILY #14 tab.er.24h 11/02/18 traZODone HCL [Desyrel -] 50 mg PO HS 12/26/18 - Diagnosis (1) Alcohol dependence with uncomplicated withdrawal Current Visit: Yes Status: Acute (2) Hypertension Current Visit: Yes Status: Chronic Qualifiers: Hypertension type: essential hypertension Qualified Code(s): I10 - Essential (primary) hypertension (3) Nicotine dependence Current Visit: Yes Status: Acute Qualifiers: Nicotine product type: cigarettes Substance use status: in withdrawal Qualified Code(s): F17.213 - Nicotine dependence, cigarettes, with withdrawal (4) Vitamin D deficiency Current Visit: Yes Status: Chronic - AMA Did Patient Leave Against Medical Advice: No [facility] CIWA - CIWA Score Nausea/Vomitin-No Nausea/No Vomiting Muscle Tremors: 2 Anxiety: 1-Mildly Anxious Agitation: 2 Paroxysmal Sweats: No Perspiration Orientation: 0-Oriented Tacttile Disturbances: 0-None Auditory Disturbances: 0-None Visual Disturbances: 0-None Headache: 0-None Present CIWA-Ar Total Score: 5
[2018-12-28] MEDS ORDERED: chlordiazePOXIDE HCL 10 MG CAPSULE PO SCH (13:00)
[2018-12-28] MEDS ORDERED: chlordiazePOXIDE HCL 10 MG CAPSULE PO PRN (13:00)
[2018-12-28 17:38] VITALS: BP 125/78; PULSE 71; TEMP 97
== END 2018-12-28 17:59 | disposition home or self-care (01) | DRG 897 ==
LOC: YASAS 09:12 → Y3N 11:11
PROVIDERS: ADMIT Surgery; ATTEND Surgery
PROC: HZ2ZZZZ Detoxification Services for Substance Abuse Treatment (ICD-10-PCS; principal; 2018-12-26)
DX: F10.230 Alcohol dependence with withdrawal, uncomplicated (principal); F14.20 Cocaine dependence, uncomplicated; F17.213 Nicotine dependence, cigarettes, with withdrawal; F32.9 Major depressive disorder, single episode, unspecified; I25.10 Atherosclerotic heart disease of native coronary artery without angina pectoris; I10 Essential (primary) hypertension; Z95.5 Presence of coronary angioplasty implant and graft; E78.00 Pure hypercholesterolemia, unspecified; E55.9 Vitamin D deficiency, unspecified; E87.6 Hypokalemia; Z59.0 Homelessness
CPT/HCPCS: 36415; 80053; 85027; 86593

== ENCOUNTER 2018-12-28 17:40 | Inpatient (IN) | payer OTHER ==
--- NOTE | 2018-12-28 10:42 | HP ---
[facility] Rehab Assess/Revision - Admission History Admitted to Rehab from: [facility] Date of Admission to Rehab: 12/28/18 - Findings Detox History & Physical reviewed: Yes Concur with findings: Yes Comments/Additional Findings: transferred from detox to rehab admission as per protocol Inpatient Rehab Admission - Rehab Decision to Admit Inpatient rehab admission?: Yes - Initial Determination Are CD services needed?: Yes Free of communicable disease: Yes Not in need of hospitalization: Yes - Rehab Admission Criteria Previous failed treatment: Yes Poor recovery environment: Yes Comorbidities: Yes Lacks judgement: No Patient is meeting Inpatient Rehab admission criteria:: Yes
[~2018-12-28 17:40] MED LIST: LOPERAMIDE HCL 2 MG CAPSULE PO PRN; MAG HYDROX/AL HYDROX/SIMETH 30 ML UNIT-DOSE CUP PO PRN; MAGNESIUM CITRATE 300 ML BOTTLE PO PRN; MAGNESIUM HYDROX 2400MG/30ML ORAL SUSPENSION 30 ML CUP PO PRN; MENTHOL/PHENOL 1 EACH UD MM PRN; NICOTINE 14 MG/24 HOURS TOPICAL PATCH TD PRN; NICOTINE POLACRILEX 2 MG GUM BC PRN; guaiFENesin 200 MG/10 ML 10 ML UNIT-DOSE CUPS PO PRN
[2018-12-28] MEDS: THIAMINE HCL 100 MG TABLET (FP) PO SCH (21:37)
[2018-12-28] MEDS: ATORVASTATIN CA 20 MG TABLET (FP) PO SCH (21:38)
[2018-12-28] MEDS: MELATONIN 5 MG TABLETS PO PRN (21:38)
[2018-12-28] MEDS ORDERED: traZODone HCL 50 MG TABLET (FP) PO ONE (23:15)
[2018-12-29] MEDS ORDERED: ERGOCALCIFEROL (VITAMIN D2) 50,000 UNIT CAPSULE (FP) PO SCH (10:00)
[2018-12-29] MEDS: ASPIRIN 81 MG CHEWABLE TABLETS PO SCH (10:08)
[2018-12-29] MEDS: PRENATAL VITAMINS W/ FOLIC ACID TABLET (FP) PO SCH (10:08)
[2018-12-29] MEDS: NICOTINE 21 MG/24 HOURS TOPICAL PATCH TD SCH (12:48)
[2018-12-29] MEDS: THIAMINE HCL 100 MG TABLET (FP) PO SCH (21:06)
[2018-12-29] MEDS: MELATONIN 5 MG TABLETS PO PRN (21:06)
[2018-12-29] MEDS: traZODone HCL 50 MG TABLET (FP) PO SCH (21:06)
[2018-12-29] MEDS: ATORVASTATIN CA 20 MG TABLET (FP) PO SCH (21:06)
[2018-12-30] MEDS ORDERED: PT OWN MED DRAWER 7, Y5N ONE (09:08)
[2018-12-30] MEDS: PRENATAL VITAMINS W/ FOLIC ACID TABLET (FP) PO SCH (10:00)
[2018-12-30] MEDS: ASPIRIN 81 MG CHEWABLE TABLETS PO SCH (10:00)
[2018-12-30] MEDS: NICOTINE 21 MG/24 HOURS TOPICAL PATCH TD SCH (10:00)
[2018-12-30] MEDS: traZODone HCL 50 MG TABLET (FP) PO SCH (21:48)
[2018-12-30] MEDS: THIAMINE HCL 100 MG TABLET (FP) PO SCH (21:48)
[2018-12-30] MEDS: MELATONIN 5 MG TABLETS PO PRN (21:48)
[2018-12-30] MEDS: ATORVASTATIN CA 20 MG TABLET (FP) PO SCH (21:48)
[2018-12-31] MEDS ORDERED: PT OWN MED DRAWER 7, Y5N ONE (09:02)
[2018-12-31] MEDS: NICOTINE 21 MG/24 HOURS TOPICAL PATCH TD SCH (09:49)
[2018-12-31] MEDS: PRENATAL VITAMINS W/ FOLIC ACID TABLET (FP) PO SCH (09:49)
[2018-12-31] MEDS: ASPIRIN 81 MG CHEWABLE TABLETS PO SCH (09:49)
[2018-12-31] MEDS: THIAMINE HCL 100 MG TABLET (FP) PO SCH (21:36)
[2018-12-31] MEDS: MELATONIN 5 MG TABLETS PO PRN (21:36)
[2018-12-31] MEDS: traZODone HCL 50 MG TABLET (FP) PO SCH (21:36)
[2018-12-31] MEDS: ATORVASTATIN CA 20 MG TABLET (FP) PO SCH (21:36)
[2019-01-01] MEDS ORDERED: PT OWN MED DRAWER 7, Y5N ONE (09:33)
[2019-01-01] MEDS: NICOTINE 21 MG/24 HOURS TOPICAL PATCH TD SCH (09:43)
[2019-01-01] MEDS: PRENATAL VITAMINS W/ FOLIC ACID TABLET (FP) PO SCH (09:43)
[2019-01-01] MEDS: ASPIRIN 81 MG CHEWABLE TABLETS PO SCH (09:44)
[2019-01-01] MEDS: P-EPHED 60MG/TRIPROLIDI 2.5MG TABLET PO PRN ×2 (10:24→18:52)
[2019-01-01] MEDS: ATORVASTATIN CA 20 MG TABLET (FP) PO SCH (21:03)
[2019-01-01] MEDS: traZODone HCL 50 MG TABLET (FP) PO SCH (21:03)
[2019-01-01] MEDS: THIAMINE HCL 100 MG TABLET (FP) PO SCH (21:03)
[2019-01-01] MEDS: MELATONIN 5 MG TABLETS PO PRN (21:04)
[2019-01-02] MEDS ORDERED: PT OWN MED DRAWER 7, Y5N ONE (09:21)
[2019-01-02] MEDS: NICOTINE 21 MG/24 HOURS TOPICAL PATCH TD SCH (09:44)
[2019-01-02] MEDS: ASPIRIN 81 MG CHEWABLE TABLETS PO SCH (09:44)
[2019-01-02] MEDS: PRENATAL VITAMINS W/ FOLIC ACID TABLET (FP) PO SCH (09:44)
[2019-01-02] MEDS: P-EPHED 60MG/TRIPROLIDI 2.5MG TABLET PO PRN ×2 (10:54→17:42)
[2019-01-02] MEDS: ACETAMINOPHEN 325 MG TABLET (FP) PO PRN (20:08)
[2019-01-02] MEDS: THIAMINE HCL 100 MG TABLET (FP) PO SCH (21:46)
[2019-01-02] MEDS: ATORVASTATIN CA 20 MG TABLET (FP) PO SCH (21:46)
[2019-01-02] MEDS: MELATONIN 5 MG TABLETS PO PRN (21:47)
[2019-01-02] MEDS: traZODone HCL 50 MG TABLET (FP) PO SCH (21:47)
[2019-01-03] MEDS: ACETAMINOPHEN 325 MG TABLET (FP) PO PRN ×3 (04:23→18:52)
[2019-01-03 07:13] VITALS: TEMP 97.7
[2019-01-03] MEDS: PRENATAL VITAMINS W/ FOLIC ACID TABLET (FP) PO SCH (09:24)
[2019-01-03] MEDS: NICOTINE 21 MG/24 HOURS TOPICAL PATCH TD SCH (09:24)
[2019-01-03] MEDS: ASPIRIN 81 MG CHEWABLE TABLETS PO SCH (09:24)
[2019-01-03 10:52] VITALS: BP 113/67; PULSE 75
[2019-01-03] MEDS: traZODone HCL 50 MG TABLET (FP) PO SCH (21:41)
[2019-01-03] MEDS: THIAMINE HCL 100 MG TABLET (FP) PO SCH (21:41)
[2019-01-03] MEDS: ATORVASTATIN CA 20 MG TABLET (FP) PO SCH (21:41)
[2019-01-03] MEDS: MELATONIN 5 MG TABLETS PO PRN (21:42)
[2019-01-04] MEDS: P-EPHED 60MG/TRIPROLIDI 2.5MG TABLET PO PRN (02:52)
--- NOTE | 2019-01-04 06:48 | PN ---
[facility] Progress Note Note: MD'S NOTE: INFORMED AT 6:45AM THAT THE PT. WANTS TO GO HOME AMA FOR PERSONAL REASONS INSPITE OF ADVICE NOT TO DO SO. SO, THE PT. SIGNED OUT AMA AND ABOUT TO LEAVE THE FACILITY SOON. RECOMMENDED: TO F/U WITH PMD AND OUT PT. PROGRAMS. PROVIDER: MARISSA RIZVI MD
== END 2019-01-04 06:55 | disposition left against medical advice (07) | DRG 894 ==
LOC: YASAS 17:40 → Y3W 17:41
PROVIDERS: ADMIT Neuromusculoskeletal Medicine & OMM; ATTEND Neuromusculoskeletal Medicine & OMM
PROC: HZ42ZZZ Group Counseling for Substance Abuse Treatment, Cognitive-Behavioral (ICD-10-PCS; principal; 2018-12-28)
DX: F10.20 Alcohol dependence, uncomplicated (principal); F14.20 Cocaine dependence, uncomplicated; F17.213 Nicotine dependence, cigarettes, with withdrawal; I10 Essential (primary) hypertension; I25.10 Atherosclerotic heart disease of native coronary artery without angina pectoris; E78.00 Pure hypercholesterolemia, unspecified; E66.9 Obesity, unspecified; Z68.31 Body mass index [BMI] 31.0-31.9, adult; Z91.14 Patient's other noncompliance with medication regimen; Z95.5 Presence of coronary angioplasty implant and graft; Z59.0 Homelessness
CPT/HCPCS: 36415; 84132

== ENCOUNTER 2019-02-25 11:21 | Inpatient (IN) | payer OTHER ==
[2019-02-25 12:21] VITALS: BMI 33.0
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
[2019-02-25] MEDS ORDERED: hydrOXYzine PAMOATE 25 MG CAPSULE (FP) PO PRN (14:25)
[2019-02-25] MEDS ORDERED: ACETAMINOPHEN 325 MG TABLET (FP) PO PRN ×2 (14:25)
[2019-02-25] MEDS ORDERED: MAGNESIUM HYDROX 2400MG/30ML ORAL SUSPENSION 30 ML CUP PO PRN (14:25)
[2019-02-25] MEDS ORDERED: IBUPROFEN 400 MG TABLET (FP) PO PRN (14:25)
[2019-02-25] MEDS ORDERED: MAG HYDROX/AL HYDROX/SIMETH 30 ML UNIT-DOSE CUP PO PRN (14:25)
[2019-02-25] MEDS ORDERED: MAGNESIUM CITRATE 300 ML BOTTLE PO PRN (14:25)
[2019-02-25] MEDS ORDERED: BISMUTH SUBSALICYLATE 524 MG/30 ML UD PO PRN (14:25)
[2019-02-25] MEDS ORDERED: MENTHOL/PHENOL 1 EACH UD MM PRN (14:25)
--- NOTE | 2019-02-25 14:36 | PN ---
S Progress Note Note: pt here for etoh detox , reports relapse 2 weeks ago , current use 3 pints/ day , reports drinking in the mornings to stop tremors , denies w/d seizures, + blackouts , latest use this morning, current symptoms as above, + PARKER . cocaine - daily use, denies ivdu pmhx : htn , hld , reports non- compliance w meds per ehr report latest rx November 2018 pe : mild ue tremors , anxious , tearful at times a/p : alcohol dependence w/ intoxication & withdrawal - Librium taper d/w pt, agreeable w/ POC
[2019-02-25] MEDS: NICOTINE 14 MG/24 HOURS TOPICAL PATCH TD SCH (15:53)
[2019-02-25] MEDS: ASPIRIN 81 MG CHEWABLE TABLETS PO SCH (15:53)
[2019-02-25] MEDS: chlordiazePOXIDE HCL 10 MG CAPSULE PO PRN (17:01)
[2019-02-25] MEDS: chlordiazePOXIDE HCL 25 MG CAPSULE PO SCH (21:47)
[2019-02-25] MEDS: ATORVASTATIN CA 20 MG TABLET (FP) PO SCH (21:47)
[2019-02-25] MEDS: THIAMINE HCL 100 MG TABLET (FP) PO SCH (21:47)
[2019-02-25] MEDS: traZODone HCL 50 MG TABLET (FP) PO SCH (21:47)
[2019-02-25] MEDS: MELATONIN 5 MG TABLETS PO PRN (21:49)
[2019-02-26] MEDS: chlordiazePOXIDE HCL 25 MG CAPSULE PO SCH ×3 (05:32→22:12)
[2019-02-26] MEDS: ASPIRIN 81 MG CHEWABLE TABLETS PO SCH (09:36)
[2019-02-26] MEDS: NICOTINE 14 MG/24 HOURS TOPICAL PATCH TD SCH (09:36)
[2019-02-26] MEDS: PRENATAL VITAMINS W/ FOLIC ACID TABLET (FP) PO SCH (09:36)
[2019-02-26] MEDS: chlordiazePOXIDE HCL 10 MG CAPSULE PO PRN (09:37)
[2019-02-26 10:24] LABS: HEMATOCRIT 41.3 % (35.4-49); HEMOGLOBIN 13.4 GM/dL (11.7-16.9); MCH 28.5 pg (25.7-33.7); MCHC 32.4 g/dl (32.0-35.9); MEAN CELL VOLUME 87.9 fl (80-96); MEAN PLT VOLUME 9.7 fl (7.5-11.1); PLATELET COUNT 140 K/MM3 (134-434); RBC 4.71 M/mm3 (4.00-5.60); RDW 13.8 % (11.9-15.9); WHITE BLOOD COUNT 4.3 K/mm3 (4.0-10.0)
[2019-02-26 10:46] LABS: ALBUMIN 3.3 g/dl (3.4-5.0); BILIRUBIN,TOTAL 0.7 mg/dL (0.2-1); BLOOD UREA NITROGEN 15.9 mg/dL (7-18); CALCIUM 8.5 mg/dL (8.5-10.1); CREATININE 0.9 mg/dL (0.55-1.3); POTASSIUM 3.3 mmol/L (3.5-5.1); TOT PROT 6.4 g/dl (6.4-8.2)
--- NOTE | 2019-02-26 16:30 | PN ---
S CIWA - CIWA Score Nausea/Vomitin-No Nausea/No Vomiting Muscle Tremors: 3 Anxiety: 3 Agitation: 2 Paroxysmal Sweats: No Perspiration Orientation: 0-Oriented Tacttile Disturbances: 1-Very Mild Itch/Numbness Auditory Disturbances: 0-None Visual Disturbances: 0-None Headache: 2-Mild CIWA-Ar Total Score: 11 BHS Progress Note (SOAP) Subjective: Tremors, Anxious, Headache. Objective: PATIENT A & O X 3, OBSERVED AMBULATING ON UNIT UNASSISTED. IN NO ACUTE DISTRESS. 02/26/19 16:31 Vital Signs Temperature 97.0 F L 02/26/19 13:43 Pulse Rate 70 02/26/19 13:43 Respiratory Rate 18 02/26/19 13:43 Blood Pressure 129/77 02/26/19 13:43 O2 Sat by Pulse Oximetry (%) Laboratory Tests 02/26/19 02/26/19 02/26/19 07:50 07:50 07:50 WBC 4.3 RBC 4.71 Hgb 13.4 Hct 41.3 MCV 87.9 MCH 28.5 MCHC 32.4 RDW 13.8 Plt Count 140 MPV 9.7 Sodium 141 Potassium 3.3 L Chloride 106 Carbon Dioxide 28 Anion Gap 7 L BUN 15.9 Creatinine 0.9 Est GFR (CKD-EPI)AfAm 108.73 Est GFR (CKD-EPI)NonAf 93.82 Random Glucose 92 Calcium 8.5 Total Bilirubin 0.7 AST 44 H ALT 27 Alkaline Phosphatase 72 Total Protein 6.4 Albumin 3.3 L RPR Titer Nonreactive LABS NOTED. Assessment: 02/26/19 16:33 WITHDRAWAL SYMPTOMS. HYPOKALEMIA. Plan: CONTINUE DETOX. INCREASE DAILY PO WATER INTAKE. K-DUR, 20 MEQ PO BIDS. RE-CHECK K LEVEL ON 02/28/2019 TO SEE IF ANY IMPROVEMENT IN K LEVEL.
[2019-02-26] MEDS: POTASSIUM CHLORIDE TABS 20 MEQ TABLET.ER (FP) PO SCH (17:32)
[2019-02-26] MEDS: ATORVASTATIN CA 20 MG TABLET (FP) PO SCH (22:12)
[2019-02-26] MEDS: MELATONIN 5 MG TABLETS PO PRN (22:12)
[2019-02-26] MEDS: traZODone HCL 50 MG TABLET (FP) PO SCH (22:12)
[2019-02-26] MEDS: THIAMINE HCL 100 MG TABLET (FP) PO SCH (22:12)
[2019-02-27] MEDS: chlordiazePOXIDE 5 MG CAPSULE PO SCH ×3 (05:19→23:13)
[2019-02-27] MEDS: NICOTINE 14 MG/24 HOURS TOPICAL PATCH TD SCH (10:05)
[2019-02-27] MEDS: ASPIRIN 81 MG CHEWABLE TABLETS PO SCH (10:06)
[2019-02-27] MEDS: POTASSIUM CHLORIDE TABS 20 MEQ TABLET.ER (FP) PO SCH ×2 (10:07→18:00)
[2019-02-27] MEDS: PRENATAL VITAMINS W/ FOLIC ACID TABLET (FP) PO SCH (10:07)
--- NOTE | 2019-02-27 13:46 | PN ---
S CIWA - CIWA Score Nausea/Vomitin-No Nausea/No Vomiting Muscle Tremors: 2 Anxiety: 3 Agitation: 0-Normal Activity Paroxysmal Sweats: 2 Orientation: 0-Oriented Tacttile Disturbances: 0-None Auditory Disturbances: 0-None Visual Disturbances: 2-Mild Sensitivity Headache: 0-None Present CIWA-Ar Total Score: 9 BHS Progress Note (SOAP) Subjective: Anxious, Fatigue, Tremors, Sweating. Objective: PATIENT A & O X 3. IN NO ACUTE DISTRESS. 02/27/19 13:44 Laboratory Tests 02/26/19 02/26/19 02/26/19 07:50 07:50 07:50 WBC 4.3 RBC 4.71 Hgb 13.4 Hct 41.3 MCV 87.9 MCH 28.5 MCHC 32.4 RDW 13.8 Plt Count 140 MPV 9.7 Sodium 141 Potassium 3.3 L Chloride 106 Carbon Dioxide 28 Anion Gap 7 L BUN 15.9 Creatinine 0.9 Est GFR (CKD-EPI)AfAm 108.73 Est GFR (CKD-EPI)NonAf 93.82 Random Glucose 92 Calcium 8.5 Total Bilirubin 0.7 AST 44 H ALT 27 Alkaline Phosphatase 72 Total Protein 6.4 Albumin 3.3 L RPR Titer Nonreactive LABS NOTED. Assessment: 02/27/19 13:44 WITHDRAWAL SYMPTOMS. HYPOKALEMIA. 02/27/19 13:45 Plan: CONTINUE DETOX. CONTINUE K-DUR FOR LOW ADMISSION POTASSIUM LEVEL. REPEAT POTASSIUM LEVEL ORDERED FOR TOMORROW AM.
[2019-02-27] MEDS: chlordiazePOXIDE HCL 10 MG CAPSULE PO PRN (18:00)
[2019-02-27] MEDS: THIAMINE HCL 100 MG TABLET (FP) PO SCH (23:13)
[2019-02-27] MEDS: traZODone HCL 50 MG TABLET (FP) PO SCH (23:13)
[2019-02-27] MEDS: ATORVASTATIN CA 20 MG TABLET (FP) PO SCH (23:13)
[2019-02-27] MEDS: MELATONIN 5 MG TABLETS PO PRN (23:14)
[2019-02-28] MEDS ORDERED: chlordiazePOXIDE HCL 10 MG CAPSULE PO PRN
[2019-02-28] MEDS: chlordiazePOXIDE HCL 10 MG CAPSULE PO SCH ×3 (05:41→22:01)
[2019-02-28] MEDS: POTASSIUM CHLORIDE TABS 20 MEQ TABLET.ER (FP) PO SCH (10:32)
[2019-02-28] MEDS: ASPIRIN 81 MG CHEWABLE TABLETS PO SCH (10:32)
[2019-02-28] MEDS: NICOTINE 14 MG/24 HOURS TOPICAL PATCH TD SCH (10:33)
[2019-02-28] MEDS: PRENATAL VITAMINS W/ FOLIC ACID TABLET (FP) PO SCH (10:33)
--- NOTE | 2019-02-28 10:47 | PN ---
S CIWA - CIWA Score Nausea/Vomitin-No Nausea/No Vomiting Muscle Tremors: 2 Anxiety: 1-Mildly Anxious Agitation: 2 Paroxysmal Sweats: No Perspiration Orientation: 0-Oriented Tacttile Disturbances: 0-None Auditory Disturbances: 0-None Visual Disturbances: 0-None Headache: 0-None Present CIWA-Ar Total Score: 5 BHS Progress Note (SOAP) Subjective: feeling better today less tremor mild anxiety K+ 3.6 discontinue K+ supplement Objective: 02/28/19 10:47 Vital Signs Temperature 97.8 F 02/28/19 09:32 Pulse Rate 72 02/28/19 09:32 Respiratory Rate 18 02/28/19 09:32 Blood Pressure 107/73 02/28/19 09:32 O2 Sat by Pulse Oximetry (%) Laboratory Last Values WBC 4.3 K/mm3 (4.0-10.0) 02/26/19 07:50 RBC 4.71 M/mm3 (4.00-5.60) 02/26/19 07:50 Hgb 13.4 GM/dL (11.7-16.9) 02/26/19 07:50 Hct 41.3 % (35.4-49) 02/26/19 07:50 MCV 87.9 fl (80-96) 02/26/19 07:50 MCH 28.5 pg (25.7-33.7) 02/26/19 07:50 MCHC 32.4 g/dl (32.0-35.9) 02/26/19 07:50 RDW 13.8 % (11.9-15.9) 02/26/19 07:50 Plt Count 140 K/MM3 (134-434) 02/26/19 07:50 MPV 9.7 fl (7.5-11.1) 02/26/19 07:50 Sodium 141 mmol/L (136-145) 02/26/19 07:50 Potassium 3.6 mmol/L (3.5-5.1) 02/28/19 07:42 Chloride 106 mmol/L (98-107) 02/26/19 07:50 Carbon Dioxide 28 mmol/L (21-32) 02/26/19 07:50 Anion Gap 7 MMOL/L (8-16) L 02/26/19 07:50 BUN 15.9 mg/dL (7-18) 02/26/19 07:50 Creatinine 0.9 mg/dL (0.55-1.3) 02/26/19 07:50 Est GFR (CKD-EPI)AfAm 108.73 02/26/19 07:50 Est GFR (CKD-EPI)NonAf 93.82 02/26/19 07:50 Random Glucose 92 mg/dL (74-106) 02/26/19 07:50 Calcium 8.5 mg/dL (8.5-10.1) 02/26/19 07:50 Total Bilirubin 0.7 mg/dL (0.2-1) 02/26/19 07:50 AST 44 U/L (15-37) H 02/26/19 07:50 ALT 27 U/L (13-61) 02/26/19 07:50 Alkaline Phosphatase 72 U/L (45-117) 02/26/19 07:50 Total Protein 6.4 g/dl (6.4-8.2) 02/26/19 07:50 Albumin 3.3 g/dl (3.4-5.0) L 02/26/19 07:50 RPR Titer Nonreactive (NONREACTIVE) 02/26/19 07:50 lab noted Assessment: 02/28/19 10:47 mild alcohol withdrawal sx Plan: continue alcohol detox
[2019-02-28] MEDS: THIAMINE HCL 100 MG TABLET (FP) PO SCH (22:01)
[2019-02-28] MEDS: ATORVASTATIN CA 20 MG TABLET (FP) PO SCH (22:01)
[2019-02-28] MEDS: traZODone HCL 50 MG TABLET (FP) PO SCH (22:02)
[2019-02-28] MEDS: MELATONIN 5 MG TABLETS PO PRN (22:02)
[2019-03-01] MEDS ORDERED: chlordiazePOXIDE HCL 10 MG CAPSULE PO ONE (05:00)
[2019-03-01 09:02] VITALS: BP 121/82; PULSE 91; TEMP 96.6
[2019-03-01] MEDS: PRENATAL VITAMINS W/ FOLIC ACID TABLET (FP) PO SCH (09:42)
[2019-03-01] MEDS: ASPIRIN 81 MG CHEWABLE TABLETS PO SCH (09:42)
[2019-03-01] MEDS: NICOTINE 14 MG/24 HOURS TOPICAL PATCH TD SCH (09:43)
--- NOTE | 2019-03-01 14:49 | DS ---
[facility] Detox Discharge Summary Admission Date: 02/25/19 Discharge Date: 03/01/19 - History Present History: Alcohol Dependence Additional Comments: 59 years old male admitted on 02/25/19 for alcohol withdrawal stabilization completed detox regimen [facility] - Physical Exam Results Vital Signs: Vital Signs Temperature 96.6 F L 03/01/19 09:02 Pulse Rate 91 H 03/01/19 09:02 Respiratory Rate 18 03/01/19 09:02 Blood Pressure 121/82 03/01/19 09:02 O2 Sat by Pulse Oximetry (%) Pertinent Admission Physical Exam Findings: alcohol withdrawal sx Laboratory Last Values WBC 4.3 K/mm3 (4.0-10.0) 02/26/19 07:50 RBC 4.71 M/mm3 (4.00-5.60) 02/26/19 07:50 Hgb 13.4 GM/dL (11.7-16.9) 02/26/19 07:50 Hct 41.3 % (35.4-49) 02/26/19 07:50 MCV 87.9 fl (80-96) 02/26/19 07:50 MCH 28.5 pg (25.7-33.7) 02/26/19 07:50 MCHC 32.4 g/dl (32.0-35.9) 02/26/19 07:50 RDW 13.8 % (11.9-15.9) 02/26/19 07:50 Plt Count 140 K/MM3 (134-434) 02/26/19 07:50 MPV 9.7 fl (7.5-11.1) 02/26/19 07:50 Sodium 141 mmol/L (136-145) 02/26/19 07:50 Potassium 3.6 mmol/L (3.5-5.1) 02/28/19 07:42 Chloride 106 mmol/L (98-107) 02/26/19 07:50 Carbon Dioxide 28 mmol/L (21-32) 02/26/19 07:50 Anion Gap 7 MMOL/L (8-16) L 02/26/19 07:50 BUN 15.9 mg/dL (7-18) 02/26/19 07:50 Creatinine 0.9 mg/dL (0.55-1.3) 02/26/19 07:50 Est GFR (CKD-EPI)AfAm 108.73 02/26/19 07:50 Est GFR (CKD-EPI)NonAf 93.82 02/26/19 07:50 Random Glucose 92 mg/dL (74-106) 02/26/19 07:50 Calcium 8.5 mg/dL (8.5-10.1) 02/26/19 07:50 Total Bilirubin 0.7 mg/dL (0.2-1) 02/26/19 07:50 AST 44 U/L (15-37) H 02/26/19 07:50 ALT 27 U/L (13-61) 02/26/19 07:50 Alkaline Phosphatase 72 U/L (45-117) 02/26/19 07:50 Total Protein 6.4 g/dl (6.4-8.2) 02/26/19 07:50 Albumin 3.3 g/dl (3.4-5.0) L 02/26/19 07:50 RPR Titer Nonreactive (NONREACTIVE) 02/26/19 07:50 lab noted - Treatment Hospital Course: Detox Protocol Followed, Detoxed Safely, Responded well, Discharged Condition Good, Rehab Referral Accepted Patient has Accepted a Rehab Referral to: [facility] - Medication Discharge Medications: Ambulatory Orders Folic Acid - 1 mg PO DAILY 06/15/18 Mirtazapine [Remeron -] 15 mg PO HS 06/15/18 Multivitamins [Multivit ([facility] Formulary)] 1 tab PO DAILY 06/15/18 Pravastatin Sodium [Pravachol -] 40 mg PO HS 06/15/18 Thiamine HCl [Vitamin B-1] 100 mg PO DAILY 06/15/18 Aspirin [ASA -] 81 mg PO DAILY #30 tab.chew 07/31/18 Ergocalciferol (Vitamin D2) [Drisdol] 50,000 unit PO WEEKLY #4 capsule 07/31/18 traZODone HCL [Desyrel -] 50 mg PO HS 12/26/18 Atorvastatin Ca [Lipitor] 20 mg PO HS #14 tablet 02/28/19 Lisinopril [Prinivil] 10 mg PO DAILY #14 tablet 02/28/19 Metoprolol Succinate [Toprol Xl] 50 mg PO DAILY #14 tab.er.24h 02/28/19 - Diagnosis (1) Alcohol dependence with uncomplicated withdrawal Current Visit: Yes Status: Acute (2) Nicotine dependence Current Visit: Yes Status: Acute Qualifiers: Nicotine product type: cigarettes Substance use status: in withdrawal Qualified Code(s): F17.213 - Nicotine dependence, cigarettes, with withdrawal (3) CAD (coronary artery disease) Current Visit: Yes Status: Chronic Qualifiers: Coronary Disease-Associated Artery/Lesion type: unspecified vessel or lesion type [place] vs. transplanted heart: [place] heart Associated angina: without angina Qualified Code(s): I25.10 - Atherosclerotic heart disease of [place] coronary artery without angina pectoris (4) Hypercholesterolemia Current Visit: Yes Status: Chronic (5) Hypertension Current Visit: Yes Status: Chronic Qualifiers: Hypertension type: essential hypertension Qualified Code(s): I10 - Essential (primary) hypertension - AMA Did Patient Leave Against Medical Advice: No
== END 2019-03-01 14:23 | disposition other institution (70) | DRG 897 ==
LOC: YASAS 11:21 → Y3N 15:00
PROVIDERS: ADMIT Surgery; ATTEND Surgery
PROC: HZ2ZZZZ Detoxification Services for Substance Abuse Treatment (ICD-10-PCS; principal; 2019-02-25)
DX: F10.230 Alcohol dependence with withdrawal, uncomplicated (principal); F14.20 Cocaine dependence, uncomplicated; F17.210 Nicotine dependence, cigarettes, uncomplicated; F32.9 Major depressive disorder, single episode, unspecified; I25.10 Atherosclerotic heart disease of native coronary artery without angina pectoris; I10 Essential (primary) hypertension; Z95.5 Presence of coronary angioplasty implant and graft; E87.6 Hypokalemia; Z59.0 Homelessness
CPT/HCPCS: 36415; 80053; 84132; 85027; 86593

== ENCOUNTER 2019-03-01 14:24 | Inpatient (IN) | payer OTHER ==
[2019-03-01] MEDS ORDERED: LOPERAMIDE HCL 2 MG CAPSULE PO PRN (14:50)
[2019-03-01] MEDS ORDERED: MAGNESIUM CITRATE 300 ML BOTTLE PO PRN (14:50)
[2019-03-01] MEDS ORDERED: NICOTINE POLACRILEX 2 MG GUM BC PRN (14:50)
[2019-03-01] MEDS ORDERED: IBUPROFEN 400 MG TABLET (FP) PO PRN (14:50)
[2019-03-01] MEDS ORDERED: guaiFENesin 200 MG/10 ML 10 ML UNIT-DOSE CUPS PO PRN (14:50)
[2019-03-01] MEDS ORDERED: MAGNESIUM HYDROX 2400MG/30ML ORAL SUSPENSION 30 ML CUP PO PRN (14:50)
[2019-03-01] MEDS ORDERED: MENTHOL/PHENOL 1 EACH UD MM PRN (14:50)
[2019-03-01] MEDS ORDERED: P-EPHED 60MG/TRIPROLIDI 2.5MG TABLET PO PRN (14:50)
[2019-03-01] MEDS ORDERED: ACETAMINOPHEN 325 MG TABLET (FP) PO PRN (14:50)
[2019-03-01] MEDS ORDERED: MAG HYDROX/AL HYDROX/SIMETH 30 ML UNIT-DOSE CUP PO PRN (14:50)
--- NOTE | 2019-03-01 14:50 | HP ---
[facility] Rehab Assess/Revision - Admission History Admitted to Rehab from: [facility] Date of Admission to Rehab: 03/01/19 - Findings Detox History & Physical reviewed: Yes Concur with findings: Yes Comments/Additional Findings: transferred from detox to rehab admission as per protocol Inpatient Rehab Admission - Rehab Decision to Admit Inpatient rehab admission?: Yes - Initial Determination Are CD services needed?: Yes Free of communicable disease: Yes Not in need of hospitalization: Yes - Rehab Admission Criteria Previous failed treatment: Yes Poor recovery environment: Yes Comorbidities: Yes Lacks judgement: No Patient is meeting Inpatient Rehab admission criteria:: Yes
[2019-03-01] MEDS ORDERED: NICOTINE 14 MG/24 HOURS TOPICAL PATCH TD PRN (15:15)
[2019-03-01] MEDS: ATORVASTATIN CA 20 MG TABLET (FP) PO SCH (21:18)
[2019-03-01] MEDS: THIAMINE HCL 100 MG TABLET (FP) PO SCH (21:18)
[2019-03-01] MEDS: MELATONIN 5 MG TABLETS PO PRN (21:19)
[2019-03-01] MEDS: traZODone HCL 50 MG TABLET (FP) PO PRN (21:19)
[2019-03-02] MEDS: PRENATAL VITAMINS W/ FOLIC ACID TABLET (FP) PO SCH (10:19)
[2019-03-02] MEDS: ASPIRIN 81 MG CHEWABLE TABLETS PO SCH (10:19)
[2019-03-02] MEDS: LISINOPRIL 10 MG TABLET (FP) PO SCH (10:19)
[2019-03-02] MEDS: NICOTINE 14 MG/24 HOURS TOPICAL PATCH TD PRN (10:20)
[2019-03-02] MEDS: THIAMINE HCL 100 MG TABLET (FP) PO SCH (21:18)
[2019-03-02] MEDS: ATORVASTATIN CA 20 MG TABLET (FP) PO SCH (21:18)
[2019-03-02] MEDS: traZODone HCL 50 MG TABLET (FP) PO PRN (21:18)
[2019-03-02] MEDS: MELATONIN 5 MG TABLETS PO PRN (21:18)
[2019-03-03] MEDS: PRENATAL VITAMINS W/ FOLIC ACID TABLET (FP) PO SCH (10:04)
[2019-03-03] MEDS: LISINOPRIL 10 MG TABLET (FP) PO SCH (10:04)
[2019-03-03] MEDS: ASPIRIN 81 MG CHEWABLE TABLETS PO SCH (10:04)
[2019-03-03] MEDS: NICOTINE 14 MG/24 HOURS TOPICAL PATCH TD PRN (10:05)
[2019-03-03] MEDS: THIAMINE HCL 100 MG TABLET (FP) PO SCH (21:23)
[2019-03-03] MEDS: ATORVASTATIN CA 20 MG TABLET (FP) PO SCH (21:24)
[2019-03-03] MEDS: MELATONIN 5 MG TABLETS PO PRN (21:24)
[2019-03-03] MEDS: traZODone HCL 50 MG TABLET (FP) PO PRN (21:24)
[2019-03-04] MEDS ORDERED: ONDANSETRON *ODT* 4 MG TABLET SL PRN (09:37)
--- NOTE | 2019-03-04 09:43 | PN ---
[facility] Progress Note (SOAP) Subjective: Pt c/o nausea,vomiting and diarrhea without abdominal pain or cramps today. Reports bloating "even after i went to the toilet". Pt is s/p detox from alcohol x 2 days. Pt has a hx of htn,hld,stent in heart. denies c/p, headache or dizziness. Reports "a little bit sweating". Objective: 03/04/19 09:41 Vital Signs 03/04/19 06:32 Temperature 97.8 F Pulse Rate 65 Respiratory 20 Rate Blood Pressure 114/73 Home Medications Medication Instructions Recorded Folic Acid - 1 mg PO DAILY 06/15/18 Mirtazapine [Remeron -] 15 mg PO HS 06/15/18 Multivitamins [Multivit ([facility] 1 tab PO DAILY 06/15/18 Formulary)] Pravastatin Sodium [Pravachol -] 40 mg PO HS 06/15/18 Thiamine HCl [Vitamin B-1] 100 mg PO DAILY 06/15/18 Aspirin [ASA -] 81 mg PO DAILY #30 tab.chew 07/31/18 Ergocalciferol (Vitamin D2) 50,000 unit PO WEEKLY #4 capsule 07/31/18 [Drisdol] traZODone HCL [Desyrel -] 50 mg PO HS 12/26/18 Atorvastatin Ca [Lipitor] 20 mg PO HS #14 tablet 02/28/19 Lisinopril [Prinivil] 10 mg PO DAILY #14 tablet 02/28/19 Metoprolol Succinate [Toprol Xl] 50 mg PO DAILY #14 tab.er.24h 02/28/19 Assessment: 03/04/19 09:41 s/p detox diarrhea nausea vomiting Plan: zofran odt sl prn as directed imodium prn as directed
[2019-03-04] MEDS ORDERED: ERGOCALCIFEROL (VIT D2) 50,000 UNIT (1.25 MG) CAPSULE PO SCH (10:00)
[2019-03-04] MEDS: PRENATAL VITAMINS W/ FOLIC ACID TABLET (FP) PO SCH (10:17)
[2019-03-04] MEDS: ASPIRIN 81 MG CHEWABLE TABLETS PO SCH (10:17)
[2019-03-04] MEDS: LISINOPRIL 10 MG TABLET (FP) PO SCH (10:17)
[2019-03-04] MEDS: NICOTINE 14 MG/24 HOURS TOPICAL PATCH TD PRN (10:18)
[2019-03-04] MEDS: THIAMINE HCL 100 MG TABLET (FP) PO SCH (22:00)
[2019-03-04] MEDS: traZODone HCL 50 MG TABLET (FP) PO PRN (22:00)
[2019-03-04] MEDS: MELATONIN 5 MG TABLETS PO PRN (22:00)
[2019-03-04] MEDS: ATORVASTATIN CA 20 MG TABLET (FP) PO SCH (22:00)
[2019-03-05] MEDS: PRENATAL VITAMINS W/ FOLIC ACID TABLET (FP) PO SCH (09:57)
[2019-03-05] MEDS: ASPIRIN 81 MG CHEWABLE TABLETS PO SCH (09:57)
[2019-03-05] MEDS: LISINOPRIL 10 MG TABLET (FP) PO SCH (09:57)
[2019-03-05] MEDS: NICOTINE 14 MG/24 HOURS TOPICAL PATCH TD PRN (09:59)
[2019-03-05] MEDS: ATORVASTATIN CA 20 MG TABLET (FP) PO SCH (21:40)
[2019-03-05] MEDS: THIAMINE HCL 100 MG TABLET (FP) PO SCH (21:40)
[2019-03-05] MEDS: MELATONIN 5 MG TABLETS PO PRN (21:41)
[2019-03-05] MEDS: traZODone HCL 50 MG TABLET (FP) PO PRN (21:42)
[2019-03-06] MEDS: PRENATAL VITAMINS W/ FOLIC ACID TABLET (FP) PO SCH (10:04)
[2019-03-06] MEDS: ASPIRIN 81 MG CHEWABLE TABLETS PO SCH (10:04)
[2019-03-06] MEDS: LISINOPRIL 10 MG TABLET (FP) PO SCH (10:04)
[2019-03-06] MEDS: NICOTINE 14 MG/24 HOURS TOPICAL PATCH TD PRN (10:05)
[2019-03-06] MEDS: MELATONIN 5 MG TABLETS PO PRN (21:46)
[2019-03-06] MEDS: THIAMINE HCL 100 MG TABLET (FP) PO SCH (21:46)
[2019-03-06] MEDS: ATORVASTATIN CA 20 MG TABLET (FP) PO SCH (21:46)
[2019-03-06] MEDS: traZODone HCL 50 MG TABLET (FP) PO PRN (21:47)
[2019-03-07] MEDS: PRENATAL VITAMINS W/ FOLIC ACID TABLET (FP) PO SCH (10:11)
[2019-03-07] MEDS: ASPIRIN 81 MG CHEWABLE TABLETS PO SCH (10:11)
[2019-03-07] MEDS: LISINOPRIL 10 MG TABLET (FP) PO SCH (10:11)
[2019-03-07] MEDS: NICOTINE 14 MG/24 HOURS TOPICAL PATCH TD PRN (10:12)
[2019-03-07] MEDS: MELATONIN 5 MG TABLETS PO PRN (21:28)
[2019-03-07] MEDS: traZODone HCL 50 MG TABLET (FP) PO PRN (21:28)
[2019-03-07] MEDS: ATORVASTATIN CA 20 MG TABLET (FP) PO SCH (21:28)
[2019-03-07] MEDS: THIAMINE HCL 100 MG TABLET (FP) PO SCH (21:28)
[2019-03-08] MEDS: LISINOPRIL 10 MG TABLET (FP) PO SCH (09:54)
[2019-03-08] MEDS: PRENATAL VITAMINS W/ FOLIC ACID TABLET (FP) PO SCH (09:55)
[2019-03-08] MEDS: ASPIRIN 81 MG CHEWABLE TABLETS PO SCH (09:55)
[2019-03-08] MEDS: NICOTINE 14 MG/24 HOURS TOPICAL PATCH TD PRN (09:56)
[2019-03-08] MEDS: ATORVASTATIN CA 20 MG TABLET (FP) PO SCH (21:19)
[2019-03-08] MEDS: THIAMINE HCL 100 MG TABLET (FP) PO SCH (21:19)
[2019-03-08] MEDS: traZODone HCL 50 MG TABLET (FP) PO PRN (21:19)
[2019-03-08] MEDS: MELATONIN 5 MG TABLETS PO PRN (21:19)
[2019-03-09] MEDS: ASPIRIN 81 MG CHEWABLE TABLETS PO SCH (09:58)
[2019-03-09] MEDS: PRENATAL VITAMINS W/ FOLIC ACID TABLET (FP) PO SCH (09:58)
[2019-03-09] MEDS: LISINOPRIL 10 MG TABLET (FP) PO SCH (09:58)
[2019-03-09] MEDS: NICOTINE 14 MG/24 HOURS TOPICAL PATCH TD PRN (09:59)
[2019-03-09] MEDS: THIAMINE HCL 100 MG TABLET (FP) PO SCH (21:15)
[2019-03-09] MEDS: traZODone HCL 50 MG TABLET (FP) PO PRN (21:15)
[2019-03-09] MEDS: ATORVASTATIN CA 20 MG TABLET (FP) PO SCH (21:15)
[2019-03-09] MEDS: MELATONIN 5 MG TABLETS PO PRN (21:16)
[2019-03-10] MEDS: ASPIRIN 81 MG CHEWABLE TABLETS PO SCH (10:03)
[2019-03-10] MEDS: LISINOPRIL 10 MG TABLET (FP) PO SCH (10:03)
[2019-03-10] MEDS: PRENATAL VITAMINS W/ FOLIC ACID TABLET (FP) PO SCH (10:03)
[2019-03-10] MEDS: NICOTINE 14 MG/24 HOURS TOPICAL PATCH TD PRN (10:05)
[2019-03-10] MEDS: ATORVASTATIN CA 20 MG TABLET (FP) PO SCH (21:14)
[2019-03-10] MEDS: traZODone HCL 50 MG TABLET (FP) PO PRN (21:14)
[2019-03-10] MEDS: MELATONIN 5 MG TABLETS PO PRN (21:15)
[2019-03-10] MEDS: THIAMINE HCL 100 MG TABLET (FP) PO SCH (21:15)
[2019-03-11] MEDS: LISINOPRIL 10 MG TABLET (FP) PO SCH (10:06)
[2019-03-11] MEDS: PRENATAL VITAMINS W/ FOLIC ACID TABLET (FP) PO SCH (10:06)
[2019-03-11] MEDS: ASPIRIN 81 MG CHEWABLE TABLETS PO SCH (10:06)
[2019-03-11] MEDS: NICOTINE 14 MG/24 HOURS TOPICAL PATCH TD PRN (10:07)
[2019-03-11] MEDS: THIAMINE HCL 100 MG TABLET (FP) PO SCH (21:23)
[2019-03-11] MEDS: traZODone HCL 50 MG TABLET (FP) PO PRN (21:23)
[2019-03-11] MEDS: ATORVASTATIN CA 20 MG TABLET (FP) PO SCH (21:23)
[2019-03-11] MEDS: MELATONIN 5 MG TABLETS PO PRN (21:23)
[2019-03-12] MEDS: ASPIRIN 81 MG CHEWABLE TABLETS PO SCH (09:58)
[2019-03-12] MEDS: LISINOPRIL 10 MG TABLET (FP) PO SCH (09:59)
[2019-03-12] MEDS: PRENATAL VITAMINS W/ FOLIC ACID TABLET (FP) PO SCH (09:59)
[2019-03-12] MEDS: NICOTINE 14 MG/24 HOURS TOPICAL PATCH TD PRN (10:00)
[2019-03-12] MEDS: ATORVASTATIN CA 20 MG TABLET (FP) PO SCH (21:32)
[2019-03-12] MEDS: MELATONIN 5 MG TABLETS PO PRN (21:32)
[2019-03-12] MEDS: traZODone HCL 50 MG TABLET (FP) PO PRN (21:33)
[2019-03-12] MEDS: THIAMINE HCL 100 MG TABLET (FP) PO SCH (22:04)
[2019-03-13] MEDS: LISINOPRIL 10 MG TABLET (FP) PO SCH (09:38)
[2019-03-13] MEDS: PRENATAL VITAMINS W/ FOLIC ACID TABLET (FP) PO SCH (09:38)
[2019-03-13] MEDS: ASPIRIN 81 MG CHEWABLE TABLETS PO SCH (09:38)
[2019-03-13] MEDS: NICOTINE 14 MG/24 HOURS TOPICAL PATCH TD PRN (09:39)
[2019-03-13] MEDS: ATORVASTATIN CA 20 MG TABLET (FP) PO SCH (21:13)
[2019-03-13] MEDS: traZODone HCL 50 MG TABLET (FP) PO PRN (21:13)
[2019-03-13] MEDS: MELATONIN 5 MG TABLETS PO PRN (21:13)
[2019-03-13] MEDS: THIAMINE HCL 100 MG TABLET (FP) PO SCH (21:13)
[2019-03-14] MEDS: PRENATAL VITAMINS W/ FOLIC ACID TABLET (FP) PO SCH (09:57)
[2019-03-14] MEDS: LISINOPRIL 10 MG TABLET (FP) PO SCH (09:57)
[2019-03-14] MEDS: ASPIRIN 81 MG CHEWABLE TABLETS PO SCH (09:57)
[2019-03-14] MEDS: NICOTINE 14 MG/24 HOURS TOPICAL PATCH TD PRN (09:59)
[2019-03-14] MEDS: THIAMINE HCL 100 MG TABLET (FP) PO SCH (21:10)
[2019-03-14] MEDS: traZODone HCL 50 MG TABLET (FP) PO PRN (21:10)
[2019-03-14] MEDS: ATORVASTATIN CA 20 MG TABLET (FP) PO SCH (21:10)
[2019-03-14] MEDS: MELATONIN 5 MG TABLETS PO PRN (21:11)
[2019-03-15 07:01] VITALS: BP 119/61; PULSE 78; TEMP 98
[2019-03-15] MEDS: ASPIRIN 81 MG CHEWABLE TABLETS PO SCH (09:04)
[2019-03-15] MEDS: LISINOPRIL 10 MG TABLET (FP) PO SCH (09:04)
[2019-03-15] MEDS: PRENATAL VITAMINS W/ FOLIC ACID TABLET (FP) PO SCH (09:04)
--- NOTE | 2019-03-15 16:02 | PN ---
[facility] Progress Note (SOAP) Subjective: PT COMPLETED REHAB AND DISCHARGED TODAY. PT PARTICIPATED IN REHAB JEFF AND INDIVIDUAL THERAPIES. PT MET WITH HIS COUNSELOR, MS PEGGY GARCIA AND HAS BEEN REFERRED TO [facility] ON [address] PT IS UNDOMICILED. PT REPORTS HE HAS A PRIMARY CARE PROVIDER, DR. RICHIE MCDANIEL @ [address] [place] [address],[place], [place]. 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 HOWEVER, PT DISCLOSED HE HAS REFILLS AT [facility] AND WILL TOYS AND GAMES HAND FINISHER MEDS TODAY. PT DENIES S/H/I. Objective: 03/15/19 16:02 Vital Signs - 24 hr 03/15/19 03/15/19 03/15/19 00:30 03:30 07:00 Temperature 98.0 F Pulse Rate 78 Respiratory 18 18 18 Rate Blood Pressure 119/61 Home Medications Medication Instructions Recorded Folic Acid - 1 mg PO DAILY 06/15/18 Mirtazapine [Remeron -] 15 mg PO HS 06/15/18 Multivitamins [Multivit ([facility] 1 tab PO DAILY 06/15/18 Formulary)] Pravastatin Sodium [Pravachol -] 40 mg PO HS 06/15/18 Thiamine HCl [Vitamin B-1] 100 mg PO DAILY 06/15/18 Ergocalciferol (Vitamin D2) 50,000 unit PO WEEKLY #4 capsule 07/31/18 [Drisdol] traZODone HCL [Desyrel -] 50 mg PO HS 12/26/18 Aspirin [ASA -] 81 mg PO DAILY #30 tab.chew 03/12/19 Atorvastatin Ca [Lipitor] 20 mg PO HS #14 tablet 03/15/19 Lisinopril [Prinivil] 10 mg PO DAILY #14 tablet 03/15/19 Metoprolol Succinate [Toprol Xl] 50 mg PO DAILY #14 tab.er.24h 03/15/19 Assessment: 03/15/19 23:10 NAD MEDICALLY STABLE [facility] Inpatient Services Medical - Diagnosis (1) Hypercholesterolemia Status: Chronic (2) Hypertension Qualifiers: Hypertension type: essential hypertension Status: Chronic (3) Obesity (BMI 30.0-34.9) Status: Chronic (4) S/P angioplasty with stent Status: Chronic (5) Alcohol use disorder Status: Chronic (6) Cocaine use disorder Status: Chronic (7) Nicotine dependence Qualifiers: Nicotine product type: cigarettes Substance use status: uncomplicated Qualified Code(s): F17.210 - Nicotine dependence, cigarettes, uncomplicated Status: Chronic (8) CAD (coronary artery disease) Qualifiers: Coronary Disease-Associated Artery/Lesion type: unspecified vessel or lesion type [place] vs. transplanted heart: [place] heart Associated angina: without angina Qualified Code(s): I25.10 - Atherosclerotic heart disease of [place] coronary artery without angina pectoris Status: Chronic Initialized on 03/15/19 16:02 - END OF NOTE Plan: FOLLOW UP WITH CD AFTERCARE RECOMMENDATION FOLLOW UP WITH PCP ABOVE WITHIN 1 WEEK AFTER DISCHARGE.
== END 2019-03-15 09:30 | disposition home or self-care (01) | DRG 895 ==
LOC: YASAS 14:24 → Y5N 14:25
PROVIDERS: ADMIT Neuromusculoskeletal Medicine & OMM; ATTEND Neuromusculoskeletal Medicine & OMM
PROC: HZ42ZZZ Group Counseling for Substance Abuse Treatment, Cognitive-Behavioral (ICD-10-PCS; principal; 2019-03-01)
DX: F10.20 Alcohol dependence, uncomplicated (principal); F14.20 Cocaine dependence, uncomplicated; F17.210 Nicotine dependence, cigarettes, uncomplicated; I10 Essential (primary) hypertension; I25.10 Atherosclerotic heart disease of native coronary artery without angina pectoris; E78.00 Pure hypercholesterolemia, unspecified; R19.7 Diarrhea, unspecified; R11.2 Nausea with vomiting, unspecified; E66.9 Obesity, unspecified; Z68.32 Body mass index [BMI] 32.0-32.9, adult; Z91.14 Patient's other noncompliance with medication regimen; Z95.5 Presence of coronary angioplasty implant and graft; Z59.0 Homelessness
CPT/HCPCS: Q0162

== ENCOUNTER 2020-04-28 08:29 | Inpatient (IN) | payer OTHER ==
--- NOTE | 2020-04-28 08:41 | BHS.RME ---
Substance Use & Tx History - Substance Use History Alcohol Substance amount: 3-4 pints vodka and beers Frequency of use: Daily Substance route: Oral Date of Last Use: 04/28/20 (6am) Cocaine-Crack Substance amount: up to $1000 binge Frequency of use: Daily Substance route: Smoking Date of Last Use: 04/28/20 Nicotine Substance amount: 1/2pack Frequency of use: Daily Substance route: Smoking Date of Last Use: 04/28/20 - Last Treatment Date of last treatment: 02/25-03/15/19 completed detox and rehab Treatment type: Substance Use Disorder (HUGO) Where was last treatment: Detox Physical/Psych/Mental Status - Behavior General Behavior: Increased activity (restlessness, agitation) Eye Contact: Normal - Cooperativeness Cooperativeness: Cooperative - Thinking Thought Processes: Tight, Logical, Goal Directed - Physical Health Problems Is patient presently having any pain?: No Does patient presently have any injuries (include location): No Does patient currently have a fever: No Is patient : No CIWA Nausea/Vomitin Muscle Tremors: 3 Anxiety: 4-Mod. Anxious/Guarded Agitation: 4-Moderately Restless Paroxysmal Sweats: 1-Minimal Palms Moist Orientation: 0-Oriented Tacttile Disturbances: 0-None Auditory Disturbances: 0-None Visual Disturbances: 1-Very Mild Sensitivity Headache: 2-Mild CIWA-Ar Total Score: 18
[2020-04-28 09:38] VITALS: BMI 29.2
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
[2020-04-28] MEDS ORDERED: MAGNESIUM CITRATE 300 ML BOTTLE PO PRN (10:30)
[2020-04-28] MEDS ORDERED: ONDANSETRON *ODT* 4 MG TABLET SL ONE (10:30)
[2020-04-28] MEDS ORDERED: MAGNESIUM HYDROX 2400MG/30ML ORAL SUSPENSION 30 ML CUP PO PRN (10:30)
[2020-04-28] MEDS ORDERED: METHOCARBAMOL 500 MG TABLET PO PRN (10:30)
[2020-04-28] MEDS ORDERED: chlordiazePOXIDE HCL 25 MG CAPSULE PO PRN (10:30)
[2020-04-28] MEDS ORDERED: MAG HYDROX/AL HYDROX/SIMETH 30 ML UNIT-DOSE CUP PO PRN (10:30)
[2020-04-28] MEDS ORDERED: IBUPROFEN 400 MG TABLET (FP) PO PRN (10:30)
[2020-04-28] MEDS ORDERED: ACETAMINOPHEN 325 MG TABLET (FP) PO PRN ×2 (10:30)
[2020-04-28] MEDS ORDERED: BISMUTH SUBSALICYLATE 524 MG/30 ML UD PO PRN (10:30)
[2020-04-28] MEDS ORDERED: MENTHOL/PHENOL 1 EACH UD MM PRN (10:30)
[2020-04-28] MEDS ORDERED: HYDROCORTISONE 1% TOPICAL OINT 30 GM TUBE TP PRN (10:32)
[2020-04-28] MEDS ORDERED: ERGOCALCIFEROL (VIT D2) 50,000 UNIT (1.25 MG) CAPSULE PO SCH (10:45)
[2020-04-28] MEDS: PRENATAL VITAMINS W/ FOLIC ACID TABLET (FP) PO SCH (12:48)
[2020-04-28] MEDS: chlordiazePOXIDE HCL 25 MG CAPSULE PO SCH ×3 (12:48→22:23)
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
[2020-04-28] MEDS: hydrOXYzine PAMOATE 25 MG CAPSULE (FP) PO SCH ×3 (14:11→22:24)
[2020-04-28 15:43] LABS: HEMATOCRIT 42.5 % (35.4-49); HEMOGLOBIN 13.7 GM/dL (11.7-16.9); MCH 28.5 pg (25.7-33.7); MCHC 32.4 g/dl (32.0-35.9); MEAN CELL VOLUME 87.9 fl (80-96); MEAN PLT VOLUME 9.9 fl (7.5-11.1); PLATELET COUNT 194 K/MM3 (134-434); RBC 4.83 M/mm3 (4.00-5.60); RDW 14.1 % (11.9-15.9); WHITE BLOOD COUNT 10.1 K/mm3 (4.0-10.0)
[2020-04-28 15:55] LABS: ALBUMIN 4.2 g/dl (3.4-5.0); BILIRUBIN,TOTAL 0.5 mg/dL (0.2-1); BLOOD UREA NITROGEN 16.6 mg/dL (7-18); CALCIUM 9.2 mg/dL (8.5-10.1); CREATININE 0.9 mg/dL (0.55-1.3); POTASSIUM 3.7 mmol/L (3.5-5.1); TOT PROT 7.5 g/dl (6.4-8.2)
[2020-04-28] MEDS: THIAMINE HCL 100 MG TABLET (FP) PO SCH (22:23)
[2020-04-28] MEDS: VITAMINS A AND D TOPICAL OINTMENT 60 GM TUBE TP PRN (22:23)
[2020-04-28] MEDS: traZODone HCL 50 MG TABLET (FP) PO SCH (22:24)
[2020-04-28] MEDS: MELATONIN 5 MG TABLETS PO SCH (22:24)
[2020-04-28] MEDS: ATORVASTATIN CA 10 MG TABLET (FP) PO SCH (22:24)
[2020-04-29] MEDS: hydrOXYzine PAMOATE 25 MG CAPSULE (FP) PO SCH ×5 (05:52→23:32)
[2020-04-29] MEDS: chlordiazePOXIDE HCL 25 MG CAPSULE PO SCH ×4 (05:52→23:32)
[2020-04-29] MEDS ORDERED: NICOTINE 21 MG/24 HOURS TOPICAL PATCH TD SCH (10:00)
[2020-04-29] MEDS: PRENATAL VITAMINS W/ FOLIC ACID TABLET (FP) PO SCH (10:06)
[2020-04-29] MEDS: ASPIRIN 81 MG CHEWABLE TABLETS PO SCH (10:06)
[2020-04-29] MEDS: LISINOPRIL 10 MG TABLET (FP) PO SCH (10:06)
[2020-04-29] MEDS: NICOTINE 21 MG/24 HOURS TOPICAL PATCH TD SCH (10:07)
--- NOTE | 2020-04-29 10:41 | PN ---
S CIWA - CIWA Score Nausea/Vomitin-No Nausea/No Vomiting Muscle Tremors: 2 Anxiety: 3 Agitation: 0-Normal Activity Paroxysmal Sweats: 3 Orientation: 0-Oriented Tacttile Disturbances: 0-None Auditory Disturbances: 0-None Visual Disturbances: 0-None Headache: 2-Mild CIWA-Ar Total Score: 10 BHS Progress Note (SOAP) Subjective: c/o sweats, anxiety, shakes, and headache. Objective: 04/29/20 10:40 Vital Signs 04/29/20 04/29/20 06:34 09:37 Temperature 97.2 F L 98.4 F Pulse Rate 82 82 Respiratory 18 18 Rate Blood Pressure 99/63 114/76 O2 Sat by Pulse 100 100 Oximetry (%) Laboratory Last Values WBC 10.1 K/mm3 (4.0-10.0) H 04/28/20 10:15 RBC 4.83 M/mm3 (4.00-5.60) 04/28/20 10:15 Hgb 13.7 GM/dL (11.7-16.9) 04/28/20 10:15 Hct 42.5 % (35.4-49) 04/28/20 10:15 MCV 87.9 fl (80-96) 04/28/20 10:15 MCH 28.5 pg (25.7-33.7) 04/28/20 10:15 MCHC 32.4 g/dl (32.0-35.9) 04/28/20 10:15 RDW 14.1 % (11.9-15.9) 04/28/20 10:15 Plt Count 194 K/MM3 (134-434) D 04/28/20 10:15 MPV 9.9 fl (7.5-11.1) 04/28/20 10:15 Sodium 142 mmol/L (136-145) 04/28/20 10:15 Potassium 3.7 mmol/L (3.5-5.1) 04/28/20 10:15 Chloride 109 mmol/L (98-107) H 04/28/20 10:15 Carbon Dioxide 23 mmol/L (21-32) 04/28/20 10:15 Anion Gap 10 MMOL/L (8-16) 04/28/20 10:15 BUN 16.6 mg/dL (7-18) 04/28/20 10:15 Creatinine 0.9 mg/dL (0.55-1.3) 04/28/20 10:15 Est GFR (CKD-EPI)AfAm 107.97 04/28/20 10:15 Est GFR (CKD-EPI)NonAf 93.16 04/28/20 10:15 Random Glucose 108 mg/dL (74-106) H 04/28/20 10:15 Calcium 9.2 mg/dL (8.5-10.1) 04/28/20 10:15 Total Bilirubin 0.5 mg/dL (0.2-1) 04/28/20 10:15 AST 26 U/L (15-37) 04/28/20 10:15 ALT 26 U/L (13-61) 04/28/20 10:15 Alkaline Phosphatase 79 U/L (45-117) 04/28/20 10:15 Total Protein 7.5 g/dl (6.4-8.2) 04/28/20 10:15 Albumin 4.2 g/dl (3.4-5.0) 04/28/20 10:15 Syphilis Serology Non-reactive (NONREACTIVE) 04/28/20 10:15 COVID-19 ([facility]) Not detected (Not Detected) 04/28/20 10:15 Labs noted. Assessment: 04/29/20 10:40 AOX3, in no acute respiratory distress. Full ROM, ambulating in the unit. Withdrawal symptoms. Plan: continue detox.
[2020-04-29] MEDS: THIAMINE HCL 100 MG TABLET (FP) PO SCH (23:33)
[2020-04-29] MEDS: MELATONIN 5 MG TABLETS PO SCH (23:33)
[2020-04-29] MEDS: traZODone HCL 50 MG TABLET (FP) PO SCH (23:33)
[2020-04-29] MEDS: ATORVASTATIN CA 10 MG TABLET (FP) PO SCH (23:33)
[2020-04-30] MEDS: chlordiazePOXIDE HCL 25 MG CAPSULE PO SCH ×4 (08:10→22:20)
[2020-04-30] MEDS: hydrOXYzine PAMOATE 25 MG CAPSULE (FP) PO SCH ×5 (08:10→22:19)
[2020-04-30] MEDS: NICOTINE 21 MG/24 HOURS TOPICAL PATCH TD SCH (10:38)
[2020-04-30] MEDS: LISINOPRIL 10 MG TABLET (FP) PO SCH (10:39)
[2020-04-30] MEDS: PRENATAL VITAMINS W/ FOLIC ACID TABLET (FP) PO SCH (10:39)
[2020-04-30] MEDS: ASPIRIN 81 MG CHEWABLE TABLETS PO SCH (10:39)
--- NOTE | 2020-04-30 14:37 | PN ---
S CIWA - CIWA Score Nausea/Vomitin-Mild Nausea/No Vomiting Muscle Tremors: 3 Anxiety: 1-Mildly Anxious Agitation: 2 Paroxysmal Sweats: 1-Minimal Palms Moist Orientation: 0-Oriented Tacttile Disturbances: 0-None Auditory Disturbances: 0-None Visual Disturbances: 1-Very Mild Sensitivity Headache: 0-None Present CIWA-Ar Total Score: 9 BHS Progress Note (SOAP) Subjective: 60 years old grossly obese male was admitted on 04/28/20 for alcohol withdrawal sx management treating with librium detox regiment ate breakfast and lunch in room resting in bed comfortably mr matamoros prefers to go to in patient rehab [facility] in [place] where keep him sober for "months" Objective: 04/30/20 14:40 Laboratory Tests 04/28/20 04/28/20 04/28/20 10:15 10:15 10:15 WBC 10.1 H RBC 4.83 Hgb 13.7 Hct 42.5 MCV 87.9 MCH 28.5 MCHC 32.4 RDW 14.1 Plt Count 194 D MPV 9.9 Sodium 142 Potassium 3.7 Chloride 109 H Carbon Dioxide 23 Anion Gap 10 BUN 16.6 Creatinine 0.9 Est GFR (CKD-EPI)AfAm 107.97 Est GFR (CKD-EPI)NonAf 93.16 Random Glucose 108 H Calcium 9.2 Total Bilirubin 0.5 AST 26 ALT 26 Alkaline Phosphatase 79 Total Protein 7.5 Albumin 4.2 Syphilis Serology Non-reactive COVID-19 (JERE) 04/28/20 10:15 WBC RBC Hgb Hct MCV MCH MCHC RDW Plt Count MPV Sodium Potassium Chloride Carbon Dioxide Anion Gap BUN Creatinine Est GFR (CKD-EPI)AfAm Est GFR (CKD-EPI)NonAf Random Glucose Calcium Total Bilirubin AST ALT Alkaline Phosphatase Total Protein Albumin Syphilis Serology COVID-19 (JERE) Not detected lab noted Assessment: 04/30/20 14:40 alcohol withdrawal Plan: librium regiment
[2020-04-30] MEDS: THIAMINE HCL 100 MG TABLET (FP) PO SCH (22:19)
[2020-04-30] MEDS: ATORVASTATIN CA 10 MG TABLET (FP) PO SCH (22:19)
[2020-04-30] MEDS: traZODone HCL 50 MG TABLET (FP) PO SCH (22:19)
[2020-04-30] MEDS: MELATONIN 5 MG TABLETS PO SCH (22:20)
[2020-05-01] MEDS ORDERED: chlordiazePOXIDE HCL 10 MG CAPSULE PO PRN
[2020-05-01] MEDS: hydrOXYzine PAMOATE 25 MG CAPSULE (FP) PO SCH ×5 (05:56→22:36)
[2020-05-01] MEDS: chlordiazePOXIDE HCL 10 MG CAPSULE PO SCH ×4 (05:56→22:36)
--- NOTE | 2020-05-01 10:29 | PN ---
S CIWA - CIWA Score Nausea/Vomitin-No Nausea/No Vomiting Muscle Tremors: 2 Anxiety: 1-Mildly Anxious Agitation: 0-Normal Activity Paroxysmal Sweats: 1-Minimal Palms Moist Orientation: 0-Oriented Tacttile Disturbances: 0-None Auditory Disturbances: 0-None Visual Disturbances: 1-Very Mild Sensitivity Headache: 1-Very Mild CIWA-Ar Total Score: 6 BHS Progress Note (SOAP) Subjective: 60 years old male was admitted on 04/28/20 for alcohol withdrawal sx management treating with librium detox regiment less tremor today ate breakfast in room mr matamoros determines to remain sober encourage mr matamoros to voice feelings and concerns Objective: 05/01/20 10:31 Vital Signs - 24 hr 04/30/20 04/30/20 04/30/20 13:22 16:35 20:23 Temperature 97.3 F L 97.3 F L 97.3 F L Pulse Rate 73 78 87 Respiratory 18 18 18 Rate Blood Pressure 122/67 104/71 107/68 O2 Sat by Pulse 99 98 Oximetry (%) 05/01/20 05/01/20 06:53 08:53 Temperature 97.6 F 97.3 F L Pulse Rate 73 73 Respiratory 18 20 Rate Blood Pressure 128/76 117/74 O2 Sat by Pulse 99 Oximetry (%) Laboratory Tests 04/28/20 04/28/20 04/28/20 10:15 10:15 10:15 WBC 10.1 H RBC 4.83 Hgb 13.7 Hct 42.5 MCV 87.9 MCH 28.5 MCHC 32.4 RDW 14.1 Plt Count 194 D MPV 9.9 Sodium 142 Potassium 3.7 Chloride 109 H Carbon Dioxide 23 Anion Gap 10 BUN 16.6 Creatinine 0.9 Est GFR (CKD-EPI)AfAm 107.97 Est GFR (CKD-EPI)NonAf 93.16 Random Glucose 108 H Calcium 9.2 Total Bilirubin 0.5 AST 26 ALT 26 Alkaline Phosphatase 79 Total Protein 7.5 Albumin 4.2 Syphilis Serology Non-reactive COVID-19 ([facility]ERE) 04/28/20 10:15 WBC RBC Hgb Hct MCV MCH MCHC RDW Plt Count MPV Sodium Potassium Chloride Carbon Dioxide Anion Gap BUN Creatinine Est GFR (CKD-EPI)AfAm Est GFR (CKD-EPI)NonAf Random Glucose Calcium Total Bilirubin AST ALT Alkaline Phosphatase Total Protein Albumin Syphilis Serology COVID-19 ([facility]ERE) Not detected lab noted Assessment: 05/01/20 10:31 alcohol withdrawal Plan: librium regiment
[2020-05-01] MEDS: LISINOPRIL 10 MG TABLET (FP) PO SCH (10:40)
[2020-05-01] MEDS: ASPIRIN 81 MG CHEWABLE TABLETS PO SCH (10:41)
[2020-05-01] MEDS: NICOTINE 21 MG/24 HOURS TOPICAL PATCH TD SCH (10:41)
[2020-05-01] MEDS: PRENATAL VITAMINS W/ FOLIC ACID TABLET (FP) PO SCH (10:41)
[2020-05-01] MEDS: THIAMINE HCL 100 MG TABLET (FP) PO SCH (22:36)
[2020-05-01] MEDS: ATORVASTATIN CA 10 MG TABLET (FP) PO SCH (22:36)
[2020-05-01] MEDS: traZODone HCL 50 MG TABLET (FP) PO SCH (22:36)
[2020-05-01] MEDS: MELATONIN 5 MG TABLETS PO SCH (22:37)
[2020-05-02] MEDS: chlordiazePOXIDE HCL 10 MG CAPSULE PO SCH ×2 (05:47→17:53)
[2020-05-02] MEDS: hydrOXYzine PAMOATE 25 MG CAPSULE (FP) PO SCH ×5 (05:47→22:12)
[2020-05-02] MEDS: PRENATAL VITAMINS W/ FOLIC ACID TABLET (FP) PO SCH (10:10)
[2020-05-02] MEDS: LISINOPRIL 10 MG TABLET (FP) PO SCH (10:10)
[2020-05-02] MEDS: ASPIRIN 81 MG CHEWABLE TABLETS PO SCH (10:10)
[2020-05-02] MEDS: NICOTINE 21 MG/24 HOURS TOPICAL PATCH TD SCH (10:12)
--- NOTE | 2020-05-02 11:03 | PN ---
S CIWA - CIWA Score Nausea/Vomitin-No Nausea/No Vomiting Muscle Tremors: None Anxiety: 3 Agitation: 0-Normal Activity Paroxysmal Sweats: No Perspiration Orientation: 0-Oriented Tacttile Disturbances: 0-None Auditory Disturbances: 0-None Visual Disturbances: 0-None Headache: 0-None Present CIWA-Ar Total Score: 3 BHS Progress Note (SOAP) Subjective: 60 years old male was admitted on 04/28/20 for alcohol withdrawal sx management treating with librium detox regiment feels better today less tremor mild anxiety mr matamoros prefers [facility] for alcohol abuse treatment Objective: 05/02/20 11:05 Vital Signs - 24 hr 05/01/20 05/01/20 05/01/20 13:07 16:32 20:33 Temperature 97.1 F L 97.0 F L 97.5 F L Pulse Rate 98 H 76 78 Respiratory 20 18 16 Rate Blood Pressure 103/73 113/71 114/71 O2 Sat by Pulse 98 99 Oximetry (%) 05/02/20 05/02/20 05:39 08:46 Temperature 97.3 F L 97.3 F L Pulse Rate 75 70 Respiratory 16 20 Rate Blood Pressure 131/73 114/76 O2 Sat by Pulse 96 Oximetry (%) Laboratory Tests 04/28/20 04/28/20 04/28/20 10:15 10:15 10:15 WBC 10.1 H RBC 4.83 Hgb 13.7 Hct 42.5 MCV 87.9 MCH 28.5 MCHC 32.4 RDW 14.1 Plt Count 194 D MPV 9.9 Sodium 142 Potassium 3.7 Chloride 109 H Carbon Dioxide 23 Anion Gap 10 BUN 16.6 Creatinine 0.9 Est GFR (CKD-EPI)AfAm 107.97 Est GFR (CKD-EPI)NonAf 93.16 Random Glucose 108 H Calcium 9.2 Total Bilirubin 0.5 AST 26 ALT 26 Alkaline Phosphatase 79 Total Protein 7.5 Albumin 4.2 Syphilis Serology Non-reactive COVID-19 (JERE) 04/28/20 10:15 WBC RBC Hgb Hct MCV MCH MCHC RDW Plt Count MPV Sodium Potassium Chloride Carbon Dioxide Anion Gap BUN Creatinine Est GFR (CKD-EPI)AfAm Est GFR (CKD-EPI)NonAf Random Glucose Calcium Total Bilirubin AST ALT Alkaline Phosphatase Total Protein Albumin Syphilis Serology COVID-19 (JERE) Not detected lab noted Assessment: 05/02/20 11:05 alcohol withdrawal Plan: librium regiment
[2020-05-02] MEDS ORDERED: MASKS NR ONE (12:25)
[2020-05-02] MEDS: ATORVASTATIN CA 10 MG TABLET (FP) PO SCH (22:12)
[2020-05-02] MEDS: THIAMINE HCL 100 MG TABLET (FP) PO SCH (22:12)
[2020-05-02] MEDS: traZODone HCL 50 MG TABLET (FP) PO SCH (22:12)
[2020-05-02] MEDS: VITAMINS A AND D TOPICAL OINTMENT 60 GM TUBE TP PRN (22:13)
[2020-05-02] MEDS: MELATONIN 5 MG TABLETS PO SCH (22:13)
[2020-05-03] MEDS ORDERED: chlordiazePOXIDE HCL 10 MG CAPSULE PO ONE (05:00)
[2020-05-03] MEDS: hydrOXYzine PAMOATE 25 MG CAPSULE (FP) PO SCH ×3 (05:54→13:13)
[2020-05-03] MEDS: PRENATAL VITAMINS W/ FOLIC ACID TABLET (FP) PO SCH (09:11)
[2020-05-03] MEDS: LISINOPRIL 10 MG TABLET (FP) PO SCH (09:11)
[2020-05-03] MEDS: NICOTINE 21 MG/24 HOURS TOPICAL PATCH TD SCH (09:12)
[2020-05-03] MEDS: ASPIRIN 81 MG CHEWABLE TABLETS PO SCH (09:12)
--- NOTE | 2020-05-03 10:32 | DS ---
[facility] Detox Discharge Summary Admission Date: 04/28/20 Discharge Date: 05/03/20 - History Present History: Alcohol Dependence Additional Comments: 60 years old male was admitted on 04/28/20 for alcohol withdrawal sx management treated with librium detox regiment seen by psychiatrist evan cameron mr matamoros has completed librium regiment and is tolerated well General Appearance: Yes: no Distress, less Tremorous, not Irritable, no Sweating, mild Anxious HEENTM: Yes: EOMI, Hearing grossly Normal, Normal ENT Inspection, Normocephalic, Normal Voice, SHALINI, Pharynx Normal, Scleral Ictenus R Respiratory: Yes: Chest Non-Tender, Lungs Clear, Normal Breath Sounds, No Respiratory Distress, No Accessory Muscle Use Neck: Yes: No masses,lesions,Nodules, Supple, Trachea in good position Cardiology: Yes: Regular Rhythm, S1, S2, Tachycardia Abdominal: Yes: Normal Bowel Sounds, Non Tender, Flat, Soft Genitourinary: Yes: Within Normal Limits Back: Yes: Normal Inspection Musculoskeletal: Yes: full range of Motion, Gait Steady, Pelvis Stable Extremities: Yes: Normal Capillary Refill, Normal Inspection, Normal Range of Motion, Non-Tender Neurological: Yes: coil finisher II-XII NML intact, Fully Oriented, Alert, Motor Strength 5/5, Normal Mood/Affect, Normal Response Integumentary: Yes: Normal Color, Dry, Warm Lymphatic: Yes: Within Normal Limits Pertinent Past History: time for discharge 46 minutes transferred order from detox to rehab - Physical Exam Results Vital Signs: Vital Signs Temperature 97.3 F L 05/03/20 08:50 Pulse Rate 90 05/03/20 08:50 Respiratory Rate 20 05/03/20 08:50 Blood Pressure 124/83 05/03/20 08:50 O2 Sat by Pulse Oximetry (%) 99 05/03/20 06:36 Pertinent Admission Physical Exam Findings: alcohol withdrawal - Treatment Hospital Course: Detox Protocol Followed, Detoxed Safely, Responded well, Discharged Condition Good, Rehab Referral Accepted Patient has Accepted a Rehab Referral to: [facility] - Medication Discharge Medications: Ambulatory Orders Folic Acid - 1 mg PO DAILY 06/15/18 Mirtazapine [Remeron -] 15 mg PO HS 06/15/18 Multivitamins [Multivit ([facility] Formulary)] 1 tab PO DAILY 06/15/18 Pravastatin Sodium [Pravachol -] 40 mg PO HS 06/15/18 Ergocalciferol (Vitamin D2) [Drisdol] 50,000 unit PO WEEKLY #4 capsule 07/31/18 traZODone HCL [Desyrel -] 50 mg PO HS 12/26/18 Aspirin [ASA -] 81 mg PO DAILY #30 tab.chew 03/12/19 Lisinopril [Prinivil] 10 mg PO DAILY #14 tablet 03/15/19 Metoprolol Succinate [Toprol Xl] 50 mg PO DAILY #14 tab.er.24h 03/15/19 - Diagnosis (1) Substance induced mood disorder Status: Suspected (2) Alcohol dependence with uncomplicated withdrawal Status: Acute (3) Hypercholesterolemia Status: Chronic (4) Hypertension Status: Chronic Qualifiers: Hypertension type: essential hypertension (5) Nicotine dependence Status: Acute Qualifiers: Nicotine product type: cigarettes Substance use status: in withdrawal Qualified Code(s): F17.213 - Nicotine dependence, cigarettes, with withdrawal (6) Vitamin D deficiency Status: Chronic - AMA Did Patient Leave Against Medical Advice: No CIWA Score - CIWA Score Nausea/Vomitin-No Nausea/No Vomiting Muscle Tremors: None Anxiety: 2 Agitation: 0-Normal Activity Paroxysmal Sweats: No Perspiration Orientation: 0-Oriented Tacttile Disturbances: 0-None Auditory Disturbances: 0-None Visual Disturbances: 0-None Headache: 0-None Present CIWA-Ar Total Score: 2
[2020-05-03 13:07] VITALS: BP 136/88; PULSE 75; TEMP 97.5
== END 2020-05-03 14:55 | disposition other institution (70) | DRG 897 ==
LOC: YASAS 08:29 → Y3N 09:54
PROVIDERS: ADMIT Allergy & Immunology; ATTEND Allergy & Immunology
PROC: HZ2ZZZZ Detoxification Services for Substance Abuse Treatment (ICD-10-PCS; principal; 2020-04-28)
DX: F10.230 Alcohol dependence with withdrawal, uncomplicated (principal); F14.20 Cocaine dependence, uncomplicated; F12.20 Cannabis dependence, uncomplicated; F17.210 Nicotine dependence, cigarettes, uncomplicated; F19.24 Other psychoactive substance dependence with psychoactive substance-induced mood disorder; E78.00 Pure hypercholesterolemia, unspecified; E55.9 Vitamin D deficiency, unspecified; I25.10 Atherosclerotic heart disease of native coronary artery without angina pectoris; I10 Essential (primary) hypertension; Z95.5 Presence of coronary angioplasty implant and graft; M54.5 Low back pain; G89.29 Other chronic pain; G47.00 Insomnia, unspecified; Z56.0 Unemployment, unspecified; Z59.0 Homelessness
CPT/HCPCS: 36415; 80053; 85027; 86780; U0003

== ENCOUNTER 2020-05-03 15:08 | Inpatient (IN) | payer OTHER ==
--- NOTE | 2020-05-03 15:00 | HP ---
[facility] Rehab Assess/Revision - Admission History Admitted to Rehab from: [facility] Date of Admission to Rehab: 05/03/20 - Findings Detox History & Physical reviewed: Yes Concur with findings: Yes Comments/Additional Findings: transferred from detox to rehab admission as per protocol Inpatient Rehab Admission - Rehab Decision to Admit Inpatient rehab admission?: Yes - Initial Determination Are CD services needed?: Yes Free of communicable disease: Yes Not in need of hospitalization: Yes - Rehab Admission Criteria Previous failed treatment: Yes Poor recovery environment: Yes Comorbidities: Yes Lacks judgement: Yes Patient is meeting Inpatient Rehab admission criteria:: Yes
[~2020-05-03 15:08] MED LIST changes: +ACETAMINOPHEN 325 MG TABLET (FP) PO PRN; -MENTHOL/PHENOL 1 EACH UD MM PRN; -NICOTINE 14 MG/24 HOURS TOPICAL PATCH TD PRN; -NICOTINE POLACRILEX 2 MG GUM BC PRN; +NICOTINE POLACRILEX 4 MG GUM BC PRN; +P-EPHED 60MG/TRIPROLIDI 2.5MG TABLET PO PRN
--- NOTE | 2020-05-03 15:37 | PN ---
S Progress Note Note: Pt is a 60 y/o male admitted to rehab from [address] [place] [address] today. Alert o x 3 nad oob ambulating with steady gait extremities:no edema,skin intact New rehab pt s/p detox increase po fluids cont rehab
[2020-05-03] MEDS: traZODone HCL 100 MG TABLET (FP) PO SCH (21:11)
[2020-05-03] MEDS: HYDROCORTISONE 1% TOPICAL CREAM 30 GM TUBE TP SCH (21:11)
[2020-05-03] MEDS: ATORVASTATIN CA 10 MG TABLET (FP) PO SCH (21:11)
[2020-05-03] MEDS: MELATONIN 5 MG TABLETS PO SCH (21:11)
[2020-05-03] MEDS: THIAMINE HCL 100 MG TABLET (FP) PO SCH (21:11)
[2020-05-04] MEDS: PRENATAL VITAMINS W/ FOLIC ACID TABLET (FP) PO SCH (09:51)
[2020-05-04] MEDS: LISINOPRIL 10 MG TABLET PO SCH (09:51)
[2020-05-04] MEDS: ASPIRIN 81 MG CHEWABLE TABLETS PO SCH (09:51)
[2020-05-04] MEDS: ERGOCALCIFEROL (VIT D2) 50,000 UNIT (1.25 MG) CAPSULE PO SCH (09:51)
[2020-05-04] MEDS: NICOTINE 21 MG/24 HOURS TOPICAL PATCH TD SCH (09:53)
[2020-05-04] MEDS: HYDROCORTISONE 1% TOPICAL CREAM 30 GM TUBE TP SCH ×2 (09:54→21:07)
[2020-05-04] MEDS: traZODone HCL 100 MG TABLET (FP) PO SCH (21:06)
[2020-05-04] MEDS: MELATONIN 5 MG TABLETS PO SCH (21:07)
[2020-05-04] MEDS: ATORVASTATIN CA 10 MG TABLET (FP) PO SCH (21:07)
[2020-05-04] MEDS: THIAMINE HCL 100 MG TABLET (FP) PO SCH (21:07)
[2020-05-05] MEDS: PRENATAL VITAMINS W/ FOLIC ACID TABLET (FP) PO SCH (10:08)
[2020-05-05] MEDS: ASPIRIN 81 MG CHEWABLE TABLETS PO SCH (10:08)
[2020-05-05] MEDS: LISINOPRIL 10 MG TABLET PO SCH (10:09)
[2020-05-05] MEDS: NICOTINE 21 MG/24 HOURS TOPICAL PATCH TD SCH (10:09)
[2020-05-05] MEDS: HYDROCORTISONE 1% TOPICAL CREAM 30 GM TUBE TP SCH ×2 (10:11→22:15)
[2020-05-05] MEDS: VITAMINS A AND D TOPICAL OINTMENT 60 GM TUBE TP PRN (10:11)
[2020-05-05] MEDS: ATORVASTATIN CA 10 MG TABLET (FP) PO SCH (22:15)
[2020-05-05] MEDS: traZODone HCL 100 MG TABLET (FP) PO SCH (22:15)
[2020-05-05] MEDS: THIAMINE HCL 100 MG TABLET (FP) PO SCH (22:16)
[2020-05-05] MEDS: MELATONIN 5 MG TABLETS PO SCH (22:16)
[2020-05-06] MEDS: LISINOPRIL 10 MG TABLET PO SCH (09:11)
[2020-05-06] MEDS: ASPIRIN 81 MG CHEWABLE TABLETS PO SCH (09:11)
[2020-05-06] MEDS: NICOTINE 21 MG/24 HOURS TOPICAL PATCH TD SCH (09:11)
[2020-05-06] MEDS: PRENATAL VITAMINS W/ FOLIC ACID TABLET (FP) PO SCH (09:11)
[2020-05-06] MEDS: HYDROCORTISONE 1% TOPICAL CREAM 30 GM TUBE TP SCH ×2 (09:12→21:07)
[2020-05-06] MEDS: VITAMINS A AND D TOPICAL OINTMENT 60 GM TUBE TP PRN (09:13)
[2020-05-06] MEDS: ATORVASTATIN CA 10 MG TABLET (FP) PO SCH (21:06)
[2020-05-06] MEDS: MELATONIN 5 MG TABLETS PO SCH (21:06)
[2020-05-06] MEDS: traZODone HCL 100 MG TABLET (FP) PO SCH (21:06)
[2020-05-06] MEDS: THIAMINE HCL 100 MG TABLET (FP) PO SCH (21:11)
[2020-05-07] MEDS ORDERED: MASKS NR ONE (06:53)
[2020-05-07] MEDS: ASPIRIN 81 MG CHEWABLE TABLETS PO SCH (09:47)
[2020-05-07] MEDS: PRENATAL VITAMINS W/ FOLIC ACID TABLET (FP) PO SCH (09:47)
[2020-05-07] MEDS: LISINOPRIL 10 MG TABLET PO SCH (09:47)
[2020-05-07] MEDS: NICOTINE 21 MG/24 HOURS TOPICAL PATCH TD SCH (09:48)
[2020-05-07] MEDS: HYDROCORTISONE 1% TOPICAL CREAM 30 GM TUBE TP SCH ×2 (09:48→21:09)
[2020-05-07] MEDS: MELATONIN 5 MG TABLETS PO SCH (21:08)
[2020-05-07] MEDS: traZODone HCL 100 MG TABLET (FP) PO SCH (21:08)
[2020-05-07] MEDS: ATORVASTATIN CA 10 MG TABLET (FP) PO SCH (21:08)
[2020-05-07] MEDS: THIAMINE HCL 100 MG TABLET (FP) PO SCH (21:08)
[2020-05-08] MEDS: PRENATAL VITAMINS W/ FOLIC ACID TABLET (FP) PO SCH (10:05)
[2020-05-08] MEDS: ASPIRIN 81 MG CHEWABLE TABLETS PO SCH (10:05)
[2020-05-08] MEDS: LISINOPRIL 10 MG TABLET PO SCH (10:05)
[2020-05-08] MEDS: VITAMINS A AND D TOPICAL OINTMENT 60 GM TUBE TP PRN (10:06)
[2020-05-08] MEDS: HYDROCORTISONE 1% TOPICAL CREAM 30 GM TUBE TP SCH ×2 (10:08→21:18)
[2020-05-08] MEDS: NICOTINE 21 MG/24 HOURS TOPICAL PATCH TD SCH (10:08)
[2020-05-08] MEDS: THIAMINE HCL 100 MG TABLET (FP) PO SCH (21:16)
[2020-05-08] MEDS: MELATONIN 5 MG TABLETS PO SCH (21:16)
[2020-05-08] MEDS: traZODone HCL 100 MG TABLET (FP) PO SCH (21:16)
[2020-05-08] MEDS: ATORVASTATIN CA 10 MG TABLET (FP) PO SCH (21:16)
[2020-05-09] MEDS: LISINOPRIL 10 MG TABLET PO SCH (10:30)
[2020-05-09] MEDS: NICOTINE 21 MG/24 HOURS TOPICAL PATCH TD SCH (10:30)
[2020-05-09] MEDS: PRENATAL VITAMINS W/ FOLIC ACID TABLET (FP) PO SCH (10:30)
[2020-05-09] MEDS: ASPIRIN 81 MG CHEWABLE TABLETS PO SCH (10:30)
[2020-05-09] MEDS: HYDROCORTISONE 1% TOPICAL CREAM 30 GM TUBE TP SCH ×2 (10:31→21:33)
[2020-05-09] MEDS: ATORVASTATIN CA 10 MG TABLET (FP) PO SCH (21:33)
[2020-05-09] MEDS: THIAMINE HCL 100 MG TABLET (FP) PO SCH (21:33)
[2020-05-09] MEDS: traZODone HCL 100 MG TABLET (FP) PO SCH (21:33)
[2020-05-09] MEDS: MELATONIN 5 MG TABLETS PO SCH (21:34)
[2020-05-10] MEDS: LISINOPRIL 10 MG TABLET PO SCH (11:03)
[2020-05-10] MEDS: NICOTINE 21 MG/24 HOURS TOPICAL PATCH TD SCH (11:03)
[2020-05-10] MEDS: ASPIRIN 81 MG CHEWABLE TABLETS PO SCH (11:03)
[2020-05-10] MEDS: HYDROCORTISONE 1% TOPICAL CREAM 30 GM TUBE TP SCH ×2 (11:03→21:41)
[2020-05-10] MEDS: PRENATAL VITAMINS W/ FOLIC ACID TABLET (FP) PO SCH (11:03)
[2020-05-10] MEDS: traZODone HCL 100 MG TABLET (FP) PO SCH (21:41)
[2020-05-10] MEDS: ATORVASTATIN CA 10 MG TABLET (FP) PO SCH (21:42)
[2020-05-10] MEDS: MELATONIN 5 MG TABLETS PO SCH (21:42)
[2020-05-10] MEDS: THIAMINE HCL 100 MG TABLET (FP) PO SCH (21:42)
[2020-05-11] MEDS: ASPIRIN 81 MG CHEWABLE TABLETS PO SCH (09:25)
[2020-05-11] MEDS: LISINOPRIL 10 MG TABLET PO SCH (09:26)
[2020-05-11] MEDS: PRENATAL VITAMINS W/ FOLIC ACID TABLET (FP) PO SCH (09:26)
[2020-05-11] MEDS: NICOTINE 21 MG/24 HOURS TOPICAL PATCH TD SCH (09:26)
[2020-05-11] MEDS: HYDROCORTISONE 1% TOPICAL CREAM 30 GM TUBE TP SCH ×2 (09:27→21:38)
[2020-05-11] MEDS: VITAMINS A AND D TOPICAL OINTMENT 60 GM TUBE TP PRN (09:28)
[2020-05-11] MEDS: ERGOCALCIFEROL (VIT D2) 50,000 UNIT (1.25 MG) CAPSULE PO SCH (09:30)
[2020-05-11] MEDS: traZODone HCL 100 MG TABLET (FP) PO SCH (21:37)
[2020-05-11] MEDS: ATORVASTATIN CA 10 MG TABLET (FP) PO SCH (21:37)
[2020-05-11] MEDS: THIAMINE HCL 100 MG TABLET (FP) PO SCH (21:37)
[2020-05-11] MEDS: MELATONIN 5 MG TABLETS PO SCH (21:38)
[2020-05-12] MEDS: ASPIRIN 81 MG CHEWABLE TABLETS PO SCH (10:37)
[2020-05-12] MEDS: PRENATAL VITAMINS W/ FOLIC ACID TABLET (FP) PO SCH (10:37)
[2020-05-12] MEDS: LISINOPRIL 10 MG TABLET PO SCH (10:37)
[2020-05-12] MEDS: NICOTINE 21 MG/24 HOURS TOPICAL PATCH TD SCH (10:38)
[2020-05-12] MEDS: HYDROCORTISONE 1% TOPICAL CREAM 30 GM TUBE TP SCH ×2 (10:38→21:51)
[2020-05-12] MEDS: TOLNAFTATE 1% CREAM 15 GM TUBE TP SCH ×2 (12:51→21:51)
[2020-05-12] MEDS: ATORVASTATIN CA 10 MG TABLET (FP) PO SCH (21:50)
[2020-05-12] MEDS: THIAMINE HCL 100 MG TABLET (FP) PO SCH (21:50)
[2020-05-12] MEDS: traZODone HCL 100 MG TABLET (FP) PO SCH (21:51)
[2020-05-12] MEDS: MELATONIN 5 MG TABLETS PO SCH (21:51)
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
[2020-05-13] MEDS: PRENATAL VITAMINS W/ FOLIC ACID TABLET (FP) PO SCH (10:07)
[2020-05-13] MEDS: NICOTINE 21 MG/24 HOURS TOPICAL PATCH TD SCH (10:07)
[2020-05-13] MEDS: HYDROCORTISONE 1% TOPICAL CREAM 30 GM TUBE TP SCH ×2 (10:07→21:39)
[2020-05-13] MEDS: ASPIRIN 81 MG CHEWABLE TABLETS PO SCH (10:07)
[2020-05-13] MEDS: LISINOPRIL 10 MG TABLET PO SCH (10:07)
[2020-05-13] MEDS: TOLNAFTATE 1% CREAM 15 GM TUBE TP SCH ×2 (10:08→21:39)
[2020-05-13] MEDS: ATORVASTATIN CA 10 MG TABLET (FP) PO SCH (21:37)
[2020-05-13] MEDS: THIAMINE HCL 100 MG TABLET (FP) PO SCH (21:37)
[2020-05-13] MEDS: MELATONIN 5 MG TABLETS PO SCH (21:37)
[2020-05-13] MEDS: traZODone HCL 50 MG TABLET (FP) PO SCH (21:38)
[2020-05-13] MEDS: SUVOREXANT 10 MG TABLET PO PRN (21:38)
[2020-05-14] MEDS: ASPIRIN 81 MG CHEWABLE TABLETS PO SCH (10:19)
[2020-05-14] MEDS: NICOTINE 21 MG/24 HOURS TOPICAL PATCH TD SCH (10:19)
[2020-05-14] MEDS: PRENATAL VITAMINS W/ FOLIC ACID TABLET (FP) PO SCH (10:19)
[2020-05-14] MEDS: LISINOPRIL 10 MG TABLET PO SCH (10:19)
[2020-05-14] MEDS: TOLNAFTATE 1% CREAM 15 GM TUBE TP SCH ×2 (10:22→21:43)
[2020-05-14] MEDS: HYDROCORTISONE 1% TOPICAL CREAM 30 GM TUBE TP SCH ×2 (10:23→21:42)
[2020-05-14] MEDS: MELATONIN 5 MG TABLETS PO SCH (21:42)
[2020-05-14] MEDS: THIAMINE HCL 100 MG TABLET (FP) PO SCH (21:42)
[2020-05-14] MEDS: ATORVASTATIN CA 10 MG TABLET (FP) PO SCH (21:42)
[2020-05-14] MEDS: traZODone HCL 50 MG TABLET (FP) PO SCH (21:42)
[2020-05-14] MEDS: SUVOREXANT 10 MG TABLET PO PRN (21:42)
[2020-05-15] MEDS: TOLNAFTATE 1% CREAM 15 GM TUBE TP SCH ×2 (09:36→21:37)
[2020-05-15] MEDS: ASPIRIN 81 MG CHEWABLE TABLETS PO SCH (09:36)
[2020-05-15] MEDS: PRENATAL VITAMINS W/ FOLIC ACID TABLET (FP) PO SCH (09:36)
[2020-05-15] MEDS: LISINOPRIL 10 MG TABLET PO SCH (09:36)
[2020-05-15] MEDS: NICOTINE 21 MG/24 HOURS TOPICAL PATCH TD SCH (09:37)
[2020-05-15] MEDS: HYDROCORTISONE 1% TOPICAL CREAM 30 GM TUBE TP SCH ×2 (09:37→21:36)
[2020-05-15] MEDS: THIAMINE HCL 100 MG TABLET (FP) PO SCH (21:35)
[2020-05-15] MEDS: ATORVASTATIN CA 10 MG TABLET (FP) PO SCH (21:35)
[2020-05-15] MEDS: SUVOREXANT 10 MG TABLET PO PRN (21:35)
[2020-05-15] MEDS: traZODone HCL 50 MG TABLET (FP) PO SCH (21:35)
[2020-05-15] MEDS: MELATONIN 5 MG TABLETS PO SCH (21:36)
[2020-05-16] MEDS: ASPIRIN 81 MG CHEWABLE TABLETS PO SCH (10:33)
[2020-05-16] MEDS: NICOTINE 21 MG/24 HOURS TOPICAL PATCH TD SCH (10:34)
[2020-05-16] MEDS: LISINOPRIL 10 MG TABLET PO SCH (10:34)
[2020-05-16] MEDS: TOLNAFTATE 1% CREAM 15 GM TUBE TP SCH ×2 (10:34→21:30)
[2020-05-16] MEDS: PRENATAL VITAMINS W/ FOLIC ACID TABLET (FP) PO SCH (10:34)
[2020-05-16] MEDS: HYDROCORTISONE 1% TOPICAL CREAM 30 GM TUBE TP SCH ×2 (10:35→21:30)
[2020-05-16] MEDS: SUVOREXANT 10 MG TABLET PO PRN (21:29)
[2020-05-16] MEDS: traZODone HCL 50 MG TABLET (FP) PO SCH (21:29)
[2020-05-16] MEDS: ATORVASTATIN CA 10 MG TABLET (FP) PO SCH (21:30)
[2020-05-16] MEDS: MELATONIN 5 MG TABLETS PO SCH (21:30)
[2020-05-16] MEDS: THIAMINE HCL 100 MG TABLET (FP) PO SCH (21:30)
[2020-05-17] MEDS: PRENATAL VITAMINS W/ FOLIC ACID TABLET (FP) PO SCH (09:12)
[2020-05-17] MEDS: ASPIRIN 81 MG CHEWABLE TABLETS PO SCH (09:12)
[2020-05-17] MEDS: LISINOPRIL 10 MG TABLET PO SCH (09:12)
[2020-05-17] MEDS: HYDROCORTISONE 1% TOPICAL CREAM 30 GM TUBE TP SCH ×2 (09:13→21:38)
[2020-05-17] MEDS: NICOTINE 21 MG/24 HOURS TOPICAL PATCH TD SCH (09:13)
[2020-05-17] MEDS: TOLNAFTATE 1% CREAM 15 GM TUBE TP SCH ×2 (09:14→21:38)
[2020-05-17] MEDS: THIAMINE HCL 100 MG TABLET (FP) PO SCH (21:37)
[2020-05-17] MEDS: SUVOREXANT 10 MG TABLET PO PRN (21:37)
[2020-05-17] MEDS: traZODone HCL 50 MG TABLET (FP) PO SCH (21:38)
[2020-05-17] MEDS: MELATONIN 5 MG TABLETS PO SCH (21:38)
[2020-05-17] MEDS: ATORVASTATIN CA 10 MG TABLET (FP) PO SCH (21:38)
[2020-05-18] MEDS: LISINOPRIL 10 MG TABLET PO SCH (10:34)
[2020-05-18] MEDS: ASPIRIN 81 MG CHEWABLE TABLETS PO SCH (10:34)
[2020-05-18] MEDS: ERGOCALCIFEROL (VIT D2) 50,000 UNIT (1.25 MG) CAPSULE PO SCH (10:34)
[2020-05-18] MEDS: NICOTINE 21 MG/24 HOURS TOPICAL PATCH TD SCH (10:34)
[2020-05-18] MEDS: PRENATAL VITAMINS W/ FOLIC ACID TABLET (FP) PO SCH (10:34)
[2020-05-18] MEDS: TOLNAFTATE 1% CREAM 15 GM TUBE TP SCH ×2 (10:36→21:50)
[2020-05-18] MEDS: HYDROCORTISONE 1% TOPICAL CREAM 30 GM TUBE TP SCH ×2 (10:37→21:49)
--- NOTE | 2020-05-18 17:19 | PN ---
Psychiatric Progress Note Vital Signs: Vital Signs Period Temp Pulse Resp BP Sys/Nicole Pulse Ox Last 24 Hr 97.3 F 72 18 127/74 97-99 Date of Session: 05/18/20 Chief Complaint:: " I just want someone to talk to." HPI: Patient admitted to for rehab for alcohol dependence. Consultation ordered to address bereavement. ROS: Patient is ambulatory, alert + oriented X3. Current Medications: Active Medications Generic Name Dose Route Start Last Admin Trade Name Freq PRN Reason Stop Dose Admin Acetaminophen 650 mg 05/03/20 15:03 Tylenol - PO Q4H PRN FEVER Al Hydroxide/Mg Hydroxide 30 ml 05/03/20 15:03 Mylanta Oral Suspension - PO Q6H PRN DYSPEPSIA Aspirin 81 mg 05/04/20 10:00 05/18/20 10:34 Asa - PO 81 mg DAILY CHADD Administration Atorvastatin Calcium 10 mg 05/03/20 22:00 05/17/20 21:38 Lipitor - PO 10 mg HS CHADD Administration Ergocalciferol 50,000 unit 05/04/20 10:00 05/18/20 10:34 Drisdol - PO 50,000 unit Th@1000 CHADD Administration Guaifenesin 10 ml 05/03/20 15:03 Robitussin - PO Q6H PRN COUGH Hydrocortisone 1 applic 05/03/20 22:00 05/18/20 10:37 Hytone 1% Cream - TP 1 applic BID CHADD Administration Lisinopril 10 mg 05/04/20 10:00 05/18/20 10:34 Prinivil PO 10 mg DAILY CHADD Administration Loperamide HCl 4 mg 05/03/20 15:03 Imodium - PO Q6H PRN DIARRHEA Magnesium Citrate 300 ml 05/03/20 15:03 Citroma - PO Q48H PRN CONSTIPATION Magnesium Hydroxide 30 ml 05/03/20 15:03 Milk Of Magnesia - PO DAILY PRN CONSTIPATION Melatonin 5 mg 05/03/20 22:00 05/17/20 21:38 Melatonin PO 5 mg HS CHADD Administration Metoprolol Succinate 50 mg 05/04/20 10:00 05/18/20 10:34 Toprol Xl - PO 50 mg DAILY CHADD Administration Nicotine 21 mg 05/04/20 10:00 05/18/20 10:34 Nicoderm Patch - TD 21 mg DAILY CHADD Administration Nicotine Polacrilex 4 mg 05/03/20 15:03 Nicorette Gum - BC Q2H PRN NICOTINE REPLACEMENT RX Multivit/Folic Acid/Iron 1 tab 05/04/20 10:00 05/18/20 10:34 Vitamins (Sjr) - PO 1 tab DAILY CHADD Administration Pseudoephedrine/Triprolidine 1 combo 05/03/20 15:03 Actifed - PO TID PRN NASAL CONGESTION Suvorexant 10 mg 05/16/20 22:00 05/17/20 21:37 Belsomra PO 05/19/20 21:59 10 mg HS PRN Administration INSOMNIA Thiamine HCl 100 mg 05/03/20 22:00 05/17/20 21:37 Vitamin B1 - PO 100 mg HS CHADD Administration Tolnaftate 1 applic 05/12/20 11:30 05/18/20 10:36 Tinactin 1% Cream - TP Not Given BID CHADD Trazodone HCl 75 mg 05/13/20 22:00 05/17/20 21:38 Desyrel - PO 75 mg HS CHADD Administration Vitamin A/Vitamin D 1 applic 05/04/20 10:02 05/11/20 09:28 Vitamin A & D Top Oint - TP 1 applic BID PRN Administration DRY SKIN Medication(s) Change(s): Yes. Will increase Belsomra to 15mg HS. Current Side Effect: No Lab tests ordered: No Lab tests reviewed: Yes Provider note:: Chart reviewed. Mr. Estrada requesting to speak to production underwriter concerning processing the of his mother. Mr. Estrada stated to production underwriter that his mother in November of 2019 and his father when he was [age] years of age. Patient able to express his thoughts and feelings. Inpatient Auditor able to review the steps of grieving with patient. Patient satisifed and receptive to feedback. In addition will increase Belsomra dose to 15mg HS due to patient reporting difficulty sleeping. Benefits and side effects discussed. Verbal consent given. Total face to face time:: 25 Mental Status Exam - Mental Status Exam Alert and Oriented to: Time, Place, Person Cognitive Function: Good Patient Appearance: Well Groomed Mood: Sad Affect: Mood Congruent Patient Behavior: Appropriate, Cooperative Speech Pattern: Appropriate Voice Loudness: Normal Thought Process: Intact, Goal Oriented Thought Disorder: Not Present Hallucinations: Denies Suicidal Ideation: Denies Homicidal Ideation: Denies Insight/Judgement: Poor Sleep: Poorly Appetite: Fair Muscle strength/Tone: Normal Gait/Station: Normal Psychiatric Treatment Plan - Problem List (1) Alcohol use disorder Current Visit: Yes (2) Cocaine use disorder Current Visit: Yes (3) Substance-induced sleep disorder Current Visit: Yes (4) Bereavement Current Visit: Yes
[2020-05-18] MEDS: ATORVASTATIN CA 10 MG TABLET (FP) PO SCH (21:26)
[2020-05-18] MEDS: SUVOREXANT 10 MG TABLET PO PRN (21:26)
[2020-05-18] MEDS: THIAMINE HCL 100 MG TABLET (FP) PO SCH (21:26)
[2020-05-18] MEDS: traZODone HCL 50 MG TABLET (FP) PO SCH (21:26)
[2020-05-18] MEDS: MELATONIN 5 MG TABLETS PO SCH (21:27)
[2020-05-19] MEDS: NICOTINE 21 MG/24 HOURS TOPICAL PATCH TD SCH (09:25)
[2020-05-19] MEDS: PRENATAL VITAMINS W/ FOLIC ACID TABLET (FP) PO SCH (09:25)
[2020-05-19] MEDS: ASPIRIN 81 MG CHEWABLE TABLETS PO SCH (09:25)
[2020-05-19] MEDS: LISINOPRIL 10 MG TABLET PO SCH (09:25)
[2020-05-19] MEDS: HYDROCORTISONE 1% TOPICAL CREAM 30 GM TUBE TP SCH ×2 (09:26→21:34)
[2020-05-19] MEDS: TOLNAFTATE 1% CREAM 15 GM TUBE TP SCH ×2 (09:26→21:34)
[2020-05-19] MEDS: THIAMINE HCL 100 MG TABLET (FP) PO SCH (21:33)
[2020-05-19] MEDS: SUVOREXANT 15 MG TABLET PO PRN (21:33)
[2020-05-19] MEDS: traZODone HCL 50 MG TABLET (FP) PO SCH (21:33)
[2020-05-19] MEDS: ATORVASTATIN CA 10 MG TABLET (FP) PO SCH (21:33)
[2020-05-19] MEDS: MELATONIN 5 MG TABLETS PO SCH (21:34)
[2020-05-20] MEDS: ASPIRIN 81 MG CHEWABLE TABLETS PO SCH (10:32)
[2020-05-20] MEDS: NICOTINE 21 MG/24 HOURS TOPICAL PATCH TD SCH (10:32)
[2020-05-20] MEDS: LISINOPRIL 10 MG TABLET PO SCH (10:32)
[2020-05-20] MEDS: PRENATAL VITAMINS W/ FOLIC ACID TABLET (FP) PO SCH (10:33)
[2020-05-20] MEDS: TOLNAFTATE 1% CREAM 15 GM TUBE TP SCH ×2 (10:33→21:32)
[2020-05-20] MEDS: HYDROCORTISONE 1% TOPICAL CREAM 30 GM TUBE TP SCH ×2 (10:34→21:31)
[2020-05-20] MEDS: traZODone HCL 50 MG TABLET (FP) PO SCH (21:30)
[2020-05-20] MEDS: THIAMINE HCL 100 MG TABLET (FP) PO SCH (21:31)
[2020-05-20] MEDS: MELATONIN 5 MG TABLETS PO SCH (21:31)
[2020-05-20] MEDS: ATORVASTATIN CA 10 MG TABLET (FP) PO SCH (21:31)
[2020-05-20] MEDS: SUVOREXANT 15 MG TABLET PO PRN (21:31)
[2020-05-21] MEDS: NICOTINE 21 MG/24 HOURS TOPICAL PATCH TD SCH (10:11)
[2020-05-21] MEDS: PRENATAL VITAMINS W/ FOLIC ACID TABLET (FP) PO SCH (10:11)
[2020-05-21] MEDS: ASPIRIN 81 MG CHEWABLE TABLETS PO SCH (10:11)
[2020-05-21] MEDS: LISINOPRIL 10 MG TABLET PO SCH (10:11)
[2020-05-21] MEDS: HYDROCORTISONE 1% TOPICAL CREAM 30 GM TUBE TP SCH ×2 (10:12→21:35)
[2020-05-21] MEDS: TOLNAFTATE 1% CREAM 15 GM TUBE TP SCH ×2 (10:12→21:35)
[2020-05-21] MEDS: THIAMINE HCL 100 MG TABLET (FP) PO SCH (21:34)
[2020-05-21] MEDS: traZODone HCL 50 MG TABLET (FP) PO SCH (21:34)
[2020-05-21] MEDS: SUVOREXANT 15 MG TABLET PO PRN (21:34)
[2020-05-21] MEDS: MELATONIN 5 MG TABLETS PO SCH (21:34)
[2020-05-21] MEDS: ATORVASTATIN CA 10 MG TABLET (FP) PO SCH (21:34)
[2020-05-22] MEDS: LISINOPRIL 10 MG TABLET PO SCH (10:48)
[2020-05-22] MEDS: TOLNAFTATE 1% CREAM 15 GM TUBE TP SCH ×2 (10:48→22:12)
[2020-05-22] MEDS: NICOTINE 21 MG/24 HOURS TOPICAL PATCH TD SCH (10:48)
[2020-05-22] MEDS: ASPIRIN 81 MG CHEWABLE TABLETS PO SCH (10:48)
[2020-05-22] MEDS: PRENATAL VITAMINS W/ FOLIC ACID TABLET (FP) PO SCH (10:48)
[2020-05-22] MEDS: HYDROCORTISONE 1% TOPICAL CREAM 30 GM TUBE TP SCH ×2 (10:51→22:12)
[2020-05-22] MEDS: ATORVASTATIN CA 10 MG TABLET (FP) PO SCH (21:43)
[2020-05-22] MEDS: traZODone HCL 50 MG TABLET (FP) PO SCH (21:43)
[2020-05-22] MEDS: THIAMINE HCL 100 MG TABLET (FP) PO SCH (21:43)
[2020-05-22] MEDS: SUVOREXANT 10 MG TABLET PO PRN (21:45)
[2020-05-22] MEDS: MELATONIN 5 MG TABLETS PO SCH (22:12)
[2020-05-23] MEDS: ASPIRIN 81 MG CHEWABLE TABLETS PO SCH (10:29)
[2020-05-23] MEDS: LISINOPRIL 10 MG TABLET PO SCH (10:30)
[2020-05-23] MEDS: VITAMINS A AND D TOPICAL OINTMENT 60 GM TUBE TP PRN (10:30)
[2020-05-23] MEDS: HYDROCORTISONE 1% TOPICAL CREAM 30 GM TUBE TP SCH ×2 (10:30→21:22)
[2020-05-23] MEDS: NICOTINE 21 MG/24 HOURS TOPICAL PATCH TD SCH (10:30)
[2020-05-23] MEDS: PRENATAL VITAMINS W/ FOLIC ACID TABLET (FP) PO SCH (10:30)
[2020-05-23] MEDS: TOLNAFTATE 1% CREAM 15 GM TUBE TP SCH ×2 (10:30→21:23)
[2020-05-23] MEDS: SUVOREXANT 15 MG TABLET PO PRN (21:21)
[2020-05-23] MEDS: traZODone HCL 50 MG TABLET (FP) PO SCH (21:21)
[2020-05-23] MEDS: ATORVASTATIN CA 10 MG TABLET (FP) PO SCH (21:21)
[2020-05-23] MEDS: THIAMINE HCL 100 MG TABLET (FP) PO SCH (21:21)
[2020-05-23] MEDS: MELATONIN 5 MG TABLETS PO SCH (21:22)
[2020-05-24] MEDS: ASPIRIN 81 MG CHEWABLE TABLETS PO SCH (09:47)
[2020-05-24] MEDS: PRENATAL VITAMINS W/ FOLIC ACID TABLET (FP) PO SCH (09:47)
[2020-05-24] MEDS: LISINOPRIL 10 MG TABLET PO SCH (09:47)
[2020-05-24] MEDS: NICOTINE 21 MG/24 HOURS TOPICAL PATCH TD SCH (09:47)
[2020-05-24] MEDS: HYDROCORTISONE 1% TOPICAL CREAM 30 GM TUBE TP SCH ×2 (09:48→21:32)
[2020-05-24] MEDS: TOLNAFTATE 1% CREAM 15 GM TUBE TP SCH ×2 (09:48→21:49)
--- NOTE | 2020-05-24 16:10 | PN ---
OTF Progress Note Note: Psychiatry Attending's note : Renewal of belsomra. Requested by nurse. Chart reviewed. Medication is confirmed. manager english Leana Pulido's note of 05/18/20 : read. Action : belsomra 15 mg po hs prn. Renewed.
[2020-05-24] MEDS: THIAMINE HCL 100 MG TABLET (FP) PO SCH (21:30)
[2020-05-24] MEDS: ATORVASTATIN CA 10 MG TABLET (FP) PO SCH (21:31)
[2020-05-24] MEDS: traZODone HCL 50 MG TABLET (FP) PO SCH (21:31)
[2020-05-24] MEDS: SUVOREXANT 15 MG TABLET PO PRN (21:31)
[2020-05-24] MEDS: MELATONIN 5 MG TABLETS PO SCH (21:32)
[2020-05-24] MEDS ORDERED: SUVOREXANT 15 MG TABLET PO PRN (22:00)
[2020-05-25 06:58] VITALS: BP 140/77; PULSE 65; TEMP 97.7
[2020-05-25] MEDS: ASPIRIN 81 MG CHEWABLE TABLETS PO SCH (09:03)
[2020-05-25] MEDS: PRENATAL VITAMINS W/ FOLIC ACID TABLET (FP) PO SCH (09:04)
[2020-05-25] MEDS: LISINOPRIL 10 MG TABLET PO SCH (09:04)
[2020-05-25] MEDS: NICOTINE 21 MG/24 HOURS TOPICAL PATCH TD SCH (09:05)
[2020-05-25] MEDS: ERGOCALCIFEROL (VIT D2) 50,000 UNIT (1.25 MG) CAPSULE PO SCH (09:08)
[2020-05-25] MEDS: TOLNAFTATE 1% CREAM 15 GM TUBE TP SCH (09:09)
[2020-05-25] MEDS: HYDROCORTISONE 1% TOPICAL CREAM 30 GM TUBE TP SCH (09:09)
--- NOTE | 2020-05-25 10:33 | DS ---
[facility] Rehab Discharge Summary - [facility] Rehab Discharge Summary Admission Date: 05/03/20 Discharge Date: 05/25/20 - History Present History: Alcohol dependence, Cocaine dependence Pertinent Past History: HTN Hypercholesterolemia Chronic Low Back painObesity Dry Skin Dermatitis Oesity CAD-s/p Angioplasty with stent - Discharge Physical Exam Vital Signs: Vital Signs Temperature 97.7 F 05/25/20 05:53 Pulse Rate 65 05/25/20 05:53 Respiratory Rate 18 05/25/20 05:53 Blood Pressure 140/77 05/25/20 05:53 O2 Sat by Pulse Oximetry (%) 97 05/25/20 05:53 General:Alert o x 3,oob with steady gait,denies s/h/i Head:normocephalic, eomi,heather Neck:supple, no jvd cardiac:s1 s2,rrr lungs:ctab abdomen:soft, +bs,nt,nd MSK:Active FROM, all limbs. No edema skin:warm, intact P Pertinent Admission Physical Exam Findings: unremarkable on admission from detox. Medically stable. - Treatment Discharge Condition: Discharge condition good, Rehabilitated safely, Responded well, Outpatient referral accepted Hospital Course: Pt Completed rehab and accepted CD aftercare to [facility] program. - Medication Discharge Medications: Ambulatory Orders Folic Acid - 1 mg PO DAILY 06/15/18 Mirtazapine [Remeron -] 15 mg PO HS 06/15/18 Multivitamins [Multivit ([facility] Formulary)] 1 tab PO DAILY 06/15/18 Pravastatin Sodium [Pravachol -] 40 mg PO HS 06/15/18 Ergocalciferol (Vitamin D2) [Drisdol] 50,000 unit PO WEEKLY #4 capsule 07/31/18 traZODone HCL [Desyrel -] 50 mg PO HS 12/26/18 Aspirin [ASA -] 81 mg PO DAILY #30 tab.chew 03/12/19 Lisinopril [Prinivil] 10 mg PO DAILY #14 tablet 03/15/19 Metoprolol Succinate [Toprol Xl] 50 mg PO DAILY #14 tab.er.24h 03/15/19 - Medication-Assisted Treatment (MAT) Medication-Assisted Treatment (MAT): No - Discharge Instructions Diet, activity, other medical instructions: Diet:PADMA Activity:oob ad valdo Other medical instructions:Follow up with PCP as schedule for medical management today. - Diagnosis (1) Alcohol use disorder Status: Chronic (2) Dry skin dermatitis Status: Chronic (3) CAD (coronary artery disease) Status: Chronic Qualifiers: Coronary Disease-Associated Artery/Lesion type: unspecified vessel or lesion type [place] vs. transplanted heart: [place] heart Associated angina: without angina Qualified Code(s): I25.10 - Atherosclerotic heart disease of [place] coronary artery without angina pectoris (4) Chronic low back pain Status: Chronic Qualifiers: Back pain laterality: midline Sciatica presence: without sciatica Qualified Code(s): M54.5 - Low back pain; G89.29 - Other chronic pain (5) Cocaine use disorder Status: Chronic (6) History of intravascular stent placement Status: Chronic (7) Hypercholesterolemia Status: Chronic (8) Hypertension Status: Chronic Qualifiers: Hypertension type: essential hypertension Qualified Code(s): I10 - Essential (primary) hypertension (9) Obesity (BMI 30.0-34.9) Status: Chronic (10) S/P angioplasty with stent Status: Chronic (11) Substance-induced sleep disorder Status: Acute - Follow-up Referral Minutes to complete discharge: 30 - AMA Did Patient Leave Against Medical Advice: No
== END 2020-05-25 10:00 | disposition home or self-care (01) | DRG 895 ==
LOC: YASAS 15:08 → Y5N 15:12
PROVIDERS: ADMIT Allergy & Immunology; ATTEND Allergy & Immunology
PROC: HZ42ZZZ Group Counseling for Substance Abuse Treatment, Cognitive-Behavioral (ICD-10-PCS; principal; 2020-05-03)
DX: F10.20 Alcohol dependence, uncomplicated (principal); F14.20 Cocaine dependence, uncomplicated; F19.282 Other psychoactive substance dependence with psychoactive substance-induced sleep disorder; F12.20 Cannabis dependence, uncomplicated; F17.210 Nicotine dependence, cigarettes, uncomplicated; E78.00 Pure hypercholesterolemia, unspecified; I25.10 Atherosclerotic heart disease of native coronary artery without angina pectoris; I10 Essential (primary) hypertension; Z95.5 Presence of coronary angioplasty implant and graft; L85.3 Xerosis cutis; E66.9 Obesity, unspecified; M54.5 Low back pain; G89.29 Other chronic pain; Z63.4 Disappearance and death of family member; Z59.0 Homelessness

== ENCOUNTER 2020-08-06 08:56 | Inpatient (IN) | payer OTHER ==
[2020-08-06 10:28] VITALS: BMI 30.1
[2020-08-06] MEDS ORDERED: MELATONIN 5 MG TABLETS PO PRN (12:13)
[2020-08-06] MEDS ORDERED: ACETAMINOPHEN 325 MG TABLET (FP) PO PRN (12:13)
[2020-08-06] MEDS ORDERED: MAG HYDROX/AL HYDROX/SIMETH 30 ML UNIT-DOSE CUP PO PRN (12:13)
[2020-08-06] MEDS ORDERED: IBUPROFEN 400 MG TABLET (FP) PO PRN (12:13)
[2020-08-06] MEDS ORDERED: MAGNESIUM CITRATE 300 ML BOTTLE PO PRN (12:13)
[2020-08-06] MEDS ORDERED: MENTHOL/PHENOL 1 EACH UD MM PRN (12:13)
[2020-08-06] MEDS ORDERED: METHOCARBAMOL 500 MG TABLET PO PRN (12:13)
[2020-08-06] MEDS ORDERED: BISMUTH SUBSALICYLATE 524 MG/30 ML PO PRN (12:13)
[2020-08-06] MEDS ORDERED: P-EPHED 60MG/TRIPROLIDI 2.5MG TABLET PO PRN (12:13)
[2020-08-06] MEDS ORDERED: MAGNESIUM HYDROX 2400MG/30ML ORAL SUSPENSION 30 ML CUP PO PRN (12:13)
[2020-08-06] MEDS ORDERED: ONDANSETRON *ODT* 4 MG TABLET SL PRN (12:13)
[2020-08-06] MEDS: diazePAM 5 MG TABLET PO PRN (13:27)
[2020-08-06] MEDS: ASPIRIN 81 MG CHEWABLE TABLETS PO SCH (13:27)
[2020-08-06] MEDS ORDERED: NICOTINE POLACRILEX 4 MG GUM BUC PRN (15:43)
[2020-08-06] MEDS: NICOTINE 21 MG/24 HOURS TOPICAL PATCH TD SCH (16:00)
[2020-08-06] MEDS: diazePAM 5 MG TABLET PO SCH ×2 (17:24→22:08)
[2020-08-06] MEDS: THIAMINE HCL 100 MG TABLET (FP) PO SCH (22:08)
[2020-08-06] MEDS: ATORVASTATIN CA 10 MG TABLET (FP) PO SCH (22:08)
[2020-08-06] MEDS: hydrOXYzine PAMOATE 25 MG CAPSULE (FP) PO PRN (22:10)
[2020-08-07] MEDS: diazePAM 5 MG TABLET PO SCH ×4 (05:43→22:02)
[2020-08-07] MEDS: NICOTINE 21 MG/24 HOURS TOPICAL PATCH TD SCH (10:07)
[2020-08-07] MEDS: LISINOPRIL 10 MG TABLET PO SCH (10:07)
[2020-08-07] MEDS: PRENATAL VITAMINS W/ FOLIC ACID TABLET (FP) PO SCH (10:07)
[2020-08-07] MEDS: ASPIRIN 81 MG CHEWABLE TABLETS PO SCH (10:07)
[2020-08-07 10:46] LABS: ALBUMIN 3.2 g/dl (3.4-5.0); CALCIUM 8.4 mg/dL (8.5-10.1)
[2020-08-07 10:48] LABS: HEMATOCRIT 40.5 % (35.4-49); MCH 28.6 pg (25.7-33.7); MCHC 32.2 g/dl (32.0-35.9); MEAN CELL VOLUME 88.8 fl (80-96); MEAN PLT VOLUME 9.9 fl (7.5-11.1); PLATELET COUNT 158 K/MM3 (134-434); RBC 4.56 M/mm3 (4.00-5.60); RDW 13.6 % (11.9-15.9); WHITE BLOOD COUNT 3.5 K/mm3 (4.0-10.0)
[2020-08-07 10:49] LABS: CREATININE 0.8 mg/dL (0.55-1.3)
[2020-08-07 10:50] LABS: BILIRUBIN,TOTAL 0.6 mg/dL (0.2-1); TOT PROT 6.2 g/dl (6.4-8.2)
[2020-08-07 11:05] LABS: BLOOD UREA NITROGEN 13.6 mg/dL (7-18)
[2020-08-07] MEDS: diazePAM 5 MG TABLET PO PRN (14:46)
[2020-08-07] MEDS: ACETAMINOPHEN 325 MG TABLET (FP) PO PRN (14:46)
[2020-08-07] MEDS: traZODone HCL 50 MG TABLET (FP) PO SCH (22:02)
[2020-08-07] MEDS: THIAMINE HCL 100 MG TABLET (FP) PO SCH (22:03)
[2020-08-07] MEDS: ATORVASTATIN CA 10 MG TABLET (FP) PO SCH (22:03)
[2020-08-07] MEDS: hydrOXYzine PAMOATE 25 MG CAPSULE (FP) PO PRN (22:03)
[2020-08-08] MEDS: diazePAM 5 MG TABLET PO SCH ×2 (05:29→17:16)
[2020-08-08] MEDS: PRENATAL VITAMINS W/ FOLIC ACID TABLET (FP) PO SCH (10:06)
[2020-08-08] MEDS: LISINOPRIL 10 MG TABLET PO SCH (10:06)
[2020-08-08] MEDS: ASPIRIN 81 MG CHEWABLE TABLETS PO SCH (10:06)
[2020-08-08] MEDS: NICOTINE 21 MG/24 HOURS TOPICAL PATCH TD SCH (10:06)
[2020-08-08] MEDS: VITAMINS A AND D TOPICAL OINTMENT 60 GM TUBE TP SCH ×2 (14:25→18:00)
[2020-08-08] MEDS: ACETAMINOPHEN 325 MG TABLET (FP) PO PRN (17:18)
[2020-08-08] MEDS: traZODone HCL 50 MG TABLET (FP) PO SCH (22:27)
[2020-08-08] MEDS: THIAMINE HCL 100 MG TABLET (FP) PO SCH (22:27)
[2020-08-08] MEDS: ATORVASTATIN CA 10 MG TABLET (FP) PO SCH (22:27)
[2020-08-08] MEDS: hydrOXYzine PAMOATE 25 MG CAPSULE (FP) PO PRN (22:28)
[2020-08-09] MEDS: VITAMINS A AND D TOPICAL OINTMENT 60 GM TUBE TP SCH ×2 (01:04→05:58)
[2020-08-09 05:45] VITALS: TEMP 97.1
[2020-08-09] MEDS ORDERED: diazePAM 5 MG TABLET PO ONE (06:00)
[2020-08-09] MEDS: LISINOPRIL 10 MG TABLET PO SCH (09:44)
[2020-08-09] MEDS: ASPIRIN 81 MG CHEWABLE TABLETS PO SCH (09:44)
[2020-08-09] MEDS: PRENATAL VITAMINS W/ FOLIC ACID TABLET (FP) PO SCH (09:45)
[2020-08-09] MEDS: NICOTINE 21 MG/24 HOURS TOPICAL PATCH TD SCH (10:32)
[2020-08-09 10:39] VITALS: BP 129/79; PULSE 92
== END 2020-08-09 10:30 | disposition home or self-care (01) | DRG 897 ==
LOC: YASAS 08:56 → Y3N 11:43
PROVIDERS: ADMIT Allergy & Immunology; ATTEND Allergy & Immunology
PROC: HZ2ZZZZ Detoxification Services for Substance Abuse Treatment (ICD-10-PCS; principal; 2020-08-06)
DX: F10.230 Alcohol dependence with withdrawal, uncomplicated (principal); F14.20 Cocaine dependence, uncomplicated; F19.282 Other psychoactive substance dependence with psychoactive substance-induced sleep disorder; F17.213 Nicotine dependence, cigarettes, with withdrawal; F19.24 Other psychoactive substance dependence with psychoactive substance-induced mood disorder; I10 Essential (primary) hypertension; E78.5 Hyperlipidemia, unspecified; I25.10 Atherosclerotic heart disease of native coronary artery without angina pectoris; M19.90 Unspecified osteoarthritis, unspecified site; M54.5 Low back pain; G89.29 Other chronic pain; E66.9 Obesity, unspecified; Z68.30 Body mass index [BMI] 30.0-30.9, adult; Z95.5 Presence of coronary angioplasty implant and graft; Z59.0 Homelessness
CPT/HCPCS: 36415; 80053; 85027; C9803; U0003

== ENCOUNTER 2021-03-05 07:36 | Inpatient (IN) | payer OTHER ==
[2021-03-05 08:02] VITALS: BMI 30.4
[2021-03-05] MEDS ORDERED: MAGNESIUM HYDROX 2400MG/30ML ORAL SUSPENSION 30 ML CUP PO PRN (15:16)
[2021-03-05] MEDS ORDERED: P-EPHED 60MG/TRIPROLIDI 2.5MG TABLET PO PRN (15:16)
[2021-03-05] MEDS ORDERED: MAG HYDROX/AL HYDROX/SIMETH 30 ML UNIT-DOSE CUP PO PRN (15:16)
[2021-03-05] MEDS ORDERED: IBUPROFEN 400 MG TABLET (FP) PO PRN (15:16)
[2021-03-05] MEDS ORDERED: guaiFENesin 200 MG/10 ML 10 ML UNIT-DOSE CUPS PO PRN (15:16)
[2021-03-05] MEDS ORDERED: ACETAMINOPHEN 325 MG TABLET (FP) PO PRN (15:16)
[2021-03-05] MEDS ORDERED: MAGNESIUM CITRATE 300 ML BOTTLE PO PRN (15:16)
[2021-03-05] MEDS ORDERED: NICOTINE POLACRILEX 2 MG GUM BC PRN (15:16)
[2021-03-05] MEDS ORDERED: LOPERAMIDE HCL 2 MG CAPSULE PO PRN (15:16)
[2021-03-05] MEDS: NICOTINE 14 MG/24 HOURS TOPICAL PATCH TD SCH (17:32)
[2021-03-05] MEDS: hydrOXYzine PAMOATE 25 MG CAPSULE (FP) PO SCH ×2 (17:32→23:37)
[2021-03-05] MEDS ORDERED: traZODone HCL 50 MG TABLET (FP) PO SCH (22:00)
[2021-03-05] MEDS ORDERED: MELATONIN 5 MG TABLETS PO SCH (22:00)
[2021-03-05] MEDS ORDERED: ATORVASTATIN CA 10 MG TABLET (FP) PO SCH (22:00)
[2021-03-05] MEDS ORDERED: THIAMINE HCL 100 MG TABLET (FP) PO SCH (22:00)
[2021-03-06] MEDS: hydrOXYzine PAMOATE 25 MG CAPSULE (FP) PO SCH ×2 (06:26→09:12)
[2021-03-06 07:16] VITALS: BP 125/75; PULSE 97; TEMP 97.9
[2021-03-06] MEDS ORDERED: PT OWN MED DRAWER 7, Y5N ONE (09:06)
[2021-03-06] MEDS: NICOTINE 14 MG/24 HOURS TOPICAL PATCH TD SCH (09:13)
[2021-03-06] MEDS ORDERED: PRENATAL VITAMINS W/ FOLIC ACID TABLET (FP) PO SCH (10:00)
[2021-03-06] MEDS ORDERED: amLODIPine BESYLATE 10 MG TABLET (FP) PO SCH (10:00)
[2021-03-06] MEDS ORDERED: ASPIRIN 81 MG CHEWABLE TABLETS PO SCH (10:00)
[2021-03-06 12:41] LABS: HEMATOCRIT 42.3 % (35.4-49); MCH 28.7 pg (25.7-33.7); MCHC 33.2 g/dl (32.0-35.9); MEAN CELL VOLUME 86.4 fl (80-96); MEAN PLT VOLUME 9.7 fl (7.5-11.1); PLATELET COUNT 166 10^3/uL (134-434); RBC 4.89 M/mm3 (4.00-5.60); RDW 13.8 % (11.9-15.9); WHITE BLOOD COUNT 7.3 K/mm3 (4.0-10.0)
[2021-03-06 13:03] LABS: CALCIUM 9.1 mg/dL (8.5-10.1)
[2021-03-06 13:04] LABS: BLOOD UREA NITROGEN 19.6 mg/dL (7-18)
[2021-03-06 13:08] LABS: BILIRUBIN,TOTAL 0.5 mg/dL (0.2-1); TOT PROT 7.3 g/dl (6.4-8.2)
== END 2021-03-06 09:15 | disposition left against medical advice (07) | DRG 894 ==
LOC: YASAS 07:36 → Y5N 15:45
PROVIDERS: ADMIT Allergy & Immunology; ATTEND Allergy & Immunology
PROC: HZ42ZZZ Group Counseling for Substance Abuse Treatment, Cognitive-Behavioral (ICD-10-PCS; principal; 2021-03-05)
DX: F10.20 Alcohol dependence, uncomplicated (principal); F14.20 Cocaine dependence, uncomplicated; F17.210 Nicotine dependence, cigarettes, uncomplicated; I25.10 Atherosclerotic heart disease of native coronary artery without angina pectoris; I10 Essential (primary) hypertension; Z95.5 Presence of coronary angioplasty implant and graft; E78.5 Hyperlipidemia, unspecified; M12.9 Arthropathy, unspecified; M54.5 Low back pain; G89.29 Other chronic pain; E66.9 Obesity, unspecified; Z68.30 Body mass index [BMI] 30.0-30.9, adult
CPT/HCPCS: 36415; 80053; 85027; 86780; C9803; U0003; U0005

== ENCOUNTER 2021-06-04 15:14 | Inpatient (IN) | payer OTHER ==
[2021-06-04 16:51] VITALS: BMI 34.5
[2021-06-04] MEDS ORDERED: BISMUTH SUBSALICYLATE 524 MG/30 ML PO PRN (16:51)
[2021-06-04] MEDS ORDERED: NICOTINE 10 MG CARTRIDGE (INHALER) IH PRN (16:51)
[2021-06-04] MEDS ORDERED: MENTHOL/PHENOL 1 EACH UD MM PRN (16:51)
[2021-06-04] MEDS ORDERED: MAGNESIUM HYDROX 2400MG/30ML ORAL SUSPENSION 30 ML CUP PO PRN (16:51)
[2021-06-04] MEDS ORDERED: ACETAMINOPHEN 325 MG TABLET (FP) PO PRN ×2 (16:51)
[2021-06-04] MEDS ORDERED: ONDANSETRON *ODT* 4 MG TABLET SL PRN (16:51)
[2021-06-04] MEDS ORDERED: IBUPROFEN 400 MG TABLET (FP) PO PRN (16:51)
[2021-06-04] MEDS ORDERED: METHOCARBAMOL 500 MG TABLET PO PRN (16:51)
[2021-06-04] MEDS ORDERED: MAGNESIUM CITRATE 300 ML BOTTLE PO PRN (16:51)
[2021-06-04] MEDS ORDERED: MAG HYDROX/AL HYDROX/SIMETH 30 ML UNIT-DOSE CUP PO PRN (16:51)
[2021-06-04] MEDS: PRENATAL VITAMINS W/ FOLIC ACID TABLET (FP) PO SCH (21:09)
[2021-06-04] MEDS: hydrOXYzine PAMOATE 25 MG CAPSULE (FP) PO SCH ×2 (21:09→23:13)
[2021-06-04] MEDS: THIAMINE HCL 100 MG TABLET (FP) PO SCH (21:13)
[2021-06-04] MEDS: MELATONIN 5 MG TABLETS PO SCH (21:14)
[2021-06-05] MEDS: hydrOXYzine PAMOATE 25 MG CAPSULE (FP) PO SCH ×5 (06:09→22:25)
[2021-06-05] MEDS ORDERED: diazePAM 5 MG TABLET PO PRN (09:18)
[2021-06-05] MEDS: ASPIRIN 81 MG CHEWABLE TABLETS PO SCH (10:33)
[2021-06-05] MEDS: amLODIPine BESYLATE 10 MG TABLET (FP) PO SCH (10:33)
[2021-06-05] MEDS: diazePAM 5 MG TABLET PO SCH ×3 (10:34→22:25)
[2021-06-05] MEDS: PRENATAL VITAMINS W/ FOLIC ACID TABLET (FP) PO SCH (10:34)
[2021-06-05] MEDS: NICOTINE 21 MG/24 HOURS TOPICAL PATCH TD PRN (10:35)
[2021-06-05 11:00] LABS: CALCIUM 8.1 mg/dL (8.5-10.1)
[2021-06-05 11:01] LABS: ALBUMIN 2.9 g/dl (3.4-5.0)
[2021-06-05 11:04] LABS: CREATININE 0.8 mg/dL (0.55-1.3); HEMATOCRIT 41.4 % (35.4-49); HEMOGLOBIN 13.6 GM/dL (11.7-16.9); MCH 28.8 pg (25.7-33.7); MCHC 32.8 g/dl (32.0-35.9); MEAN CELL VOLUME 87.8 fl (80-96); MEAN PLT VOLUME 9.4 fl (7.5-11.1); PLATELET COUNT 173 10^3/uL (134-434); RBC 4.71 M/mm3 (4.00-5.60); RDW 14.1 % (11.9-15.9); WHITE BLOOD COUNT 5.1 K/mm3 (4.0-10.0)
[2021-06-05 11:05] LABS: BILIRUBIN,TOTAL 0.5 mg/dL (0.2-1); TOT PROT 6.3 g/dl (6.4-8.2)
[2021-06-05] MEDS: POTASSIUM CHLORIDE ORAL LIQUID 20 MEQ/15 ML PO SCH ×2 (13:12→22:25)
[2021-06-05] MEDS: traZODone HCL 50 MG TABLET (FP) PO SCH (22:24)
[2021-06-05] MEDS: ATORVASTATIN CA 10 MG TABLET (FP) PO SCH (22:24)
[2021-06-05] MEDS: THIAMINE HCL 100 MG TABLET (FP) PO SCH (22:25)
[2021-06-05] MEDS: MELATONIN 5 MG TABLETS PO SCH (22:25)
[2021-06-06] MEDS: hydrOXYzine PAMOATE 25 MG CAPSULE (FP) PO SCH ×5 (05:46→23:43)
[2021-06-06] MEDS: diazePAM 5 MG TABLET PO SCH ×3 (05:47→18:14)
[2021-06-06] MEDS: amLODIPine BESYLATE 10 MG TABLET (FP) PO SCH (10:39)
[2021-06-06] MEDS: ASPIRIN 81 MG CHEWABLE TABLETS PO SCH (10:39)
[2021-06-06] MEDS: PRENATAL VITAMINS W/ FOLIC ACID TABLET (FP) PO SCH (10:40)
[2021-06-06] MEDS: POTASSIUM CHLORIDE ORAL LIQUID 20 MEQ/15 ML PO SCH ×2 (10:41→22:30)
[2021-06-06] MEDS: ATORVASTATIN CA 10 MG TABLET (FP) PO SCH (22:31)
[2021-06-06] MEDS: traZODone HCL 50 MG TABLET (FP) PO SCH (22:32)
[2021-06-06] MEDS: MELATONIN 5 MG TABLETS PO SCH (22:33)
[2021-06-06] MEDS: THIAMINE HCL 100 MG TABLET (FP) PO SCH (22:34)
[2021-06-07] MEDS: diazePAM 5 MG TABLET PO SCH ×4 (00:10→21:36)
[2021-06-07] MEDS: hydrOXYzine PAMOATE 25 MG CAPSULE (FP) PO SCH ×5 (05:56→21:36)
[2021-06-07] MEDS: PRENATAL VITAMINS W/ FOLIC ACID TABLET (FP) PO SCH (10:22)
[2021-06-07] MEDS: amLODIPine BESYLATE 10 MG TABLET (FP) PO SCH (10:22)
[2021-06-07] MEDS: ASPIRIN 81 MG CHEWABLE TABLETS PO SCH (10:22)
[2021-06-07] MEDS: traZODone HCL 50 MG TABLET (FP) PO SCH (21:34)
[2021-06-07] MEDS: ATORVASTATIN CA 10 MG TABLET (FP) PO SCH (21:34)
[2021-06-07] MEDS: MELATONIN 5 MG TABLETS PO SCH (21:35)
[2021-06-07] MEDS: THIAMINE HCL 100 MG TABLET (FP) PO SCH (21:35)
[2021-06-08] MEDS: diazePAM 5 MG TABLET PO SCH ×2 (05:27→17:46)
[2021-06-08] MEDS: hydrOXYzine PAMOATE 25 MG CAPSULE (FP) PO SCH ×5 (05:28→22:07)
[2021-06-08] MEDS: ASPIRIN 81 MG CHEWABLE TABLETS PO SCH (10:16)
[2021-06-08] MEDS: PRENATAL VITAMINS W/ FOLIC ACID TABLET (FP) PO SCH (10:16)
[2021-06-08] MEDS: NICOTINE 21 MG/24 HOURS TOPICAL PATCH TD PRN (10:16)
[2021-06-08] MEDS: amLODIPine BESYLATE 10 MG TABLET (FP) PO SCH (10:16)
[2021-06-08] MEDS: ATORVASTATIN CA 10 MG TABLET (FP) PO SCH (22:07)
[2021-06-08] MEDS: traZODone HCL 50 MG TABLET (FP) PO SCH (22:07)
[2021-06-08] MEDS: MELATONIN 5 MG TABLETS PO SCH (22:07)
[2021-06-08] MEDS: THIAMINE HCL 100 MG TABLET (FP) PO SCH (22:07)
[2021-06-09] MEDS ORDERED: diazePAM 5 MG TABLET PO ONE (06:00)
[2021-06-09] MEDS: hydrOXYzine PAMOATE 25 MG CAPSULE (FP) PO SCH ×2 (06:30→10:30)
[2021-06-09 09:56] VITALS: BP 149/82; PULSE 79; TEMP 96.8
[2021-06-09] MEDS: PRENATAL VITAMINS W/ FOLIC ACID TABLET (FP) PO SCH (10:29)
[2021-06-09] MEDS: amLODIPine BESYLATE 10 MG TABLET (FP) PO SCH (10:29)
[2021-06-09] MEDS: ASPIRIN 81 MG CHEWABLE TABLETS PO SCH (10:29)
== END 2021-06-09 12:34 | disposition other institution (70) | DRG 897 ==
LOC: YASAS 15:14 → Y3N 16:59
PROVIDERS: ADMIT Allergy & Immunology; ATTEND Allergy & Immunology
PROC: HZ2ZZZZ Detoxification Services for Substance Abuse Treatment (ICD-10-PCS; principal; 2021-06-04)
DX: F10.230 Alcohol dependence with withdrawal, uncomplicated (principal); F14.20 Cocaine dependence, uncomplicated; F19.282 Other psychoactive substance dependence with psychoactive substance-induced sleep disorder; F17.210 Nicotine dependence, cigarettes, uncomplicated; I10 Essential (primary) hypertension; E87.6 Hypokalemia; I25.10 Atherosclerotic heart disease of native coronary artery without angina pectoris; M19.90 Unspecified osteoarthritis, unspecified site; E78.5 Hyperlipidemia, unspecified; E66.9 Obesity, unspecified; Z68.34 Body mass index [BMI] 34.0-34.9, adult; Z95.5 Presence of coronary angioplasty implant and graft; Z56.0 Unemployment, unspecified; Z59.01 Sheltered homelessness
CPT/HCPCS: 36415; 80053; 84132; 85027; 86780; C9803; U0003; U0005

== ENCOUNTER 2021-06-09 12:36 | Inpatient (IN) | payer OTHER ==
[2021-06-09] MEDS ORDERED: ACETAMINOPHEN 325 MG TABLET (FP) PO PRN (14:01)
[2021-06-09] MEDS ORDERED: P-EPHED 60MG/TRIPROLIDI 2.5MG TABLET PO PRN (14:01)
[2021-06-09] MEDS ORDERED: hydrOXYzine PAMOATE 25 MG CAPSULE (FP) PO PRN (14:01)
[2021-06-09] MEDS ORDERED: MAGNESIUM CITRATE 300 ML BOTTLE PO PRN (14:01)
[2021-06-09] MEDS ORDERED: MAGNESIUM HYDROX 2400MG/30ML ORAL SUSPENSION 30 ML CUP PO PRN (14:01)
[2021-06-09] MEDS ORDERED: IBUPROFEN 400 MG TABLET (FP) PO PRN (14:01)
[2021-06-09] MEDS ORDERED: guaiFENesin 200 MG/10 ML 10 ML UNIT-DOSE CUPS PO PRN (14:01)
[2021-06-09] MEDS ORDERED: MENTHOL/PHENOL 1 EACH UD MM PRN (14:01)
[2021-06-09] MEDS ORDERED: MAG HYDROX/AL HYDROX/SIMETH 30 ML UNIT-DOSE CUP PO PRN (14:01)
[2021-06-09] MEDS ORDERED: NICOTINE 10 MG CARTRIDGE (INHALER) IH PRN (14:01)
[2021-06-09] MEDS ORDERED: LOPERAMIDE HCL 2 MG CAPSULE PO PRN (14:01)
[2021-06-09] MEDS: ATORVASTATIN CA 10 MG TABLET (FP) PO SCH (21:23)
[2021-06-09] MEDS: MELATONIN 5 MG TABLETS PO SCH (21:23)
[2021-06-09] MEDS: THIAMINE HCL 100 MG TABLET (FP) PO SCH (21:23)
[2021-06-09] MEDS: traZODone HCL 50 MG TABLET (FP) PO SCH (21:24)
[2021-06-10] MEDS: PRENATAL VITAMINS W/ FOLIC ACID TABLET (FP) PO SCH (09:43)
[2021-06-10] MEDS: ASPIRIN 81 MG CHEWABLE TABLETS PO SCH (09:43)
[2021-06-10] MEDS: NICOTINE 21 MG/24 HOURS TOPICAL PATCH TD SCH (09:43)
[2021-06-10] MEDS: amLODIPine BESYLATE 10 MG TABLET (FP) PO SCH (09:43)
[2021-06-10] MEDS: ATORVASTATIN CA 10 MG TABLET (FP) PO SCH (21:16)
[2021-06-10] MEDS: THIAMINE HCL 100 MG TABLET (FP) PO SCH (21:16)
[2021-06-10] MEDS: MELATONIN 5 MG TABLETS PO SCH (21:16)
[2021-06-10] MEDS: traZODone HCL 50 MG TABLET (FP) PO SCH (21:16)
[2021-06-11] MEDS ORDERED: PT OWN MED DRAWER 7, Y5N ONE (09:06)
[2021-06-11] MEDS: NICOTINE 21 MG/24 HOURS TOPICAL PATCH TD SCH (10:09)
[2021-06-11] MEDS: PRENATAL VITAMINS W/ FOLIC ACID TABLET (FP) PO SCH (10:09)
[2021-06-11] MEDS: amLODIPine BESYLATE 10 MG TABLET (FP) PO SCH (10:09)
[2021-06-11] MEDS: ASPIRIN 81 MG CHEWABLE TABLETS PO SCH (10:09)
[2021-06-11] MEDS ORDERED: TUBERCULIN PPD 5 TU/0.1ML VIAL ID ONE (14:04)
[2021-06-11] MEDS: traZODone HCL 50 MG TABLET (FP) PO SCH (21:41)
[2021-06-11] MEDS: ATORVASTATIN CA 10 MG TABLET (FP) PO SCH (21:41)
[2021-06-11] MEDS: MELATONIN 5 MG TABLETS PO SCH (21:42)
[2021-06-11] MEDS: THIAMINE HCL 100 MG TABLET (FP) PO SCH (21:43)
[2021-06-11] MEDS: MINERAL OIL/PETROLAT/WATER TOPICAL CREAM 113 GM JAR TP SCH (21:43)
[2021-06-12] MEDS: MINERAL OIL/PETROLAT/WATER TOPICAL CREAM 113 GM JAR TP SCH ×2 (10:10→23:08)
[2021-06-12] MEDS: ASPIRIN 81 MG CHEWABLE TABLETS PO SCH (10:10)
[2021-06-12] MEDS: NICOTINE 21 MG/24 HOURS TOPICAL PATCH TD SCH (10:10)
[2021-06-12] MEDS: PRENATAL VITAMINS W/ FOLIC ACID TABLET (FP) PO SCH (10:11)
[2021-06-12] MEDS: amLODIPine BESYLATE 10 MG TABLET (FP) PO SCH (10:11)
[2021-06-12] MEDS: ATORVASTATIN CA 10 MG TABLET (FP) PO SCH (21:33)
[2021-06-12] MEDS: THIAMINE HCL 100 MG TABLET (FP) PO SCH (21:34)
[2021-06-12] MEDS: traZODone HCL 50 MG TABLET (FP) PO SCH (21:34)
[2021-06-12] MEDS: MELATONIN 5 MG TABLETS PO SCH (21:35)
[2021-06-13] MEDS: amLODIPine BESYLATE 10 MG TABLET (FP) PO SCH (10:04)
[2021-06-13] MEDS: NICOTINE 21 MG/24 HOURS TOPICAL PATCH TD SCH (10:04)
[2021-06-13] MEDS: ASPIRIN 81 MG CHEWABLE TABLETS PO SCH (10:04)
[2021-06-13] MEDS: PRENATAL VITAMINS W/ FOLIC ACID TABLET (FP) PO SCH (10:05)
[2021-06-13] MEDS: MINERAL OIL/PETROLAT/WATER TOPICAL CREAM 113 GM JAR TP SCH ×2 (10:06→21:12)
[2021-06-13] MEDS: traZODone HCL 50 MG TABLET (FP) PO SCH (21:11)
[2021-06-13] MEDS: ATORVASTATIN CA 10 MG TABLET (FP) PO SCH (21:11)
[2021-06-13] MEDS: MELATONIN 5 MG TABLETS PO SCH (21:12)
[2021-06-13] MEDS: THIAMINE HCL 100 MG TABLET (FP) PO SCH (21:12)
[2021-06-14] MEDS: PRENATAL VITAMINS W/ FOLIC ACID TABLET (FP) PO SCH (09:52)
[2021-06-14] MEDS: amLODIPine BESYLATE 10 MG TABLET (FP) PO SCH (09:52)
[2021-06-14] MEDS: NICOTINE 21 MG/24 HOURS TOPICAL PATCH TD SCH (09:52)
[2021-06-14] MEDS: ASPIRIN 81 MG CHEWABLE TABLETS PO SCH (09:52)
[2021-06-14] MEDS: MINERAL OIL/PETROLAT/WATER TOPICAL CREAM 113 GM JAR TP SCH ×2 (09:53→21:16)
[2021-06-14] MEDS: THIAMINE HCL 100 MG TABLET (FP) PO SCH (21:14)
[2021-06-14] MEDS: MELATONIN 5 MG TABLETS PO SCH (21:14)
[2021-06-14] MEDS: ATORVASTATIN CA 10 MG TABLET (FP) PO SCH (21:14)
[2021-06-14] MEDS: traZODone HCL 50 MG TABLET (FP) PO SCH (21:15)
[2021-06-15] MEDS: ASPIRIN 81 MG CHEWABLE TABLETS PO SCH (10:06)
[2021-06-15] MEDS: PRENATAL VITAMINS W/ FOLIC ACID TABLET (FP) PO SCH (10:06)
[2021-06-15] MEDS: NICOTINE 21 MG/24 HOURS TOPICAL PATCH TD SCH (10:07)
[2021-06-15] MEDS: MINERAL OIL/PETROLAT/WATER TOPICAL CREAM 113 GM JAR TP SCH ×2 (10:07→21:24)
[2021-06-15] MEDS: amLODIPine BESYLATE 10 MG TABLET (FP) PO SCH (10:50)
[2021-06-15] MEDS: THIAMINE HCL 100 MG TABLET (FP) PO SCH (21:23)
[2021-06-15] MEDS: traZODone HCL 50 MG TABLET (FP) PO SCH (21:23)
[2021-06-15] MEDS: MELATONIN 5 MG TABLETS PO SCH (21:23)
[2021-06-15] MEDS: ATORVASTATIN CA 10 MG TABLET (FP) PO SCH (21:23)
[2021-06-16] MEDS: NICOTINE 21 MG/24 HOURS TOPICAL PATCH TD SCH (10:03)
[2021-06-16] MEDS: amLODIPine BESYLATE 10 MG TABLET (FP) PO SCH (10:03)
[2021-06-16] MEDS: ASPIRIN 81 MG CHEWABLE TABLETS PO SCH (10:03)
[2021-06-16] MEDS: PRENATAL VITAMINS W/ FOLIC ACID TABLET (FP) PO SCH (10:03)
[2021-06-16] MEDS: MINERAL OIL/PETROLAT/WATER TOPICAL CREAM 113 GM JAR TP SCH ×2 (10:04→22:45)
[2021-06-16] MEDS: THIAMINE HCL 100 MG TABLET (FP) PO SCH (21:34)
[2021-06-16] MEDS: ATORVASTATIN CA 10 MG TABLET (FP) PO SCH (21:34)
[2021-06-16] MEDS: traZODone HCL 50 MG TABLET (FP) PO SCH (21:35)
[2021-06-16] MEDS: MELATONIN 5 MG TABLETS PO SCH (21:35)
[2021-06-17] MEDS ORDERED: PT OWN MED DRAWER 7, Y5N ONE (08:49)
[2021-06-17] MEDS: amLODIPine BESYLATE 10 MG TABLET (FP) PO SCH (09:43)
[2021-06-17] MEDS: NICOTINE 21 MG/24 HOURS TOPICAL PATCH TD SCH (09:43)
[2021-06-17] MEDS: ASPIRIN 81 MG CHEWABLE TABLETS PO SCH (09:43)
[2021-06-17] MEDS: MINERAL OIL/PETROLAT/WATER TOPICAL CREAM 113 GM JAR TP SCH ×2 (09:43→21:23)
[2021-06-17] MEDS: PRENATAL VITAMINS W/ FOLIC ACID TABLET (FP) PO SCH (09:43)
[2021-06-17] MEDS: THIAMINE HCL 100 MG TABLET (FP) PO SCH (21:23)
[2021-06-17] MEDS: MELATONIN 5 MG TABLETS PO SCH (21:23)
[2021-06-17] MEDS: ATORVASTATIN CA 10 MG TABLET (FP) PO SCH (21:23)
[2021-06-17] MEDS: traZODone HCL 50 MG TABLET (FP) PO SCH (21:23)
[2021-06-18] MEDS: PRENATAL VITAMINS W/ FOLIC ACID TABLET (FP) PO SCH (09:48)
[2021-06-18] MEDS: ASPIRIN 81 MG CHEWABLE TABLETS PO SCH (09:48)
[2021-06-18] MEDS: amLODIPine BESYLATE 10 MG TABLET (FP) PO SCH (09:48)
[2021-06-18] MEDS: NICOTINE 21 MG/24 HOURS TOPICAL PATCH TD SCH (09:49)
[2021-06-18] MEDS: MINERAL OIL/PETROLAT/WATER TOPICAL CREAM 113 GM JAR TP SCH ×2 (09:49→21:19)
[2021-06-18] MEDS: ATORVASTATIN CA 10 MG TABLET (FP) PO SCH (21:19)
[2021-06-18] MEDS: THIAMINE HCL 100 MG TABLET (FP) PO SCH (21:19)
[2021-06-18] MEDS: traZODone HCL 50 MG TABLET (FP) PO SCH (21:19)
[2021-06-18] MEDS: MELATONIN 5 MG TABLETS PO SCH (21:19)
[2021-06-19] MEDS: PRENATAL VITAMINS W/ FOLIC ACID TABLET (FP) PO SCH (09:57)
[2021-06-19] MEDS: ASPIRIN 81 MG CHEWABLE TABLETS PO SCH (09:58)
[2021-06-19] MEDS: amLODIPine BESYLATE 10 MG TABLET (FP) PO SCH (09:58)
[2021-06-19] MEDS: NICOTINE 21 MG/24 HOURS TOPICAL PATCH TD SCH (09:58)
[2021-06-19] MEDS: MINERAL OIL/PETROLAT/WATER TOPICAL CREAM 113 GM JAR TP SCH ×2 (09:58→21:19)
[2021-06-19] MEDS: ATORVASTATIN CA 10 MG TABLET (FP) PO SCH (21:19)
[2021-06-19] MEDS: MELATONIN 5 MG TABLETS PO SCH (21:19)
[2021-06-19] MEDS: traZODone HCL 50 MG TABLET (FP) PO SCH (21:19)
[2021-06-19] MEDS: THIAMINE HCL 100 MG TABLET (FP) PO SCH (21:19)
[2021-06-20] MEDS: amLODIPine BESYLATE 10 MG TABLET (FP) PO SCH (09:54)
[2021-06-20] MEDS: ASPIRIN 81 MG CHEWABLE TABLETS PO SCH (09:54)
[2021-06-20] MEDS: PRENATAL VITAMINS W/ FOLIC ACID TABLET (FP) PO SCH (09:54)
[2021-06-20] MEDS: NICOTINE 21 MG/24 HOURS TOPICAL PATCH TD SCH (09:54)
[2021-06-20] MEDS: MINERAL OIL/PETROLAT/WATER TOPICAL CREAM 113 GM JAR TP SCH ×2 (09:55→21:21)
[2021-06-20] MEDS: ATORVASTATIN CA 10 MG TABLET (FP) PO SCH (21:20)
[2021-06-20] MEDS: traZODone HCL 50 MG TABLET (FP) PO SCH (21:20)
[2021-06-20] MEDS: MELATONIN 5 MG TABLETS PO SCH (21:21)
[2021-06-20] MEDS: THIAMINE HCL 100 MG TABLET (FP) PO SCH (21:21)
[2021-06-21] MEDS: PRENATAL VITAMINS W/ FOLIC ACID TABLET (FP) PO SCH (10:05)
[2021-06-21] MEDS: NICOTINE 21 MG/24 HOURS TOPICAL PATCH TD SCH (10:05)
[2021-06-21] MEDS: MINERAL OIL/PETROLAT/WATER TOPICAL CREAM 113 GM JAR TP SCH ×2 (10:05→21:31)
[2021-06-21] MEDS: ASPIRIN 81 MG CHEWABLE TABLETS PO SCH (10:05)
[2021-06-21] MEDS: amLODIPine BESYLATE 10 MG TABLET (FP) PO SCH (10:05)
[2021-06-21] MEDS: ATORVASTATIN CA 10 MG TABLET (FP) PO SCH (21:30)
[2021-06-21] MEDS: THIAMINE HCL 100 MG TABLET (FP) PO SCH (21:30)
[2021-06-21] MEDS: MELATONIN 5 MG TABLETS PO SCH (21:30)
[2021-06-21] MEDS: traZODone HCL 100 MG TABLET (FP) PO SCH (21:31)
[2021-06-22] MEDS: ASPIRIN 81 MG CHEWABLE TABLETS PO SCH (09:59)
[2021-06-22] MEDS: MINERAL OIL/PETROLAT/WATER TOPICAL CREAM 113 GM JAR TP SCH ×2 (09:59→21:33)
[2021-06-22] MEDS: amLODIPine BESYLATE 10 MG TABLET (FP) PO SCH (09:59)
[2021-06-22] MEDS: NICOTINE 21 MG/24 HOURS TOPICAL PATCH TD SCH (09:59)
[2021-06-22] MEDS: PRENATAL VITAMINS W/ FOLIC ACID TABLET (FP) PO SCH (09:59)
[2021-06-22] MEDS: ATORVASTATIN CA 10 MG TABLET (FP) PO SCH (21:32)
[2021-06-22] MEDS: MELATONIN 5 MG TABLETS PO SCH (21:32)
[2021-06-22] MEDS: THIAMINE HCL 100 MG TABLET (FP) PO SCH (21:32)
[2021-06-22] MEDS: traZODone HCL 100 MG TABLET (FP) PO SCH (21:32)
[2021-06-23] MEDS: PRENATAL VITAMINS W/ FOLIC ACID TABLET (FP) PO SCH (09:39)
[2021-06-23] MEDS: NICOTINE 21 MG/24 HOURS TOPICAL PATCH TD SCH (09:39)
[2021-06-23] MEDS: amLODIPine BESYLATE 10 MG TABLET (FP) PO SCH (09:40)
[2021-06-23] MEDS: MINERAL OIL/PETROLAT/WATER TOPICAL CREAM 113 GM JAR TP SCH ×2 (09:40→21:40)
[2021-06-23] MEDS: ASPIRIN 81 MG CHEWABLE TABLETS PO SCH (09:40)
[2021-06-23] MEDS: traZODone HCL 100 MG TABLET (FP) PO SCH (21:40)
[2021-06-23] MEDS: THIAMINE HCL 100 MG TABLET (FP) PO SCH (21:40)
[2021-06-23] MEDS: MELATONIN 5 MG TABLETS PO SCH (21:40)
[2021-06-23] MEDS: ATORVASTATIN CA 10 MG TABLET (FP) PO SCH (21:40)
[2021-06-24 07:06] VITALS: TEMP 98.8
[2021-06-24] MEDS: PRENATAL VITAMINS W/ FOLIC ACID TABLET (FP) PO SCH (09:42)
[2021-06-24] MEDS: ASPIRIN 81 MG CHEWABLE TABLETS PO SCH (09:42)
[2021-06-24] MEDS: NICOTINE 21 MG/24 HOURS TOPICAL PATCH TD SCH (09:42)
[2021-06-24] MEDS: amLODIPine BESYLATE 10 MG TABLET (FP) PO SCH (09:42)
[2021-06-24] MEDS: MINERAL OIL/PETROLAT/WATER TOPICAL CREAM 113 GM JAR TP SCH ×2 (09:43→21:43)
[2021-06-24] MEDS: ATORVASTATIN CA 10 MG TABLET (FP) PO SCH (21:42)
[2021-06-24] MEDS: traZODone HCL 100 MG TABLET (FP) PO SCH (21:43)
[2021-06-24] MEDS: THIAMINE HCL 100 MG TABLET (FP) PO SCH (21:43)
[2021-06-24] MEDS: MELATONIN 5 MG TABLETS PO SCH (21:43)
[2021-06-25 07:30] VITALS: BP 134/80; PULSE 69
[2021-06-25] MEDS: MINERAL OIL/PETROLAT/WATER TOPICAL CREAM 113 GM JAR TP SCH (09:21)
[2021-06-25] MEDS: NICOTINE 21 MG/24 HOURS TOPICAL PATCH TD SCH (09:21)
[2021-06-25] MEDS: amLODIPine BESYLATE 10 MG TABLET (FP) PO SCH (09:21)
[2021-06-25] MEDS: PRENATAL VITAMINS W/ FOLIC ACID TABLET (FP) PO SCH (09:21)
[2021-06-25] MEDS: ASPIRIN 81 MG CHEWABLE TABLETS PO SCH (09:21)
== END 2021-06-25 09:40 | disposition home or self-care (01) | DRG 895 ==
LOC: YASAS 12:36 → Y3W 12:37
PROVIDERS: ADMIT Allergy & Immunology; ATTEND Allergy & Immunology
PROC: HZ42ZZZ Group Counseling for Substance Abuse Treatment, Cognitive-Behavioral (ICD-10-PCS; principal; 2021-06-09)
DX: F10.20 Alcohol dependence, uncomplicated (principal); F14.20 Cocaine dependence, uncomplicated; F17.210 Nicotine dependence, cigarettes, uncomplicated; F41.9 Anxiety disorder, unspecified; I25.10 Atherosclerotic heart disease of native coronary artery without angina pectoris; I10 Essential (primary) hypertension; E78.5 Hyperlipidemia, unspecified; G47.00 Insomnia, unspecified; Z95.5 Presence of coronary angioplasty implant and graft; Z59.01 Sheltered homelessness

== ENCOUNTER 2021-10-28 13:06 | Inpatient (IN) | payer OTHER ==
[2021-10-28 13:40] VITALS: BMI 32.6
[2021-10-28] MEDS ORDERED: IBUPROFEN 400 MG TABLET (FP) PO PRN (14:20)
[2021-10-28] MEDS ORDERED: NICOTINE 10 MG CARTRIDGE (INHALER) IH PRN (14:20)
[2021-10-28] MEDS ORDERED: MAGNESIUM CITRATE 300 ML BOTTLE PO PRN (14:20)
[2021-10-28] MEDS ORDERED: ONDANSETRON *ODT* 4 MG TABLET SL PRN (14:20)
[2021-10-28] MEDS ORDERED: ACETAMINOPHEN 325 MG TABLET (FP) PO PRN ×2 (14:20)
[2021-10-28] MEDS ORDERED: MAG HYDROX/AL HYDROX/SIMETH 30 ML UNIT-DOSE CUP PO PRN (14:20)
[2021-10-28] MEDS ORDERED: BISMUTH SUBSALICYLATE 524 MG/30 ML PO PRN (14:20)
[2021-10-28] MEDS ORDERED: MENTHOL/PHENOL 1 EACH UD MM PRN (14:20)
[2021-10-28] MEDS ORDERED: chlordiazePOXIDE HCL 25 MG CAPSULE PO PRN (14:20)
[2021-10-28] MEDS ORDERED: MAGNESIUM HYDROX 2400MG/30ML ORAL SUSPENSION 30 ML CUP PO PRN (14:20)
[2021-10-28] MEDS ORDERED: LOPERAMIDE HCL 2 MG CAPSULE PO PRN (14:20)
[2021-10-28] MEDS: hydrOXYzine PAMOATE 25 MG CAPSULE (FP) PO SCH ×2 (18:16→22:00)
[2021-10-28] MEDS: chlordiazePOXIDE HCL 25 MG CAPSULE PO SCH ×2 (18:17→22:00)
[2021-10-28] MEDS: MELATONIN 5 MG TABLETS PO SCH (22:01)
[2021-10-28] MEDS: THIAMINE HCL 100 MG TABLET (FP) PO SCH (22:02)
[2021-10-29] MEDS: chlordiazePOXIDE HCL 25 MG CAPSULE PO SCH ×4 (05:47→22:45)
[2021-10-29] MEDS: hydrOXYzine PAMOATE 25 MG CAPSULE (FP) PO SCH ×5 (05:48→22:47)
[2021-10-29 10:56] LABS: CHLORIDE 103 mmol/L (98-107); SODIUM 141 mmol/L (136-145)
[2021-10-29] MEDS: METHOCARBAMOL 500 MG TABLET PO PRN (10:56)
[2021-10-29] MEDS: PRENATAL VITAMINS W/ FOLIC ACID TABLET (FP) PO SCH (10:56)
[2021-10-29] MEDS: amLODIPine BESYLATE 10 MG TABLET (FP) PO SCH (10:56)
[2021-10-29] MEDS: ASPIRIN 81 MG CHEWABLE TABLETS PO SCH (10:57)
[2021-10-29 10:58] LABS: HEMATOCRIT 42.4 % (35.4-49); HEMOGLOBIN 13.7 GM/dL (11.7-16.9); MCH 28.3 pg (25.7-33.7); MCHC 32.2 g/dl (32.0-35.9); MEAN CELL VOLUME 87.8 fl (80-96); MEAN PLT VOLUME 9.8 fl (7.5-11.1); PLATELET COUNT 130 10^3/uL (134-434); RBC 4.83 M/mm3 (4.00-5.60); RDW 13.6 % (11.9-15.9); WHITE BLOOD COUNT 4.9 K/mm3 (4.0-10.0)
[2021-10-29 11:00] LABS: CALCIUM 9.4 mg/dL (8.5-10.1)
[2021-10-29 11:01] LABS: ALBUMIN 3.2 g/dl (3.4-5.0); BLOOD UREA NITROGEN 15.2 mg/dL (7-18); CO2 31 mmol/L (21-32); GLUCOSE,RANDOM 106 mg/dL (74-106)
[2021-10-29 11:04] LABS: CREATININE 0.9 mg/dL (0.55-1.3); SGOT/AST 39 U/L (15-37); SGPT/ALT 29 U/L (13-61)
[2021-10-29 11:05] LABS: TOT PROT 6.2 g/dl (6.4-8.2)
[2021-10-29 11:06] LABS: BILIRUBIN,TOTAL 0.7 mg/dL (0.2-1)
[2021-10-29 11:07] LABS: ALK PHOS 66 U/L (45-117)
[2021-10-29 11:08] LABS: ANION GAP 7 MMOL/L (8-16)
[2021-10-29] MEDS ORDERED: POTASSIUM CHLORIDE ORAL LIQUID 20 MEQ/15 ML PO ONE (11:40)
[2021-10-29] MEDS: NICOTINE 7 MG/24 HOURS TOPICAL PATCH TD SCH (12:04)
[2021-10-29] MEDS: ATORVASTATIN CA 10 MG TABLET (FP) PO SCH (22:45)
[2021-10-29] MEDS: POTASSIUM CHLORIDE ORAL LIQUID 20 MEQ/15 ML PO SCH (22:45)
[2021-10-29] MEDS: THIAMINE HCL 100 MG TABLET (FP) PO SCH (22:46)
[2021-10-29] MEDS: MELATONIN 5 MG TABLETS PO SCH (22:49)
[2021-10-30] MEDS: hydrOXYzine PAMOATE 25 MG CAPSULE (FP) PO SCH ×5 (06:05→22:54)
[2021-10-30] MEDS: chlordiazePOXIDE HCL 25 MG CAPSULE PO SCH ×4 (06:05→22:54)
[2021-10-30] MEDS: POTASSIUM CHLORIDE ORAL LIQUID 20 MEQ/15 ML PO SCH ×2 (10:26→22:54)
[2021-10-30] MEDS: PRENATAL VITAMINS W/ FOLIC ACID TABLET (FP) PO SCH (10:26)
[2021-10-30] MEDS: amLODIPine BESYLATE 10 MG TABLET (FP) PO SCH (10:26)
[2021-10-30] MEDS: ASPIRIN 81 MG CHEWABLE TABLETS PO SCH (10:27)
[2021-10-30] MEDS: METHOCARBAMOL 500 MG TABLET PO PRN (10:27)
[2021-10-30] MEDS: NICOTINE 7 MG/24 HOURS TOPICAL PATCH TD SCH (10:27)
[2021-10-30 14:07] LABS: SARS-CoV-2 NAA Not Detected (Not Detected)
[2021-10-30] MEDS: MELATONIN 5 MG TABLETS PO SCH (22:54)
[2021-10-30] MEDS: THIAMINE HCL 100 MG TABLET (FP) PO SCH (22:54)
[2021-10-30] MEDS: ATORVASTATIN CA 10 MG TABLET (FP) PO SCH (22:54)
[2021-10-31] MEDS ORDERED: chlordiazePOXIDE HCL 10 MG CAPSULE PO PRN
[2021-10-31] MEDS: hydrOXYzine PAMOATE 25 MG CAPSULE (FP) PO SCH ×5 (06:11→22:01)
[2021-10-31] MEDS: chlordiazePOXIDE HCL 10 MG CAPSULE PO SCH ×4 (06:12→22:02)
[2021-10-31] MEDS: ASPIRIN 81 MG CHEWABLE TABLETS PO SCH (10:35)
[2021-10-31] MEDS: PRENATAL VITAMINS W/ FOLIC ACID TABLET (FP) PO SCH (10:35)
[2021-10-31] MEDS: amLODIPine BESYLATE 10 MG TABLET (FP) PO SCH (10:35)
[2021-10-31] MEDS: METHOCARBAMOL 500 MG TABLET PO PRN (10:35)
[2021-10-31] MEDS: NICOTINE 21 MG/24 HOURS TOPICAL PATCH TD SCH (10:37)
[2021-10-31] MEDS: ATORVASTATIN CA 10 MG TABLET (FP) PO SCH (22:01)
[2021-10-31] MEDS: THIAMINE HCL 100 MG TABLET (FP) PO SCH (22:01)
[2021-10-31] MEDS: MELATONIN 5 MG TABLETS PO SCH (22:01)
[2021-11-01] MEDS: hydrOXYzine PAMOATE 25 MG CAPSULE (FP) PO SCH ×5 (06:55→22:30)
[2021-11-01] MEDS: chlordiazePOXIDE HCL 10 MG CAPSULE PO SCH ×2 (06:55→18:15)
[2021-11-01] MEDS: NICOTINE 21 MG/24 HOURS TOPICAL PATCH TD SCH (10:51)
[2021-11-01] MEDS: PRENATAL VITAMINS W/ FOLIC ACID TABLET (FP) PO SCH (10:51)
[2021-11-01] MEDS: amLODIPine BESYLATE 10 MG TABLET (FP) PO SCH (10:51)
[2021-11-01] MEDS: ASPIRIN 81 MG CHEWABLE TABLETS PO SCH (10:51)
[2021-11-01] MEDS ORDERED: traZODone HCL 50 MG TABLET (FP) PO SCH (22:00)
[2021-11-01] MEDS: ATORVASTATIN CA 10 MG TABLET (FP) PO SCH (22:30)
[2021-11-01] MEDS: THIAMINE HCL 100 MG TABLET (FP) PO SCH (22:30)
[2021-11-02] MEDS ORDERED: chlordiazePOXIDE HCL 10 MG CAPSULE PO ONE (05:00)
[2021-11-02] MEDS: hydrOXYzine PAMOATE 25 MG CAPSULE (FP) PO SCH ×2 (06:38→11:04)
[2021-11-02 09:10] VITALS: BP 133/82; PULSE 75; TEMP 97.8
[2021-11-02] MEDS: amLODIPine BESYLATE 10 MG TABLET (FP) PO SCH (10:10)
[2021-11-02] MEDS: ASPIRIN 81 MG CHEWABLE TABLETS PO SCH (10:10)
[2021-11-02] MEDS: PRENATAL VITAMINS W/ FOLIC ACID TABLET (FP) PO SCH (10:10)
[2021-11-02] MEDS: NICOTINE 21 MG/24 HOURS TOPICAL PATCH TD SCH (11:51)
== END 2021-11-02 12:32 | disposition other institution (70) | DRG 897 ==
LOC: YASAS 13:06 → Y6N 15:31
PROVIDERS: ADMIT Allergy & Immunology; ATTEND Allergy & Immunology
PROC: HZ2ZZZZ Detoxification Services for Substance Abuse Treatment (ICD-10-PCS; principal; 2021-10-28)
DX: F10.230 Alcohol dependence with withdrawal, uncomplicated (principal); F14.20 Cocaine dependence, uncomplicated; F19.282 Other psychoactive substance dependence with psychoactive substance-induced sleep disorder; F17.210 Nicotine dependence, cigarettes, uncomplicated; E87.6 Hypokalemia; E78.5 Hyperlipidemia, unspecified; I25.10 Atherosclerotic heart disease of native coronary artery without angina pectoris; I10 Essential (primary) hypertension; Z95.5 Presence of coronary angioplasty implant and graft; M54.50 Low back pain, unspecified; G89.29 Other chronic pain; E66.9 Obesity, unspecified; Z68.32 Body mass index [BMI] 32.0-32.9, adult
CPT/HCPCS: 36415; 80053; 82962; 84132; 85027; 86780; 87811; C9803; U0003; U0005

== ENCOUNTER 2021-11-02 11:59 | Inpatient (IN) | payer OTHER ==
[2021-11-02] MEDS ORDERED: MAG HYDROX/AL HYDROX/SIMETH 30 ML UNIT-DOSE CUP PO PRN (12:58)
[2021-11-02] MEDS ORDERED: IBUPROFEN 400 MG TABLET (FP) PO PRN (12:58)
[2021-11-02] MEDS ORDERED: MAGNESIUM HYDROX 2400MG/30ML ORAL SUSPENSION 30 ML CUP PO PRN (12:58)
[2021-11-02] MEDS ORDERED: P-EPHED 60MG/TRIPROLIDI 2.5MG TABLET PO PRN (12:58)
[2021-11-02] MEDS ORDERED: LOPERAMIDE HCL 2 MG CAPSULE PO PRN (12:58)
[2021-11-02] MEDS ORDERED: guaiFENesin 200 MG/10 ML 10 ML UNIT-DOSE CUPS PO PRN (12:58)
[2021-11-02] MEDS ORDERED: hydrOXYzine PAMOATE 25 MG CAPSULE (FP) PO PRN (12:58)
[2021-11-02] MEDS ORDERED: NICOTINE 10 MG CARTRIDGE (INHALER) IH PRN (12:58)
[2021-11-02] MEDS ORDERED: MAGNESIUM CITRATE 300 ML BOTTLE PO PRN (12:58)
[2021-11-02] MEDS ORDERED: MENTHOL/PHENOL 1 EACH UD MM PRN (12:58)
[2021-11-02] MEDS ORDERED: ACETAMINOPHEN 325 MG TABLET (FP) PO PRN (12:58)
[2021-11-02 18:15] LABS: HIV INTERPRETATION NEGATIVE (NEGATIVE)
[2021-11-02] MEDS: ATORVASTATIN CA 10 MG TABLET (FP) PO SCH (21:32)
[2021-11-02] MEDS: MELATONIN 5 MG TABLETS PO SCH (21:32)
[2021-11-02] MEDS: traZODone HCL 50 MG TABLET (FP) PO SCH (21:32)
[2021-11-02] MEDS: THIAMINE HCL 100 MG TABLET (FP) PO SCH (21:32)
[2021-11-03] MEDS ORDERED: NICOTINE 7 MG/24 HOURS TOPICAL PATCH TD SCH (10:00)
[2021-11-03] MEDS: amLODIPine BESYLATE 10 MG TABLET (FP) PO SCH (10:36)
[2021-11-03] MEDS: PRENATAL VITAMINS W/ FOLIC ACID TABLET (FP) PO SCH (10:36)
[2021-11-03] MEDS: ASPIRIN 81 MG CHEWABLE TABLETS PO SCH (10:36)
[2021-11-03] MEDS: NICOTINE 21 MG/24 HOURS TOPICAL PATCH TD SCH (10:37)
[2021-11-03] MEDS: traZODone HCL 50 MG TABLET (FP) PO SCH (21:12)
[2021-11-03] MEDS: ATORVASTATIN CA 10 MG TABLET (FP) PO SCH (21:13)
[2021-11-03] MEDS: MELATONIN 5 MG TABLETS PO SCH (21:13)
[2021-11-03] MEDS: THIAMINE HCL 100 MG TABLET (FP) PO SCH (21:13)
[2021-11-04] MEDS: amLODIPine BESYLATE 10 MG TABLET (FP) PO SCH (10:30)
[2021-11-04] MEDS: PRENATAL VITAMINS W/ FOLIC ACID TABLET (FP) PO SCH (10:30)
[2021-11-04] MEDS: NICOTINE 21 MG/24 HOURS TOPICAL PATCH TD SCH (10:30)
[2021-11-04] MEDS: ASPIRIN 81 MG CHEWABLE TABLETS PO SCH (10:30)
[2021-11-04] MEDS: THIAMINE HCL 100 MG TABLET (FP) PO SCH (21:14)
[2021-11-04] MEDS: traZODone HCL 50 MG TABLET (FP) PO SCH (21:14)
[2021-11-04] MEDS: ATORVASTATIN CA 10 MG TABLET (FP) PO SCH (21:14)
[2021-11-04] MEDS: MELATONIN 5 MG TABLETS PO SCH (21:14)
[2021-11-05] MEDS ORDERED: MODERNA COVID-19 VACC,MRNA/PF 50 MCG/0.25 ML EACH IM ONE (10:00)
[2021-11-05] MEDS: PRENATAL VITAMINS W/ FOLIC ACID TABLET (FP) PO SCH (10:09)
[2021-11-05] MEDS: ASPIRIN 81 MG CHEWABLE TABLETS PO SCH (10:10)
[2021-11-05] MEDS: amLODIPine BESYLATE 10 MG TABLET (FP) PO SCH (10:10)
[2021-11-05] MEDS: NICOTINE 21 MG/24 HOURS TOPICAL PATCH TD SCH (10:11)
[2021-11-05] MEDS: MELATONIN 5 MG TABLETS PO SCH (21:12)
[2021-11-05] MEDS: ATORVASTATIN CA 10 MG TABLET (FP) PO SCH (21:13)
[2021-11-05] MEDS: THIAMINE HCL 100 MG TABLET (FP) PO SCH (21:13)
[2021-11-05] MEDS: traZODone HCL 50 MG TABLET (FP) PO SCH (21:13)
[2021-11-06] MEDS: ASPIRIN 81 MG CHEWABLE TABLETS PO SCH (10:03)
[2021-11-06] MEDS: NICOTINE 21 MG/24 HOURS TOPICAL PATCH TD SCH (10:04)
[2021-11-06] MEDS: PRENATAL VITAMINS W/ FOLIC ACID TABLET (FP) PO SCH (10:04)
[2021-11-06] MEDS: amLODIPine BESYLATE 10 MG TABLET (FP) PO SCH (10:04)
[2021-11-06] MEDS: THIAMINE HCL 100 MG TABLET (FP) PO SCH (21:19)
[2021-11-06] MEDS: traZODone HCL 50 MG TABLET (FP) PO SCH (21:19)
[2021-11-06] MEDS: ATORVASTATIN CA 10 MG TABLET (FP) PO SCH (21:19)
[2021-11-06] MEDS: MELATONIN 5 MG TABLETS PO SCH (21:19)
[2021-11-07 07:35] LABS: SARS-CoV-2 NAA Not Detected
[2021-11-07] MEDS: PRENATAL VITAMINS W/ FOLIC ACID TABLET (FP) PO SCH (10:01)
[2021-11-07] MEDS: NICOTINE 21 MG/24 HOURS TOPICAL PATCH TD SCH ×2 (10:02→10:14)
[2021-11-07] MEDS: amLODIPine BESYLATE 10 MG TABLET (FP) PO SCH (10:02)
[2021-11-07] MEDS: ASPIRIN 81 MG CHEWABLE TABLETS PO SCH (10:02)
[2021-11-07] MEDS: MELATONIN 5 MG TABLETS PO SCH (21:08)
[2021-11-07] MEDS: THIAMINE HCL 100 MG TABLET (FP) PO SCH (21:08)
[2021-11-07] MEDS: ATORVASTATIN CA 10 MG TABLET (FP) PO SCH (21:08)
[2021-11-07] MEDS: traZODone HCL 50 MG TABLET (FP) PO SCH (21:09)
[2021-11-08] MEDS: PRENATAL VITAMINS W/ FOLIC ACID TABLET (FP) PO SCH (10:08)
[2021-11-08] MEDS: ASPIRIN 81 MG CHEWABLE TABLETS PO SCH (10:08)
[2021-11-08] MEDS: amLODIPine BESYLATE 10 MG TABLET (FP) PO SCH (10:08)
[2021-11-08] MEDS: NICOTINE 21 MG/24 HOURS TOPICAL PATCH TD SCH (10:08)
[2021-11-08] MEDS: VITAMINS A AND D TOPICAL OINTMENT 60 GM TUBE TP SCH ×2 (14:18→19:18)
[2021-11-08] MEDS: MELATONIN 5 MG TABLETS PO SCH (21:20)
[2021-11-08] MEDS: THIAMINE HCL 100 MG TABLET (FP) PO SCH (21:20)
[2021-11-08] MEDS: ATORVASTATIN CA 10 MG TABLET (FP) PO SCH (21:20)
[2021-11-08] MEDS: traZODone HCL 50 MG TABLET (FP) PO SCH (21:20)
[2021-11-09] MEDS: VITAMINS A AND D TOPICAL OINTMENT 60 GM TUBE TP SCH ×4 (02:09→17:50)
[2021-11-09] MEDS: amLODIPine BESYLATE 10 MG TABLET (FP) PO SCH (10:22)
[2021-11-09] MEDS: PRENATAL VITAMINS W/ FOLIC ACID TABLET (FP) PO SCH (10:22)
[2021-11-09] MEDS: ASPIRIN 81 MG CHEWABLE TABLETS PO SCH (10:22)
[2021-11-09] MEDS: NICOTINE 21 MG/24 HOURS TOPICAL PATCH TD SCH (10:22)
[2021-11-09] MEDS: traZODone HCL 50 MG TABLET (FP) PO SCH (21:25)
[2021-11-09] MEDS: MELATONIN 5 MG TABLETS PO SCH (21:25)
[2021-11-09] MEDS: THIAMINE HCL 100 MG TABLET (FP) PO SCH (21:25)
[2021-11-09] MEDS: ATORVASTATIN CA 10 MG TABLET (FP) PO SCH (21:25)
[2021-11-10] MEDS: VITAMINS A AND D TOPICAL OINTMENT 60 GM TUBE TP SCH ×4 (01:18→18:50)
[2021-11-10] MEDS: PRENATAL VITAMINS W/ FOLIC ACID TABLET (FP) PO SCH (10:02)
[2021-11-10] MEDS: amLODIPine BESYLATE 10 MG TABLET (FP) PO SCH (10:02)
[2021-11-10] MEDS: NICOTINE 21 MG/24 HOURS TOPICAL PATCH TD SCH (10:02)
[2021-11-10] MEDS: ASPIRIN 81 MG CHEWABLE TABLETS PO SCH (10:02)
[2021-11-10] MEDS: traZODone HCL 50 MG TABLET (FP) PO SCH (21:17)
[2021-11-10] MEDS: THIAMINE HCL 100 MG TABLET (FP) PO SCH (21:17)
[2021-11-10] MEDS: MELATONIN 5 MG TABLETS PO SCH (21:17)
[2021-11-10] MEDS: ATORVASTATIN CA 10 MG TABLET (FP) PO SCH (21:17)
[2021-11-11] MEDS: VITAMINS A AND D TOPICAL OINTMENT 60 GM TUBE TP SCH ×4 (01:40→18:35)
[2021-11-11] MEDS: NICOTINE 21 MG/24 HOURS TOPICAL PATCH TD SCH (09:37)
[2021-11-11] MEDS: amLODIPine BESYLATE 10 MG TABLET (FP) PO SCH (09:37)
[2021-11-11] MEDS: PRENATAL VITAMINS W/ FOLIC ACID TABLET (FP) PO SCH (09:37)
[2021-11-11] MEDS: ASPIRIN 81 MG CHEWABLE TABLETS PO SCH (09:37)
[2021-11-11] MEDS: traZODone HCL 50 MG TABLET (FP) PO SCH (21:11)
[2021-11-11] MEDS: MELATONIN 5 MG TABLETS PO SCH (21:11)
[2021-11-11] MEDS: ATORVASTATIN CA 10 MG TABLET (FP) PO SCH (21:11)
[2021-11-11] MEDS: THIAMINE HCL 100 MG TABLET (FP) PO SCH (21:11)
[2021-11-12] MEDS: VITAMINS A AND D TOPICAL OINTMENT 60 GM TUBE TP SCH ×4 (01:21→18:57)
[2021-11-12] MEDS: ASPIRIN 81 MG CHEWABLE TABLETS PO SCH (09:53)
[2021-11-12] MEDS: amLODIPine BESYLATE 10 MG TABLET (FP) PO SCH (09:53)
[2021-11-12] MEDS: PRENATAL VITAMINS W/ FOLIC ACID TABLET (FP) PO SCH (09:53)
[2021-11-12] MEDS: NICOTINE 21 MG/24 HOURS TOPICAL PATCH TD SCH (09:54)
[2021-11-12] MEDS: traZODone HCL 50 MG TABLET (FP) PO SCH (22:00)
[2021-11-12] MEDS: ATORVASTATIN CA 10 MG TABLET (FP) PO SCH (22:02)
[2021-11-12] MEDS: MELATONIN 5 MG TABLETS PO SCH (22:03)
[2021-11-12] MEDS: THIAMINE HCL 100 MG TABLET (FP) PO SCH (22:03)
[2021-11-13] MEDS: VITAMINS A AND D TOPICAL OINTMENT 60 GM TUBE TP SCH ×4 (04:18→18:45)
[2021-11-13] MEDS: NICOTINE 21 MG/24 HOURS TOPICAL PATCH TD SCH (10:46)
[2021-11-13] MEDS: amLODIPine BESYLATE 10 MG TABLET (FP) PO SCH (10:47)
[2021-11-13] MEDS: ASPIRIN 81 MG CHEWABLE TABLETS PO SCH (10:47)
[2021-11-13] MEDS: PRENATAL VITAMINS W/ FOLIC ACID TABLET (FP) PO SCH (10:47)
[2021-11-13] MEDS: traZODone HCL 50 MG TABLET (FP) PO SCH (21:13)
[2021-11-13] MEDS: THIAMINE HCL 100 MG TABLET (FP) PO SCH (21:13)
[2021-11-13] MEDS: ATORVASTATIN CA 10 MG TABLET (FP) PO SCH (21:13)
[2021-11-13] MEDS: MELATONIN 5 MG TABLETS PO SCH (21:13)
[2021-11-13] MEDS: SUVOREXANT 10 MG TABLET PO PRN (21:13)
[2021-11-14] MEDS: VITAMINS A AND D TOPICAL OINTMENT 60 GM TUBE TP SCH ×4 (01:05→18:50)
[2021-11-14] MEDS: ASPIRIN 81 MG CHEWABLE TABLETS PO SCH (10:28)
[2021-11-14] MEDS: amLODIPine BESYLATE 10 MG TABLET (FP) PO SCH (10:28)
[2021-11-14] MEDS: PRENATAL VITAMINS W/ FOLIC ACID TABLET (FP) PO SCH (10:28)
[2021-11-14] MEDS: NICOTINE 21 MG/24 HOURS TOPICAL PATCH TD SCH (10:29)
[2021-11-14] MEDS: ATORVASTATIN CA 10 MG TABLET (FP) PO SCH (21:28)
[2021-11-14] MEDS: traZODone HCL 50 MG TABLET (FP) PO SCH (21:28)
[2021-11-14] MEDS: SUVOREXANT 10 MG TABLET PO PRN (21:28)
[2021-11-14] MEDS: THIAMINE HCL 100 MG TABLET (FP) PO SCH (21:28)
[2021-11-14] MEDS: MELATONIN 5 MG TABLETS PO SCH (21:28)
[2021-11-15] MEDS: VITAMINS A AND D TOPICAL OINTMENT 60 GM TUBE TP SCH ×4 (01:14→17:48)
[2021-11-15] MEDS: amLODIPine BESYLATE 10 MG TABLET (FP) PO SCH (09:54)
[2021-11-15] MEDS: NICOTINE 21 MG/24 HOURS TOPICAL PATCH TD SCH (09:54)
[2021-11-15] MEDS: ASPIRIN 81 MG CHEWABLE TABLETS PO SCH (09:54)
[2021-11-15] MEDS: PRENATAL VITAMINS W/ FOLIC ACID TABLET (FP) PO SCH (09:55)
[2021-11-15] MEDS: ATORVASTATIN CA 10 MG TABLET (FP) PO SCH (21:06)
[2021-11-15] MEDS: traZODone HCL 50 MG TABLET (FP) PO SCH (21:06)
[2021-11-15] MEDS: MELATONIN 5 MG TABLETS PO SCH (21:06)
[2021-11-15] MEDS: THIAMINE HCL 100 MG TABLET (FP) PO SCH (21:06)
[2021-11-15] MEDS: SUVOREXANT 10 MG TABLET PO PRN (21:07)
[2021-11-16] MEDS: VITAMINS A AND D TOPICAL OINTMENT 60 GM TUBE TP SCH ×4 (00:10→19:09)
[2021-11-16] MEDS: ASPIRIN 81 MG CHEWABLE TABLETS PO SCH (10:16)
[2021-11-16] MEDS: PRENATAL VITAMINS W/ FOLIC ACID TABLET (FP) PO SCH (10:16)
[2021-11-16] MEDS: amLODIPine BESYLATE 10 MG TABLET (FP) PO SCH (10:16)
[2021-11-16] MEDS: NICOTINE 21 MG/24 HOURS TOPICAL PATCH TD SCH (10:17)
[2021-11-16] MEDS: MELATONIN 5 MG TABLETS PO SCH (21:56)
[2021-11-16] MEDS: traZODone HCL 50 MG TABLET (FP) PO SCH (21:57)
[2021-11-16] MEDS: ATORVASTATIN CA 10 MG TABLET (FP) PO SCH (21:57)
[2021-11-16] MEDS: THIAMINE HCL 100 MG TABLET (FP) PO SCH (21:57)
[2021-11-16] MEDS: SUVOREXANT 10 MG TABLET PO PRN (22:00)
[2021-11-17] MEDS: VITAMINS A AND D TOPICAL OINTMENT 60 GM TUBE TP SCH ×4 (00:55→18:44)
[2021-11-17] MEDS: ASPIRIN 81 MG CHEWABLE TABLETS PO SCH (10:08)
[2021-11-17] MEDS: PRENATAL VITAMINS W/ FOLIC ACID TABLET (FP) PO SCH (10:08)
[2021-11-17] MEDS: NICOTINE 21 MG/24 HOURS TOPICAL PATCH TD SCH (10:09)
[2021-11-17] MEDS: amLODIPine BESYLATE 10 MG TABLET (FP) PO SCH (10:09)
[2021-11-17] MEDS: ATORVASTATIN CA 10 MG TABLET (FP) PO SCH (21:28)
[2021-11-17] MEDS: MELATONIN 5 MG TABLETS PO SCH (21:29)
[2021-11-17] MEDS: THIAMINE HCL 100 MG TABLET (FP) PO SCH (21:29)
[2021-11-17] MEDS: traZODone HCL 50 MG TABLET (FP) PO SCH (21:29)
[2021-11-17] MEDS: SUVOREXANT 10 MG TABLET PO PRN (21:32)
[2021-11-18] MEDS: VITAMINS A AND D TOPICAL OINTMENT 60 GM TUBE TP SCH ×4 (01:31→19:13)
[2021-11-18] MEDS: PRENATAL VITAMINS W/ FOLIC ACID TABLET (FP) PO SCH (09:43)
[2021-11-18] MEDS: NICOTINE 21 MG/24 HOURS TOPICAL PATCH TD SCH (09:43)
[2021-11-18] MEDS: amLODIPine BESYLATE 10 MG TABLET (FP) PO SCH (09:43)
[2021-11-18] MEDS: ASPIRIN 81 MG CHEWABLE TABLETS PO SCH (09:44)
[2021-11-18] MEDS: traZODone HCL 50 MG TABLET (FP) PO SCH (21:38)
[2021-11-18] MEDS: MELATONIN 5 MG TABLETS PO SCH (21:39)
[2021-11-18] MEDS: THIAMINE HCL 100 MG TABLET (FP) PO SCH (21:40)
[2021-11-18] MEDS: SUVOREXANT 10 MG TABLET PO PRN (21:40)
[2021-11-18] MEDS: ATORVASTATIN CA 10 MG TABLET (FP) PO SCH (21:40)
[2021-11-19] MEDS: VITAMINS A AND D TOPICAL OINTMENT 60 GM TUBE TP SCH ×4 (01:02→17:55)
[2021-11-19] MEDS: PRENATAL VITAMINS W/ FOLIC ACID TABLET (FP) PO SCH (10:04)
[2021-11-19] MEDS: amLODIPine BESYLATE 10 MG TABLET (FP) PO SCH (10:04)
[2021-11-19] MEDS: ASPIRIN 81 MG CHEWABLE TABLETS PO SCH (10:04)
[2021-11-19] MEDS: NICOTINE 21 MG/24 HOURS TOPICAL PATCH TD SCH (10:04)
[2021-11-19] MEDS: THIAMINE HCL 100 MG TABLET (FP) PO SCH (21:27)
[2021-11-19] MEDS: MELATONIN 5 MG TABLETS PO SCH (21:27)
[2021-11-19] MEDS: ATORVASTATIN CA 10 MG TABLET (FP) PO SCH (21:27)
[2021-11-19] MEDS: traZODone HCL 50 MG TABLET (FP) PO SCH (21:28)
[2021-11-19] MEDS: SUVOREXANT 10 MG TABLET PO PRN (21:28)
[2021-11-20] MEDS: VITAMINS A AND D TOPICAL OINTMENT 60 GM TUBE TP SCH ×4 (01:16→19:19)
[2021-11-20] MEDS: PRENATAL VITAMINS W/ FOLIC ACID TABLET (FP) PO SCH (10:33)
[2021-11-20] MEDS: amLODIPine BESYLATE 10 MG TABLET (FP) PO SCH (10:33)
[2021-11-20] MEDS: ASPIRIN 81 MG CHEWABLE TABLETS PO SCH (10:33)
[2021-11-20] MEDS: NICOTINE 21 MG/24 HOURS TOPICAL PATCH TD SCH (10:34)
[2021-11-20] MEDS: traZODone HCL 50 MG TABLET (FP) PO SCH (21:28)
[2021-11-20] MEDS: MELATONIN 5 MG TABLETS PO SCH (21:28)
[2021-11-20] MEDS: ATORVASTATIN CA 10 MG TABLET (FP) PO SCH (21:28)
[2021-11-20] MEDS: THIAMINE HCL 100 MG TABLET (FP) PO SCH (21:29)
[2021-11-21] MEDS: VITAMINS A AND D TOPICAL OINTMENT 60 GM TUBE TP SCH ×4 (00:43→18:45)
[2021-11-21] MEDS: NICOTINE 21 MG/24 HOURS TOPICAL PATCH TD SCH (10:50)
[2021-11-21] MEDS: amLODIPine BESYLATE 10 MG TABLET (FP) PO SCH (10:50)
[2021-11-21] MEDS: ASPIRIN 81 MG CHEWABLE TABLETS PO SCH (10:50)
[2021-11-21] MEDS: PRENATAL VITAMINS W/ FOLIC ACID TABLET (FP) PO SCH (10:51)
[2021-11-21] MEDS: SUVOREXANT 10 MG TABLET PO PRN (21:15)
[2021-11-21] MEDS: ATORVASTATIN CA 10 MG TABLET (FP) PO SCH (21:15)
[2021-11-21] MEDS: MELATONIN 5 MG TABLETS PO SCH (21:15)
[2021-11-21] MEDS: traZODone HCL 50 MG TABLET (FP) PO SCH (21:15)
[2021-11-21] MEDS: THIAMINE HCL 100 MG TABLET (FP) PO SCH (21:15)
[2021-11-22] MEDS: VITAMINS A AND D TOPICAL OINTMENT 60 GM TUBE TP SCH ×4 (02:27→18:50)
[2021-11-22] MEDS: ASPIRIN 81 MG CHEWABLE TABLETS PO SCH (10:12)
[2021-11-22] MEDS: amLODIPine BESYLATE 10 MG TABLET (FP) PO SCH (10:12)
[2021-11-22] MEDS: NICOTINE 21 MG/24 HOURS TOPICAL PATCH TD SCH (10:12)
[2021-11-22] MEDS: PRENATAL VITAMINS W/ FOLIC ACID TABLET (FP) PO SCH (10:12)
[2021-11-22] MEDS: THIAMINE HCL 100 MG TABLET (FP) PO SCH (21:23)
[2021-11-22] MEDS: SUVOREXANT 10 MG TABLET PO PRN (21:23)
[2021-11-22] MEDS: MELATONIN 5 MG TABLETS PO SCH (21:23)
[2021-11-22] MEDS: ATORVASTATIN CA 10 MG TABLET (FP) PO SCH (21:23)
[2021-11-22] MEDS: traZODone HCL 50 MG TABLET (FP) PO SCH (21:24)
[2021-11-23] MEDS: VITAMINS A AND D TOPICAL OINTMENT 60 GM TUBE TP SCH ×2 (01:06→06:54)
[2021-11-23 07:16] VITALS: BP 117/71; PULSE 83; TEMP 98.6
== END 2021-11-23 08:30 | disposition home or self-care (01) | DRG 895 ==
LOC: YASAS 11:59 → Y3W 12:02
PROVIDERS: ADMIT Allergy & Immunology; ATTEND Allergy & Immunology
PROC: HZ42ZZZ Group Counseling for Substance Abuse Treatment, Cognitive-Behavioral (ICD-10-PCS; principal; 2021-11-02)
DX: F10.20 Alcohol dependence, uncomplicated (principal); F14.20 Cocaine dependence, uncomplicated; F17.210 Nicotine dependence, cigarettes, uncomplicated; I25.10 Atherosclerotic heart disease of native coronary artery without angina pectoris; I10 Essential (primary) hypertension; E78.5 Hyperlipidemia, unspecified; B35.1 Tinea unguium; L85.3 Xerosis cutis; M19.90 Unspecified osteoarthritis, unspecified site
CPT/HCPCS: 0013A; 36415; 87389; 91301; C9803-CS; U0003; U0005

== ENCOUNTER 2022-01-20 10:12 | Inpatient (IN) | payer OTHER ==
[2022-01-20] MEDS ORDERED: MAGNESIUM CITRATE 300 ML BOTTLE PO PRN (12:43)
[2022-01-20] MEDS ORDERED: IBUPROFEN 400 MG TABLET (FP) PO PRN (12:43)
[2022-01-20] MEDS ORDERED: DICYCLOMINE HCL 10 MG CAPSULE PO PRN (12:43)
[2022-01-20] MEDS ORDERED: ACETAMINOPHEN 325 MG TABLET (FP) PO PRN ×2 (12:43)
[2022-01-20] MEDS ORDERED: LOPERAMIDE HCL 2 MG CAPSULE PO PRN (12:43)
[2022-01-20] MEDS ORDERED: MAGNESIUM HYDROX 2400MG/30ML ORAL SUSPENSION 30 ML CUP PO PRN (12:43)
[2022-01-20] MEDS ORDERED: BISMUTH SUBSALICYLATE 524 MG/30 ML PO PRN (12:43)
[2022-01-20] MEDS ORDERED: METHOCARBAMOL 500 MG TABLET PO PRN (12:43)
[2022-01-20] MEDS ORDERED: ONDANSETRON *ODT* 4 MG TABLET SL PRN (12:43)
[2022-01-20] MEDS ORDERED: MAG HYDROX/AL HYDROX/SIMETH 30 ML UNIT-DOSE CUP PO PRN (12:43)
[2022-01-20] MEDS ORDERED: BENZOCAINE/MENTHOL (CHLORASEPTIC ) LOZENGE MM PRN (12:43)
[2022-01-20] MEDS ORDERED: chlordiazePOXIDE HCL 25 MG CAPSULE PO PRN (12:46)
[2022-01-20 13:02] VITALS: BMI 33.2
[2022-01-20] MEDS: NICOTINE 21 MG/24 HOURS TOPICAL PATCH TD SCH (14:16)
[2022-01-20] MEDS: amLODIPine BESYLATE 10 MG TABLET (FP) PO SCH (14:17)
[2022-01-20] MEDS: chlordiazePOXIDE HCL 25 MG CAPSULE PO SCH ×2 (17:54→22:20)
[2022-01-20] MEDS: MELATONIN 5 MG TABLETS PO PRN (22:19)
[2022-01-20] MEDS: THIAMINE HCL 100 MG TABLET (FP) PO SCH (22:19)
[2022-01-20] MEDS: hydrOXYzine PAMOATE 25 MG CAPSULE (FP) PO PRN (22:19)
[2022-01-20] MEDS: ATORVASTATIN CA 10 MG TABLET (FP) PO SCH (22:19)
[2022-01-21] MEDS: chlordiazePOXIDE HCL 25 MG CAPSULE PO SCH ×4 (07:32→22:18)
[2022-01-21] MEDS: ASPIRIN 81 MG CHEWABLE TABLETS PO SCH (10:34)
[2022-01-21] MEDS: PRENATAL VITAMINS W/ FOLIC ACID TABLET (FP) PO SCH (10:34)
[2022-01-21] MEDS: NICOTINE 21 MG/24 HOURS TOPICAL PATCH TD SCH (10:34)
[2022-01-21] MEDS: amLODIPine BESYLATE 10 MG TABLET (FP) PO SCH (10:34)
[2022-01-21] MEDS: THIAMINE HCL 100 MG TABLET (FP) PO SCH (22:18)
[2022-01-21] MEDS: MELATONIN 5 MG TABLETS PO PRN (22:18)
[2022-01-21] MEDS: ATORVASTATIN CA 10 MG TABLET (FP) PO SCH (22:18)
[2022-01-21] MEDS: hydrOXYzine PAMOATE 25 MG CAPSULE (FP) PO PRN (22:20)
[2022-01-22] MEDS: chlordiazePOXIDE HCL 25 MG CAPSULE PO SCH ×4 (05:28→22:16)
[2022-01-22] MEDS: amLODIPine BESYLATE 10 MG TABLET (FP) PO SCH (10:15)
[2022-01-22] MEDS: PRENATAL VITAMINS W/ FOLIC ACID TABLET (FP) PO SCH (10:15)
[2022-01-22] MEDS: ASPIRIN 81 MG CHEWABLE TABLETS PO SCH (10:15)
[2022-01-22] MEDS: NICOTINE 21 MG/24 HOURS TOPICAL PATCH TD SCH (10:17)
[2022-01-22 12:20] LABS: HEMATOCRIT 45.2 % (35.4-49); HEMOGLOBIN 14.7 GM/dL (11.7-16.9); MCH 28.4 pg (25.7-33.7); MCHC 32.4 g/dl (32.0-35.9); MEAN CELL VOLUME 87.7 fl (80-96); MEAN PLT VOLUME 10.3 fl (7.5-11.1); PLATELET COUNT 159 10^3/uL (134-434); RBC 5.15 M/mm3 (4.00-5.60); WHITE BLOOD COUNT 3.7 K/mm3 (4.0-10.0)
[2022-01-22 12:25] LABS: CALCIUM 9.2 mg/dL (8.5-10.1)
[2022-01-22 12:26] LABS: ALBUMIN 3.6 g/dl (3.4-5.0); BLOOD UREA NITROGEN 16.5 mg/dL (7-18)
[2022-01-22 12:29] LABS: CREATININE 0.9 mg/dL (0.55-1.3)
[2022-01-22 12:30] LABS: BILIRUBIN,TOTAL 1.1 mg/dL (0.2-1); TOT PROT 6.7 g/dl (6.4-8.2)
[2022-01-22] MEDS: THIAMINE HCL 100 MG TABLET (FP) PO SCH (22:14)
[2022-01-22] MEDS: ATORVASTATIN CA 10 MG TABLET (FP) PO SCH (22:14)
[2022-01-22] MEDS: hydrOXYzine PAMOATE 25 MG CAPSULE (FP) PO PRN (22:16)
[2022-01-22] MEDS: MELATONIN 5 MG TABLETS PO PRN (22:16)
[2022-01-23] MEDS ORDERED: chlordiazePOXIDE HCL 10 MG CAPSULE PO PRN
[2022-01-23] MEDS: chlordiazePOXIDE HCL 10 MG CAPSULE PO SCH ×4 (06:11→22:01)
[2022-01-23] MEDS: amLODIPine BESYLATE 10 MG TABLET (FP) PO SCH (10:14)
[2022-01-23] MEDS: ASPIRIN 81 MG CHEWABLE TABLETS PO SCH (10:14)
[2022-01-23] MEDS: NICOTINE 21 MG/24 HOURS TOPICAL PATCH TD SCH (10:15)
[2022-01-23] MEDS: PRENATAL VITAMINS W/ FOLIC ACID TABLET (FP) PO SCH (10:15)
[2022-01-23] MEDS: THIAMINE HCL 100 MG TABLET (FP) PO SCH (21:58)
[2022-01-23] MEDS: ATORVASTATIN CA 10 MG TABLET (FP) PO SCH (21:58)
[2022-01-23] MEDS: MELATONIN 5 MG TABLETS PO PRN (21:59)
[2022-01-23] MEDS: hydrOXYzine PAMOATE 25 MG CAPSULE (FP) PO PRN (22:01)
[2022-01-24] MEDS: chlordiazePOXIDE HCL 10 MG CAPSULE PO SCH ×2 (07:41→18:22)
[2022-01-24] MEDS: amLODIPine BESYLATE 10 MG TABLET (FP) PO SCH (10:11)
[2022-01-24] MEDS: NICOTINE 21 MG/24 HOURS TOPICAL PATCH TD SCH (10:11)
[2022-01-24] MEDS: PRENATAL VITAMINS W/ FOLIC ACID TABLET (FP) PO SCH (10:11)
[2022-01-24] MEDS: ASPIRIN 81 MG CHEWABLE TABLETS PO SCH (10:11)
[2022-01-24 18:30] VITALS: TEMP 95.9
[2022-01-24 21:24] VITALS: BP 140/85; PULSE 79
[2022-01-25] MEDS ORDERED: chlordiazePOXIDE HCL 10 MG CAPSULE PO ONE (05:00)
== END 2022-01-24 21:35 | disposition home or self-care (01) | DRG 897 ==
LOC: YASAS 10:12 → Y3N 13:23
PROVIDERS: ADMIT Allergy & Immunology; ATTEND Surgery
PROC: HZ2ZZZZ Detoxification Services for Substance Abuse Treatment (ICD-10-PCS; principal; 2022-01-20)
DX: F10.230 Alcohol dependence with withdrawal, uncomplicated (principal); F14.20 Cocaine dependence, uncomplicated; F17.210 Nicotine dependence, cigarettes, uncomplicated; E78.5 Hyperlipidemia, unspecified; I25.10 Atherosclerotic heart disease of native coronary artery without angina pectoris; I10 Essential (primary) hypertension; Z95.5 Presence of coronary angioplasty implant and graft; M54.50 Low back pain, unspecified; G89.29 Other chronic pain; Z59.00 Homelessness unspecified
CPT/HCPCS: 36415; 80053; 82947; 83036; 85027; 86780; C9803-CS; U0003; U0005

== ENCOUNTER 2022-03-08 18:29 | Inpatient (IN) | payer OTHER ==
[2022-03-08] MEDS ORDERED: MAG HYDROX/AL HYDROX/SIMETH 30 ML UNIT-DOSE CUP PO PRN (23:59)
[2022-03-08] MEDS ORDERED: IBUPROFEN 400 MG TABLET (FP) PO PRN (23:59)
[2022-03-08] MEDS ORDERED: NICOTINE 10 MG CARTRIDGE (INHALER) IH PRN (23:59)
[2022-03-08] MEDS ORDERED: METHOCARBAMOL 500 MG TABLET PO PRN (23:59)
[2022-03-08] MEDS ORDERED: ACETAMINOPHEN 325 MG TABLET (FP) PO PRN ×2 (23:59)
[2022-03-08] MEDS ORDERED: BISMUTH SUBSALICYLATE 524 MG/30 ML PO PRN (23:59)
[2022-03-08] MEDS ORDERED: IBUPROFEN 600 MG TABLET (FP) PO PRN (23:59)
[2022-03-08] MEDS ORDERED: MAGNESIUM HYDROX 2400MG/30ML ORAL SUSPENSION 30 ML CUP PO PRN (23:59)
[2022-03-08] MEDS ORDERED: chlordiazePOXIDE HCL 25 MG CAPSULE PO PRN (23:59)
[2022-03-08] MEDS ORDERED: MAGNESIUM CITRATE 300 ML BOTTLE PO PRN (23:59)
[2022-03-08] MEDS ORDERED: LOPERAMIDE HCL 2 MG CAPSULE PO PRN (23:59)
[2022-03-08] MEDS ORDERED: ONDANSETRON *ODT* 4 MG TABLET SL PRN (23:59)
[2022-03-08] MEDS ORDERED: BENZOCAINE/MENTHOL (CHLORASEPTIC ) LOZENGE MM PRN (23:59)
[2022-03-08] MEDS ORDERED: DICYCLOMINE HCL 10 MG CAPSULE PO PRN (23:59)
[2022-03-09] MEDS: hydrOXYzine PAMOATE 25 MG CAPSULE (FP) PO SCH ×5 (05:22→22:43)
[2022-03-09] MEDS: ASPIRIN 81 MG CHEWABLE TABLETS PO SCH (10:21)
[2022-03-09] MEDS: amLODIPine BESYLATE 10 MG TABLET (FP) PO SCH (10:21)
[2022-03-09] MEDS: PRENATAL VITAMINS W/ FOLIC ACID TABLET (FP) PO SCH (10:21)
[2022-03-09] MEDS: NICOTINE 14 MG/24 HOURS TOPICAL PATCH TD SCH (13:04)
[2022-03-09] MEDS: MELATONIN 5 MG TABLETS PO SCH (22:42)
[2022-03-09] MEDS: chlordiazePOXIDE HCL 25 MG CAPSULE PO SCH (22:43)
[2022-03-09] MEDS: THIAMINE HCL 100 MG TABLET (FP) PO SCH (22:43)
[2022-03-09] MEDS: ATORVASTATIN CA 10 MG TABLET (FP) PO SCH (22:43)
[2022-03-10] MEDS: chlordiazePOXIDE HCL 25 MG CAPSULE PO SCH ×4 (06:46→22:46)
[2022-03-10] MEDS: hydrOXYzine PAMOATE 25 MG CAPSULE (FP) PO SCH ×5 (06:47→22:46)
[2022-03-10] MEDS: NICOTINE 14 MG/24 HOURS TOPICAL PATCH TD SCH (10:48)
[2022-03-10] MEDS: amLODIPine BESYLATE 10 MG TABLET (FP) PO SCH (10:50)
[2022-03-10] MEDS: PRENATAL VITAMINS W/ FOLIC ACID TABLET (FP) PO SCH (10:50)
[2022-03-10] MEDS: ASPIRIN 81 MG CHEWABLE TABLETS PO SCH (10:50)
[2022-03-10 11:17] LABS: HEMATOCRIT 42.2 % (35.4-49); HEMOGLOBIN 13.6 GM/dL (11.7-16.9); MCH 28.3 pg (25.7-33.7); MCHC 32.2 g/dl (32.0-35.9); MEAN PLT VOLUME 9.7 fl (7.5-11.1); PLATELET COUNT 149 10^3/uL (134-434); RDW 13.6 % (11.9-15.9); WHITE BLOOD COUNT 3.3 K/mm3 (4.0-10.0)
[2022-03-10 12:18] LABS: BLOOD UREA NITROGEN 12.6 mg/dL (7-18); CALCIUM 8.6 mg/dL (8.5-10.1)
[2022-03-10 12:19] LABS: ALBUMIN 3.2 g/dl (3.4-5.0)
[2022-03-10 12:22] LABS: CREATININE 0.9 mg/dL (0.55-1.3)
[2022-03-10 12:23] LABS: BILIRUBIN,TOTAL 0.4 mg/dL (0.2-1)
[2022-03-10] MEDS: MELATONIN 5 MG TABLETS PO SCH (22:45)
[2022-03-10] MEDS: ATORVASTATIN CA 10 MG TABLET (FP) PO SCH (22:45)
[2022-03-10] MEDS: traZODone HCL 50 MG TABLET (FP) PO SCH (22:46)
[2022-03-10] MEDS: THIAMINE HCL 100 MG TABLET (FP) PO SCH (22:46)
[2022-03-11] MEDS: hydrOXYzine PAMOATE 25 MG CAPSULE (FP) PO SCH ×5 (07:23→22:34)
[2022-03-11] MEDS: chlordiazePOXIDE HCL 25 MG CAPSULE PO SCH ×4 (07:24→22:34)
[2022-03-11] MEDS: amLODIPine BESYLATE 10 MG TABLET (FP) PO SCH (10:40)
[2022-03-11] MEDS: PRENATAL VITAMINS W/ FOLIC ACID TABLET (FP) PO SCH (10:40)
[2022-03-11] MEDS: ASPIRIN 81 MG CHEWABLE TABLETS PO SCH (10:41)
[2022-03-11] MEDS: NICOTINE 21 MG/24 HOURS TOPICAL PATCH TD SCH (10:41)
[2022-03-11] MEDS: MELATONIN 5 MG TABLETS PO SCH (22:34)
[2022-03-11] MEDS: traZODone HCL 50 MG TABLET (FP) PO SCH (22:34)
[2022-03-11] MEDS: ATORVASTATIN CA 10 MG TABLET (FP) PO SCH (22:34)
[2022-03-11] MEDS: THIAMINE HCL 100 MG TABLET (FP) PO SCH (22:34)
[2022-03-12] MEDS ORDERED: chlordiazePOXIDE HCL 10 MG CAPSULE PO PRN
[2022-03-12] MEDS: hydrOXYzine PAMOATE 25 MG CAPSULE (FP) PO SCH ×5 (05:37→22:21)
[2022-03-12] MEDS: chlordiazePOXIDE HCL 10 MG CAPSULE PO SCH ×4 (05:37→22:21)
[2022-03-12] MEDS: amLODIPine BESYLATE 10 MG TABLET (FP) PO SCH (10:18)
[2022-03-12] MEDS: PRENATAL VITAMINS W/ FOLIC ACID TABLET (FP) PO SCH (10:18)
[2022-03-12] MEDS: ASPIRIN 81 MG CHEWABLE TABLETS PO SCH (10:18)
[2022-03-12] MEDS: NICOTINE 21 MG/24 HOURS TOPICAL PATCH TD SCH (10:20)
[2022-03-12] MEDS ORDERED: NICOTINE POLACRILEX 2 MG GUM BUC PRN (15:38)
[2022-03-12] MEDS: NICOTINE 14 MG/24 HOURS TOPICAL PATCH TD SCH (18:27)
[2022-03-12] MEDS: ATORVASTATIN CA 10 MG TABLET (FP) PO SCH (22:21)
[2022-03-12] MEDS: traZODone HCL 50 MG TABLET (FP) PO SCH (22:21)
[2022-03-12] MEDS: MELATONIN 5 MG TABLETS PO SCH (22:21)
[2022-03-12] MEDS: THIAMINE HCL 100 MG TABLET (FP) PO SCH (22:21)
[2022-03-13] MEDS: hydrOXYzine PAMOATE 25 MG CAPSULE (FP) PO SCH ×5 (06:15→22:28)
[2022-03-13] MEDS: chlordiazePOXIDE HCL 10 MG CAPSULE PO SCH ×2 (06:15→17:43)
[2022-03-13] MEDS: PRENATAL VITAMINS W/ FOLIC ACID TABLET (FP) PO SCH (10:48)
[2022-03-13] MEDS: ASPIRIN 81 MG CHEWABLE TABLETS PO SCH (10:48)
[2022-03-13] MEDS: NICOTINE 21 MG/24 HOURS TOPICAL PATCH TD SCH (10:49)
[2022-03-13] MEDS: NICOTINE 14 MG/24 HOURS TOPICAL PATCH TD SCH (10:49)
[2022-03-13] MEDS: amLODIPine BESYLATE 10 MG TABLET (FP) PO SCH (11:08)
[2022-03-13] MEDS: ATORVASTATIN CA 10 MG TABLET (FP) PO SCH (22:28)
[2022-03-13] MEDS: MELATONIN 5 MG TABLETS PO SCH (22:28)
[2022-03-13] MEDS: THIAMINE HCL 100 MG TABLET (FP) PO SCH (22:28)
[2022-03-13] MEDS: traZODone HCL 50 MG TABLET (FP) PO SCH (22:28)
[2022-03-14] MEDS ORDERED: chlordiazePOXIDE HCL 10 MG CAPSULE PO ONE (05:00)
[2022-03-14] MEDS: hydrOXYzine PAMOATE 25 MG CAPSULE (FP) PO SCH ×3 (05:49→13:31)
[2022-03-14] MEDS: PRENATAL VITAMINS W/ FOLIC ACID TABLET (FP) PO SCH (10:44)
[2022-03-14] MEDS: NICOTINE 21 MG/24 HOURS TOPICAL PATCH TD SCH (10:45)
[2022-03-14] MEDS: amLODIPine BESYLATE 10 MG TABLET (FP) PO SCH (10:45)
[2022-03-14] MEDS: ASPIRIN 81 MG CHEWABLE TABLETS PO SCH (10:45)
[2022-03-14] MEDS: NICOTINE 14 MG/24 HOURS TOPICAL PATCH TD SCH (10:46)
[2022-03-14 17:54] VITALS: BP 110/67; PULSE 76; TEMP 97.7
== END 2022-03-14 17:49 | disposition other institution (70) | DRG 897 ==
LOC: YASAS 18:29 → Y3N 23:52
PROVIDERS: ADMIT Allergy & Immunology; ATTEND Surgery
PROC: HZ2ZZZZ Detoxification Services for Substance Abuse Treatment (ICD-10-PCS; principal; 2022-03-08)
DX: F10.230 Alcohol dependence with withdrawal, uncomplicated (principal); F14.20 Cocaine dependence, uncomplicated; F19.282 Other psychoactive substance dependence with psychoactive substance-induced sleep disorder; F17.210 Nicotine dependence, cigarettes, uncomplicated; G47.00 Insomnia, unspecified; E78.5 Hyperlipidemia, unspecified; I25.10 Atherosclerotic heart disease of native coronary artery without angina pectoris; I10 Essential (primary) hypertension; Z95.5 Presence of coronary angioplasty implant and graft; M54.50 Low back pain, unspecified; G89.29 Other chronic pain; Z56.0 Unemployment, unspecified; Z59.00 Homelessness unspecified
CPT/HCPCS: 36415; 80053; 85027; 86780; C9803-CS; U0003; U0005

== ENCOUNTER 2022-03-14 18:08 | Inpatient (IN) | payer OTHER ==
[2022-03-14] MEDS ORDERED: MAGNESIUM CITRATE 300 ML BOTTLE PO PRN (19:38)
[2022-03-14] MEDS ORDERED: ACETAMINOPHEN 325 MG TABLET (FP) PO PRN (19:38)
[2022-03-14] MEDS ORDERED: LOPERAMIDE HCL 2 MG CAPSULE PO PRN (19:38)
[2022-03-14] MEDS ORDERED: guaiFENesin 200 MG/10 ML 10 ML UNIT-DOSE CUPS PO PRN (19:38)
[2022-03-14] MEDS ORDERED: BENZOCAINE/MENTHOL (CHLORASEPTIC ) LOZENGE MM PRN (19:38)
[2022-03-14] MEDS ORDERED: IBUPROFEN 400 MG TABLET (FP) PO PRN (19:38)
[2022-03-14] MEDS ORDERED: P-EPHED 60MG/TRIPROLIDI 2.5MG TABLET PO PRN (19:38)
[2022-03-14] MEDS ORDERED: MAGNESIUM HYDROX 2400MG/30ML ORAL SUSPENSION 30 ML CUP PO PRN (19:38)
[2022-03-14] MEDS ORDERED: MAG HYDROX/AL HYDROX/SIMETH 30 ML UNIT-DOSE CUP PO PRN (19:38)
[2022-03-14] MEDS ORDERED: NICOTINE 10 MG CARTRIDGE (INHALER) IH PRN (19:38)
[2022-03-14] MEDS: MELATONIN 5 MG TABLETS PO SCH (21:31)
[2022-03-14] MEDS: ATORVASTATIN CA 10 MG TABLET (FP) PO SCH (21:31)
[2022-03-14] MEDS: traZODone HCL 50 MG TABLET (FP) PO SCH (21:31)
[2022-03-14] MEDS: THIAMINE HCL 100 MG TABLET (FP) PO SCH (21:32)
[2022-03-15] MEDS ORDERED: NICOTINE 7 MG/24 HOURS TOPICAL PATCH TD SCH ×2 (10:00)
[2022-03-15] MEDS: ASPIRIN 81 MG CHEWABLE TABLETS PO SCH (10:35)
[2022-03-15] MEDS: amLODIPine BESYLATE 10 MG TABLET (FP) PO SCH (10:36)
[2022-03-15] MEDS: PRENATAL VITAMINS W/ FOLIC ACID TABLET (FP) PO SCH (10:37)
[2022-03-15] MEDS: NICOTINE 21 MG/24 HOURS TOPICAL PATCH TD SCH (10:55)
[2022-03-15] MEDS: ATORVASTATIN CA 10 MG TABLET (FP) PO SCH (21:32)
[2022-03-15] MEDS: traZODone HCL 50 MG TABLET (FP) PO SCH (21:32)
[2022-03-15] MEDS: MELATONIN 5 MG TABLETS PO SCH (21:33)
[2022-03-15] MEDS: hydrOXYzine PAMOATE 25 MG CAPSULE (FP) PO PRN (21:33)
[2022-03-15] MEDS: THIAMINE HCL 100 MG TABLET (FP) PO SCH (21:33)
[2022-03-16] MEDS: NICOTINE 21 MG/24 HOURS TOPICAL PATCH TD SCH (09:55)
[2022-03-16] MEDS: ASPIRIN 81 MG CHEWABLE TABLETS PO SCH (09:55)
[2022-03-16] MEDS: amLODIPine BESYLATE 10 MG TABLET (FP) PO SCH (09:55)
[2022-03-16] MEDS: hydrOXYzine PAMOATE 25 MG CAPSULE (FP) PO PRN (09:55)
[2022-03-16] MEDS: PRENATAL VITAMINS W/ FOLIC ACID TABLET (FP) PO SCH (09:55)
[2022-03-16] MEDS: traZODone HCL 50 MG TABLET (FP) PO SCH (21:16)
[2022-03-16] MEDS: ATORVASTATIN CA 10 MG TABLET (FP) PO SCH (21:16)
[2022-03-16] MEDS: THIAMINE HCL 100 MG TABLET (FP) PO SCH (21:16)
[2022-03-16] MEDS: MELATONIN 5 MG TABLETS PO SCH (21:17)
[2022-03-17] MEDS: amLODIPine BESYLATE 10 MG TABLET (FP) PO SCH (09:50)
[2022-03-17] MEDS: ASPIRIN 81 MG CHEWABLE TABLETS PO SCH (09:50)
[2022-03-17] MEDS: PRENATAL VITAMINS W/ FOLIC ACID TABLET (FP) PO SCH (09:50)
[2022-03-17] MEDS: NICOTINE 21 MG/24 HOURS TOPICAL PATCH TD SCH (09:50)
[2022-03-17] MEDS: THIAMINE HCL 100 MG TABLET (FP) PO SCH (21:01)
[2022-03-17] MEDS: traZODone HCL 50 MG TABLET (FP) PO SCH (21:01)
[2022-03-17] MEDS: ATORVASTATIN CA 10 MG TABLET (FP) PO SCH (21:01)
[2022-03-17] MEDS: MELATONIN 5 MG TABLETS PO SCH (21:01)
[2022-03-18] MEDS: amLODIPine BESYLATE 10 MG TABLET (FP) PO SCH (10:38)
[2022-03-18] MEDS: ASPIRIN 81 MG CHEWABLE TABLETS PO SCH (10:38)
[2022-03-18] MEDS: PRENATAL VITAMINS W/ FOLIC ACID TABLET (FP) PO SCH (10:39)
[2022-03-18] MEDS: NICOTINE 21 MG/24 HOURS TOPICAL PATCH TD SCH (10:40)
[2022-03-18] MEDS ORDERED: ONDANSETRON *ODT* 4 MG TABLET SL PRN (13:21)
[2022-03-18] MEDS: THIAMINE HCL 100 MG TABLET (FP) PO SCH (21:11)
[2022-03-18] MEDS: MELATONIN 5 MG TABLETS PO SCH (21:11)
[2022-03-18] MEDS: ATORVASTATIN CA 10 MG TABLET (FP) PO SCH (21:11)
[2022-03-18] MEDS: traZODone HCL 50 MG TABLET (FP) PO SCH (21:11)
[2022-03-18] MEDS: hydrOXYzine PAMOATE 25 MG CAPSULE (FP) PO PRN (21:12)
[2022-03-19] MEDS: ASPIRIN 81 MG CHEWABLE TABLETS PO SCH (10:10)
[2022-03-19] MEDS: amLODIPine BESYLATE 10 MG TABLET (FP) PO SCH (10:10)
[2022-03-19] MEDS: PRENATAL VITAMINS W/ FOLIC ACID TABLET (FP) PO SCH (10:11)
[2022-03-19] MEDS: NICOTINE 21 MG/24 HOURS TOPICAL PATCH TD SCH (10:11)
[2022-03-19] MEDS: traZODone HCL 50 MG TABLET (FP) PO SCH (21:26)
[2022-03-19] MEDS: MELATONIN 5 MG TABLETS PO SCH (21:26)
[2022-03-19] MEDS: THIAMINE HCL 100 MG TABLET (FP) PO SCH (21:26)
[2022-03-19] MEDS: hydrOXYzine PAMOATE 25 MG CAPSULE (FP) PO PRN (21:26)
[2022-03-19] MEDS: ATORVASTATIN CA 10 MG TABLET (FP) PO SCH (21:26)
[2022-03-20] MEDS: LORATADINE 10 MG TABLET PO PRN (09:43)
[2022-03-20] MEDS: NICOTINE 21 MG/24 HOURS TOPICAL PATCH TD SCH (09:43)
[2022-03-20] MEDS: PRENATAL VITAMINS W/ FOLIC ACID TABLET (FP) PO SCH (09:44)
[2022-03-20] MEDS: amLODIPine BESYLATE 10 MG TABLET (FP) PO SCH (09:44)
[2022-03-20] MEDS: ASPIRIN 81 MG CHEWABLE TABLETS PO SCH (09:44)
[2022-03-20] MEDS: THIAMINE HCL 100 MG TABLET (FP) PO SCH (21:22)
[2022-03-20] MEDS: hydrOXYzine PAMOATE 25 MG CAPSULE (FP) PO PRN (21:22)
[2022-03-20] MEDS: MELATONIN 5 MG TABLETS PO SCH (21:22)
[2022-03-20] MEDS: ATORVASTATIN CA 10 MG TABLET (FP) PO SCH (21:22)
[2022-03-20] MEDS: traZODone HCL 50 MG TABLET (FP) PO SCH (21:23)
[2022-03-21] MEDS: ASPIRIN 81 MG CHEWABLE TABLETS PO SCH (09:46)
[2022-03-21] MEDS: NICOTINE 21 MG/24 HOURS TOPICAL PATCH TD SCH (09:46)
[2022-03-21] MEDS: LORATADINE 10 MG TABLET PO PRN (09:47)
[2022-03-21] MEDS: PRENATAL VITAMINS W/ FOLIC ACID TABLET (FP) PO SCH (09:47)
[2022-03-21] MEDS: amLODIPine BESYLATE 10 MG TABLET (FP) PO SCH (09:47)
[2022-03-21] MEDS: traZODone HCL 50 MG TABLET (FP) PO SCH (21:34)
[2022-03-21] MEDS: MELATONIN 5 MG TABLETS PO SCH (21:34)
[2022-03-21] MEDS: ATORVASTATIN CA 10 MG TABLET (FP) PO SCH (21:34)
[2022-03-21] MEDS: THIAMINE HCL 100 MG TABLET (FP) PO SCH (21:34)
[2022-03-21] MEDS: hydrOXYzine PAMOATE 25 MG CAPSULE (FP) PO PRN (21:36)
[2022-03-22] MEDS: NICOTINE 21 MG/24 HOURS TOPICAL PATCH TD SCH (09:56)
[2022-03-22] MEDS: ASPIRIN 81 MG CHEWABLE TABLETS PO SCH (09:56)
[2022-03-22] MEDS: amLODIPine BESYLATE 10 MG TABLET (FP) PO SCH (09:57)
[2022-03-22] MEDS: PRENATAL VITAMINS W/ FOLIC ACID TABLET (FP) PO SCH (09:57)
[2022-03-22] MEDS: traZODone HCL 50 MG TABLET (FP) PO SCH (21:29)
[2022-03-22] MEDS: ATORVASTATIN CA 10 MG TABLET (FP) PO SCH (21:30)
[2022-03-22] MEDS: THIAMINE HCL 100 MG TABLET (FP) PO SCH (21:30)
[2022-03-22] MEDS: MELATONIN 5 MG TABLETS PO SCH (21:30)
[2022-03-22] MEDS: hydrOXYzine PAMOATE 25 MG CAPSULE (FP) PO PRN (21:31)
[2022-03-23] MEDS: ASPIRIN 81 MG CHEWABLE TABLETS PO SCH (09:44)
[2022-03-23] MEDS: NICOTINE 21 MG/24 HOURS TOPICAL PATCH TD SCH (09:44)
[2022-03-23] MEDS: hydrOXYzine PAMOATE 25 MG CAPSULE (FP) PO PRN ×2 (09:44→21:30)
[2022-03-23] MEDS: amLODIPine BESYLATE 10 MG TABLET (FP) PO SCH (09:44)
[2022-03-23] MEDS: PRENATAL VITAMINS W/ FOLIC ACID TABLET (FP) PO SCH (09:44)
[2022-03-23] MEDS: MELATONIN 5 MG TABLETS PO SCH (21:30)
[2022-03-23] MEDS: THIAMINE HCL 100 MG TABLET (FP) PO SCH (21:30)
[2022-03-23] MEDS: traZODone HCL 50 MG TABLET (FP) PO SCH (21:30)
[2022-03-23] MEDS: ATORVASTATIN CA 10 MG TABLET (FP) PO SCH (21:30)
[2022-03-24] MEDS: NICOTINE 21 MG/24 HOURS TOPICAL PATCH TD SCH (09:57)
[2022-03-24] MEDS: ASPIRIN 81 MG CHEWABLE TABLETS PO SCH (09:57)
[2022-03-24] MEDS: amLODIPine BESYLATE 10 MG TABLET (FP) PO SCH (09:57)
[2022-03-24] MEDS: PRENATAL VITAMINS W/ FOLIC ACID TABLET (FP) PO SCH (09:57)
[2022-03-24] MEDS: hydrOXYzine PAMOATE 25 MG CAPSULE (FP) PO PRN ×2 (09:58→21:43)
[2022-03-24] MEDS: ATORVASTATIN CA 10 MG TABLET (FP) PO SCH (21:42)
[2022-03-24] MEDS: THIAMINE HCL 100 MG TABLET (FP) PO SCH (21:42)
[2022-03-24] MEDS: traZODone HCL 50 MG TABLET (FP) PO SCH (21:42)
[2022-03-24] MEDS: MELATONIN 5 MG TABLETS PO SCH (21:42)
[2022-03-25] MEDS: amLODIPine BESYLATE 10 MG TABLET (FP) PO SCH (09:53)
[2022-03-25] MEDS: ASPIRIN 81 MG CHEWABLE TABLETS PO SCH (09:53)
[2022-03-25] MEDS: PRENATAL VITAMINS W/ FOLIC ACID TABLET (FP) PO SCH (09:54)
[2022-03-25] MEDS: NICOTINE 21 MG/24 HOURS TOPICAL PATCH TD SCH (09:54)
[2022-03-25] MEDS: MELATONIN 5 MG TABLETS PO SCH (21:23)
[2022-03-25] MEDS: traZODone HCL 50 MG TABLET (FP) PO SCH (21:23)
[2022-03-25] MEDS: THIAMINE HCL 100 MG TABLET (FP) PO SCH (21:23)
[2022-03-25] MEDS: ATORVASTATIN CA 10 MG TABLET (FP) PO SCH (21:23)
[2022-03-25] MEDS: hydrOXYzine PAMOATE 25 MG CAPSULE (FP) PO PRN (21:24)
[2022-03-26 08:16] VITALS: BP 121/77; PULSE 71; RESP 18; TEMP 98
[2022-03-26] MEDS: ASPIRIN 81 MG CHEWABLE TABLETS PO SCH (09:02)
[2022-03-26] MEDS: amLODIPine BESYLATE 10 MG TABLET (FP) PO SCH (09:02)
[2022-03-26] MEDS: PRENATAL VITAMINS W/ FOLIC ACID TABLET (FP) PO SCH (09:03)
[2022-03-26] MEDS: NICOTINE 21 MG/24 HOURS TOPICAL PATCH TD SCH (09:03)
== END 2022-03-26 09:05 | disposition home or self-care (01) | DRG 895 ==
LOC: YASAS 18:08 → Y3E 18:09
PROVIDERS: ADMIT Allergy & Immunology; ATTEND Family Medicine
PROC: HZ42ZZZ Group Counseling for Substance Abuse Treatment, Cognitive-Behavioral (ICD-10-PCS; principal; 2022-03-14)
DX: F10.20 Alcohol dependence, uncomplicated (principal); F14.20 Cocaine dependence, uncomplicated; F17.210 Nicotine dependence, cigarettes, uncomplicated; I10 Essential (primary) hypertension; I25.10 Atherosclerotic heart disease of native coronary artery without angina pectoris; E78.5 Hyperlipidemia, unspecified; M19.90 Unspecified osteoarthritis, unspecified site; M54.59 Other low back pain; G89.29 Other chronic pain; R01.1 Cardiac murmur, unspecified; G47.00 Insomnia, unspecified; Z95.5 Presence of coronary angioplasty implant and graft; Z59.00 Homelessness unspecified

== ENCOUNTER 2022-08-09 10:06 | Inpatient (IN) | payer OTHER ==
[2022-08-09 11:13] VITALS: BMI 30.7
[2022-08-09] MEDS ORDERED: NICOTINE 10 MG CARTRIDGE (INHALER) IH PRN (11:34)
[2022-08-09] MEDS ORDERED: IBUPROFEN 400 MG TABLET (FP) PO PRN (11:34)
[2022-08-09] MEDS ORDERED: BISMUTH SUBSALICYLATE 262 MG/15 ML BTL PO PRN (11:34)
[2022-08-09] MEDS ORDERED: MAGNESIUM HYDROX 2400MG/30ML ORAL SUSPENSION 30 ML CUP PO PRN (11:34)
[2022-08-09] MEDS ORDERED: LOPERAMIDE HCL 2 MG CAPSULE PO PRN (11:34)
[2022-08-09] MEDS ORDERED: METHOCARBAMOL 500 MG TABLET PO PRN (11:34)
[2022-08-09] MEDS ORDERED: ACETAMINOPHEN 325 MG TABLET (FP) PO PRN ×2 (11:34)
[2022-08-09] MEDS ORDERED: chlordiazePOXIDE HCL 25 MG CAPSULE PO PRN (11:34)
[2022-08-09] MEDS ORDERED: IBUPROFEN 600 MG TABLET (FP) PO PRN (11:34)
[2022-08-09] MEDS ORDERED: POLYETHYLENE GLYCOL (HEALTHYLAX) 3350 17 GM PACKET PO PRN (11:34)
[2022-08-09] MEDS ORDERED: NALOXONE HCL (KLOXXADO) 8 MG SPRAY NS PRN (11:34)
[2022-08-09] MEDS ORDERED: ONDANSETRON *ODT* 4 MG TABLET SL PRN (11:34)
[2022-08-09] MEDS ORDERED: BENZOCAINE/MENTHOL (CHLORASEPTIC ) LOZENGE MM PRN (11:34)
[2022-08-09] MEDS ORDERED: DICYCLOMINE HCL 10 MG CAPSULE PO PRN (11:34)
[2022-08-09] MEDS ORDERED: MAG HYDROX/AL HYDROX/SIMETH 30 ML UNIT-DOSE CUP PO PRN (11:34)
[2022-08-09] MEDS ORDERED: chlordiazePOXIDE HCL 25 MG CAPSULE ONE (12:12)
[2022-08-09] MEDS: chlordiazePOXIDE HCL 25 MG CAPSULE PO SCH ×3 (12:14→22:30)
[2022-08-09] MEDS: amLODIPine BESYLATE 10 MG TABLET (FP) PO SCH (12:21)
[2022-08-09] MEDS: PRENATAL VITAMINS W/ FOLIC ACID TABLET (FP) PO SCH (12:21)
[2022-08-09] MEDS: NICOTINE 21 MG/24 HOURS TOPICAL PATCH TD SCH (12:22)
[2022-08-09] MEDS: hydrOXYzine PAMOATE 25 MG CAPSULE (FP) PO PRN (17:17)
[2022-08-09 18:00] LABS: HEMOGLOBIN 13.7 GM/dL (11.7-16.9); MCH 28.1 pg (25.7-33.7); MCHC 31.9 g/dl (32.0-35.9); MEAN CELL VOLUME 88.1 fl (80-96); MEAN PLT VOLUME 9.8 fl (7.5-11.1); PLATELET COUNT 209 10^3/uL (134-434); RBC 4.88 M/mm3 (4.00-5.60); RDW 14.1 % (11.9-15.9)
[2022-08-09 18:10] LABS: ALBUMIN 3.2 g/dl (3.4-5.0); BLOOD UREA NITROGEN 24.4 mg/dL (7-18)
[2022-08-09 18:15] LABS: BILIRUBIN,TOTAL 0.5 mg/dL (0.2-1); TOT PROT 6.4 g/dl (6.4-8.2)
[2022-08-09] MEDS ORDERED: MELATONIN 5 MG TABLETS PO SCH (22:00)
[2022-08-09] MEDS: traZODone HCL 50 MG TABLET (FP) PO SCH (22:29)
[2022-08-09] MEDS: THIAMINE HCL 100 MG TABLET (FP) PO SCH (22:29)
[2022-08-09] MEDS: ATORVASTATIN CA 10 MG TABLET (FP) PO SCH (22:29)
[2022-08-10] MEDS: chlordiazePOXIDE HCL 25 MG CAPSULE PO SCH ×4 (06:18→22:29)
[2022-08-10] MEDS: PRENATAL VITAMINS W/ FOLIC ACID TABLET (FP) PO SCH (10:37)
[2022-08-10] MEDS: NICOTINE 21 MG/24 HOURS TOPICAL PATCH TD SCH (10:37)
[2022-08-10] MEDS: ASPIRIN 81 MG CHEWABLE TABLETS PO SCH (10:37)
[2022-08-10] MEDS: hydrOXYzine PAMOATE 25 MG CAPSULE (FP) PO PRN (10:37)
[2022-08-10] MEDS: amLODIPine BESYLATE 10 MG TABLET (FP) PO SCH (10:37)
[2022-08-10] MEDS: traZODone HCL 50 MG TABLET (FP) PO SCH (22:28)
[2022-08-10] MEDS: ATORVASTATIN CA 10 MG TABLET (FP) PO SCH (22:31)
[2022-08-10] MEDS: THIAMINE HCL 100 MG TABLET (FP) PO SCH (22:31)
[2022-08-11] MEDS: chlordiazePOXIDE HCL 25 MG CAPSULE PO SCH ×4 (05:44→22:40)
[2022-08-11] MEDS: hydrOXYzine PAMOATE 25 MG CAPSULE (FP) PO PRN (10:40)
[2022-08-11] MEDS: ASPIRIN 81 MG CHEWABLE TABLETS PO SCH (10:40)
[2022-08-11] MEDS: amLODIPine BESYLATE 10 MG TABLET (FP) PO SCH (10:40)
[2022-08-11] MEDS: NICOTINE 21 MG/24 HOURS TOPICAL PATCH TD SCH (10:41)
[2022-08-11] MEDS: PRENATAL VITAMINS W/ FOLIC ACID TABLET (FP) PO SCH (10:43)
[2022-08-11] MEDS: ATORVASTATIN CA 10 MG TABLET (FP) PO SCH (22:39)
[2022-08-11] MEDS: THIAMINE HCL 100 MG TABLET (FP) PO SCH (22:39)
[2022-08-11] MEDS: traZODone HCL 50 MG TABLET (FP) PO SCH (22:40)
[2022-08-12] MEDS ORDERED: chlordiazePOXIDE HCL 10 MG CAPSULE PO PRN
[2022-08-12] MEDS: chlordiazePOXIDE HCL 10 MG CAPSULE PO SCH ×4 (06:11→22:04)
[2022-08-12] MEDS: NICOTINE 21 MG/24 HOURS TOPICAL PATCH TD SCH (10:23)
[2022-08-12] MEDS: ASPIRIN 81 MG CHEWABLE TABLETS PO SCH (10:24)
[2022-08-12] MEDS: PRENATAL VITAMINS W/ FOLIC ACID TABLET (FP) PO SCH (10:24)
[2022-08-12] MEDS: amLODIPine BESYLATE 10 MG TABLET (FP) PO SCH (10:26)
[2022-08-12] MEDS: THIAMINE HCL 100 MG TABLET (FP) PO SCH (22:03)
[2022-08-12] MEDS: traZODone HCL 50 MG TABLET (FP) PO SCH (22:03)
[2022-08-12] MEDS: ATORVASTATIN CA 10 MG TABLET (FP) PO SCH (22:03)
[2022-08-13] MEDS: chlordiazePOXIDE HCL 10 MG CAPSULE PO SCH ×2 (05:48→17:23)
[2022-08-13] MEDS: ASPIRIN 81 MG CHEWABLE TABLETS PO SCH (10:30)
[2022-08-13] MEDS: amLODIPine BESYLATE 10 MG TABLET (FP) PO SCH (10:30)
[2022-08-13] MEDS: PRENATAL VITAMINS W/ FOLIC ACID TABLET (FP) PO SCH (10:30)
[2022-08-13] MEDS: NICOTINE 21 MG/24 HOURS TOPICAL PATCH TD SCH (10:31)
[2022-08-13] MEDS: traZODone HCL 50 MG TABLET (FP) PO SCH (22:17)
[2022-08-13] MEDS: ATORVASTATIN CA 10 MG TABLET (FP) PO SCH (22:18)
[2022-08-13] MEDS: THIAMINE HCL 100 MG TABLET (FP) PO SCH (22:19)
[2022-08-14] MEDS ORDERED: chlordiazePOXIDE HCL 10 MG CAPSULE PO ONE (05:00)
[2022-08-14 06:18] VITALS: BP 109/63; PULSE 71; RESP 16; TEMP 97.1
== END 2022-08-14 09:16 | disposition home or self-care (01) | DRG 897 ==
LOC: YASAS 10:06 → Y6N 12:05
PROVIDERS: ADMIT Allergy & Immunology; ATTEND Surgery
PROC: HZ2ZZZZ Detoxification Services for Substance Abuse Treatment (ICD-10-PCS; principal; 2022-08-09)
DX: F10.230 Alcohol dependence with withdrawal, uncomplicated (principal); F14.20 Cocaine dependence, uncomplicated; F19.282 Other psychoactive substance dependence with psychoactive substance-induced sleep disorder; F17.210 Nicotine dependence, cigarettes, uncomplicated; F32.A Depression, unspecified; I10 Essential (primary) hypertension; E78.5 Hyperlipidemia, unspecified; M19.90 Unspecified osteoarthritis, unspecified site; M54.59 Other low back pain; G89.29 Other chronic pain; E66.9 Obesity, unspecified; Z68.30 Body mass index [BMI] 30.0-30.9, adult; Z63.4 Disappearance and death of family member; Z95.5 Presence of coronary angioplasty implant and graft; Z56.0 Unemployment, unspecified; Z59.00 Homelessness unspecified
CPT/HCPCS: 36415; 80053; 82140; 84520; 85027; 86780; C9803-CS; U0003; U0005

== ENCOUNTER 2022-10-01 09:39 | Inpatient (IN) | payer OTHER ==
[2022-10-01 10:14] VITALS: BMI 29.8
[2022-10-01] MEDS ORDERED: IBUPROFEN 600 MG TABLET (FP) PO PRN (10:34)
[2022-10-01] MEDS ORDERED: NICOTINE 10 MG CARTRIDGE (INHALER) IH PRN (10:34)
[2022-10-01] MEDS ORDERED: BISMUTH SUBSALICYLATE 262 MG/15 ML BTL PO PRN (10:34)
[2022-10-01] MEDS ORDERED: NICOTINE POLACRILEX 4 MG GUM BUC PRN (10:34)
[2022-10-01] MEDS ORDERED: MAG HYDROX/AL HYDROX/SIMETH 30 ML UNIT-DOSE CUP PO PRN (10:34)
[2022-10-01] MEDS ORDERED: IBUPROFEN 400 MG TABLET (FP) PO PRN (10:34)
[2022-10-01] MEDS ORDERED: ONDANSETRON *ODT* 4 MG TABLET SL PRN (10:34)
[2022-10-01] MEDS ORDERED: LOPERAMIDE HCL 2 MG CAPSULE PO PRN (10:34)
[2022-10-01] MEDS ORDERED: chlordiazePOXIDE HCL 25 MG CAPSULE PO PRN (10:34)
[2022-10-01] MEDS ORDERED: MAGNESIUM HYDROX 2400MG/30ML ORAL SUSPENSION 30 ML CUP PO PRN (10:34)
[2022-10-01] MEDS ORDERED: NALOXONE HCL (KLOXXADO) 8 MG SPRAY NS PRN (10:34)
[2022-10-01] MEDS ORDERED: DICYCLOMINE HCL 10 MG CAPSULE PO PRN (10:34)
[2022-10-01] MEDS ORDERED: BENZOCAINE/MENTHOL (CHLORASEPTIC ) LOZENGE MM PRN (10:34)
[2022-10-01] MEDS ORDERED: ACETAMINOPHEN 325 MG TABLET (FP) PO PRN ×2 (10:34)
[2022-10-01] MEDS ORDERED: POLYETHYLENE GLYCOL (HEALTHYLAX) 3350 17 GM PACKET PO PRN (10:34)
[2022-10-01] MEDS: ASPIRIN 81 MG CHEWABLE TABLETS PO SCH (11:26)
[2022-10-01] MEDS: amLODIPine BESYLATE 10 MG TABLET (FP) PO SCH (11:26)
[2022-10-01] MEDS: NICOTINE 21 MG/24 HOURS TOPICAL PATCH TD SCH (11:26)
[2022-10-01] MEDS: chlordiazePOXIDE HCL 25 MG CAPSULE PO SCH ×2 (18:18→22:58)
[2022-10-01 19:01] LABS: HEMATOCRIT 41.1 % (35.4-49); HEMOGLOBIN 13.1 GM/dL (11.7-16.9); MCH 28.3 pg (25.7-33.7); MCHC 31.9 g/dl (32.0-35.9); MEAN CELL VOLUME 88.7 fl (80-96); MEAN PLT VOLUME 9.9 fl (7.5-11.1); PLATELET COUNT 168 10^3/uL (134-434); RBC 4.63 M/mm3 (4.00-5.60); RDW 14.7 % (11.9-15.9); WHITE BLOOD COUNT 6.9 K/mm3 (4.0-10.0)
[2022-10-01 19:10] LABS: CALCIUM 8.9 mg/dL (8.5-10.1)
[2022-10-01 19:11] LABS: BLOOD UREA NITROGEN 16.4 mg/dL (7-18)
[2022-10-01 19:12] LABS: ALBUMIN 3.5 g/dl (3.4-5.0)
[2022-10-01 19:14] LABS: CREATININE 0.9 mg/dL (0.55-1.3)
[2022-10-01 19:15] LABS: TOT PROT 6.8 g/dl (6.4-8.2)
[2022-10-01 19:16] LABS: BILIRUBIN,TOTAL 1.2 mg/dL (0.2-1)
[2022-10-01] MEDS: MELATONIN 5 MG TABLETS PO SCH (22:57)
[2022-10-01] MEDS: METHOCARBAMOL 500 MG TABLET PO PRN (22:57)
[2022-10-01] MEDS: hydrOXYzine PAMOATE 25 MG CAPSULE (FP) PO PRN (22:57)
[2022-10-01] MEDS: THIAMINE HCL 100 MG TABLET (FP) PO SCH (22:57)
[2022-10-02] MEDS: chlordiazePOXIDE HCL 25 MG CAPSULE PO SCH ×4 (05:52→22:37)
[2022-10-02] MEDS: METHOCARBAMOL 500 MG TABLET PO PRN ×2 (05:54→22:38)
[2022-10-02] MEDS: PRENATAL VITAMINS W/ FOLIC ACID TABLET (FP) PO SCH (10:22)
[2022-10-02] MEDS: ASPIRIN 81 MG CHEWABLE TABLETS PO SCH (10:23)
[2022-10-02] MEDS: NICOTINE 21 MG/24 HOURS TOPICAL PATCH TD SCH (10:23)
[2022-10-02] MEDS: amLODIPine BESYLATE 10 MG TABLET (FP) PO SCH (10:23)
[2022-10-02] MEDS ORDERED: LACTULOSE 20 GM/30 ML UDC (FOR ORAL USE ONLY) PO PRN (13:44)
[2022-10-02] MEDS: LACTULOSE 20 GM/30 ML UDC (FOR ORAL USE ONLY) PO SCH ×2 (14:08→22:36)
[2022-10-02] MEDS ORDERED: POTASSIUM CHLORIDE ORAL LIQUID 20 MEQ/15 ML PO ONE (14:15)
[2022-10-02] MEDS: THIAMINE HCL 100 MG TABLET (FP) PO SCH (22:37)
[2022-10-02] MEDS: MELATONIN 5 MG TABLETS PO SCH (22:37)
[2022-10-02] MEDS: hydrOXYzine PAMOATE 25 MG CAPSULE (FP) PO PRN (22:39)
[2022-10-03] MEDS ORDERED: chlordiazePOXIDE HCL 10 MG CAPSULE PO PRN
[2022-10-03] MEDS: LACTULOSE 20 GM/30 ML UDC (FOR ORAL USE ONLY) PO SCH ×3 (05:40→22:23)
[2022-10-03] MEDS: chlordiazePOXIDE HCL 10 MG CAPSULE PO SCH ×4 (05:40→22:22)
[2022-10-03] MEDS: PRENATAL VITAMINS W/ FOLIC ACID TABLET (FP) PO SCH (10:13)
[2022-10-03] MEDS: ASPIRIN 81 MG CHEWABLE TABLETS PO SCH (10:13)
[2022-10-03] MEDS: amLODIPine BESYLATE 10 MG TABLET (FP) PO SCH (10:13)
[2022-10-03] MEDS: NICOTINE 21 MG/24 HOURS TOPICAL PATCH TD SCH (10:15)
[2022-10-03] MEDS: METHOCARBAMOL 500 MG TABLET PO PRN (22:21)
[2022-10-03] MEDS: hydrOXYzine PAMOATE 25 MG CAPSULE (FP) PO PRN (22:21)
[2022-10-03] MEDS: MELATONIN 5 MG TABLETS PO SCH (22:21)
[2022-10-03] MEDS: THIAMINE HCL 100 MG TABLET (FP) PO SCH (22:22)
[2022-10-03] MEDS: traZODone HCL 50 MG TABLET (FP) PO SCH (22:22)
[2022-10-04] MEDS: chlordiazePOXIDE HCL 10 MG CAPSULE PO SCH ×2 (05:40→16:48)
[2022-10-04] MEDS: LACTULOSE 20 GM/30 ML UDC (FOR ORAL USE ONLY) PO SCH ×3 (05:40→21:22)
[2022-10-04] MEDS: amLODIPine BESYLATE 10 MG TABLET (FP) PO SCH (10:16)
[2022-10-04] MEDS: ASPIRIN 81 MG CHEWABLE TABLETS PO SCH (10:16)
[2022-10-04] MEDS: PRENATAL VITAMINS W/ FOLIC ACID TABLET (FP) PO SCH (10:16)
[2022-10-04] MEDS: NICOTINE 21 MG/24 HOURS TOPICAL PATCH TD SCH (10:17)
[2022-10-04 17:10] VITALS: RESP 18
[2022-10-04] MEDS: THIAMINE HCL 100 MG TABLET (FP) PO SCH (21:21)
[2022-10-04] MEDS: traZODone HCL 50 MG TABLET (FP) PO SCH (21:21)
[2022-10-04] MEDS: MELATONIN 5 MG TABLETS PO SCH (21:21)
[2022-10-04] MEDS: hydrOXYzine PAMOATE 25 MG CAPSULE (FP) PO PRN (21:24)
[2022-10-04] MEDS: METHOCARBAMOL 500 MG TABLET PO PRN (21:24)
[2022-10-05] MEDS ORDERED: chlordiazePOXIDE HCL 10 MG CAPSULE PO ONE (05:00)
[2022-10-05] MEDS: LACTULOSE 20 GM/30 ML UDC (FOR ORAL USE ONLY) PO SCH (05:45)
[2022-10-05] MEDS: amLODIPine BESYLATE 10 MG TABLET (FP) PO SCH (10:15)
[2022-10-05] MEDS: ASPIRIN 81 MG CHEWABLE TABLETS PO SCH (10:15)
[2022-10-05] MEDS: NICOTINE 21 MG/24 HOURS TOPICAL PATCH TD SCH (10:16)
[2022-10-05] MEDS: PRENATAL VITAMINS W/ FOLIC ACID TABLET (FP) PO SCH (10:16)
[2022-10-05 13:17] VITALS: BP 114/75; PULSE 84; TEMP 97.3
== END 2022-10-05 14:03 | disposition other institution (70) | DRG 897 ==
LOC: YASAS 09:39 → Y3N 10:42
PROVIDERS: ADMIT Allergy & Immunology; ATTEND Surgery
PROC: HZ2ZZZZ Detoxification Services for Substance Abuse Treatment (ICD-10-PCS; principal; 2022-10-01)
DX: F10.230 Alcohol dependence with withdrawal, uncomplicated (principal); F14.20 Cocaine dependence, uncomplicated; E72.20 Disorder of urea cycle metabolism, unspecified; F12.20 Cannabis dependence, uncomplicated; F17.210 Nicotine dependence, cigarettes, uncomplicated; F19.24 Other psychoactive substance dependence with psychoactive substance-induced mood disorder; I25.83 Coronary atherosclerosis due to lipid rich plaque; I10 Essential (primary) hypertension; Z95.5 Presence of coronary angioplasty implant and graft; E87.6 Hypokalemia; M54.50 Low back pain, unspecified; G89.29 Other chronic pain; R73.9 Hyperglycemia, unspecified
CPT/HCPCS: 36415; 80053; 80061; 82140; 82306; 82962; 83036; 84132; 85027; 86780; 87811; C9803-CS; U0003; U0005

== ENCOUNTER 2022-10-05 13:23 | Inpatient (IN) | payer OTHER ==
[2022-10-05] MEDS ORDERED: LOPERAMIDE HCL 2 MG CAPSULE PO PRN (14:54)
[2022-10-05] MEDS ORDERED: POLYETHYLENE GLYCOL (HEALTHYLAX) 3350 17 GM PACKET PO PRN (14:54)
[2022-10-05] MEDS ORDERED: MAGNESIUM HYDROX 2400MG/30ML ORAL SUSPENSION 30 ML CUP PO PRN (14:54)
[2022-10-05] MEDS ORDERED: guaiFENesin 200 MG/10 ML 10 ML UNIT-DOSE CUPS PO PRN (14:54)
[2022-10-05] MEDS ORDERED: ACETAMINOPHEN 325 MG TABLET (FP) PO PRN (14:54)
[2022-10-05] MEDS ORDERED: BENZOCAINE/MENTHOL (CHLORASEPTIC ) LOZENGE MM PRN (14:54)
[2022-10-05] MEDS ORDERED: NICOTINE 10 MG CARTRIDGE (INHALER) IH PRN (14:54)
[2022-10-05] MEDS ORDERED: P-EPHED 60MG/TRIPROLIDI 2.5MG TABLET PO PRN (14:54)
[2022-10-05] MEDS ORDERED: MAG HYDROX/AL HYDROX/SIMETH 30 ML UNIT-DOSE CUP PO PRN (14:54)
[2022-10-05] MEDS: MELATONIN 5 MG TABLETS PO SCH (21:36)
[2022-10-05] MEDS: THIAMINE HCL 100 MG TABLET (FP) PO SCH (21:36)
[2022-10-05] MEDS: hydrOXYzine PAMOATE 25 MG CAPSULE (FP) PO PRN (21:37)
[2022-10-06] MEDS: ASPIRIN 81 MG CHEWABLE TABLETS PO SCH (09:54)
[2022-10-06] MEDS: amLODIPine BESYLATE 10 MG TABLET (FP) PO SCH (09:54)
[2022-10-06] MEDS: PRENATAL VITAMINS W/ FOLIC ACID TABLET (FP) PO SCH (09:55)
[2022-10-06] MEDS: IBUPROFEN 400 MG TABLET (FP) PO PRN (09:56)
[2022-10-06] MEDS: hydrOXYzine PAMOATE 25 MG CAPSULE (FP) PO PRN ×2 (09:56→22:02)
[2022-10-06] MEDS: NICOTINE 21 MG/24 HOURS TOPICAL PATCH TD SCH (11:40)
[2022-10-06] MEDS: LACTULOSE 20 GM/30 ML UDC (FOR ORAL USE ONLY) PO SCH ×2 (13:55→21:58)
[2022-10-06] MEDS: ATORVASTATIN CA 10 MG TABLET (FP) PO SCH (22:00)
[2022-10-06] MEDS: traZODone HCL 50 MG TABLET (FP) PO SCH (22:00)
[2022-10-06] MEDS: THIAMINE HCL 100 MG TABLET (FP) PO SCH (22:02)
[2022-10-06] MEDS: MELATONIN 5 MG TABLETS PO SCH (22:02)
[2022-10-07] MEDS: LACTULOSE 20 GM/30 ML UDC (FOR ORAL USE ONLY) PO SCH ×3 (06:53→21:16)
[2022-10-07] MEDS: NICOTINE 21 MG/24 HOURS TOPICAL PATCH TD SCH (10:18)
[2022-10-07] MEDS: PRENATAL VITAMINS W/ FOLIC ACID TABLET (FP) PO SCH (10:18)
[2022-10-07] MEDS: ASPIRIN 81 MG CHEWABLE TABLETS PO SCH (10:19)
[2022-10-07] MEDS: amLODIPine BESYLATE 10 MG TABLET (FP) PO SCH (10:19)
[2022-10-07] MEDS: THIAMINE HCL 100 MG TABLET (FP) PO SCH (21:15)
[2022-10-07] MEDS: MELATONIN 5 MG TABLETS PO SCH (21:15)
[2022-10-07] MEDS: hydrOXYzine PAMOATE 25 MG CAPSULE (FP) PO PRN (21:16)
[2022-10-07] MEDS: traZODone HCL 50 MG TABLET (FP) PO SCH (21:16)
[2022-10-07] MEDS: ATORVASTATIN CA 10 MG TABLET (FP) PO SCH (21:16)
[2022-10-08] MEDS: LACTULOSE 20 GM/30 ML UDC (FOR ORAL USE ONLY) PO SCH ×3 (06:18→21:13)
[2022-10-08] MEDS: PRENATAL VITAMINS W/ FOLIC ACID TABLET (FP) PO SCH (10:13)
[2022-10-08] MEDS: amLODIPine BESYLATE 10 MG TABLET (FP) PO SCH (10:13)
[2022-10-08] MEDS: ASPIRIN 81 MG CHEWABLE TABLETS PO SCH (10:13)
[2022-10-08] MEDS: hydrOXYzine PAMOATE 25 MG CAPSULE (FP) PO PRN ×2 (10:15→21:13)
[2022-10-08] MEDS: NICOTINE 21 MG/24 HOURS TOPICAL PATCH TD SCH (10:15)
[2022-10-08] MEDS: MELATONIN 5 MG TABLETS PO SCH (21:12)
[2022-10-08] MEDS: THIAMINE HCL 100 MG TABLET (FP) PO SCH (21:12)
[2022-10-08] MEDS: ATORVASTATIN CA 10 MG TABLET (FP) PO SCH (21:13)
[2022-10-08] MEDS: traZODone HCL 50 MG TABLET (FP) PO SCH (21:13)
[2022-10-09] MEDS: LACTULOSE 20 GM/30 ML UDC (FOR ORAL USE ONLY) PO SCH ×3 (06:32→21:06)
[2022-10-09] MEDS: amLODIPine BESYLATE 10 MG TABLET (FP) PO SCH (09:55)
[2022-10-09] MEDS: ASPIRIN 81 MG CHEWABLE TABLETS PO SCH (09:55)
[2022-10-09] MEDS: PRENATAL VITAMINS W/ FOLIC ACID TABLET (FP) PO SCH (09:56)
[2022-10-09] MEDS: NICOTINE 21 MG/24 HOURS TOPICAL PATCH TD SCH (09:56)
[2022-10-09] MEDS: MELATONIN 5 MG TABLETS PO SCH (21:06)
[2022-10-09] MEDS: ATORVASTATIN CA 10 MG TABLET (FP) PO SCH (21:06)
[2022-10-09] MEDS: hydrOXYzine PAMOATE 25 MG CAPSULE (FP) PO PRN (21:06)
[2022-10-09] MEDS: traZODone HCL 50 MG TABLET (FP) PO SCH (21:06)
[2022-10-09] MEDS: THIAMINE HCL 100 MG TABLET (FP) PO SCH (21:06)
[2022-10-10] MEDS: LACTULOSE 20 GM/30 ML UDC (FOR ORAL USE ONLY) PO SCH ×3 (06:22→21:21)
[2022-10-10] MEDS: ASPIRIN 81 MG CHEWABLE TABLETS PO SCH (10:01)
[2022-10-10] MEDS: NICOTINE 21 MG/24 HOURS TOPICAL PATCH TD SCH (10:01)
[2022-10-10] MEDS: PRENATAL VITAMINS W/ FOLIC ACID TABLET (FP) PO SCH (10:02)
[2022-10-10] MEDS: amLODIPine BESYLATE 10 MG TABLET (FP) PO SCH (10:02)
[2022-10-10] MEDS: hydrOXYzine PAMOATE 25 MG CAPSULE (FP) PO PRN (21:20)
[2022-10-10] MEDS: MELATONIN 5 MG TABLETS PO SCH (21:20)
[2022-10-10] MEDS: ATORVASTATIN CA 10 MG TABLET (FP) PO SCH (21:20)
[2022-10-10] MEDS: THIAMINE HCL 100 MG TABLET (FP) PO SCH (21:20)
[2022-10-10] MEDS: traZODone HCL 100 MG TABLET (FP) PO SCH (21:21)
[2022-10-11] MEDS: LACTULOSE 20 GM/30 ML UDC (FOR ORAL USE ONLY) PO SCH ×3 (06:24→21:24)
[2022-10-11] MEDS: PRENATAL VITAMINS W/ FOLIC ACID TABLET (FP) PO SCH (09:44)
[2022-10-11] MEDS: ASPIRIN 81 MG CHEWABLE TABLETS PO SCH (09:45)
[2022-10-11] MEDS: NICOTINE 21 MG/24 HOURS TOPICAL PATCH TD SCH (09:45)
[2022-10-11] MEDS: amLODIPine BESYLATE 10 MG TABLET (FP) PO SCH (09:45)
[2022-10-11] MEDS: ATORVASTATIN CA 10 MG TABLET (FP) PO SCH (21:24)
[2022-10-11] MEDS: THIAMINE HCL 100 MG TABLET (FP) PO SCH (21:24)
[2022-10-11] MEDS: traZODone HCL 100 MG TABLET (FP) PO SCH (21:25)
[2022-10-11] MEDS: MELATONIN 5 MG TABLETS PO SCH (21:25)
[2022-10-11] MEDS: hydrOXYzine PAMOATE 25 MG CAPSULE (FP) PO PRN (21:25)
[2022-10-12] MEDS: LACTULOSE 20 GM/30 ML UDC (FOR ORAL USE ONLY) PO SCH ×3 (06:09→21:25)
[2022-10-12] MEDS: ASPIRIN 81 MG CHEWABLE TABLETS PO SCH (09:54)
[2022-10-12] MEDS: NICOTINE 21 MG/24 HOURS TOPICAL PATCH TD SCH (09:54)
[2022-10-12] MEDS: amLODIPine BESYLATE 10 MG TABLET (FP) PO SCH (09:55)
[2022-10-12] MEDS: PRENATAL VITAMINS W/ FOLIC ACID TABLET (FP) PO SCH (09:55)
[2022-10-12] MEDS: traZODone HCL 100 MG TABLET (FP) PO SCH (21:25)
[2022-10-12] MEDS: THIAMINE HCL 100 MG TABLET (FP) PO SCH (21:25)
[2022-10-12] MEDS: ATORVASTATIN CA 10 MG TABLET (FP) PO SCH (21:25)
[2022-10-12] MEDS: MELATONIN 5 MG TABLETS PO SCH (21:25)
[2022-10-12] MEDS: hydrOXYzine PAMOATE 25 MG CAPSULE (FP) PO PRN (21:26)
[2022-10-13] MEDS: LACTULOSE 20 GM/30 ML UDC (FOR ORAL USE ONLY) PO SCH ×3 (06:11→21:30)
[2022-10-13] MEDS: PRENATAL VITAMINS W/ FOLIC ACID TABLET (FP) PO SCH (10:07)
[2022-10-13] MEDS: amLODIPine BESYLATE 10 MG TABLET (FP) PO SCH (10:07)
[2022-10-13] MEDS: ASPIRIN 81 MG CHEWABLE TABLETS PO SCH (10:07)
[2022-10-13] MEDS: NICOTINE 21 MG/24 HOURS TOPICAL PATCH TD SCH (10:07)
[2022-10-13] MEDS: MELATONIN 5 MG TABLETS PO SCH (21:29)
[2022-10-13] MEDS: THIAMINE HCL 100 MG TABLET (FP) PO SCH (21:29)
[2022-10-13] MEDS: hydrOXYzine PAMOATE 25 MG CAPSULE (FP) PO PRN (21:30)
[2022-10-13] MEDS: ATORVASTATIN CA 10 MG TABLET (FP) PO SCH (21:30)
[2022-10-13] MEDS: traZODone HCL 100 MG TABLET (FP) PO SCH (21:30)
[2022-10-14] MEDS: LACTULOSE 20 GM/30 ML UDC (FOR ORAL USE ONLY) PO SCH ×3 (06:07→21:22)
[2022-10-14] MEDS: PRENATAL VITAMINS W/ FOLIC ACID TABLET (FP) PO SCH (09:47)
[2022-10-14] MEDS: ASPIRIN 81 MG CHEWABLE TABLETS PO SCH (09:47)
[2022-10-14] MEDS: NICOTINE 21 MG/24 HOURS TOPICAL PATCH TD SCH (09:47)
[2022-10-14] MEDS: amLODIPine BESYLATE 10 MG TABLET (FP) PO SCH (09:47)
[2022-10-14] MEDS: COLLOIDAL OATMEAL 1 BAR EACH TP PRN (09:50)
[2022-10-14] MEDS: ATORVASTATIN CA 10 MG TABLET (FP) PO SCH (21:21)
[2022-10-14] MEDS: THIAMINE HCL 100 MG TABLET (FP) PO SCH (21:21)
[2022-10-14] MEDS: MELATONIN 5 MG TABLETS PO SCH (21:21)
[2022-10-14] MEDS: hydrOXYzine PAMOATE 25 MG CAPSULE (FP) PO PRN (21:22)
[2022-10-14] MEDS: traZODone HCL 100 MG TABLET (FP) PO SCH (21:22)
[2022-10-15] MEDS: LACTULOSE 20 GM/30 ML UDC (FOR ORAL USE ONLY) PO SCH ×3 (06:07→21:37)
[2022-10-15] MEDS: NICOTINE 21 MG/24 HOURS TOPICAL PATCH TD SCH (09:47)
[2022-10-15] MEDS: PRENATAL VITAMINS W/ FOLIC ACID TABLET (FP) PO SCH (09:47)
[2022-10-15] MEDS: amLODIPine BESYLATE 10 MG TABLET (FP) PO SCH (09:47)
[2022-10-15] MEDS: ASPIRIN 81 MG CHEWABLE TABLETS PO SCH (09:47)
[2022-10-15] MEDS: THIAMINE HCL 100 MG TABLET (FP) PO SCH (21:38)
[2022-10-15] MEDS: hydrOXYzine PAMOATE 25 MG CAPSULE (FP) PO PRN (21:38)
[2022-10-15] MEDS: MELATONIN 5 MG TABLETS PO SCH (21:39)
[2022-10-15] MEDS: traZODone HCL 100 MG TABLET (FP) PO SCH (21:39)
[2022-10-15] MEDS: ATORVASTATIN CA 10 MG TABLET (FP) PO SCH (21:39)
[2022-10-16] MEDS: LACTULOSE 20 GM/30 ML UDC (FOR ORAL USE ONLY) PO SCH ×3 (06:15→21:32)
[2022-10-16] MEDS: ASPIRIN 81 MG CHEWABLE TABLETS PO SCH (10:08)
[2022-10-16] MEDS: amLODIPine BESYLATE 10 MG TABLET (FP) PO SCH (10:08)
[2022-10-16] MEDS: NICOTINE 21 MG/24 HOURS TOPICAL PATCH TD SCH (10:08)
[2022-10-16] MEDS: PRENATAL VITAMINS W/ FOLIC ACID TABLET (FP) PO SCH (10:08)
[2022-10-16] MEDS: hydrOXYzine PAMOATE 25 MG CAPSULE (FP) PO PRN ×2 (10:10→21:33)
[2022-10-16] MEDS: THIAMINE HCL 100 MG TABLET (FP) PO SCH (21:32)
[2022-10-16] MEDS: traZODone HCL 100 MG TABLET (FP) PO SCH (21:32)
[2022-10-16] MEDS: ATORVASTATIN CA 10 MG TABLET (FP) PO SCH (21:32)
[2022-10-16] MEDS: MELATONIN 5 MG TABLETS PO SCH (21:32)
[2022-10-17] MEDS: LACTULOSE 20 GM/30 ML UDC (FOR ORAL USE ONLY) PO SCH ×3 (06:11→21:28)
[2022-10-17] MEDS: ASPIRIN 81 MG CHEWABLE TABLETS PO SCH (10:14)
[2022-10-17] MEDS: PRENATAL VITAMINS W/ FOLIC ACID TABLET (FP) PO SCH (10:15)
[2022-10-17] MEDS: amLODIPine BESYLATE 10 MG TABLET (FP) PO SCH (10:15)
[2022-10-17] MEDS: NICOTINE 21 MG/24 HOURS TOPICAL PATCH TD SCH (10:15)
[2022-10-17] MEDS: hydrOXYzine PAMOATE 25 MG CAPSULE (FP) PO PRN (10:17)
[2022-10-17] MEDS: MELATONIN 5 MG TABLETS PO SCH (21:27)
[2022-10-17] MEDS: THIAMINE HCL 100 MG TABLET (FP) PO SCH (21:27)
[2022-10-17] MEDS: traZODone HCL 100 MG TABLET (FP) PO SCH (21:28)
[2022-10-17] MEDS: ATORVASTATIN CA 10 MG TABLET (FP) PO SCH (21:28)
[2022-10-18] MEDS: LACTULOSE 20 GM/30 ML UDC (FOR ORAL USE ONLY) PO SCH ×2 (10:06→21:30)
[2022-10-18] MEDS: ASPIRIN 81 MG CHEWABLE TABLETS PO SCH (10:06)
[2022-10-18] MEDS: NICOTINE 21 MG/24 HOURS TOPICAL PATCH TD SCH (10:06)
[2022-10-18] MEDS: amLODIPine BESYLATE 10 MG TABLET (FP) PO SCH (10:07)
[2022-10-18] MEDS: PRENATAL VITAMINS W/ FOLIC ACID TABLET (FP) PO SCH (10:07)
[2022-10-18] MEDS: traZODone HCL 100 MG TABLET (FP) PO SCH (21:29)
[2022-10-18] MEDS: hydrOXYzine PAMOATE 25 MG CAPSULE (FP) PO PRN (21:29)
[2022-10-18] MEDS: MELATONIN 5 MG TABLETS PO SCH (21:29)
[2022-10-18] MEDS: ATORVASTATIN CA 10 MG TABLET (FP) PO SCH (21:29)
[2022-10-18] MEDS: THIAMINE HCL 100 MG TABLET (FP) PO SCH (21:29)
[2022-10-19] MEDS: PRENATAL VITAMINS W/ FOLIC ACID TABLET (FP) PO SCH (09:41)
[2022-10-19] MEDS: NICOTINE 21 MG/24 HOURS TOPICAL PATCH TD SCH (09:41)
[2022-10-19] MEDS: amLODIPine BESYLATE 10 MG TABLET (FP) PO SCH (09:42)
[2022-10-19] MEDS: LACTULOSE 20 GM/30 ML UDC (FOR ORAL USE ONLY) PO SCH ×2 (09:42→21:44)
[2022-10-19] MEDS: ASPIRIN 81 MG CHEWABLE TABLETS PO SCH (09:42)
[2022-10-19] MEDS: hydrOXYzine PAMOATE 25 MG CAPSULE (FP) PO PRN (21:44)
[2022-10-19] MEDS: traZODone HCL 100 MG TABLET (FP) PO SCH (21:44)
[2022-10-19] MEDS: THIAMINE HCL 100 MG TABLET (FP) PO SCH (21:44)
[2022-10-19] MEDS: ATORVASTATIN CA 10 MG TABLET (FP) PO SCH (21:44)
[2022-10-19] MEDS: MELATONIN 5 MG TABLETS PO SCH (21:45)
[2022-10-19] MEDS: IBUPROFEN 400 MG TABLET (FP) PO PRN (21:47)
[2022-10-20] MEDS: amLODIPine BESYLATE 10 MG TABLET (FP) PO SCH (09:41)
[2022-10-20] MEDS: PRENATAL VITAMINS W/ FOLIC ACID TABLET (FP) PO SCH (09:41)
[2022-10-20] MEDS: ASPIRIN 81 MG CHEWABLE TABLETS PO SCH (09:41)
[2022-10-20] MEDS: NICOTINE 21 MG/24 HOURS TOPICAL PATCH TD SCH (09:42)
[2022-10-20] MEDS: LACTULOSE 20 GM/30 ML UDC (FOR ORAL USE ONLY) PO SCH ×2 (09:42→21:35)
[2022-10-20] MEDS: ATORVASTATIN CA 10 MG TABLET (FP) PO SCH (21:35)
[2022-10-20] MEDS: hydrOXYzine PAMOATE 25 MG CAPSULE (FP) PO PRN (21:36)
[2022-10-20] MEDS: THIAMINE HCL 100 MG TABLET (FP) PO SCH (21:36)
[2022-10-20] MEDS: MELATONIN 5 MG TABLETS PO SCH (21:36)
[2022-10-20] MEDS: traZODone HCL 100 MG TABLET (FP) PO SCH (21:36)
[2022-10-21] MEDS: LACTULOSE 20 GM/30 ML UDC (FOR ORAL USE ONLY) PO SCH ×2 (10:01→21:24)
[2022-10-21] MEDS: PRENATAL VITAMINS W/ FOLIC ACID TABLET (FP) PO SCH (10:01)
[2022-10-21] MEDS: NICOTINE 21 MG/24 HOURS TOPICAL PATCH TD SCH (10:01)
[2022-10-21] MEDS: ASPIRIN 81 MG CHEWABLE TABLETS PO SCH (10:02)
[2022-10-21] MEDS: amLODIPine BESYLATE 10 MG TABLET (FP) PO SCH (10:02)
[2022-10-21] MEDS: COLLOIDAL OATMEAL 1 BAR EACH TP PRN (10:07)
[2022-10-21] MEDS: THIAMINE HCL 100 MG TABLET (FP) PO SCH (21:24)
[2022-10-21] MEDS: traZODone HCL 100 MG TABLET (FP) PO SCH (21:24)
[2022-10-21] MEDS: MELATONIN 5 MG TABLETS PO SCH (21:24)
[2022-10-21] MEDS: hydrOXYzine PAMOATE 25 MG CAPSULE (FP) PO PRN (21:24)
[2022-10-21] MEDS: ATORVASTATIN CA 10 MG TABLET (FP) PO SCH (21:24)
[2022-10-22] MEDS: LACTULOSE 20 GM/30 ML UDC (FOR ORAL USE ONLY) PO SCH ×2 (09:36→21:35)
[2022-10-22] MEDS: PRENATAL VITAMINS W/ FOLIC ACID TABLET (FP) PO SCH (09:36)
[2022-10-22] MEDS: amLODIPine BESYLATE 10 MG TABLET (FP) PO SCH (09:36)
[2022-10-22] MEDS: NICOTINE 21 MG/24 HOURS TOPICAL PATCH TD SCH (09:36)
[2022-10-22] MEDS: ASPIRIN 81 MG CHEWABLE TABLETS PO SCH (09:36)
[2022-10-22] MEDS: hydrOXYzine PAMOATE 25 MG CAPSULE (FP) PO PRN ×2 (09:37→21:35)
[2022-10-22] MEDS: ATORVASTATIN CA 10 MG TABLET (FP) PO SCH (21:35)
[2022-10-22] MEDS: MELATONIN 5 MG TABLETS PO SCH (21:35)
[2022-10-22] MEDS: THIAMINE HCL 100 MG TABLET (FP) PO SCH (21:35)
[2022-10-22] MEDS ORDERED: traZODone HCL 50 MG TABLET (FP) PO SCH (22:00)
[2022-10-23 06:38] VITALS: RESP 20; TEMP 97.3
[2022-10-23 09:12] VITALS: BP 119/74; PULSE 82
[2022-10-23] MEDS: LACTULOSE 20 GM/30 ML UDC (FOR ORAL USE ONLY) PO SCH (09:18)
[2022-10-23] MEDS: NICOTINE 21 MG/24 HOURS TOPICAL PATCH TD SCH (09:18)
[2022-10-23] MEDS: ASPIRIN 81 MG CHEWABLE TABLETS PO SCH (09:18)
[2022-10-23] MEDS: PRENATAL VITAMINS W/ FOLIC ACID TABLET (FP) PO SCH (09:19)
[2022-10-23] MEDS: amLODIPine BESYLATE 10 MG TABLET (FP) PO SCH (09:19)
== END 2022-10-23 09:23 | disposition home or self-care (01) | DRG 895 ==
LOC: YASAS 13:23 → Y3E 13:25
PROVIDERS: ADMIT Allergy & Immunology; ATTEND Allergy & Immunology
PROC: HZ42ZZZ Group Counseling for Substance Abuse Treatment, Cognitive-Behavioral (ICD-10-PCS; principal; 2022-10-05)
DX: F10.20 Alcohol dependence, uncomplicated (principal); F14.20 Cocaine dependence, uncomplicated; F17.210 Nicotine dependence, cigarettes, uncomplicated; G47.00 Insomnia, unspecified; E78.00 Pure hypercholesterolemia, unspecified; I25.10 Atherosclerotic heart disease of native coronary artery without angina pectoris; I10 Essential (primary) hypertension; Z95.5 Presence of coronary angioplasty implant and graft; R79.89 Other specified abnormal findings of blood chemistry; R01.1 Cardiac murmur, unspecified
CPT/HCPCS: 36415; 82140; 82962; 86803

== ENCOUNTER 2022-12-28 09:24 | Inpatient (IN) | payer OTHER ==
[2022-12-28 10:14] VITALS: BMI 30.7
[2022-12-28] MEDS ORDERED: ACETAMINOPHEN 325 MG TABLET (FP) PO PRN (11:23)
[2022-12-28] MEDS ORDERED: guaiFENesin 600 MG TABLET.ER (FP) PO PRN (11:23)
[2022-12-28] MEDS ORDERED: POLYETHYLENE GLYCOL (HEALTHYLAX) 3350 17 GM PACKET PO PRN (11:23)
[2022-12-28] MEDS ORDERED: MAG HYDROX/AL HYDROX/SIMETH 30 ML UNIT-DOSE CUP PO PRN (11:23)
[2022-12-28] MEDS ORDERED: NALOXONE HCL (KLOXXADO) 8 MG SPRAY NS PRN (11:23)
[2022-12-28] MEDS ORDERED: METHOCARBAMOL 500 MG TABLET PO PRN (11:23)
[2022-12-28] MEDS ORDERED: NALOXONE HCL 0.4 MG/ML VIAL IM PRN (11:23)
[2022-12-28] MEDS ORDERED: hydrOXYzine PAMOATE 25 MG CAPSULE (FP) PO PRN (11:23)
[2022-12-28] MEDS ORDERED: BENZOCAINE/MENTHOL (CHLORASEPTIC ) LOZENGE MM PRN (11:23)
[2022-12-28] MEDS ORDERED: IBUPROFEN 600 MG TABLET (FP) PO PRN (11:23)
[2022-12-28] MEDS ORDERED: ONDANSETRON *ODT* 4 MG TABLET SL PRN (11:23)
[2022-12-28] MEDS ORDERED: chlordiazePOXIDE HCL 25 MG CAPSULE PO PRN (11:23)
[2022-12-28] MEDS ORDERED: BENZONATATE 200 MG CAPSULE PO PRN (11:23)
[2022-12-28] MEDS ORDERED: MAGNESIUM HYDROX 2400MG/30ML ORAL SUSPENSION 30 ML CUP PO PRN (11:23)
[2022-12-28] MEDS ORDERED: BISMUTH SUBSALICYLATE 524 MG/30 ML PO PRN (11:23)
[2022-12-28] MEDS ORDERED: NICOTINE 10 MG CARTRIDGE (INHALER) IH PRN (11:23)
[2022-12-28] MEDS ORDERED: LOPERAMIDE HCL 2 MG CAPSULE PO PRN (11:23)
[2022-12-28] MEDS ORDERED: DICYCLOMINE HCL 10 MG CAPSULE PO PRN (11:23)
[2022-12-28] MEDS ORDERED: IBUPROFEN 400 MG TABLET (FP) PO PRN (11:23)
[2022-12-28] MEDS: chlordiazePOXIDE HCL 25 MG CAPSULE PO SCH ×2 (17:58→23:17)
[2022-12-28] MEDS ORDERED: MELATONIN 5 MG TABLETS PO SCH (22:00)
[2022-12-28] MEDS: ATORVASTATIN CA 10 MG TABLET (FP) PO SCH (23:15)
[2022-12-28] MEDS: THIAMINE HCL 100 MG TABLET (FP) PO SCH (23:17)
[2022-12-29] MEDS: chlordiazePOXIDE HCL 25 MG CAPSULE PO SCH ×4 (05:52→22:05)
[2022-12-29] MEDS ORDERED: NICOTINE 14 MG/24 HOURS TOPICAL PATCH TD SCH (10:00)
[2022-12-29] MEDS: amLODIPine BESYLATE 10 MG TABLET (FP) PO SCH (10:10)
[2022-12-29] MEDS: ASPIRIN 81 MG CHEWABLE TABLETS PO SCH (10:11)
[2022-12-29] MEDS: PRENATAL VITAMINS W/ FOLIC ACID TABLET (FP) PO SCH (10:12)
[2022-12-29] MEDS: NICOTINE 14 MG/24 HOURS TOPICAL PATCH TD SCH (12:37)
[2022-12-29] MEDS: THIAMINE HCL 100 MG TABLET (FP) PO SCH (22:04)
[2022-12-29] MEDS: ATORVASTATIN CA 10 MG TABLET (FP) PO SCH (22:04)
[2022-12-29] MEDS: traZODone HCL 100 MG TABLET (FP) PO PRN (22:04)
[2022-12-30] MEDS: chlordiazePOXIDE HCL 25 MG CAPSULE PO SCH ×4 (05:43→22:06)
[2022-12-30] MEDS: PRENATAL VITAMINS W/ FOLIC ACID TABLET (FP) PO SCH (10:14)
[2022-12-30] MEDS: ASPIRIN 81 MG CHEWABLE TABLETS PO SCH (10:14)
[2022-12-30] MEDS: NICOTINE 14 MG/24 HOURS TOPICAL PATCH TD SCH (10:16)
[2022-12-30] MEDS: amLODIPine BESYLATE 10 MG TABLET (FP) PO SCH (10:40)
[2022-12-30 12:01] LABS: POTASSIUM 3.8 mmol/L (3.5-5.1)
[2022-12-30 12:03] LABS: HEMATOCRIT 40.4 % (35.4-49); HEMOGLOBIN 13.4 GM/dL (11.7-16.9); MCH 28.9 pg (25.7-33.7); MCHC 33.2 g/dl (32.0-35.9); MEAN CELL VOLUME 86.9 fl (80-96); MEAN PLT VOLUME 9.7 fl (7.5-11.1); PLATELET COUNT 136 10^3/uL (134-434); RBC 4.65 M/mm3 (4.00-5.60); RDW 14.1 % (11.9-15.9); WHITE BLOOD COUNT 3.5 K/mm3 (4.0-10.0)
[2022-12-30 12:13] LABS: CALCIUM 8.2 mg/dL (8.5-10.1)
[2022-12-30 12:14] LABS: ALBUMIN 3.1 g/dl (3.4-5.0); BLOOD UREA NITROGEN 10.6 mg/dL (7-18)
[2022-12-30 12:17] LABS: CREATININE 0.8 mg/dL (0.55-1.3)
[2022-12-30 12:18] LABS: BILIRUBIN,TOTAL 0.6 mg/dL (0.2-1); TOT PROT 6.2 g/dl (6.4-8.2)
[2022-12-30] MEDS: ATORVASTATIN CA 10 MG TABLET (FP) PO SCH (22:05)
[2022-12-30] MEDS: traZODone HCL 100 MG TABLET (FP) PO PRN (22:05)
[2022-12-30] MEDS: THIAMINE HCL 100 MG TABLET (FP) PO SCH (22:05)
[2022-12-31] MEDS ORDERED: chlordiazePOXIDE HCL 10 MG CAPSULE PO PRN
[2022-12-31] MEDS: chlordiazePOXIDE HCL 10 MG CAPSULE PO SCH ×4 (05:43→22:01)
[2022-12-31] MEDS: PRENATAL VITAMINS W/ FOLIC ACID TABLET (FP) PO SCH (10:10)
[2022-12-31] MEDS: NICOTINE 14 MG/24 HOURS TOPICAL PATCH TD SCH (10:11)
[2022-12-31] MEDS: amLODIPine BESYLATE 10 MG TABLET (FP) PO SCH (10:11)
[2022-12-31] MEDS: ASPIRIN 81 MG CHEWABLE TABLETS PO SCH (10:11)
[2022-12-31] MEDS: THIAMINE HCL 100 MG TABLET (FP) PO SCH (21:59)
[2022-12-31] MEDS: ATORVASTATIN CA 10 MG TABLET (FP) PO SCH (22:00)
[2022-12-31] MEDS: traZODone HCL 100 MG TABLET (FP) PO PRN (22:00)
[2023-01-01] MEDS: chlordiazePOXIDE HCL 10 MG CAPSULE PO SCH ×2 (05:50→16:55)
[2023-01-01] MEDS: amLODIPine BESYLATE 10 MG TABLET (FP) PO SCH (10:07)
[2023-01-01] MEDS: PRENATAL VITAMINS W/ FOLIC ACID TABLET (FP) PO SCH (10:07)
[2023-01-01] MEDS: ASPIRIN 81 MG CHEWABLE TABLETS PO SCH (10:07)
[2023-01-01] MEDS: NICOTINE 14 MG/24 HOURS TOPICAL PATCH TD SCH (10:08)
[2023-01-01] MEDS: ATORVASTATIN CA 10 MG TABLET (FP) PO SCH (22:09)
[2023-01-01] MEDS: THIAMINE HCL 100 MG TABLET (FP) PO SCH (22:09)
[2023-01-01] MEDS: traZODone HCL 100 MG TABLET (FP) PO PRN (22:10)
[2023-01-01 22:15] VITALS: RESP 16
[2023-01-02] MEDS ORDERED: chlordiazePOXIDE HCL 10 MG CAPSULE PO ONE (05:00)
[2023-01-02 09:26] VITALS: BP 114/71; PULSE 85; TEMP 98
[2023-01-02] MEDS: ASPIRIN 81 MG CHEWABLE TABLETS PO SCH (09:35)
[2023-01-02] MEDS: PRENATAL VITAMINS W/ FOLIC ACID TABLET (FP) PO SCH (09:35)
[2023-01-02] MEDS: amLODIPine BESYLATE 10 MG TABLET (FP) PO SCH (09:35)
== END 2023-01-02 09:43 | disposition other institution (70) | DRG 897 ==
LOC: YASAS 09:24 → Y3N 12:53
PROVIDERS: ADMIT Allergy & Immunology; ATTEND Surgery
PROC: HZ2ZZZZ Detoxification Services for Substance Abuse Treatment (ICD-10-PCS; principal; 2022-12-28)
DX: F10.230 Alcohol dependence with withdrawal, uncomplicated (principal); F14.20 Cocaine dependence, uncomplicated; F19.282 Other psychoactive substance dependence with psychoactive substance-induced sleep disorder; F17.210 Nicotine dependence, cigarettes, uncomplicated; G47.00 Insomnia, unspecified; I25.10 Atherosclerotic heart disease of native coronary artery without angina pectoris; I10 Essential (primary) hypertension; Z95.5 Presence of coronary angioplasty implant and graft; Z56.0 Unemployment, unspecified; Z59.00 Homelessness unspecified
CPT/HCPCS: 36415; 80053; 85027; 86780; 87811; C9803-CS; U0003; U0005

== ENCOUNTER 2023-02-27 12:15 | Inpatient (IN) | payer OTHER ==
[2023-02-27 13:03] VITALS: BMI 27.6
[2023-02-27] MEDS ORDERED: BENZONATATE 200 MG CAPSULE PO PRN (14:56)
[2023-02-27] MEDS ORDERED: ONDANSETRON *ODT* 4 MG TABLET SL PRN (14:56)
[2023-02-27] MEDS ORDERED: MAG HYDROX/AL HYDROX/SIMETH 30 ML UNIT-DOSE CUP PO PRN (14:56)
[2023-02-27] MEDS ORDERED: BENZOCAINE/MENTHOL (CHLORASEPTIC ) LOZENGE MM PRN (14:56)
[2023-02-27] MEDS ORDERED: ACETAMINOPHEN 325 MG TABLET (FP) PO PRN (14:56)
[2023-02-27] MEDS ORDERED: LOPERAMIDE HCL 2 MG CAPSULE PO PRN (14:56)
[2023-02-27] MEDS ORDERED: MAGNESIUM HYDROX 2400MG/30ML ORAL SUSPENSION 30 ML CUP PO PRN (14:56)
[2023-02-27] MEDS ORDERED: POLYETHYLENE GLYCOL (HEALTHYLAX) 3350 17 GM PACKET PO PRN (14:56)
[2023-02-27] MEDS ORDERED: NICOTINE 10 MG CARTRIDGE (INHALER) IH PRN (14:56)
[2023-02-27] MEDS ORDERED: BISMUTH SUBSALICYLATE 262 MG/15 ML BTL PO PRN (14:56)
[2023-02-27] MEDS ORDERED: DICYCLOMINE HCL 10 MG CAPSULE PO PRN (14:56)
[2023-02-27] MEDS ORDERED: hydrOXYzine PAMOATE 25 MG CAPSULE (FP) PO PRN (14:56)
[2023-02-27] MEDS ORDERED: NALOXONE HCL (KLOXXADO) 8 MG SPRAY NS PRN (14:56)
[2023-02-27] MEDS ORDERED: IBUPROFEN 400 MG TABLET (FP) PO PRN (14:56)
[2023-02-27] MEDS ORDERED: NALOXONE HCL 0.4 MG/ML VIAL IM PRN (14:56)
[2023-02-27] MEDS ORDERED: IBUPROFEN 600 MG TABLET (FP) PO PRN (14:56)
[2023-02-27] MEDS ORDERED: guaiFENesin 600 MG TABLET.ER (FP) PO PRN (14:56)
[2023-02-27] MEDS ORDERED: NICOTINE 14 MG/24 HOURS TOPICAL PATCH TD ONE (15:37)
[2023-02-27] MEDS ORDERED: PRENATAL VITAMINS W/ FOLIC ACID TABLET (FP) PO ONE (15:37)
[2023-02-27] MEDS: NICOTINE 14 MG/24 HOURS TOPICAL PATCH TD SCH (15:40)
[2023-02-27] MEDS: PRENATAL VITAMINS W/ FOLIC ACID TABLET (FP) PO SCH (15:40)
[2023-02-27] MEDS: METHOCARBAMOL 500 MG TABLET PO PRN (17:19)
[2023-02-27] MEDS: THIAMINE HCL 100 MG TABLET (FP) PO SCH (22:25)
[2023-02-27] MEDS: MELATONIN 5 MG TABLETS PO SCH (22:25)
[2023-02-27] MEDS: ATORVASTATIN CA 10 MG TABLET (FP) PO SCH (22:25)
[2023-02-28] MEDS: METHOCARBAMOL 500 MG TABLET PO PRN ×2 (00:45→09:57)
[2023-02-28 09:42] LABS: HEMATOCRIT 42.8 % (35.4-49); HEMOGLOBIN 14.1 GM/dL (11.7-16.9); MCH 28.9 pg (25.7-33.7); MCHC 32.9 g/dl (32.0-35.9); MEAN CELL VOLUME 87.8 fl (80-96); MEAN PLT VOLUME 9.2 fl (7.5-11.1); PLATELET COUNT 154 10^3/uL (134-434); RBC 4.87 M/mm3 (4.00-5.60); RDW 14.8 % (11.9-15.9); WHITE BLOOD COUNT 3.1 K/mm3 (4.0-10.0)
[2023-02-28] MEDS: ASPIRIN 81 MG CHEWABLE TABLETS PO SCH (09:57)
[2023-02-28] MEDS: amLODIPine BESYLATE 10 MG TABLET (FP) PO SCH (09:57)
[2023-02-28] MEDS: PRENATAL VITAMINS W/ FOLIC ACID TABLET (FP) PO SCH (09:57)
[2023-02-28 09:58] LABS: ALBUMIN 2.8 g/dl (3.4-5.0); CALCIUM 8.9 mg/dL (8.5-10.1)
[2023-02-28 09:59] LABS: BLOOD UREA NITROGEN 9.4 mg/dL (7-18)
[2023-02-28] MEDS: NICOTINE 14 MG/24 HOURS TOPICAL PATCH TD SCH (10:00)
[2023-02-28 10:02] LABS: CREATININE 0.7 mg/dL (0.55-1.3)
[2023-02-28 10:03] LABS: BILIRUBIN,TOTAL 0.3 mg/dL (0.2-1); TOT PROT 5.7 g/dl (6.4-8.2)
[2023-02-28] MEDS ORDERED: chlordiazePOXIDE HCL 25 MG CAPSULE PO PRN (10:05)
[2023-02-28] MEDS: NICOTINE 21 MG/24 HOURS TOPICAL PATCH TD SCH (10:40)
[2023-02-28] MEDS: chlordiazePOXIDE HCL 25 MG CAPSULE PO SCH ×3 (10:41→22:17)
[2023-02-28] MEDS ORDERED: traZODone HCL 100 MG TABLET (FP) PO SCH (22:00)
[2023-02-28] MEDS: ATORVASTATIN CA 10 MG TABLET (FP) PO SCH (22:16)
[2023-02-28] MEDS: THIAMINE HCL 100 MG TABLET (FP) PO SCH (22:16)
[2023-02-28] MEDS: MELATONIN 5 MG TABLETS PO SCH (22:16)
[2023-03-01 05:51] VITALS: RESP 18
[2023-03-01] MEDS: chlordiazePOXIDE HCL 25 MG CAPSULE PO SCH ×3 (05:52→18:14)
[2023-03-01] MEDS ORDERED: TRIMETHOBENZAMIDE HCL 200MG/2ML INJ IM ONE (06:21)
[2023-03-01 06:49] VITALS: BP 159/93; PULSE 76; TEMP 97.1
[2023-03-01] MEDS: PRENATAL VITAMINS W/ FOLIC ACID TABLET (FP) PO SCH (10:36)
[2023-03-01] MEDS: ASPIRIN 81 MG CHEWABLE TABLETS PO SCH (10:36)
[2023-03-01] MEDS: amLODIPine BESYLATE 10 MG TABLET (FP) PO SCH (10:36)
[2023-03-01] MEDS: NICOTINE 21 MG/24 HOURS TOPICAL PATCH TD SCH (10:36)
[2023-03-02] MEDS ORDERED: chlordiazePOXIDE HCL 25 MG CAPSULE PO SCH (05:00)
[2023-03-03] MEDS ORDERED: chlordiazePOXIDE HCL 10 MG CAPSULE PO PRN
[2023-03-03] MEDS ORDERED: chlordiazePOXIDE HCL 10 MG CAPSULE PO SCH (05:00)
[2023-03-04] MEDS ORDERED: chlordiazePOXIDE HCL 10 MG CAPSULE PO SCH (05:00)
[2023-03-05] MEDS ORDERED: chlordiazePOXIDE HCL 10 MG CAPSULE PO ONE (05:00)
== END 2023-03-01 11:59 | disposition short-term general hospital (02) | DRG 897 ==
LOC: YASAS 12:15 → Y6N 15:29
PROVIDERS: ADMIT Allergy & Immunology; ATTEND Surgery
PROC: HZ2ZZZZ Detoxification Services for Substance Abuse Treatment (ICD-10-PCS; principal; 2023-02-27)
DX: F10.230 Alcohol dependence with withdrawal, uncomplicated (principal); F14.20 Cocaine dependence, uncomplicated; F19.282 Other psychoactive substance dependence with psychoactive substance-induced sleep disorder; F17.210 Nicotine dependence, cigarettes, uncomplicated; F32.A Depression, unspecified; E78.5 Hyperlipidemia, unspecified; I25.10 Atherosclerotic heart disease of native coronary artery without angina pectoris; I10 Essential (primary) hypertension; Z95.5 Presence of coronary angioplasty implant and graft; M54.50 Low back pain, unspecified; G89.29 Other chronic pain; R11.2 Nausea with vomiting, unspecified; Z59.01 Sheltered homelessness
CPT/HCPCS: 36415; 80053; 85027; 86780; 87635; 87811; Q0162

== ENCOUNTER 2023-03-01 07:19 | Observation (INO) | payer OTHER ==
[2023-03-01] MEDS ORDERED: SODIUM CHLORIDE 0.9% 500 ML INFUS.BAG IV ONE (08:04)
[2023-03-01] MEDS ORDERED: ONDANSETRON 4 MG/2 ML VIAL IVPUSH ONE (08:35)
[2023-03-01] MEDS ORDERED: ONDANSETRON 4 MG/2 ML VIAL ONE (09:07)
[2023-03-01] MEDS ORDERED: MAG HYDROX/AL HYDROX/SIMETH 30 ML UNIT-DOSE CUP PO ONE (09:07)
[2023-03-01] MEDS ORDERED: FAMOTIDINE 20 MG/50 ML IVPB 20 MG/50 ML MG IVPB ONE ×2 (09:07→09:26)
[2023-03-01 09:18] LABS: HEMATOCRIT 46.6 % (35.4-49); HEMOGLOBIN 15.3 GM/dL (11.7-16.9); MCH 28.7 pg (25.7-33.7); MCHC 32.9 g/dl (32.0-35.9); MEAN CELL VOLUME 87.3 fl (80-96); MEAN PLT VOLUME 8.9 fl (7.5-11.1); PLATELET COUNT 165 10^3/uL (134-434); RBC 5.34 M/mm3 (4.00-5.60); RDW 14.8 % (11.9-15.9)
[2023-03-01] MEDS ORDERED: MAG HYDROX/AL HYDROX/SIMETH 30 ML UNIT-DOSE CUP ONE (09:26)
[2023-03-01 09:45] LABS: CHLORIDE 102 mmol/L (98-107); SODIUM 142 mmol/L (136-145)
[2023-03-01 09:49] LABS: BLOOD UREA NITROGEN 8.2 mg/dL (7-18); CO2 32 mmol/L (21-32); GLUCOSE,RANDOM 150 mg/dL (74-106); LIPASE 70 U/L (73-393)
[2023-03-01 09:51] LABS: SGPT/ALT 32 U/L (13-61)
[2023-03-01 09:52] LABS: CREATININE 0.7 mg/dL (0.55-1.3); SGOT/AST 21 U/L (15-37)
[2023-03-01 09:53] LABS: BILIRUBIN,TOTAL 0.3 mg/dL (0.2-1); TOT PROT 7.2 g/dl (6.4-8.2)
[2023-03-01 09:54] LABS: ALK PHOS 89 U/L (45-117)
[2023-03-01 10:01] LABS: ALBUMIN 3.5 g/dl (3.4-5.0); ANION GAP 8 MMOL/L (8-16); ANISOCYTOSIS 0; HELMET CELLS 0; HOWELL-JOLLY BODIES 0; MACROCYTOSIS 0; OVALOCYTE 0; POTASSIUM 2.8 mmol/L (3.5-5.1); ROULEAU 0; SICKELED CELLS 0; TARGET CELLS 0; TEAR DROP CELLS 0; TOXIC GRANULATION 0
[2023-03-01] MEDS ORDERED: METOCLOPRAMIDE HCL INJECTION 10 MG/2 ML VIAL IVPUSH ONE (10:17)
[2023-03-01] MEDS ORDERED: METOCLOPRAMIDE HCL INJECTION 10 MG/2 ML VIAL ONE (10:32)
[2023-03-01 10:40] LABS: MAGNESIUM 1.7 mg/dL (1.8-2.4)
[2023-03-01] MEDS ORDERED: MAGNESIUM SULF 50% (8.12 MEQ/2 ML-1 GM VIAL) IVPB ONE (10:53)
[2023-03-01] MEDS ORDERED: MAGNESIUM SULFATE IN WATER 2 GM/50 ML IVPB IVPB ONE (11:28)
[2023-03-01] MEDS ORDERED: LORazepam 2 MG/ML SDV VIAL IVPUSH ONE ×2 (11:42→11:49)
[2023-03-01 11:56] LABS: OPIATES, URI NEGATIVE (NEGATIVE)
[2023-03-01 11:57] LABS: PHENCYCLIDINE,URINE NEGATIVE (NEGATIVE); URINE BARBITURATES NEGATIVE (NEGATIVE)
[2023-03-01 11:58] LABS: COCAINE, UR POSITIVE (NEGATIVE); METHADONE, UR NEGATIVE (NEGATIVE); URINE AMPHETAMINES NEGATIVE (NEGATIVE); URINE BENZODIAZEPINES POSITIVE (NEGATIVE)
[2023-03-01] MEDS ORDERED: ONDANSETRON 4 MG/2 ML VIAL IVPUSH PRN (12:22)
[2023-03-01] MEDS ORDERED: ACETAMINOPHEN 500 MG TABLET (FP) PO PRN (12:23)
[2023-03-01] MEDS ORDERED: LORazepam 2 MG/ML SDV VIAL IVPUSH PRN (12:23)
[2023-03-01] MEDS ORDERED: LACTATED RINGERS SOLUTION 1,000 ML/1,000 ML INFUS.BAG IV SCH (12:30)
[2023-03-01] MEDS ORDERED: KCL 10 MEQ IVPB 10 MEQ/100 ML INFUS.BAG IVPB ONE ×3 (12:50→17:34)
[2023-03-01] MEDS: LACTATED RINGERS SOLUTION 1,000 ML/1,000 ML INFUS.BAG IV SCH (13:01)
[2023-03-01] MEDS: KCL 10 MEQ IVPB 10 MEQ/100 ML INFUS.BAG IVPB SCH ×3 (13:01→17:41)
[2023-03-01] MEDS: HEPARIN NA (PORCINE) 5,000 UNITS/ML 1ML VIAL SQ SCH (21:37)
[2023-03-01] MEDS: ATORVASTATIN CA 10 MG TABLET (FP) PO SCH (21:37)
[2023-03-01] MEDS: traZODone HCL 100 MG, traZODone HCL 50 MG PO SCH (21:38)
[2023-03-01] MEDS ORDERED: traZODone HCL 150 MG TABLET PO SCH (22:00)
[2023-03-02] MEDS: LACTATED RINGERS SOLUTION 1,000 ML/1,000 ML INFUS.BAG IV SCH ×2 (05:41→07:00)
[2023-03-02 08:33] LABS: BASO % 0.3 % (0-2.0); EOS % 0.1 % (0-4.5); HEMATOCRIT 50.9 % (35.4-49); HEMOGLOBIN 16.4 GM/dL (11.7-16.9); LYMPH % 9.3 % (8-40); MCH 28.6 pg (25.7-33.7); MCHC 32.1 g/dl (32.0-35.9); MEAN PLT VOLUME 10.1 fl (7.5-11.1); MONO % 12.1 % (3.8-10.2); NEUT % 78.2 % (42.8-82.8); PLATELET COUNT 173 10^3/uL (134-434); RBC 5.72 M/mm3 (4.00-5.60); RDW 14.6 % (11.9-15.9); WHITE BLOOD COUNT 6.7 K/mm3 (4.0-10.0)
[2023-03-02 08:54] LABS: POTASSIUM 3.3 mmol/L (3.5-5.1)
[2023-03-02 08:59] LABS: BLOOD UREA NITROGEN 7.4 mg/dL (7-18); CALCIUM 9.1 mg/dL (8.5-10.1)
[2023-03-02 09:02] LABS: CREATININE 0.6 mg/dL (0.55-1.3)
[2023-03-02] MEDS: FOLIC ACID 1 MG TABLET (FP) PO SCH (09:29)
[2023-03-02] MEDS: amLODIPine BESYLATE 10 MG TABLET (FP) PO SCH (09:29)
[2023-03-02] MEDS: ASPIRIN 81 MG CHEWABLE TABLETS PO SCH (09:29)
[2023-03-02] MEDS: HEPARIN NA (PORCINE) 5,000 UNITS/ML 1ML VIAL SQ SCH ×2 (09:30→21:46)
[2023-03-02] MEDS: THIAMINE HCL 100 MG TABLET (FP) PO SCH (09:30)
[2023-03-02] MEDS ORDERED: POTASSIUM CHLORIDE TABS 20 MEQ TABLET.ER (FP) PO ONE (12:46)
[2023-03-02] MEDS ORDERED: diazePAM CARPU-JECT 10 MG/2 ML DISP.SYRIN IVPUSH PRN (12:47)
[2023-03-02] MEDS: KCL 10 MEQ IVPB 10 MEQ/100 ML INFUS.BAG IVPB SCH ×3 (13:03→15:14)
[2023-03-02] MEDS ORDERED: MAGNESIUM 2GM/50ML STERILE WATER IVPB IVPB ONE (13:15)
[2023-03-02] MEDS: traZODone HCL 100 MG, traZODone HCL 50 MG PO SCH (21:46)
[2023-03-02] MEDS: ATORVASTATIN CA 10 MG TABLET (FP) PO SCH (21:46)
[2023-03-03] MEDS: LACTATED RINGERS SOLUTION 1,000 ML/1,000 ML INFUS.BAG IV SCH (10:04)
[2023-03-03] MEDS: amLODIPine BESYLATE 10 MG TABLET (FP) PO SCH (10:11)
[2023-03-03] MEDS: HEPARIN NA (PORCINE) 5,000 UNITS/ML 1ML VIAL SQ SCH (10:11)
[2023-03-03] MEDS: ASPIRIN 81 MG CHEWABLE TABLETS PO SCH (10:11)
[2023-03-03] MEDS: FOLIC ACID 1 MG TABLET (FP) PO SCH (10:11)
[2023-03-03] MEDS: THIAMINE HCL 100 MG TABLET (FP) PO SCH (10:11)
[2023-03-03 11:19] LABS: HEMATOCRIT 45.1 % (35.4-49); HEMOGLOBIN 14.4 GM/dL (11.7-16.9); MCH 28.1 pg (25.7-33.7); MCHC 31.9 g/dl (32.0-35.9); MEAN PLT VOLUME 8.9 fl (7.5-11.1); PLATELET COUNT 154 10^3/uL (134-434); RBC 5.12 M/mm3 (4.00-5.60); RDW 14.9 % (11.9-15.9); WHITE BLOOD COUNT 3.4 K/mm3 (4.0-10.0)
[2023-03-03 11:32] LABS: POTASSIUM 3.7 mmol/L (3.5-5.1)
[2023-03-03 11:35] LABS: BLOOD UREA NITROGEN 11.1 mg/dL (7-18); CALCIUM 8.8 mg/dL (8.5-10.1); MAGNESIUM 2.2 mg/dL (1.8-2.4)
[2023-03-03 11:36] LABS: ALBUMIN 2.8 g/dl (3.4-5.0)
[2023-03-03 11:37] LABS: PHOSPHOROUS 2.6 mg/dL (2.5-4.9)
[2023-03-03 11:39] LABS: CREATININE 0.8 mg/dL (0.55-1.3)
[2023-03-03 11:40] LABS: BILIRUBIN,TOTAL 0.4 mg/dL (0.2-1); TOT PROT 5.8 g/dl (6.4-8.2)
[2023-03-03 14:52] VITALS: BMI 28.7
[2023-03-03 16:13] VITALS: BP 137/74; PULSE 80; RESP 20; TEMP 98.2
== END 2023-03-03 16:51 | disposition other institution (70) ==
LOC: JER 07:19 → INTOOBSV 11:50 → JERBED 11:50 → UNDOADMOB 11:50 → JERBED 12:21 → J4W 19:28
PROVIDERS: ADMIT Internal Medicine; ATTEND Psychiatry & Neurology Pain Medicine
PROC: 3E033GC Introduction of Other Therapeutic Substance into Peripheral Vein, Percutaneous Approach (ICD-10-PCS; principal; 2023-03-01)
PROC: 3E023GC Introduction of Other Therapeutic Substance into Muscle, Percutaneous Approach (ICD-10-PCS; 2023-03-01)
PROC: 3E0337Z Introduction of Electrolytic and Water Balance Substance into Peripheral Vein, Percutaneous Approach (ICD-10-PCS; 2023-03-01)
PROC: 3E033NZ Introduction of Analgesics, Hypnotics, Sedatives into Peripheral Vein, Percutaneous Approach (ICD-10-PCS; 2023-03-01)
DX: F10.90 Alcohol use, unspecified, uncomplicated (principal); I25.10 Atherosclerotic heart disease of native coronary artery without angina pectoris; R11.2 Nausea with vomiting, unspecified; R10.9 Unspecified abdominal pain; E83.42 Hypomagnesemia; F14.10 Cocaine abuse, uncomplicated; E87.6 Hypokalemia
CPT/HCPCS: 36415; 74018-TC-FY; 74176-TC; 80048; 80053; 80307; 83690; 83735; 84100; 84484; 85025; 85027; 93005; 93010; 96365; 96367; 96372; 96375; 97116-GP; 97162-GP; 99285-25; G0378; J1644

== ENCOUNTER 2023-03-03 17:39 | Inpatient (IN) | payer OTHER ==
[2023-03-03 18:46] VITALS: BMI 28.7
[2023-03-03] MEDS ORDERED: MELATONIN 5 MG TABLETS PO SCH (22:00)
[2023-03-03] MEDS ORDERED: IBUPROFEN 600 MG TABLET (FP) PO PRN (22:22)
[2023-03-03] MEDS ORDERED: POLYETHYLENE GLYCOL (HEALTHYLAX) 3350 17 GM PACKET PO PRN (22:22)
[2023-03-03] MEDS ORDERED: ACETAMINOPHEN 325 MG TABLET (FP) PO PRN (22:22)
[2023-03-03] MEDS ORDERED: P-EPHED 60MG/TRIPROLIDI 2.5MG TABLET PO PRN (22:22)
[2023-03-03] MEDS ORDERED: BENZOCAINE/MENTHOL (CHLORASEPTIC ) LOZENGE MM PRN (22:22)
[2023-03-03] MEDS ORDERED: MAG HYDROX/AL HYDROX/SIMETH 30 ML UNIT-DOSE CUP PO PRN (22:22)
[2023-03-03] MEDS ORDERED: LOPERAMIDE HCL 2 MG CAPSULE PO PRN (22:22)
[2023-03-03] MEDS ORDERED: IBUPROFEN 400 MG TABLET (FP) PO PRN (22:22)
[2023-03-03] MEDS ORDERED: AMMONIUM LACTATE 12% LOTION 225 GM BOTTLE TP PRN (22:22)
[2023-03-03] MEDS ORDERED: guaiFENesin 600 MG TABLET.ER (FP) PO PRN (22:22)
[2023-03-03] MEDS ORDERED: BENZONATATE 200 MG CAPSULE PO PRN (22:22)
[2023-03-03] MEDS ORDERED: COLLOIDAL OATMEAL 1 BAR EACH TP PRN (22:22)
[2023-03-03] MEDS ORDERED: MAGNESIUM HYDROX 2400MG/30ML ORAL SUSPENSION 30 ML CUP PO PRN (22:22)
[2023-03-03] MEDS ORDERED: traZODone HCL 50 MG TABLET (FP) PO ONE (23:00)
[2023-03-04] MEDS: VITAMINS A AND D TOPICAL OINTMENT 60 GM TUBE TP SCH ×4 (00:02→18:35)
[2023-03-04 07:06] VITALS: RESP 18
[2023-03-04] MEDS: NICOTINE 21 MG/24 HOURS TOPICAL PATCH TD SCH (09:53)
[2023-03-04] MEDS: metoPROLOL SUCCINATE 25 MG TAB.SR.24H (FP) PO SCH (09:53)
[2023-03-04] MEDS: PRENATAL VITAMINS W/ FOLIC ACID TABLET (FP) PO SCH (09:53)
[2023-03-04] MEDS: ASPIRIN 81 MG CHEWABLE TABLETS PO SCH (09:54)
[2023-03-04] MEDS: amLODIPine BESYLATE 10 MG TABLET (FP) PO SCH (09:54)
[2023-03-04] MEDS: ATORVASTATIN CA 10 MG TABLET (FP) PO SCH (21:14)
[2023-03-04] MEDS: traZODone HCL 100 MG TABLET (FP) PO SCH (21:14)
[2023-03-04] MEDS: THIAMINE HCL 100 MG TABLET (FP) PO SCH (21:14)
[2023-03-05] MEDS: VITAMINS A AND D TOPICAL OINTMENT 60 GM TUBE TP SCH ×4 (01:07→17:09)
[2023-03-05] MEDS: NICOTINE 21 MG/24 HOURS TOPICAL PATCH TD SCH (10:05)
[2023-03-05] MEDS: PRENATAL VITAMINS W/ FOLIC ACID TABLET (FP) PO SCH (10:05)
[2023-03-05] MEDS: amLODIPine BESYLATE 10 MG TABLET (FP) PO SCH (10:05)
[2023-03-05] MEDS: metoPROLOL SUCCINATE 25 MG TAB.SR.24H (FP) PO SCH (10:05)
[2023-03-05] MEDS: ASPIRIN 81 MG CHEWABLE TABLETS PO SCH (10:05)
[2023-03-05] MEDS: THIAMINE HCL 100 MG TABLET (FP) PO SCH (21:22)
[2023-03-05] MEDS: ATORVASTATIN CA 10 MG TABLET (FP) PO SCH (21:22)
[2023-03-05] MEDS: traZODone HCL 100 MG TABLET (FP) PO SCH (21:22)
[2023-03-05] MEDS: hydrOXYzine PAMOATE 25 MG CAPSULE (FP) PO PRN (21:23)
[2023-03-06] MEDS: VITAMINS A AND D TOPICAL OINTMENT 60 GM TUBE TP SCH ×4 (01:36→18:12)
[2023-03-06] MEDS: ASPIRIN 81 MG CHEWABLE TABLETS PO SCH (09:36)
[2023-03-06] MEDS: NICOTINE 21 MG/24 HOURS TOPICAL PATCH TD SCH (09:36)
[2023-03-06] MEDS: PRENATAL VITAMINS W/ FOLIC ACID TABLET (FP) PO SCH (09:36)
[2023-03-06] MEDS: metoPROLOL SUCCINATE 25 MG TAB.SR.24H (FP) PO SCH (09:36)
[2023-03-06] MEDS: amLODIPine BESYLATE 10 MG TABLET (FP) PO SCH (09:37)
[2023-03-06] MEDS: ATORVASTATIN CA 10 MG TABLET (FP) PO SCH (21:31)
[2023-03-06] MEDS: hydrOXYzine PAMOATE 25 MG CAPSULE (FP) PO PRN (21:32)
[2023-03-06] MEDS: THIAMINE HCL 100 MG TABLET (FP) PO SCH (21:32)
[2023-03-06] MEDS ORDERED: traZODone HCL 50 MG TABLET (FP) PO SCH (22:00)
[2023-03-07] MEDS: VITAMINS A AND D TOPICAL OINTMENT 60 GM TUBE TP SCH ×3 (02:23→12:19)
[2023-03-07 08:05] VITALS: TEMP 97.1
[2023-03-07] MEDS: ASPIRIN 81 MG CHEWABLE TABLETS PO SCH (10:16)
[2023-03-07] MEDS: PRENATAL VITAMINS W/ FOLIC ACID TABLET (FP) PO SCH (10:16)
[2023-03-07] MEDS: metoPROLOL SUCCINATE 25 MG TAB.SR.24H (FP) PO SCH (10:16)
[2023-03-07] MEDS: amLODIPine BESYLATE 10 MG TABLET (FP) PO SCH (10:16)
[2023-03-07] MEDS: NICOTINE 21 MG/24 HOURS TOPICAL PATCH TD SCH (10:17)
[2023-03-07 12:22] VITALS: BP 116/61; PULSE 80
== END 2023-03-07 15:45 | disposition home or self-care (01) | DRG 895 ==
LOC: YASAS 17:39 → Y3W 22:27
PROVIDERS: ADMIT Allergy & Immunology; ATTEND Psychiatry & Neurology Pain Medicine
PROC: HZ42ZZZ Group Counseling for Substance Abuse Treatment, Cognitive-Behavioral (ICD-10-PCS; principal; 2023-03-03)
DX: F10.20 Alcohol dependence, uncomplicated (principal); F14.20 Cocaine dependence, uncomplicated; F19.282 Other psychoactive substance dependence with psychoactive substance-induced sleep disorder; F41.9 Anxiety disorder, unspecified; F32.A Depression, unspecified; E78.5 Hyperlipidemia, unspecified; I25.10 Atherosclerotic heart disease of native coronary artery without angina pectoris; I10 Essential (primary) hypertension; Z95.5 Presence of coronary angioplasty implant and graft; M54.50 Low back pain, unspecified; G89.29 Other chronic pain; Z59.01 Sheltered homelessness

== ENCOUNTER 2023-04-28 10:10 | Inpatient (IN) | payer OTHER ==
[2023-04-28 10:25] VITALS: BMI 27.6
[2023-04-28] MEDS ORDERED: BISMUTH SUBSALICYLATE 524 MG/30 ML PO PRN (10:55)
[2023-04-28] MEDS ORDERED: NALOXONE HCL (KLOXXADO) 8 MG SPRAY NS PRN (10:55)
[2023-04-28] MEDS ORDERED: POLYETHYLENE GLYCOL (HEALTHYLAX) 3350 17 GM PACKET PO PRN (10:55)
[2023-04-28] MEDS ORDERED: IBUPROFEN 400 MG TABLET (FP) PO PRN (10:55)
[2023-04-28] MEDS ORDERED: IBUPROFEN 600 MG TABLET (FP) PO PRN (10:55)
[2023-04-28] MEDS ORDERED: guaiFENesin 600 MG TABLET.ER (FP) PO PRN (10:55)
[2023-04-28] MEDS ORDERED: ONDANSETRON *ODT* 4 MG TABLET SL PRN (10:55)
[2023-04-28] MEDS ORDERED: BENZOCAINE/MENTHOL (CHLORASEPTIC ) LOZENGE MM PRN (10:55)
[2023-04-28] MEDS ORDERED: NALOXONE HCL 0.4 MG/ML VIAL IM PRN (10:55)
[2023-04-28] MEDS ORDERED: LOPERAMIDE HCL 2 MG CAPSULE PO PRN (10:55)
[2023-04-28] MEDS ORDERED: hydrOXYzine PAMOATE 25 MG CAPSULE (FP) PO PRN (10:55)
[2023-04-28] MEDS ORDERED: NICOTINE POLACRILEX 2 MG GUM BUC PRN (10:55)
[2023-04-28] MEDS ORDERED: MAGNESIUM HYDROX 2400MG/30ML ORAL SUSPENSION 30 ML CUP PO PRN (10:55)
[2023-04-28] MEDS ORDERED: BENZONATATE 200 MG CAPSULE PO PRN (10:55)
[2023-04-28] MEDS ORDERED: MAG HYDROX/AL HYDROX/SIMETH 30 ML UNIT-DOSE CUP PO PRN (10:55)
[2023-04-28] MEDS ORDERED: ACETAMINOPHEN 325 MG TABLET (FP) PO PRN (10:55)
[2023-04-28] MEDS ORDERED: chlordiazePOXIDE HCL 25 MG CAPSULE PO PRN (10:58)
[2023-04-28] MEDS: chlordiazePOXIDE HCL 25 MG CAPSULE PO SCH ×3 (11:16→22:27)
[2023-04-28] MEDS ORDERED: MELATONIN 5 MG TABLETS PO SCH (22:00)
[2023-04-28] MEDS: THIAMINE HCL 100 MG TABLET (FP) PO SCH (22:27)
[2023-04-28] MEDS: ATORVASTATIN CA 10 MG TABLET (FP) PO SCH (22:27)
[2023-04-29] MEDS: chlordiazePOXIDE HCL 25 MG CAPSULE PO SCH ×4 (05:20→22:20)
[2023-04-29] MEDS: PRENATAL VITAMINS W/ FOLIC ACID TABLET (FP) PO SCH (10:12)
[2023-04-29] MEDS: ASPIRIN 81 MG CHEWABLE TABLETS PO SCH (10:12)
[2023-04-29] MEDS: NICOTINE 21 MG/24 HOURS TOPICAL PATCH TD SCH (10:13)
[2023-04-29] MEDS: amLODIPine BESYLATE 10 MG TABLET (FP) PO SCH (10:13)
[2023-04-29 10:27] LABS: POTASSIUM 3.4 mmol/L (3.5-5.1)
[2023-04-29 10:30] LABS: HEMATOCRIT 44.2 % (35.4-49); MCHC 31.6 g/dl (32.0-35.9); MEAN CELL VOLUME 88.5 fl (80-96); MEAN PLT VOLUME 9.8 fl (7.5-11.1); PLATELET COUNT 153 10^3/uL (134-434); RDW 13.6 % (11.9-15.9); WHITE BLOOD COUNT 3.8 K/mm3 (4.0-10.0)
[2023-04-29 10:33] LABS: CALCIUM 8.5 mg/dL (8.5-10.1)
[2023-04-29 10:34] LABS: ALBUMIN 2.9 g/dl (3.4-5.0); BLOOD UREA NITROGEN 13.5 mg/dL (7-18)
[2023-04-29 10:37] LABS: CREATININE 0.7 mg/dL (0.55-1.3)
[2023-04-29 10:38] LABS: TOT PROT 5.9 g/dl (6.4-8.2)
[2023-04-29 10:39] LABS: BILIRUBIN,TOTAL 0.5 mg/dL (0.2-1)
[2023-04-29] MEDS ORDERED: POTASSIUM CHLORIDE ORAL LIQUID 20 MEQ/15 ML PO ONE (11:15)
[2023-04-29] MEDS: POTASSIUM CHLORIDE ORAL LIQUID 20 MEQ/15 ML PO SCH (22:19)
[2023-04-29] MEDS: ATORVASTATIN CA 10 MG TABLET (FP) PO SCH (22:20)
[2023-04-29] MEDS: THIAMINE HCL 100 MG TABLET (FP) PO SCH (22:23)
[2023-04-29] MEDS: traZODone HCL 100 MG TABLET (FP) PO SCH (22:23)
[2023-04-30] MEDS: chlordiazePOXIDE HCL 25 MG CAPSULE PO SCH ×4 (05:58→22:17)
[2023-04-30] MEDS: ASPIRIN 81 MG CHEWABLE TABLETS PO SCH (10:21)
[2023-04-30] MEDS: POTASSIUM CHLORIDE ORAL LIQUID 20 MEQ/15 ML PO SCH ×2 (10:21→22:16)
[2023-04-30] MEDS: amLODIPine BESYLATE 10 MG TABLET (FP) PO SCH (10:21)
[2023-04-30] MEDS: PRENATAL VITAMINS W/ FOLIC ACID TABLET (FP) PO SCH (10:21)
[2023-04-30] MEDS: NICOTINE 21 MG/24 HOURS TOPICAL PATCH TD SCH (10:22)
[2023-04-30] MEDS: THIAMINE HCL 100 MG TABLET (FP) PO SCH (22:16)
[2023-04-30] MEDS: traZODone HCL 100 MG TABLET (FP) PO SCH (22:17)
[2023-04-30] MEDS: ATORVASTATIN CA 10 MG TABLET (FP) PO SCH (22:17)
[2023-05-01] MEDS ORDERED: chlordiazePOXIDE HCL 10 MG CAPSULE PO PRN
[2023-05-01] MEDS: chlordiazePOXIDE HCL 10 MG CAPSULE PO SCH ×4 (05:56→22:29)
[2023-05-01] MEDS: PRENATAL VITAMINS W/ FOLIC ACID TABLET (FP) PO SCH (10:31)
[2023-05-01] MEDS: ASPIRIN 81 MG CHEWABLE TABLETS PO SCH (10:31)
[2023-05-01] MEDS: amLODIPine BESYLATE 10 MG TABLET (FP) PO SCH (10:31)
[2023-05-01] MEDS: NICOTINE 21 MG/24 HOURS TOPICAL PATCH TD SCH (10:31)
[2023-05-01] MEDS: THIAMINE HCL 100 MG TABLET (FP) PO SCH (22:29)
[2023-05-01] MEDS: traZODone HCL 100 MG TABLET (FP) PO SCH (22:29)
[2023-05-01] MEDS: ATORVASTATIN CA 10 MG TABLET (FP) PO SCH (22:29)
[2023-05-02] MEDS: chlordiazePOXIDE HCL 10 MG CAPSULE PO SCH ×2 (05:21→17:42)
[2023-05-02] MEDS: PRENATAL VITAMINS W/ FOLIC ACID TABLET (FP) PO SCH (11:07)
[2023-05-02] MEDS: NICOTINE 21 MG/24 HOURS TOPICAL PATCH TD SCH (11:07)
[2023-05-02] MEDS: ASPIRIN 81 MG CHEWABLE TABLETS PO SCH (11:07)
[2023-05-02] MEDS: amLODIPine BESYLATE 10 MG TABLET (FP) PO SCH (11:07)
[2023-05-02] MEDS: ATORVASTATIN CA 10 MG TABLET (FP) PO SCH (22:30)
[2023-05-02] MEDS: THIAMINE HCL 100 MG TABLET (FP) PO SCH (22:30)
[2023-05-02] MEDS: traZODone HCL 100 MG TABLET (FP) PO SCH (22:30)
[2023-05-03] MEDS ORDERED: chlordiazePOXIDE HCL 10 MG CAPSULE PO ONE (05:00)
[2023-05-03] MEDS: ASPIRIN 81 MG CHEWABLE TABLETS PO SCH (10:44)
[2023-05-03] MEDS: PRENATAL VITAMINS W/ FOLIC ACID TABLET (FP) PO SCH (10:44)
[2023-05-03] MEDS: amLODIPine BESYLATE 10 MG TABLET (FP) PO SCH (10:44)
[2023-05-03] MEDS: NICOTINE 21 MG/24 HOURS TOPICAL PATCH TD SCH (10:45)
[2023-05-03 17:46] VITALS: BP 109/67; PULSE 78; RESP 16; TEMP 97.6
== END 2023-05-03 17:16 | disposition other institution (70) | DRG 897 ==
LOC: YASAS 10:10 → Y6N 11:31
PROVIDERS: ADMIT Allergy & Immunology; ATTEND Surgery
PROC: HZ2ZZZZ Detoxification Services for Substance Abuse Treatment (ICD-10-PCS; principal; 2023-04-28)
DX: F10.230 Alcohol dependence with withdrawal, uncomplicated (principal); F14.20 Cocaine dependence, uncomplicated; F19.282 Other psychoactive substance dependence with psychoactive substance-induced sleep disorder; F17.210 Nicotine dependence, cigarettes, uncomplicated; E87.6 Hypokalemia; E78.5 Hyperlipidemia, unspecified; I25.10 Atherosclerotic heart disease of native coronary artery without angina pectoris; I10 Essential (primary) hypertension; Z95.5 Presence of coronary angioplasty implant and graft; Z56.0 Unemployment, unspecified; Z59.00 Homelessness unspecified
CPT/HCPCS: 36415; 80053; 84132; 85027; 86780; 87635; 87811

== ENCOUNTER 2023-05-03 18:05 | Inpatient (IN) | payer OTHER ==
[2023-05-03] MEDS ORDERED: hydrOXYzine PAMOATE 25 MG CAPSULE (FP) PO PRN (20:01)
[2023-05-03] MEDS ORDERED: MAG HYDROX/AL HYDROX/SIMETH 30 ML UNIT-DOSE CUP PO PRN (20:01)
[2023-05-03] MEDS ORDERED: BENZOCAINE/MENTHOL (CHLORASEPTIC ) LOZENGE MM PRN (20:01)
[2023-05-03] MEDS ORDERED: ACETAMINOPHEN 325 MG TABLET (FP) PO PRN (20:01)
[2023-05-03] MEDS ORDERED: BENZONATATE 200 MG CAPSULE PO PRN (20:01)
[2023-05-03] MEDS ORDERED: NALOXONE HCL (KLOXXADO) 8 MG SPRAY NS PRN (20:01)
[2023-05-03] MEDS ORDERED: AMMONIUM LACTATE 12% LOTION 225 GM BOTTLE TP PRN (20:01)
[2023-05-03] MEDS ORDERED: LOPERAMIDE HCL 2 MG CAPSULE PO PRN (20:01)
[2023-05-03] MEDS ORDERED: NALOXONE HCL 0.4 MG/ML VIAL IM PRN (20:01)
[2023-05-03] MEDS ORDERED: IBUPROFEN 400 MG TABLET (FP) PO PRN (20:01)
[2023-05-03] MEDS ORDERED: POLYETHYLENE GLYCOL (HEALTHYLAX) 3350 17 GM PACKET PO PRN (20:01)
[2023-05-03] MEDS ORDERED: guaiFENesin 600 MG TABLET.ER (FP) PO PRN (20:01)
[2023-05-03] MEDS ORDERED: MAGNESIUM HYDROX 2400MG/30ML ORAL SUSPENSION 30 ML CUP PO PRN (20:01)
[2023-05-03] MEDS: THIAMINE HCL 100 MG TABLET (FP) PO SCH (21:13)
[2023-05-03] MEDS: ATORVASTATIN CA 10 MG TABLET (FP) PO SCH (21:13)
[2023-05-03] MEDS: MELATONIN 5 MG TABLETS PO SCH (21:13)
[2023-05-04] MEDS: ASPIRIN 81 MG CHEWABLE TABLETS PO SCH (09:49)
[2023-05-04] MEDS: PRENATAL VITAMINS W/ FOLIC ACID TABLET (FP) PO SCH (09:49)
[2023-05-04] MEDS: metoPROLOL SUCCINATE 25 MG TAB.SR.24H (FP) PO SCH (09:49)
[2023-05-04] MEDS: amLODIPine BESYLATE 10 MG TABLET (FP) PO SCH (09:50)
[2023-05-04 10:21] LABS: POTASSIUM 3.9 mmol/L (3.5-5.1)
[2023-05-04 10:29] LABS: HEMATOCRIT 42.6 % (35.4-49); HEMOGLOBIN 13.5 GM/dL (11.7-16.9); MCH 28.2 pg (25.7-33.7); MCHC 31.7 g/dl (32.0-35.9); PLATELET COUNT 152 10^3/uL (134-434); RBC 4.78 M/mm3 (4.00-5.60); RDW 13.7 % (11.9-15.9); WHITE BLOOD COUNT 2.8 K/mm3 (4.0-10.0)
[2023-05-04 10:30] LABS: ALBUMIN 3.1 g/dl (3.4-5.0); BLOOD UREA NITROGEN 10.6 mg/dL (7-18); CALCIUM 8.2 mg/dL (8.5-10.1)
[2023-05-04 10:33] LABS: CREATININE 0.7 mg/dL (0.55-1.3); TOT PROT 6.2 g/dl (6.4-8.2)
[2023-05-04 10:34] LABS: BILIRUBIN,TOTAL 0.4 mg/dL (0.2-1)
[2023-05-04 11:10] LABS: SYPHILIS W/ RPR CONF NON-REACTIVE (NONREACTIVE)
[2023-05-04] MEDS: NICOTINE 21 MG/24 HOURS TOPICAL PATCH TD SCH (12:07)
[2023-05-04] MEDS: ATORVASTATIN CA 10 MG TABLET (FP) PO SCH (21:33)
[2023-05-04] MEDS: THIAMINE HCL 100 MG TABLET (FP) PO SCH (21:33)
[2023-05-04] MEDS: CALCIUM 500MG/VIT-D 200 UNITS COMBO TABLET (FP) PO SCH (21:33)
[2023-05-04] MEDS: traZODone HCL 50 MG TABLET (FP) PO SCH (21:33)
[2023-05-04] MEDS: MELATONIN 5 MG TABLETS PO SCH (21:34)
[2023-05-05] MEDS: CALCIUM 500MG/VIT-D 200 UNITS COMBO TABLET (FP) PO SCH ×2 (09:40→21:14)
[2023-05-05] MEDS: NICOTINE 21 MG/24 HOURS TOPICAL PATCH TD SCH (09:40)
[2023-05-05] MEDS: amLODIPine BESYLATE 10 MG TABLET (FP) PO SCH (09:40)
[2023-05-05] MEDS: ASPIRIN 81 MG CHEWABLE TABLETS PO SCH (09:40)
[2023-05-05] MEDS: PRENATAL VITAMINS W/ FOLIC ACID TABLET (FP) PO SCH (09:40)
[2023-05-05] MEDS: metoPROLOL SUCCINATE 25 MG TAB.SR.24H (FP) PO SCH (09:40)
[2023-05-05] MEDS: traZODone HCL 50 MG TABLET (FP) PO SCH (21:14)
[2023-05-05] MEDS: MELATONIN 5 MG TABLETS PO SCH (21:14)
[2023-05-05] MEDS: ATORVASTATIN CA 10 MG TABLET (FP) PO SCH (21:14)
[2023-05-05] MEDS: THIAMINE HCL 100 MG TABLET (FP) PO SCH (21:14)
[2023-05-06] MEDS: amLODIPine BESYLATE 10 MG TABLET (FP) PO SCH (10:08)
[2023-05-06] MEDS: ASPIRIN 81 MG CHEWABLE TABLETS PO SCH (10:08)
[2023-05-06] MEDS: NICOTINE 21 MG/24 HOURS TOPICAL PATCH TD SCH (10:08)
[2023-05-06] MEDS: metoPROLOL SUCCINATE 25 MG TAB.SR.24H (FP) PO SCH (10:09)
[2023-05-06] MEDS: PRENATAL VITAMINS W/ FOLIC ACID TABLET (FP) PO SCH (10:09)
[2023-05-06] MEDS: CALCIUM 500MG/VIT-D 200 UNITS COMBO TABLET (FP) PO SCH ×2 (10:09→21:12)
[2023-05-06] MEDS: VITAMINS A AND D TOPICAL OINTMENT 60 GM TUBE TP PRN (10:10)
[2023-05-06 11:50] LABS: HEMATOCRIT 44.2 % (35.4-49); HEMOGLOBIN 14.4 GM/dL (11.7-16.9); MCH 28.2 pg (25.7-33.7); MCHC 32.7 g/dl (32.0-35.9); MEAN CELL VOLUME 86.2 fl (80-96); MEAN PLT VOLUME 9.3 fl (7.5-11.1); PLATELET COUNT 141 10^3/uL (134-434); RBC 5.13 M/mm3 (4.00-5.60); RDW 13.9 % (11.9-15.9); WHITE BLOOD COUNT 2.3 K/mm3 (4.0-10.0)
[2023-05-06 12:20] LABS: ANISOCYTOSIS 0; MACROCYTOSIS 0
[2023-05-06 12:48] LABS: HIV INTERPRETATION NEGATIVE (NEGATIVE)
[2023-05-06] MEDS: LACTULOSE 20 GM/30 ML UDC (FOR ORAL USE ONLY) PO SCH ×2 (15:44→21:12)
[2023-05-06] MEDS: MELATONIN 5 MG TABLETS PO SCH (21:12)
[2023-05-06] MEDS: ATORVASTATIN CA 10 MG TABLET (FP) PO SCH (21:12)
[2023-05-06] MEDS: traZODone HCL 50 MG TABLET (FP) PO SCH (21:12)
[2023-05-06] MEDS: THIAMINE HCL 100 MG TABLET (FP) PO SCH (21:12)
[2023-05-07] MEDS: LACTULOSE 20 GM/30 ML UDC (FOR ORAL USE ONLY) PO SCH ×3 (06:40→21:31)
[2023-05-07] MEDS: ASPIRIN 81 MG CHEWABLE TABLETS PO SCH (10:14)
[2023-05-07] MEDS: NICOTINE 21 MG/24 HOURS TOPICAL PATCH TD SCH (10:14)
[2023-05-07] MEDS: amLODIPine BESYLATE 10 MG TABLET (FP) PO SCH (10:15)
[2023-05-07] MEDS: CALCIUM 500MG/VIT-D 200 UNITS COMBO TABLET (FP) PO SCH ×2 (10:15→21:32)
[2023-05-07] MEDS: PANTOPRAZOLE 20 MG TABLET PO SCH (10:16)
[2023-05-07] MEDS: PRENATAL VITAMINS W/ FOLIC ACID TABLET (FP) PO SCH (10:16)
[2023-05-07] MEDS: metoPROLOL SUCCINATE 25 MG TAB.SR.24H (FP) PO SCH (10:17)
[2023-05-07 10:41] LABS: PH,URINE 5.5 (5.0-8.0); URINE APPEARANCE CLEAR; URINE BILIRUBIN NEGATIVE (NEGATIVE); URINE COLOR YELLOW; URINE GLUCOSE (UA) NEGATIVE (NEGATIVE); URINE KETONE NEGATIVE (NEGATIVE); URINE LEUK ESTERASE NEGATIVE (NEGATIVE); URINE NITRITE NEGATIVE (NEGATIVE); URINE PROTEIN NEGATIVE (NEGATIVE); URINE UROBILINOGEN 0.2 mg/dL (0.2-1.0)
[2023-05-07] MEDS: traZODone HCL 50 MG TABLET (FP) PO SCH (21:31)
[2023-05-07] MEDS: MELATONIN 5 MG TABLETS PO SCH (21:32)
[2023-05-07] MEDS: ATORVASTATIN CA 10 MG TABLET (FP) PO SCH (21:32)
[2023-05-07] MEDS: THIAMINE HCL 100 MG TABLET (FP) PO SCH (21:33)
[2023-05-08] MEDS: LACTULOSE 20 GM/30 ML UDC (FOR ORAL USE ONLY) PO SCH ×3 (05:59→21:19)
[2023-05-08] MEDS: CALCIUM 500MG/VIT-D 200 UNITS COMBO TABLET (FP) PO SCH ×2 (09:56→21:19)
[2023-05-08] MEDS: PANTOPRAZOLE 20 MG TABLET PO SCH (09:56)
[2023-05-08] MEDS: ASPIRIN 81 MG CHEWABLE TABLETS PO SCH (09:56)
[2023-05-08] MEDS: metoPROLOL SUCCINATE 25 MG TAB.SR.24H (FP) PO SCH (09:56)
[2023-05-08] MEDS: PRENATAL VITAMINS W/ FOLIC ACID TABLET (FP) PO SCH (09:56)
[2023-05-08] MEDS: amLODIPine BESYLATE 10 MG TABLET (FP) PO SCH (09:56)
[2023-05-08] MEDS: NICOTINE 21 MG/24 HOURS TOPICAL PATCH TD SCH (09:57)
[2023-05-08] MEDS: traZODone HCL 50 MG TABLET (FP) PO SCH (21:19)
[2023-05-08] MEDS: ATORVASTATIN CA 10 MG TABLET (FP) PO SCH (21:19)
[2023-05-08] MEDS: MELATONIN 5 MG TABLETS PO SCH (21:19)
[2023-05-08] MEDS: THIAMINE HCL 100 MG TABLET (FP) PO SCH (21:19)
[2023-05-09] MEDS: LACTULOSE 20 GM/30 ML UDC (FOR ORAL USE ONLY) PO SCH ×3 (06:35→21:03)
[2023-05-09] MEDS: PRENATAL VITAMINS W/ FOLIC ACID TABLET (FP) PO SCH (09:56)
[2023-05-09] MEDS: metoPROLOL SUCCINATE 25 MG TAB.SR.24H (FP) PO SCH (09:56)
[2023-05-09] MEDS: ASPIRIN 81 MG CHEWABLE TABLETS PO SCH (09:56)
[2023-05-09] MEDS: CALCIUM 500MG/VIT-D 200 UNITS COMBO TABLET (FP) PO SCH ×2 (09:57→21:02)
[2023-05-09] MEDS: PANTOPRAZOLE 20 MG TABLET PO SCH (09:57)
[2023-05-09] MEDS: amLODIPine BESYLATE 10 MG TABLET (FP) PO SCH (09:57)
[2023-05-09] MEDS: NICOTINE 21 MG/24 HOURS TOPICAL PATCH TD SCH (09:58)
[2023-05-09] MEDS: traZODone HCL 50 MG TABLET (FP) PO SCH (21:02)
[2023-05-09] MEDS: ATORVASTATIN CA 10 MG TABLET (FP) PO SCH (21:02)
[2023-05-09] MEDS: THIAMINE HCL 100 MG TABLET (FP) PO SCH (21:03)
[2023-05-09] MEDS: MELATONIN 5 MG TABLETS PO SCH (21:03)
[2023-05-10] MEDS: LACTULOSE 20 GM/30 ML UDC (FOR ORAL USE ONLY) PO SCH ×3 (07:13→21:20)
[2023-05-10] MEDS: PRENATAL VITAMINS W/ FOLIC ACID TABLET (FP) PO SCH (09:48)
[2023-05-10] MEDS: amLODIPine BESYLATE 10 MG TABLET (FP) PO SCH (09:49)
[2023-05-10] MEDS: NICOTINE 21 MG/24 HOURS TOPICAL PATCH TD SCH (09:49)
[2023-05-10] MEDS: ASPIRIN 81 MG CHEWABLE TABLETS PO SCH (09:49)
[2023-05-10] MEDS: metoPROLOL SUCCINATE 25 MG TAB.SR.24H (FP) PO SCH (09:49)
[2023-05-10] MEDS: PANTOPRAZOLE 20 MG TABLET PO SCH (09:49)
[2023-05-10] MEDS: CALCIUM 500MG/VIT-D 200 UNITS COMBO TABLET (FP) PO SCH ×2 (09:49→21:20)
[2023-05-10] MEDS: traZODone HCL 50 MG TABLET (FP) PO SCH (21:20)
[2023-05-10] MEDS: THIAMINE HCL 100 MG TABLET (FP) PO SCH (21:20)
[2023-05-10] MEDS: MELATONIN 5 MG TABLETS PO SCH (21:20)
[2023-05-10] MEDS: ATORVASTATIN CA 10 MG TABLET (FP) PO SCH (21:20)
[2023-05-11] MEDS: LACTULOSE 20 GM/30 ML UDC (FOR ORAL USE ONLY) PO SCH ×3 (06:32→21:18)
[2023-05-11] MEDS: ASPIRIN 81 MG CHEWABLE TABLETS PO SCH (09:57)
[2023-05-11] MEDS: NICOTINE 21 MG/24 HOURS TOPICAL PATCH TD SCH (09:57)
[2023-05-11] MEDS: PANTOPRAZOLE 20 MG TABLET PO SCH (09:58)
[2023-05-11] MEDS: CALCIUM 500MG/VIT-D 200 UNITS COMBO TABLET (FP) PO SCH ×2 (09:58→21:18)
[2023-05-11] MEDS: PRENATAL VITAMINS W/ FOLIC ACID TABLET (FP) PO SCH (09:59)
[2023-05-11] MEDS: metoPROLOL SUCCINATE 25 MG TAB.SR.24H (FP) PO SCH (09:59)
[2023-05-11] MEDS: amLODIPine BESYLATE 10 MG TABLET (FP) PO SCH (09:59)
[2023-05-11] MEDS: ATORVASTATIN CA 10 MG TABLET (FP) PO SCH (21:18)
[2023-05-11] MEDS: THIAMINE HCL 100 MG TABLET (FP) PO SCH (21:18)
[2023-05-11] MEDS: MELATONIN 5 MG TABLETS PO SCH (21:18)
[2023-05-11] MEDS: traZODone HCL 50 MG TABLET (FP) PO SCH (21:18)
[2023-05-12] MEDS: LACTULOSE 20 GM/30 ML UDC (FOR ORAL USE ONLY) PO SCH ×3 (05:50→21:13)
[2023-05-12] MEDS: metoPROLOL SUCCINATE 25 MG TAB.SR.24H (FP) PO SCH (10:15)
[2023-05-12] MEDS: PRENATAL VITAMINS W/ FOLIC ACID TABLET (FP) PO SCH (10:15)
[2023-05-12] MEDS: PANTOPRAZOLE 20 MG TABLET PO SCH (10:15)
[2023-05-12] MEDS: ASPIRIN 81 MG CHEWABLE TABLETS PO SCH (10:15)
[2023-05-12] MEDS: CALCIUM 500MG/VIT-D 200 UNITS COMBO TABLET (FP) PO SCH ×2 (10:15→21:13)
[2023-05-12] MEDS: amLODIPine BESYLATE 10 MG TABLET (FP) PO SCH (10:15)
[2023-05-12] MEDS: NICOTINE 21 MG/24 HOURS TOPICAL PATCH TD SCH (10:16)
[2023-05-12] MEDS: MELATONIN 5 MG TABLETS PO SCH (21:12)
[2023-05-12] MEDS: ATORVASTATIN CA 10 MG TABLET (FP) PO SCH (21:12)
[2023-05-12] MEDS: traZODone HCL 100 MG TABLET (FP) PO SCH (21:13)
[2023-05-12] MEDS: THIAMINE HCL 100 MG TABLET (FP) PO SCH (21:13)
[2023-05-13] MEDS: LACTULOSE 20 GM/30 ML UDC (FOR ORAL USE ONLY) PO SCH ×3 (06:07→21:11)
[2023-05-13] MEDS: PRENATAL VITAMINS W/ FOLIC ACID TABLET (FP) PO SCH (09:34)
[2023-05-13] MEDS: CALCIUM 500MG/VIT-D 200 UNITS COMBO TABLET (FP) PO SCH ×2 (09:34→21:11)
[2023-05-13] MEDS: NICOTINE 21 MG/24 HOURS TOPICAL PATCH TD SCH (09:34)
[2023-05-13] MEDS: amLODIPine BESYLATE 10 MG TABLET (FP) PO SCH (09:34)
[2023-05-13] MEDS: metoPROLOL SUCCINATE 25 MG TAB.SR.24H (FP) PO SCH (09:34)
[2023-05-13] MEDS: PANTOPRAZOLE 20 MG TABLET PO SCH (09:34)
[2023-05-13] MEDS: ASPIRIN 81 MG CHEWABLE TABLETS PO SCH (09:34)
[2023-05-13] MEDS: ATORVASTATIN CA 10 MG TABLET (FP) PO SCH (21:11)
[2023-05-13] MEDS: THIAMINE HCL 100 MG TABLET (FP) PO SCH (21:11)
[2023-05-13] MEDS: MELATONIN 5 MG TABLETS PO SCH (21:11)
[2023-05-13] MEDS: traZODone HCL 100 MG TABLET (FP) PO SCH (21:11)
[2023-05-14] MEDS: LACTULOSE 20 GM/30 ML UDC (FOR ORAL USE ONLY) PO SCH ×3 (06:40→21:33)
[2023-05-14] MEDS: NICOTINE 21 MG/24 HOURS TOPICAL PATCH TD SCH (10:05)
[2023-05-14] MEDS: ASPIRIN 81 MG CHEWABLE TABLETS PO SCH (10:05)
[2023-05-14] MEDS: PRENATAL VITAMINS W/ FOLIC ACID TABLET (FP) PO SCH (10:05)
[2023-05-14] MEDS: metoPROLOL SUCCINATE 25 MG TAB.SR.24H (FP) PO SCH (10:05)
[2023-05-14] MEDS: PANTOPRAZOLE 20 MG TABLET PO SCH (10:05)
[2023-05-14] MEDS: amLODIPine BESYLATE 10 MG TABLET (FP) PO SCH (10:06)
[2023-05-14] MEDS: CALCIUM 500MG/VIT-D 200 UNITS COMBO TABLET (FP) PO SCH ×2 (10:06→21:34)
[2023-05-14] MEDS: ATORVASTATIN CA 10 MG TABLET (FP) PO SCH (21:33)
[2023-05-14] MEDS: traZODone HCL 100 MG TABLET (FP) PO SCH (21:33)
[2023-05-14] MEDS: THIAMINE HCL 100 MG TABLET (FP) PO SCH (21:34)
[2023-05-14] MEDS: MELATONIN 5 MG TABLETS PO SCH (21:34)
[2023-05-15] MEDS: LACTULOSE 20 GM/30 ML UDC (FOR ORAL USE ONLY) PO SCH ×3 (05:57→21:22)
[2023-05-15] MEDS: amLODIPine BESYLATE 10 MG TABLET (FP) PO SCH (10:00)
[2023-05-15] MEDS: metoPROLOL SUCCINATE 25 MG TAB.SR.24H (FP) PO SCH (10:00)
[2023-05-15] MEDS: PANTOPRAZOLE 20 MG TABLET PO SCH (10:00)
[2023-05-15] MEDS: ASPIRIN 81 MG CHEWABLE TABLETS PO SCH (10:00)
[2023-05-15] MEDS: PRENATAL VITAMINS W/ FOLIC ACID TABLET (FP) PO SCH (10:00)
[2023-05-15] MEDS: NICOTINE 21 MG/24 HOURS TOPICAL PATCH TD SCH (10:00)
[2023-05-15] MEDS: CALCIUM 500MG/VIT-D 200 UNITS COMBO TABLET (FP) PO SCH ×2 (10:01→21:22)
[2023-05-15] MEDS: THIAMINE HCL 100 MG TABLET (FP) PO SCH (21:22)
[2023-05-15] MEDS: MELATONIN 5 MG TABLETS PO SCH (21:22)
[2023-05-15] MEDS: traZODone HCL 100 MG TABLET (FP) PO SCH (21:22)
[2023-05-15] MEDS: ATORVASTATIN CA 10 MG TABLET (FP) PO SCH (21:22)
[2023-05-16] MEDS: LACTULOSE 20 GM/30 ML UDC (FOR ORAL USE ONLY) PO SCH ×3 (05:59→21:26)
[2023-05-16] MEDS: PRENATAL VITAMINS W/ FOLIC ACID TABLET (FP) PO SCH (09:45)
[2023-05-16] MEDS: NICOTINE 21 MG/24 HOURS TOPICAL PATCH TD SCH (09:45)
[2023-05-16] MEDS: COLLOIDAL OATMEAL 1 BAR EACH TP PRN (09:46)
[2023-05-16] MEDS: ASPIRIN 81 MG CHEWABLE TABLETS PO SCH (09:47)
[2023-05-16] MEDS: amLODIPine BESYLATE 10 MG TABLET (FP) PO SCH (09:47)
[2023-05-16] MEDS: PANTOPRAZOLE 20 MG TABLET PO SCH (09:47)
[2023-05-16] MEDS: CALCIUM 500MG/VIT-D 200 UNITS COMBO TABLET (FP) PO SCH ×2 (09:47→21:27)
[2023-05-16] MEDS: metoPROLOL SUCCINATE 25 MG TAB.SR.24H (FP) PO SCH (09:47)
[2023-05-16] MEDS: MELATONIN 5 MG TABLETS PO SCH (21:27)
[2023-05-16] MEDS: ATORVASTATIN CA 10 MG TABLET (FP) PO SCH (21:27)
[2023-05-16] MEDS: traZODone HCL 100 MG TABLET (FP) PO SCH (21:27)
[2023-05-16] MEDS: THIAMINE HCL 100 MG TABLET (FP) PO SCH (21:27)
[2023-05-17] MEDS: LACTULOSE 20 GM/30 ML UDC (FOR ORAL USE ONLY) PO SCH ×3 (05:57→20:59)
[2023-05-17] MEDS: CALCIUM 500MG/VIT-D 200 UNITS COMBO TABLET (FP) PO SCH ×2 (09:59→21:00)
[2023-05-17] MEDS: metoPROLOL SUCCINATE 25 MG TAB.SR.24H (FP) PO SCH (09:59)
[2023-05-17] MEDS: amLODIPine BESYLATE 10 MG TABLET (FP) PO SCH (09:59)
[2023-05-17] MEDS: ASPIRIN 81 MG CHEWABLE TABLETS PO SCH (09:59)
[2023-05-17] MEDS: PRENATAL VITAMINS W/ FOLIC ACID TABLET (FP) PO SCH (09:59)
[2023-05-17] MEDS: PANTOPRAZOLE 20 MG TABLET PO SCH (09:59)
[2023-05-17] MEDS: NICOTINE 21 MG/24 HOURS TOPICAL PATCH TD SCH (10:00)
[2023-05-17] MEDS: ATORVASTATIN CA 10 MG TABLET (FP) PO SCH (21:00)
[2023-05-17] MEDS: MELATONIN 5 MG TABLETS PO SCH (21:00)
[2023-05-17] MEDS: traZODone HCL 100 MG TABLET (FP) PO SCH (21:00)
[2023-05-17] MEDS: THIAMINE HCL 100 MG TABLET (FP) PO SCH (21:01)
[2023-05-18] MEDS: LACTULOSE 20 GM/30 ML UDC (FOR ORAL USE ONLY) PO SCH ×3 (05:48→21:14)
[2023-05-18] MEDS: ASPIRIN 81 MG CHEWABLE TABLETS PO SCH (09:50)
[2023-05-18] MEDS: PANTOPRAZOLE 20 MG TABLET PO SCH (09:50)
[2023-05-18] MEDS: NICOTINE 21 MG/24 HOURS TOPICAL PATCH TD SCH (09:50)
[2023-05-18] MEDS: amLODIPine BESYLATE 10 MG TABLET (FP) PO SCH (09:50)
[2023-05-18] MEDS: CALCIUM 500MG/VIT-D 200 UNITS COMBO TABLET (FP) PO SCH ×2 (09:50→21:14)
[2023-05-18] MEDS: metoPROLOL SUCCINATE 25 MG TAB.SR.24H (FP) PO SCH (09:50)
[2023-05-18] MEDS: PRENATAL VITAMINS W/ FOLIC ACID TABLET (FP) PO SCH (09:50)
[2023-05-18] MEDS: THIAMINE HCL 100 MG TABLET (FP) PO SCH (21:14)
[2023-05-18] MEDS: MELATONIN 5 MG TABLETS PO SCH (21:14)
[2023-05-18] MEDS: ATORVASTATIN CA 10 MG TABLET (FP) PO SCH (21:14)
[2023-05-18] MEDS: traZODone HCL 100 MG TABLET (FP) PO SCH (21:14)
[2023-05-19] MEDS: LACTULOSE 20 GM/30 ML UDC (FOR ORAL USE ONLY) PO SCH ×3 (06:08→21:15)
[2023-05-19] MEDS: ASPIRIN 81 MG CHEWABLE TABLETS PO SCH (09:36)
[2023-05-19] MEDS: NICOTINE 21 MG/24 HOURS TOPICAL PATCH TD SCH (09:36)
[2023-05-19] MEDS: metoPROLOL SUCCINATE 25 MG TAB.SR.24H (FP) PO SCH (09:37)
[2023-05-19] MEDS: PANTOPRAZOLE 20 MG TABLET PO SCH (09:37)
[2023-05-19] MEDS: PRENATAL VITAMINS W/ FOLIC ACID TABLET (FP) PO SCH (09:37)
[2023-05-19] MEDS: amLODIPine BESYLATE 10 MG TABLET (FP) PO SCH (09:37)
[2023-05-19] MEDS: CALCIUM 500MG/VIT-D 200 UNITS COMBO TABLET (FP) PO SCH ×2 (09:37→21:16)
[2023-05-19] MEDS: COLLOIDAL OATMEAL 1 BAR EACH TP PRN (09:38)
[2023-05-19] MEDS: THIAMINE HCL 100 MG TABLET (FP) PO SCH (21:15)
[2023-05-19] MEDS: MELATONIN 5 MG TABLETS PO SCH (21:16)
[2023-05-19] MEDS: ATORVASTATIN CA 10 MG TABLET (FP) PO SCH (21:16)
[2023-05-19] MEDS: traZODone HCL 100 MG TABLET (FP) PO SCH (21:16)
[2023-05-20] MEDS: LACTULOSE 20 GM/30 ML UDC (FOR ORAL USE ONLY) PO SCH ×3 (06:08→21:12)
[2023-05-20] MEDS: PRENATAL VITAMINS W/ FOLIC ACID TABLET (FP) PO SCH (09:42)
[2023-05-20] MEDS: metoPROLOL SUCCINATE 25 MG TAB.SR.24H (FP) PO SCH (09:43)
[2023-05-20] MEDS: CALCIUM 500MG/VIT-D 200 UNITS COMBO TABLET (FP) PO SCH ×2 (09:43→21:13)
[2023-05-20] MEDS: ASPIRIN 81 MG CHEWABLE TABLETS PO SCH (09:43)
[2023-05-20] MEDS: PANTOPRAZOLE 20 MG TABLET PO SCH (09:43)
[2023-05-20] MEDS: amLODIPine BESYLATE 10 MG TABLET (FP) PO SCH (09:43)
[2023-05-20] MEDS: NICOTINE 21 MG/24 HOURS TOPICAL PATCH TD SCH (09:44)
[2023-05-20] MEDS: MELATONIN 5 MG TABLETS PO SCH (21:12)
[2023-05-20] MEDS: ATORVASTATIN CA 10 MG TABLET (FP) PO SCH (21:13)
[2023-05-20] MEDS: traZODone HCL 100 MG TABLET (FP) PO SCH (21:13)
[2023-05-20] MEDS: THIAMINE HCL 100 MG TABLET (FP) PO SCH (21:13)
[2023-05-21] MEDS: LACTULOSE 20 GM/30 ML UDC (FOR ORAL USE ONLY) PO SCH ×3 (06:02→21:17)
[2023-05-21 07:21] VITALS: RESP 18
[2023-05-21] MEDS: ASPIRIN 81 MG CHEWABLE TABLETS PO SCH (10:06)
[2023-05-21] MEDS: PANTOPRAZOLE 20 MG TABLET PO SCH (10:06)
[2023-05-21] MEDS: CALCIUM 500MG/VIT-D 200 UNITS COMBO TABLET (FP) PO SCH ×2 (10:07→21:17)
[2023-05-21] MEDS: metoPROLOL SUCCINATE 25 MG TAB.SR.24H (FP) PO SCH (10:07)
[2023-05-21] MEDS: amLODIPine BESYLATE 10 MG TABLET (FP) PO SCH (10:07)
[2023-05-21] MEDS: NICOTINE 21 MG/24 HOURS TOPICAL PATCH TD SCH (10:07)
[2023-05-21] MEDS: PRENATAL VITAMINS W/ FOLIC ACID TABLET (FP) PO SCH (10:07)
[2023-05-21] MEDS: MELATONIN 5 MG TABLETS PO SCH (21:17)
[2023-05-21] MEDS: THIAMINE HCL 100 MG TABLET (FP) PO SCH (21:17)
[2023-05-21] MEDS: traZODone HCL 100 MG TABLET (FP) PO SCH (21:17)
[2023-05-21] MEDS: ATORVASTATIN CA 10 MG TABLET (FP) PO SCH (21:17)
[2023-05-22] MEDS: LACTULOSE 20 GM/30 ML UDC (FOR ORAL USE ONLY) PO SCH ×3 (05:57→21:15)
[2023-05-22] MEDS: PRENATAL VITAMINS W/ FOLIC ACID TABLET (FP) PO SCH (09:38)
[2023-05-22] MEDS: CALCIUM 500MG/VIT-D 200 UNITS COMBO TABLET (FP) PO SCH ×2 (09:39→21:15)
[2023-05-22] MEDS: ASPIRIN 81 MG CHEWABLE TABLETS PO SCH (09:39)
[2023-05-22] MEDS: amLODIPine BESYLATE 10 MG TABLET (FP) PO SCH (09:39)
[2023-05-22] MEDS: metoPROLOL SUCCINATE 25 MG TAB.SR.24H (FP) PO SCH (09:39)
[2023-05-22] MEDS: PANTOPRAZOLE 20 MG TABLET PO SCH (09:39)
[2023-05-22] MEDS: NICOTINE 21 MG/24 HOURS TOPICAL PATCH TD SCH (09:39)
[2023-05-22] MEDS: MELATONIN 5 MG TABLETS PO SCH (21:15)
[2023-05-22] MEDS: ATORVASTATIN CA 10 MG TABLET (FP) PO SCH (21:15)
[2023-05-22] MEDS: THIAMINE HCL 100 MG TABLET (FP) PO SCH (21:15)
[2023-05-22] MEDS: traZODone HCL 100 MG TABLET (FP) PO SCH (21:15)
[2023-05-23] MEDS: LACTULOSE 20 GM/30 ML UDC (FOR ORAL USE ONLY) PO SCH ×3 (06:04→21:05)
[2023-05-23] MEDS: amLODIPine BESYLATE 10 MG TABLET (FP) PO SCH (10:07)
[2023-05-23] MEDS: CALCIUM 500MG/VIT-D 200 UNITS COMBO TABLET (FP) PO SCH ×2 (10:07→21:06)
[2023-05-23] MEDS: PRENATAL VITAMINS W/ FOLIC ACID TABLET (FP) PO SCH (10:07)
[2023-05-23] MEDS: PANTOPRAZOLE 20 MG TABLET PO SCH (10:07)
[2023-05-23] MEDS: metoPROLOL SUCCINATE 25 MG TAB.SR.24H (FP) PO SCH (10:07)
[2023-05-23] MEDS: ASPIRIN 81 MG CHEWABLE TABLETS PO SCH (10:07)
[2023-05-23] MEDS: NICOTINE 21 MG/24 HOURS TOPICAL PATCH TD SCH (10:07)
[2023-05-23] MEDS: THIAMINE HCL 100 MG TABLET (FP) PO SCH (21:05)
[2023-05-23] MEDS: MELATONIN 5 MG TABLETS PO SCH (21:05)
[2023-05-23] MEDS: ATORVASTATIN CA 10 MG TABLET (FP) PO SCH (21:06)
[2023-05-23] MEDS: traZODone HCL 100 MG TABLET (FP) PO SCH (21:06)
[2023-05-24] MEDS: LACTULOSE 20 GM/30 ML UDC (FOR ORAL USE ONLY) PO SCH ×3 (05:55→21:12)
[2023-05-24] MEDS: ASPIRIN 81 MG CHEWABLE TABLETS PO SCH (09:41)
[2023-05-24] MEDS: CALCIUM 500MG/VIT-D 200 UNITS COMBO TABLET (FP) PO SCH ×2 (09:41→21:12)
[2023-05-24] MEDS: metoPROLOL SUCCINATE 25 MG TAB.SR.24H (FP) PO SCH (09:41)
[2023-05-24] MEDS: amLODIPine BESYLATE 10 MG TABLET (FP) PO SCH (09:41)
[2023-05-24] MEDS: PANTOPRAZOLE 20 MG TABLET PO SCH (09:41)
[2023-05-24] MEDS: PRENATAL VITAMINS W/ FOLIC ACID TABLET (FP) PO SCH (09:41)
[2023-05-24] MEDS: NICOTINE 21 MG/24 HOURS TOPICAL PATCH TD SCH (09:42)
[2023-05-24] MEDS: THIAMINE HCL 100 MG TABLET (FP) PO SCH (21:12)
[2023-05-24] MEDS: traZODone HCL 100 MG TABLET (FP) PO SCH (21:12)
[2023-05-24] MEDS: ATORVASTATIN CA 10 MG TABLET (FP) PO SCH (21:12)
[2023-05-24] MEDS: MELATONIN 5 MG TABLETS PO SCH (21:12)
[2023-05-24] MEDS: IBUPROFEN 600 MG TABLET (FP) PO PRN (21:13)
[2023-05-25] MEDS: LACTULOSE 20 GM/30 ML UDC (FOR ORAL USE ONLY) PO SCH ×3 (06:03→21:28)
[2023-05-25] MEDS: metoPROLOL SUCCINATE 25 MG TAB.SR.24H (FP) PO SCH (09:12)
[2023-05-25] MEDS: PRENATAL VITAMINS W/ FOLIC ACID TABLET (FP) PO SCH (09:12)
[2023-05-25] MEDS: ASPIRIN 81 MG CHEWABLE TABLETS PO SCH (09:12)
[2023-05-25] MEDS: amLODIPine BESYLATE 10 MG TABLET (FP) PO SCH (09:12)
[2023-05-25] MEDS: CALCIUM 500MG/VIT-D 200 UNITS COMBO TABLET (FP) PO SCH ×2 (09:12→21:28)
[2023-05-25] MEDS: PANTOPRAZOLE 20 MG TABLET PO SCH (09:13)
[2023-05-25] MEDS: NICOTINE 21 MG/24 HOURS TOPICAL PATCH TD SCH (09:13)
[2023-05-25] MEDS: VITAMINS A AND D TOPICAL OINTMENT 60 GM TUBE TP PRN (09:14)
[2023-05-25] MEDS: THIAMINE HCL 100 MG TABLET (FP) PO SCH (21:28)
[2023-05-25] MEDS: MELATONIN 5 MG TABLETS PO SCH (21:28)
[2023-05-25] MEDS: traZODone HCL 100 MG TABLET (FP) PO SCH (21:28)
[2023-05-25] MEDS: ATORVASTATIN CA 10 MG TABLET (FP) PO SCH (21:28)
[2023-05-25] MEDS: IBUPROFEN 600 MG TABLET (FP) PO PRN (21:29)
[2023-05-26] MEDS: LACTULOSE 20 GM/30 ML UDC (FOR ORAL USE ONLY) PO SCH ×3 (05:51→21:26)
[2023-05-26] MEDS: PRENATAL VITAMINS W/ FOLIC ACID TABLET (FP) PO SCH (09:36)
[2023-05-26] MEDS: amLODIPine BESYLATE 10 MG TABLET (FP) PO SCH (09:37)
[2023-05-26] MEDS: metoPROLOL SUCCINATE 25 MG TAB.SR.24H (FP) PO SCH (09:37)
[2023-05-26] MEDS: ASPIRIN 81 MG CHEWABLE TABLETS PO SCH (09:37)
[2023-05-26] MEDS: CALCIUM 500MG/VIT-D 200 UNITS COMBO TABLET (FP) PO SCH ×2 (09:37→21:25)
[2023-05-26] MEDS: PANTOPRAZOLE 20 MG TABLET PO SCH (09:38)
[2023-05-26] MEDS: NICOTINE 21 MG/24 HOURS TOPICAL PATCH TD SCH (09:39)
[2023-05-26] MEDS: COLLOIDAL OATMEAL 1 BAR EACH TP PRN (09:39)
[2023-05-26] MEDS: ATORVASTATIN CA 10 MG TABLET (FP) PO SCH (21:25)
[2023-05-26] MEDS: traZODone HCL 100 MG TABLET (FP) PO SCH (21:25)
[2023-05-26] MEDS: THIAMINE HCL 100 MG TABLET (FP) PO SCH (21:26)
[2023-05-26] MEDS: MELATONIN 5 MG TABLETS PO SCH (21:26)
[2023-05-27] MEDS: LACTULOSE 20 GM/30 ML UDC (FOR ORAL USE ONLY) PO SCH (06:00)
[2023-05-27 06:56] VITALS: TEMP 97.8
[2023-05-27] MEDS: amLODIPine BESYLATE 10 MG TABLET (FP) PO SCH (09:02)
[2023-05-27] MEDS: PRENATAL VITAMINS W/ FOLIC ACID TABLET (FP) PO SCH (09:02)
[2023-05-27] MEDS: metoPROLOL SUCCINATE 25 MG TAB.SR.24H (FP) PO SCH (09:02)
[2023-05-27] MEDS: PANTOPRAZOLE 20 MG TABLET PO SCH (09:02)
[2023-05-27] MEDS: CALCIUM 500MG/VIT-D 200 UNITS COMBO TABLET (FP) PO SCH (09:02)
[2023-05-27] MEDS: ASPIRIN 81 MG CHEWABLE TABLETS PO SCH (09:02)
[2023-05-27] MEDS: NICOTINE 21 MG/24 HOURS TOPICAL PATCH TD SCH (09:03)
[2023-05-27 10:13] VITALS: BP 132/67; PULSE 89
== END 2023-05-27 09:05 | disposition home or self-care (01) | DRG 895 ==
LOC: YASAS 18:05 → Y3W 18:08
PROVIDERS: ADMIT Allergy & Immunology; ATTEND Psychiatry & Neurology Pain Medicine
PROC: HZ42ZZZ Group Counseling for Substance Abuse Treatment, Cognitive-Behavioral (ICD-10-PCS; principal; 2023-05-03)
DX: F10.20 Alcohol dependence, uncomplicated (principal); F14.20 Cocaine dependence, uncomplicated; E72.20 Disorder of urea cycle metabolism, unspecified; F19.282 Other psychoactive substance dependence with psychoactive substance-induced sleep disorder; F17.210 Nicotine dependence, cigarettes, uncomplicated; F41.9 Anxiety disorder, unspecified; F32.A Depression, unspecified; E78.5 Hyperlipidemia, unspecified; I25.10 Atherosclerotic heart disease of native coronary artery without angina pectoris; I10 Essential (primary) hypertension; Z95.5 Presence of coronary angioplasty implant and graft; Z20.822 Contact with and (suspected) exposure to COVID-19; Z56.0 Unemployment, unspecified; Z59.00 Homelessness unspecified
CPT/HCPCS: 36415; 80053; 81003; 82140; 85025; 85027; 86780; 86803; 87389; 87635

== ENCOUNTER 2023-07-17 11:31 | Inpatient (IN) | payer OTHER ==
[2023-07-17 13:16] VITALS: BMI 26.7
[2023-07-17] MEDS ORDERED: POLYETHYLENE GLYCOL (HEALTHYLAX) 3350 17 GM PACKET PO PRN (13:36)
[2023-07-17] MEDS ORDERED: DICYCLOMINE HCL 10 MG CAPSULE PO PRN (13:36)
[2023-07-17] MEDS ORDERED: NALOXONE HCL (KLOXXADO) 8 MG SPRAY NS PRN (13:36)
[2023-07-17] MEDS ORDERED: METHOCARBAMOL 500 MG TABLET PO PRN (13:36)
[2023-07-17] MEDS ORDERED: ONDANSETRON *ODT* 4 MG TABLET SL PRN (13:36)
[2023-07-17] MEDS ORDERED: BENZONATATE 200 MG CAPSULE PO PRN (13:36)
[2023-07-17] MEDS ORDERED: hydrOXYzine PAMOATE 25 MG CAPSULE (FP) PO PRN (13:36)
[2023-07-17] MEDS ORDERED: BENZOCAINE/MENTHOL (CHLORASEPTIC ) LOZENGE MM PRN (13:36)
[2023-07-17] MEDS ORDERED: MAGNESIUM HYDROX 2400MG/30ML ORAL SUSPENSION 30 ML CUP PO PRN (13:36)
[2023-07-17] MEDS ORDERED: MAG HYDROX/AL HYDROX/SIMETH 30 ML UNIT-DOSE CUP PO PRN (13:36)
[2023-07-17] MEDS ORDERED: IBUPROFEN 400 MG TABLET (FP) PO PRN (13:36)
[2023-07-17] MEDS ORDERED: IBUPROFEN 600 MG TABLET (FP) PO PRN (13:36)
[2023-07-17] MEDS ORDERED: guaiFENesin 600 MG TABLET.ER (FP) PO PRN (13:36)
[2023-07-17] MEDS ORDERED: ACETAMINOPHEN 325 MG TABLET (FP) PO PRN (13:36)
[2023-07-17] MEDS ORDERED: LOPERAMIDE HCL 2 MG CAPSULE PO PRN (13:36)
[2023-07-17] MEDS ORDERED: NALOXONE HCL 0.4 MG/ML VIAL IM PRN (13:36)
[2023-07-17] MEDS ORDERED: BISMUTH SUBSALICYLATE 524 MG/30 ML PO PRN (13:36)
[2023-07-17] MEDS ORDERED: LORazepam 1 MG TABLET PO PRN (13:36)
[2023-07-17] MEDS ORDERED: guaiFENesin 200 MG/10 ML 10 ML UNIT-DOSE CUPS PO PRN (13:39)
[2023-07-17] MEDS: PRENATAL VITAMINS W/ FOLIC ACID TABLET (FP) PO SCH (14:47)
[2023-07-17] MEDS ORDERED: PRENATAL VITAMINS W/ FOLIC ACID TABLET (FP) PO ONE (14:56)
[2023-07-17] MEDS: LORazepam 2 MG TABLET PO SCH ×2 (17:55→22:27)
[2023-07-17] MEDS: THIAMINE HCL 100 MG TABLET (FP) PO SCH (22:27)
[2023-07-17] MEDS: MELATONIN 5 MG TABLETS PO SCH (22:27)
[2023-07-17] MEDS: ATORVASTATIN CA 10 MG TABLET (FP) PO SCH (22:27)
[2023-07-17] MEDS: BACITRACIN ZINC 15 GM TUBE TOPICAL OINTMENT TP SCH (23:16)
[2023-07-18] MEDS: LORazepam 2 MG TABLET PO SCH ×4 (05:50→22:23)
[2023-07-18 08:31] LABS: HEMATOCRIT 43.7 % (35.4-49); HEMOGLOBIN 13.8 GM/dL (11.7-16.9); MCH 28.4 pg (25.7-33.7); MCHC 31.5 g/dl (32.0-35.9); MEAN CELL VOLUME 90.2 fl (80-96); MEAN PLT VOLUME 9.5 fl (7.5-11.1); PLATELET COUNT 194 10^3/uL (134-434); RBC 4.84 M/mm3 (4.00-5.60); RDW 14.6 % (11.9-15.9); WHITE BLOOD COUNT 4.7 K/mm3 (4.0-10.0)
[2023-07-18 09:17] LABS: CHLORIDE 104 mmol/L (98-107); SODIUM 142 mmol/L (136-145)
[2023-07-18 09:29] LABS: ALBUMIN 2.9 g/dl (3.4-5.0); BLOOD UREA NITROGEN 8.9 mg/dL (7-18); GLUCOSE,RANDOM 94 mg/dL (74-106)
[2023-07-18 09:30] LABS: ANION GAP 7 mmol/L (4-13); CALCIUM 8.6 mg/dL (8.5-10.1); CO2 31 mmol/L (21-32)
[2023-07-18 09:31] LABS: CREATININE 0.8 mg/dL (0.55-1.3); SGOT/AST 25 U/L (15-37)
[2023-07-18 09:32] LABS: SGPT/ALT 21 U/L (13-61); TOT PROT 6.2 g/dl (6.4-8.2)
[2023-07-18 09:33] LABS: BILIRUBIN,TOTAL 0.3 mg/dL (0.2-1)
[2023-07-18 09:34] LABS: ALK PHOS 77 U/L (45-117)
[2023-07-18] MEDS ORDERED: PANTOPRAZOLE 20 MG TABLET PO SCH (10:00)
[2023-07-18] MEDS ORDERED: POTASSIUM CHLORIDE ORAL LIQUID 20 MEQ/15 ML PO ONE ×2 (10:45→15:00)
[2023-07-18] MEDS: PANTOPRAZOLE 40 MG TABLET PO SCH (10:55)
[2023-07-18] MEDS: HYDROCHLOROTHIAZIDE 25 MG TABLET (FP) PO SCH (10:55)
[2023-07-18] MEDS: ASPIRIN 81 MG CHEWABLE TABLETS PO SCH (10:56)
[2023-07-18] MEDS: amLODIPine BESYLATE 10 MG TABLET (FP) PO SCH (10:57)
[2023-07-18] MEDS: NICOTINE 14 MG/24 HOURS TOPICAL PATCH TD SCH (10:57)
[2023-07-18] MEDS: BACITRACIN ZINC 15 GM TUBE TOPICAL OINTMENT TP SCH ×2 (10:57→22:23)
[2023-07-18] MEDS: PRENATAL VITAMINS W/ FOLIC ACID TABLET (FP) PO SCH (10:57)
[2023-07-18] MEDS ORDERED: TOPIRAMATE 25 MG TABLET PO SCH (11:00)
[2023-07-18] MEDS: ATORVASTATIN CA 10 MG TABLET (FP) PO SCH (22:23)
[2023-07-18] MEDS: THIAMINE HCL 100 MG TABLET (FP) PO SCH (22:23)
[2023-07-18] MEDS: traZODone HCL 100 MG TABLET (FP) PO SCH (22:23)
[2023-07-18] MEDS: MELATONIN 5 MG TABLETS PO SCH (22:23)
[2023-07-19] MEDS: LORazepam 1 MG TABLET PO SCH ×4 (05:49→22:19)
[2023-07-19] MEDS: PRENATAL VITAMINS W/ FOLIC ACID TABLET (FP) PO SCH (10:34)
[2023-07-19] MEDS: NICOTINE 14 MG/24 HOURS TOPICAL PATCH TD SCH (10:35)
[2023-07-19] MEDS: ASPIRIN 81 MG CHEWABLE TABLETS PO SCH (10:36)
[2023-07-19] MEDS: PANTOPRAZOLE 40 MG TABLET PO SCH (10:36)
[2023-07-19] MEDS: amLODIPine BESYLATE 10 MG TABLET (FP) PO SCH (10:36)
[2023-07-19] MEDS: HYDROCHLOROTHIAZIDE 25 MG TABLET (FP) PO SCH (10:36)
[2023-07-19] MEDS: BACITRACIN ZINC 15 GM TUBE TOPICAL OINTMENT TP SCH ×2 (10:40→22:18)
[2023-07-19] MEDS ORDERED: POTASSIUM CHLORIDE ORAL LIQUID 20 MEQ/15 ML PO ONE (14:00)
[2023-07-19] MEDS: THIAMINE HCL 100 MG TABLET (FP) PO SCH (22:18)
[2023-07-19] MEDS: MELATONIN 5 MG TABLETS PO SCH (22:18)
[2023-07-19] MEDS: ATORVASTATIN CA 10 MG TABLET (FP) PO SCH (22:18)
[2023-07-19] MEDS: POTASSIUM CHLORIDE ORAL LIQUID 20 MEQ/15 ML PO SCH (22:18)
[2023-07-19] MEDS: traZODone HCL 100 MG TABLET (FP) PO SCH (22:18)
[2023-07-20] MEDS ORDERED: LORazepam 0.5 MG TABLET PO PRN
[2023-07-20] MEDS: LORazepam 0.5 MG TABLET PO SCH ×3 (05:47→17:32)
[2023-07-20] MEDS: POTASSIUM CHLORIDE ORAL LIQUID 20 MEQ/15 ML PO SCH (10:36)
[2023-07-20] MEDS: HYDROCHLOROTHIAZIDE 25 MG TABLET (FP) PO SCH (10:36)
[2023-07-20] MEDS: PANTOPRAZOLE 40 MG TABLET PO SCH (10:36)
[2023-07-20] MEDS: amLODIPine BESYLATE 10 MG TABLET (FP) PO SCH (10:36)
[2023-07-20] MEDS: PRENATAL VITAMINS W/ FOLIC ACID TABLET (FP) PO SCH (10:36)
[2023-07-20] MEDS: BACITRACIN ZINC 15 GM TUBE TOPICAL OINTMENT TP SCH (10:37)
[2023-07-20] MEDS: NICOTINE 14 MG/24 HOURS TOPICAL PATCH TD SCH (10:38)
[2023-07-20] MEDS: ASPIRIN 81 MG CHEWABLE TABLETS PO SCH (10:38)
[2023-07-20 10:54] LABS: POTASSIUM 3.4 mmol/L (3.5-5.1)
[2023-07-20 10:58] LABS: CALCIUM 8.9 mg/dL (8.5-10.1)
[2023-07-20 10:59] LABS: BLOOD UREA NITROGEN 11.1 mg/dL (7-18)
[2023-07-20 11:02] LABS: CREATININE 0.9 mg/dL (0.55-1.3)
[2023-07-20] MEDS ORDERED: POTASSIUM CHLORIDE ORAL LIQUID 20 MEQ/15 ML PO ONE ×2 (15:00→16:45)
[2023-07-20 18:07] VITALS: BP 119/75; PULSE 90; RESP 18; TEMP 97.5
[2023-07-20] MEDS ORDERED: POTASSIUM CHLORIDE ORAL LIQUID 20 MEQ/15 ML PO SCH (22:00)
[2023-07-21] MEDS ORDERED: LORazepam 0.5 MG TABLET PO ONE (05:00)
== END 2023-07-20 19:21 | disposition home or self-care (01) | DRG 897 ==
LOC: YASAS 11:31 → Y3N 14:47
PROVIDERS: ADMIT Allergy & Immunology; ATTEND Surgery
PROC: HZ2ZZZZ Detoxification Services for Substance Abuse Treatment (ICD-10-PCS; principal; 2023-07-17)
DX: F10.230 Alcohol dependence with withdrawal, uncomplicated (principal); F14.20 Cocaine dependence, uncomplicated; E72.20 Disorder of urea cycle metabolism, unspecified; F19.282 Other psychoactive substance dependence with psychoactive substance-induced sleep disorder; F41.9 Anxiety disorder, unspecified; F32.A Depression, unspecified; F17.210 Nicotine dependence, cigarettes, uncomplicated; E87.6 Hypokalemia; E78.5 Hyperlipidemia, unspecified; I25.10 Atherosclerotic heart disease of native coronary artery without angina pectoris; I10 Essential (primary) hypertension; Z95.5 Presence of coronary angioplasty implant and graft; K21.9 Gastro-esophageal reflux disease without esophagitis; M54.50 Low back pain, unspecified; G89.29 Other chronic pain
CPT/HCPCS: 36415; 80048; 80053; 80307; 82140; 84132; 85027; 86780; 87635; 93005; 93010

== ENCOUNTER 2023-08-30 09:44 | Inpatient (IN) | payer OTHER ==
[2023-08-30 10:06] VITALS: BMI 23.7
[2023-08-30] MEDS ORDERED: MAG HYDROX/AL HYDROX/SIMETH 30 ML UNIT-DOSE CUP PO PRN (10:43)
[2023-08-30] MEDS ORDERED: DICYCLOMINE HCL 10 MG CAPSULE PO PRN (10:43)
[2023-08-30] MEDS ORDERED: NALOXONE HCL (KLOXXADO) 8 MG SPRAY NS PRN (10:43)
[2023-08-30] MEDS ORDERED: BENZONATATE 200 MG CAPSULE PO PRN (10:43)
[2023-08-30] MEDS ORDERED: BISMUTH SUBSALICYLATE 524 MG/30 ML PO PRN (10:43)
[2023-08-30] MEDS ORDERED: LOPERAMIDE HCL 2 MG CAPSULE PO PRN (10:43)
[2023-08-30] MEDS ORDERED: BENZOCAINE/MENTHOL (CHLORASEPTIC ) LOZENGE MM PRN (10:43)
[2023-08-30] MEDS ORDERED: MAGNESIUM HYDROX 2400MG/30ML ORAL SUSPENSION 30 ML CUP PO PRN (10:43)
[2023-08-30] MEDS ORDERED: NICOTINE 21 MG/24 HOURS TOPICAL PATCH TD PRN (10:43)
[2023-08-30] MEDS ORDERED: ONDANSETRON *ODT* 4 MG TABLET SL PRN (10:43)
[2023-08-30] MEDS ORDERED: METHOCARBAMOL 500 MG TABLET PO PRN (10:43)
[2023-08-30] MEDS ORDERED: LORazepam 1 MG TABLET PO PRN (10:43)
[2023-08-30] MEDS ORDERED: guaiFENesin 600 MG TABLET.ER (FP) PO PRN (10:43)
[2023-08-30] MEDS ORDERED: AMMONIUM LACTATE 12% LOTION 225 GM BOTTLE TP PRN (10:43)
[2023-08-30] MEDS ORDERED: POLYETHYLENE GLYCOL (HEALTHYLAX) 3350 17 GM PACKET PO PRN (10:43)
[2023-08-30] MEDS ORDERED: COLLOIDAL OATMEAL 1 BAR EACH TP PRN (10:43)
[2023-08-30] MEDS ORDERED: ACETAMINOPHEN 325 MG TABLET (FP) PO PRN (10:43)
[2023-08-30] MEDS ORDERED: NALOXONE HCL 0.4 MG/ML VIAL IM PRN (10:43)
[2023-08-30] MEDS: PANTOPRAZOLE 40 MG TABLET PO SCH (13:52)
[2023-08-30] MEDS: amLODIPine BESYLATE 10 MG TABLET (FP) PO SCH (13:52)
[2023-08-30] MEDS ORDERED: NIFEDIPINE 20 MG PO SCH (14:00)
[2023-08-30] MEDS ORDERED: NIFEdipine E.R. 30 MG TABLET PO SCH (15:30)
[2023-08-30] MEDS: LORazepam 2 MG TABLET PO SCH ×2 (17:55→22:38)
[2023-08-30] MEDS: MELATONIN 5 MG TABLETS PO SCH (22:38)
[2023-08-30] MEDS: THIAMINE HCL 100 MG TABLET (FP) PO SCH (22:38)
[2023-08-30] MEDS: ATORVASTATIN CA 20 MG TABLET (FP) PO SCH (22:38)
[2023-08-31] MEDS: LORazepam 2 MG TABLET PO SCH ×4 (05:19→22:51)
[2023-08-31] MEDS: PRENATAL VITAMINS W/ FOLIC ACID TABLET (FP) PO SCH (10:01)
[2023-08-31] MEDS: ASPIRIN 81 MG CHEWABLE TABLETS PO SCH (10:01)
[2023-08-31] MEDS: PANTOPRAZOLE 40 MG TABLET PO SCH (10:01)
[2023-08-31] MEDS: amLODIPine BESYLATE 10 MG TABLET (FP) PO SCH (10:01)
[2023-08-31 12:51] LABS: HEMATOCRIT 41.2 % (35.4-49); HEMOGLOBIN 13.3 GM/dL (11.7-16.9); MCH 28.5 pg (25.7-33.7); MCHC 32.3 g/dl (32.0-35.9); MEAN CELL VOLUME 88.3 fl (80-96); MEAN PLT VOLUME 9.1 fl (7.5-11.1); PLATELET COUNT 184 10^3/uL (134-434); RBC 4.66 M/mm3 (4.00-5.60); RDW 14.1 % (11.9-15.9); WHITE BLOOD COUNT 3.8 K/mm3 (4.0-10.0)
[2023-08-31 12:52] LABS: CHLORIDE 105 mmol/L (98-107); POTASSIUM 3.2 mmol/L (3.5-5.1); SODIUM 143 mmol/L (136-145)
[2023-08-31 12:56] LABS: CALCIUM 8.3 mg/dL (8.5-10.1)
[2023-08-31 12:57] LABS: ALBUMIN 2.6 g/dl (3.4-5.0); ANION GAP 6 mmol/L (4-13); BLOOD UREA NITROGEN 8.6 mg/dL (7-18); CO2 32 mmol/L (21-32); GLUCOSE,RANDOM 91 mg/dL (74-106)
[2023-08-31 13:00] LABS: CREATININE 0.7 mg/dL (0.55-1.3); SGOT/AST 30 U/L (15-37); SGPT/ALT 26 U/L (13-61)
[2023-08-31 13:02] LABS: BILIRUBIN,TOTAL 0.6 mg/dL (0.2-1); TOT PROT 5.8 g/dl (6.4-8.2)
[2023-08-31 13:03] LABS: ALK PHOS 73 U/L (45-117)
[2023-08-31] MEDS ORDERED: traZODone HCL 50 MG TABLET (FP) PO SCH (22:00)
[2023-08-31] MEDS: ATORVASTATIN CA 20 MG TABLET (FP) PO SCH (22:51)
[2023-08-31] MEDS: MELATONIN 5 MG TABLETS PO SCH (22:51)
[2023-08-31] MEDS: THIAMINE HCL 100 MG TABLET (FP) PO SCH (22:51)
[2023-09-01] MEDS: LORazepam 1 MG TABLET PO SCH ×5 (05:35→23:43)
[2023-09-01] MEDS ORDERED: POTASSIUM CHLORIDE ORAL LIQUID 20 MEQ/15 ML PO SCH (10:15)
[2023-09-01] MEDS ORDERED: POTASSIUM CHLORIDE ORAL LIQUID 20 MEQ/15 ML PO ONE ×2 (10:15→14:30)
[2023-09-01] MEDS ORDERED: LACTULOSE 20 GM/30 ML UDC (FOR ORAL USE ONLY) PO ONE (10:19)
[2023-09-01] MEDS: PRENATAL VITAMINS W/ FOLIC ACID TABLET (FP) PO SCH (10:32)
[2023-09-01] MEDS: amLODIPine BESYLATE 10 MG TABLET (FP) PO SCH (10:32)
[2023-09-01] MEDS: PANTOPRAZOLE 40 MG TABLET PO SCH (10:32)
[2023-09-01] MEDS: ASPIRIN 81 MG CHEWABLE TABLETS PO SCH (10:32)
[2023-09-01] MEDS: LACTULOSE 20 GM/30 ML UDC (FOR ORAL USE ONLY) PO SCH ×3 (13:55→22:31)
[2023-09-01] MEDS: THIAMINE HCL 100 MG TABLET (FP) PO SCH (22:32)
[2023-09-01] MEDS: traZODone HCL 50 MG TABLET (FP) PO SCH (22:32)
[2023-09-01] MEDS: ATORVASTATIN CA 20 MG TABLET (FP) PO SCH (22:33)
[2023-09-01] MEDS: MELATONIN 5 MG TABLETS PO SCH (23:41)
[2023-09-02] MEDS ORDERED: LORazepam 0.5 MG TABLET PO PRN
[2023-09-02] MEDS: LORazepam 0.5 MG TABLET PO SCH ×4 (05:20→22:43)
[2023-09-02] MEDS: PRENATAL VITAMINS W/ FOLIC ACID TABLET (FP) PO SCH (10:31)
[2023-09-02] MEDS: amLODIPine BESYLATE 10 MG TABLET (FP) PO SCH (10:31)
[2023-09-02] MEDS: PANTOPRAZOLE 40 MG TABLET PO SCH (10:31)
[2023-09-02] MEDS: ASPIRIN 81 MG CHEWABLE TABLETS PO SCH (10:31)
[2023-09-02] MEDS: LACTULOSE 20 GM/30 ML UDC (FOR ORAL USE ONLY) PO SCH ×4 (10:32→22:42)
[2023-09-02] MEDS: traZODone HCL 50 MG TABLET (FP) PO SCH (22:42)
[2023-09-02] MEDS: ATORVASTATIN CA 20 MG TABLET (FP) PO SCH (22:42)
[2023-09-02] MEDS: THIAMINE HCL 100 MG TABLET (FP) PO SCH (22:42)
[2023-09-02] MEDS: MELATONIN 5 MG TABLETS PO SCH (22:43)
[2023-09-03] MEDS ORDERED: LORazepam 0.5 MG TABLET PO ONE (05:00)
[2023-09-03] MEDS: PRENATAL VITAMINS W/ FOLIC ACID TABLET (FP) PO SCH (09:40)
[2023-09-03] MEDS: amLODIPine BESYLATE 10 MG TABLET (FP) PO SCH (09:40)
[2023-09-03] MEDS: ASPIRIN 81 MG CHEWABLE TABLETS PO SCH (09:40)
[2023-09-03] MEDS: PANTOPRAZOLE 40 MG TABLET PO SCH (09:40)
[2023-09-03] MEDS: THIAMINE HCL 100 MG TABLET (FP) PO SCH (22:51)
[2023-09-03] MEDS: ATORVASTATIN CA 20 MG TABLET (FP) PO SCH (22:51)
[2023-09-03] MEDS: traZODone HCL 50 MG TABLET (FP) PO SCH (22:51)
[2023-09-03] MEDS: MELATONIN 5 MG TABLETS PO SCH (22:52)
[2023-09-04] MEDS: amLODIPine BESYLATE 10 MG TABLET (FP) PO SCH (09:40)
[2023-09-04] MEDS: PANTOPRAZOLE 40 MG TABLET PO SCH (09:40)
[2023-09-04] MEDS: PRENATAL VITAMINS W/ FOLIC ACID TABLET (FP) PO SCH (09:40)
[2023-09-04] MEDS: POTASSIUM CHLORIDE ORAL LIQUID 20 MEQ/15 ML PO SCH ×2 (09:40→22:52)
[2023-09-04] MEDS: ASPIRIN 81 MG CHEWABLE TABLETS PO SCH (09:40)
[2023-09-04] MEDS: THIAMINE HCL 100 MG TABLET (FP) PO SCH (22:52)
[2023-09-04] MEDS: MELATONIN 5 MG TABLETS PO SCH (22:52)
[2023-09-04] MEDS: traZODone HCL 50 MG TABLET (FP) PO SCH (22:52)
[2023-09-04] MEDS: ATORVASTATIN CA 20 MG TABLET (FP) PO SCH (22:52)
[2023-09-05] MEDS: PRENATAL VITAMINS W/ FOLIC ACID TABLET (FP) PO SCH (09:51)
[2023-09-05] MEDS: ASPIRIN 81 MG CHEWABLE TABLETS PO SCH (09:51)
[2023-09-05] MEDS: PANTOPRAZOLE 40 MG TABLET PO SCH (09:51)
[2023-09-05] MEDS: amLODIPine BESYLATE 10 MG TABLET (FP) PO SCH (09:51)
[2023-09-05] MEDS: VITAMINS A AND D TOPICAL OINTMENT 60 GM TUBE TP PRN ×2 (13:00→22:51)
[2023-09-05] MEDS: ATORVASTATIN CA 20 MG TABLET (FP) PO SCH (22:50)
[2023-09-05] MEDS: THIAMINE HCL 100 MG TABLET (FP) PO SCH (22:50)
[2023-09-05] MEDS: MELATONIN 5 MG TABLETS PO SCH (22:50)
[2023-09-05] MEDS: traZODone HCL 50 MG TABLET (FP) PO SCH (22:50)
[2023-09-06 09:45] VITALS: BP 122/68; PULSE 76; RESP 20; TEMP 98
[2023-09-06] MEDS: PANTOPRAZOLE 40 MG TABLET PO SCH (09:47)
[2023-09-06] MEDS: amLODIPine BESYLATE 10 MG TABLET (FP) PO SCH (09:47)
[2023-09-06] MEDS: ASPIRIN 81 MG CHEWABLE TABLETS PO SCH (09:47)
[2023-09-06] MEDS: PRENATAL VITAMINS W/ FOLIC ACID TABLET (FP) PO SCH (09:49)
== END 2023-09-06 10:05 | disposition home or self-care (01) | DRG 896 ==
LOC: YASAS 09:44 → Y6N 12:14
PROVIDERS: ADMIT Allergy & Immunology; ATTEND Allergy & Immunology
PROC: HZ2ZZZZ Detoxification Services for Substance Abuse Treatment (ICD-10-PCS; principal; 2023-08-30)
DX: F10.230 Alcohol dependence with withdrawal, uncomplicated (principal); U07.1 COVID-19; F14.20 Cocaine dependence, uncomplicated; F19.282 Other psychoactive substance dependence with psychoactive substance-induced sleep disorder; E72.20 Disorder of urea cycle metabolism, unspecified; Z59.00 Homelessness unspecified; F17.210 Nicotine dependence, cigarettes, uncomplicated; F19.24 Other psychoactive substance dependence with psychoactive substance-induced mood disorder; F32.A Depression, unspecified; E87.6 Hypokalemia; E78.00 Pure hypercholesterolemia, unspecified; I25.10 Atherosclerotic heart disease of native coronary artery without angina pectoris; I10 Essential (primary) hypertension; Z95.5 Presence of coronary angioplasty implant and graft; K21.9 Gastro-esophageal reflux disease without esophagitis; M17.0 Bilateral primary osteoarthritis of knee; M54.50 Low back pain, unspecified; G89.29 Other chronic pain; Z56.0 Unemployment, unspecified
CPT/HCPCS: 36415; 80053; 80307; 82140; 84132; 85027; 86780; 87635; 93005; 93010

== ENCOUNTER 2025-01-06 08:22 | Inpatient (IN) | payer OTHER ==
[2025-01-06] MEDS ORDERED: ONDANSETRON *ODT* 4 MG TABLET SL PRN (08:43)
[2025-01-06] MEDS ORDERED: MAGNESIUM HYDROX 2400MG/30ML ORAL SUSPENSION 30 ML CUP PO PRN (08:43)
[2025-01-06] MEDS ORDERED: IBUPROFEN 600 MG TABLET (FP) PO PRN (08:43)
[2025-01-06] MEDS ORDERED: BENZONATATE 200 MG CAPSULE PO PRN (08:43)
[2025-01-06] MEDS ORDERED: MAG HYDROX/AL HYDROX/SIMETH 30 ML UNIT-DOSE CUP PO PRN (08:43)
[2025-01-06] MEDS ORDERED: POLYETHYLENE GLYCOL (HEALTHYLAX) 3350 17 GM PACKET PO PRN (08:43)
[2025-01-06] MEDS ORDERED: hydrOXYzine PAMOATE 25 MG CAPSULE (FP) PO PRN (08:43)
[2025-01-06] MEDS ORDERED: BISMUTH SUBSALICYLATE 524 MG/30 ML PO PRN (08:43)
[2025-01-06] MEDS ORDERED: LORazepam 1 MG TABLET PO PRN (08:43)
[2025-01-06] MEDS ORDERED: LOPERAMIDE HCL 2 MG CAPSULE PO PRN (08:43)
[2025-01-06] MEDS ORDERED: IBUPROFEN 400 MG TABLET (FP) PO PRN (08:43)
[2025-01-06] MEDS ORDERED: BENZOCAINE/MENTHOL (CHLORASEPTIC ) LOZENGE MM PRN (08:43)
[2025-01-06] MEDS ORDERED: DICYCLOMINE HCL 10 MG CAPSULE PO PRN (08:43)
[2025-01-06] MEDS ORDERED: ACETAMINOPHEN 325 MG TABLET (FP) PO PRN (08:43)
[2025-01-06] MEDS ORDERED: NALOXONE (NARCAN) HCL 4 MG/0.1 ML SPRAY NS PRN (08:43)
[2025-01-06] MEDS ORDERED: METHOCARBAMOL 500 MG TABLET PO PRN (08:43)
[2025-01-06] MEDS ORDERED: guaiFENesin 600 MG TABLET.ER (FP) PO PRN (08:43)
[2025-01-06 08:46] VITALS: BMI 31.2
[2025-01-06] MEDS ORDERED: amLODIPine BESYLATE 5 MG TABLET (FP) ONE (09:20)
[2025-01-06] MEDS ORDERED: PRENATAL VITAMINS W/ FOLIC ACID TABLET (FP) PO ONE (09:20)
[2025-01-06] MEDS ORDERED: ASPIRIN 81 MG CHEWABLE TABLETS ONE (09:20)
[2025-01-06] MEDS ORDERED: NICOTINE 21 MG/24 HOURS TOPICAL PATCH ONE (09:20)
[2025-01-06] MEDS: NICOTINE 21 MG/24 HOURS TOPICAL PATCH TD SCH (09:22)
[2025-01-06] MEDS: ASPIRIN 81 MG CHEWABLE TABLETS PO SCH (09:23)
[2025-01-06] MEDS: amLODIPine BESYLATE 5 MG TABLET (FP) PO ONE (09:23)
[2025-01-06] MEDS: PRENATAL VITAMINS W/ FOLIC ACID TABLET (FP) PO SCH (09:23)
[2025-01-06] MEDS: LORazepam 2 MG TABLET PO SCH (10:29)
[2025-01-06] MEDS: NALTREXONE HCL 50 MG TABLET PO ONE (10:29)
[2025-01-06] MEDS: PANTOPRAZOLE 40 MG TABLET PO SCH (10:29)
[2025-01-06] MEDS: THIAMINE 100 MG TABLET PO SCH (22:19)
[2025-01-06] MEDS: ATORVASTATIN CA 20 MG TABLET (FP) PO SCH (22:19)
[2025-01-06] MEDS: MELATONIN 5 MG TABLETS PO SCH (22:19)
[2025-01-07] MEDS: amLODIPine BESYLATE 10 MG TABLET (FP) PO SCH (10:17)
[2025-01-07] MEDS: NALTREXONE HCL 50 MG TABLET PO SCH (10:20)
[2025-01-07 11:41] LABS: CHLORIDE 104 mmol/L (98-107); POTASSIUM 3.7 mmol/L (3.5-5.1); SODIUM 142 mmol/L (136-145)
[2025-01-07 11:50] LABS: CREATININE 0.6 mg/dL (0.55-1.3)
[2025-01-07 11:52] LABS: CALCIUM 9.3 mg/dL (8.5-10.1)
[2025-01-07 11:53] LABS: ALBUMIN 2.8 g/dl (3.4-5.0); ANION GAP 8 mmol/L (4-13); BLOOD UREA NITROGEN 10.4 mg/dL (7-18); CO2 29 mmol/L (21-32); GLUCOSE,RANDOM 90 mg/dL (74-106)
[2025-01-07 11:56] LABS: SGOT/AST 18 U/L (15-37); SGPT/ALT 18 U/L (13-61)
[2025-01-07 11:57] LABS: BILIRUBIN,TOTAL 0.3 mg/dL (0.2-1)
[2025-01-07 11:58] LABS: ALK PHOS 85 U/L (45-117); TOT PROT 6.4 g/dl (6.4-8.2)
[2025-01-07 12:03] LABS: HEMATOCRIT 44.3 % (40.1-51.0); HEMOGLOBIN 13.8 g/dL (13.7-17.5); MCHC 31.2 g/dl (32.3-36.5); MEAN CELL VOLUME 91.2 fl (79.0-92.2); MEAN PLT VOLUME 11.4 fl (9.4-12.4); PLATELET COUNT 175 x10^3/uL (163-337); RDW 14.4 % (12.2-16.4)
[2025-01-07] MEDS: LACTULOSE 20 GM/30 ML UDC (FOR ORAL USE ONLY) PO SCH (14:45)
[2025-01-08] MEDS: LORazepam 1 MG TABLET PO SCH (06:00)
[2025-01-08 07:44] VITALS: RESP 18
[2025-01-08 09:23] VITALS: BP 167/90; PULSE 90; TEMP 97.8
[2025-01-09] MEDS ORDERED: LORazepam 0.5 MG TABLET PO PRN
[2025-01-09] MEDS ORDERED: LORazepam 0.5 MG TABLET PO SCH (05:00)
[2025-01-10] MEDS ORDERED: LORazepam 0.5 MG TABLET PO ONE (05:00)
== END 2025-01-08 12:32 | disposition left against medical advice (07) | DRG 894 ==
LOC: YASAS 08:22 → Y6N 09:26
PROVIDERS: ADMIT Allergy & Immunology; ATTEND Allergy & Immunology
PROC: HZ2ZZZZ Detoxification Services for Substance Abuse Treatment (ICD-10-PCS; principal; 2025-01-06)
DX: F10.230 Alcohol dependence with withdrawal, uncomplicated (principal); F14.20 Cocaine dependence, uncomplicated; F17.210 Nicotine dependence, cigarettes, uncomplicated; F41.9 Anxiety disorder, unspecified; F32.A Depression, unspecified; E78.00 Pure hypercholesterolemia, unspecified; I25.10 Atherosclerotic heart disease of native coronary artery without angina pectoris; I10 Essential (primary) hypertension; Z95.5 Presence of coronary angioplasty implant and graft; M54.50 Low back pain, unspecified; G89.29 Other chronic pain
CPT/HCPCS: 36415; 80053; 80305; 80307; 82140; 85027; 86780; 93005; 93010

== ENCOUNTER 2025-02-10 13:42 | Inpatient (IN) | payer OTHER ==
[2025-02-10 13:58] VITALS: BMI 30.1
[2025-02-10] MEDS ORDERED: MAGNESIUM HYDROX 2400MG/30ML ORAL SUSPENSION 30 ML CUP PO PRN (14:33)
[2025-02-10] MEDS ORDERED: LORazepam 1 MG TABLET PO PRN (14:33)
[2025-02-10] MEDS ORDERED: LOPERAMIDE HCL 2 MG CAPSULE PO PRN (14:33)
[2025-02-10] MEDS ORDERED: guaiFENesin 600 MG TABLET.ER (FP) PO PRN (14:33)
[2025-02-10] MEDS ORDERED: MAG HYDROX/AL HYDROX/SIMETH 30 ML UNIT-DOSE CUP PO PRN (14:33)
[2025-02-10] MEDS ORDERED: BISMUTH SUBSALICYLATE 524 MG/30 ML PO PRN (14:33)
[2025-02-10] MEDS ORDERED: POLYETHYLENE GLYCOL (HEALTHYLAX) 3350 17 GM PACKET PO PRN (14:33)
[2025-02-10] MEDS ORDERED: ACETAMINOPHEN 325 MG TABLET (FP) PO PRN (14:33)
[2025-02-10] MEDS ORDERED: BENZONATATE 200 MG CAPSULE PO PRN (14:33)
[2025-02-10] MEDS ORDERED: IBUPROFEN 600 MG TABLET (FP) PO PRN (14:33)
[2025-02-10] MEDS ORDERED: IBUPROFEN 400 MG TABLET (FP) PO PRN (14:33)
[2025-02-10] MEDS ORDERED: BENZOCAINE/MENTHOL (CHLORASEPTIC ) LOZENGE MM PRN (14:33)
[2025-02-10] MEDS ORDERED: DICYCLOMINE HCL 10 MG CAPSULE PO PRN (14:33)
[2025-02-10] MEDS ORDERED: NALOXONE (NARCAN) HCL 4 MG/0.1 ML SPRAY NS PRN (14:33)
[2025-02-10] MEDS ORDERED: ONDANSETRON *ODT* 4 MG TABLET SL PRN (14:33)
[2025-02-10] MEDS ORDERED: NICOTINE 21 MG/24 HOURS TOPICAL PATCH ONE (15:12)
[2025-02-10] MEDS ORDERED: PRENATAL VITAMINS W/ FOLIC ACID TABLET (FP) PO ONE (15:12)
[2025-02-10] MEDS: PRENATAL VITAMINS W/ FOLIC ACID TABLET (FP) PO SCH (15:14)
[2025-02-10] MEDS: NICOTINE 21 MG/24 HOURS TOPICAL PATCH TD SCH (15:14)
[2025-02-10] MEDS: LORazepam 2 MG TABLET PO SCH (17:12)
[2025-02-10] MEDS: ATORVASTATIN CA 20 MG TABLET (FP) PO SCH (22:19)
[2025-02-10] MEDS: MELATONIN 5 MG TABLETS PO SCH (22:19)
[2025-02-10] MEDS: hydrOXYzine PAMOATE 25 MG CAPSULE (FP) PO PRN (22:20)
[2025-02-10] MEDS: METHOCARBAMOL 500 MG TABLET PO PRN (22:20)
[2025-02-10] MEDS: THIAMINE 100 MG TABLET PO SCH (22:20)
[2025-02-11] MEDS: ASPIRIN 81 MG CHEWABLE TABLETS PO SCH (10:16)
[2025-02-11] MEDS: amLODIPine BESYLATE 10 MG TABLET (FP) PO SCH (10:16)
[2025-02-11 10:51] LABS: HEMATOCRIT 47.8 % (40.1-51.0); HEMOGLOBIN 14.7 g/dL (13.7-17.5); MCHC 30.8 g/dl (32.3-36.5); MEAN CELL VOLUME 92.3 fl (79.0-92.2); MEAN PLT VOLUME 11.4 fl (9.4-12.4); PLATELET COUNT 185 x10^3/uL (163-337); RDW 14.9 % (12.2-16.4)
[2025-02-11 11:01] LABS: CHLORIDE 106 mmol/L (98-107); POTASSIUM 3.9 mmol/L (3.5-5.1); SODIUM 139 mmol/L (136-145)
[2025-02-11 11:04] LABS: ALBUMIN 3.3 g/dl (3.4-5.0); ANION GAP 6 mmol/L (4-13); CALCIUM 9.3 mg/dL (8.5-10.1); CO2 27 mmol/L (21-32); GLUCOSE,RANDOM 99 mg/dL (74-106)
[2025-02-11 11:05] LABS: BLOOD UREA NITROGEN 18.4 mg/dL (7-18)
[2025-02-11 11:07] LABS: CREATININE 0.7 mg/dL (0.55-1.3); SGPT/ALT 21 U/L (13-61)
[2025-02-11 11:08] LABS: SGOT/AST 28 U/L (15-37)
[2025-02-11 11:09] LABS: BILIRUBIN,TOTAL 0.4 mg/dL (0.2-1); TOT PROT 6.8 g/dl (6.4-8.2)
[2025-02-11 11:10] LABS: ALK PHOS 94 U/L (45-117)
[2025-02-11] MEDS: traZODone HCL 100 MG TABLET (FP) PO SCH (22:23)
[2025-02-12] MEDS: LORazepam 1 MG TABLET PO SCH (05:41)
[2025-02-13] MEDS ORDERED: LORazepam 0.5 MG TABLET PO PRN
[2025-02-13] MEDS: LORazepam 0.5 MG TABLET PO SCH (05:36)
[2025-02-13 20:57] VITALS: RESP 16
[2025-02-14] MEDS: LORazepam 0.5 MG TABLET PO ONE (06:12)
[2025-02-14 08:44] VITALS: BP 131/74; PULSE 95; TEMP 98.3
== END 2025-02-14 09:58 | disposition home or self-care (01) | DRG 897 ==
LOC: YASAS 13:42 → Y3N 15:13
PROVIDERS: ADMIT Allergy & Immunology; ATTEND Allergy & Immunology
PROC: HZ2ZZZZ Detoxification Services for Substance Abuse Treatment (ICD-10-PCS; principal; 2025-02-10)
DX: F10.230 Alcohol dependence with withdrawal, uncomplicated (principal); F14.20 Cocaine dependence, uncomplicated; Z59.00 Homelessness unspecified; F17.210 Nicotine dependence, cigarettes, uncomplicated; F19.24 Other psychoactive substance dependence with psychoactive substance-induced mood disorder; F41.9 Anxiety disorder, unspecified; F32.A Depression, unspecified; E78.5 Hyperlipidemia, unspecified; I25.10 Atherosclerotic heart disease of native coronary artery without angina pectoris; I10 Essential (primary) hypertension; Z95.5 Presence of coronary angioplasty implant and graft; M54.50 Low back pain, unspecified; G89.29 Other chronic pain; K21.9 Gastro-esophageal reflux disease without esophagitis; Z56.0 Unemployment, unspecified
CPT/HCPCS: 36415; 80053; 80307; 82140; 85027; 86780; 93005; 93010

== ENCOUNTER 2025-05-12 11:34 | Inpatient (IN) | payer OTHER ==
[2025-05-12 12:10] VITALS: BMI 29.2
[2025-05-12] MEDS ORDERED: IBUPROFEN 400 MG TABLET (FP) PO PRN (16:16)
[2025-05-12] MEDS ORDERED: guaiFENesin 600 MG TABLET.ER (FP) PO PRN (16:16)
[2025-05-12] MEDS ORDERED: NALOXONE (NARCAN) HCL 4 MG/0.1 ML SPRAY NS PRN (16:16)
[2025-05-12] MEDS ORDERED: BENZOCAINE/MENTHOL (CHLORASEPTIC ) LOZENGE MM PRN (16:16)
[2025-05-12] MEDS ORDERED: POLYETHYLENE GLYCOL (HEALTHYLAX) 3350 17 GM PACKET PO PRN (16:16)
[2025-05-12] MEDS ORDERED: BENZONATATE 200 MG CAPSULE PO PRN (16:16)
[2025-05-12] MEDS ORDERED: ACETAMINOPHEN 325 MG TABLET (FP) PO PRN (16:16)
[2025-05-12] MEDS ORDERED: LOPERAMIDE HCL 2 MG CAPSULE PO PRN (16:16)
[2025-05-12] MEDS ORDERED: MAGNESIUM HYDROX 2400MG/30ML ORAL SUSPENSION 30 ML CUP PO PRN (16:16)
[2025-05-12] MEDS: THIAMINE 100 MG TABLET PO SCH (22:07)
[2025-05-12] MEDS: traZODone HCL 50 MG TABLET (FP) PO SCH (22:07)
[2025-05-12] MEDS: ATORVASTATIN CA 20 MG TABLET (FP) PO SCH (22:07)
[2025-05-12] MEDS: MELATONIN 5 MG TABLETS PO SCH (22:07)
[2025-05-12] MEDS: IBUPROFEN 600 MG TABLET (FP) PO PRN (22:09)
[2025-05-13] MEDS: TRIMETHOBENZAMIDE HCL 200MG/2ML INJ IM ONE (01:14)
[2025-05-13] MEDS: MAG HYDROX/AL HYDROX/SIMETH 30 ML UNIT-DOSE CUP PO PRN (01:15)
[2025-05-13] MEDS: hydrOXYzine PAMOATE 25 MG CAPSULE (FP) PO PRN (01:15)
[2025-05-13 02:36] VITALS: BP 155/92; PULSE 98; RESP 16; TEMP 98
[2025-05-13] MEDS ORDERED: PRENATAL VITAMINS W/ FOLIC ACID TABLET (FP) PO SCH (10:00)
[2025-05-13] MEDS ORDERED: ASPIRIN 81 MG CHEWABLE TABLETS PO SCH (10:00)
[2025-05-13] MEDS ORDERED: amLODIPine BESYLATE 10 MG TABLET (FP) PO SCH (10:00)
[2025-05-13] MEDS ORDERED: NIFEdipine E.R. 30 MG TABLET PO SCH (10:00)
== END 2025-05-13 02:34 | disposition short-term general hospital (02) | DRG 897 ==
LOC: YASAS 11:34 → Y3NR 12:26
PROVIDERS: ADMIT Allergy & Immunology; ATTEND Psychiatry & Neurology Pain Medicine
PROC: HZ2ZZZZ Detoxification Services for Substance Abuse Treatment (ICD-10-PCS; principal; 2025-05-12)
DX: F10.20 Alcohol dependence, uncomplicated (principal); F14.20 Cocaine dependence, uncomplicated; F17.210 Nicotine dependence, cigarettes, uncomplicated; E87.6 Hypokalemia; E83.39 Other disorders of phosphorus metabolism; E78.5 Hyperlipidemia, unspecified; I10 Essential (primary) hypertension; R10.84 Generalized abdominal pain; R11.2 Nausea with vomiting, unspecified
CPT/HCPCS: 87811